=== PATIENT | female | born 1950 | race Caucasian/White ===

== ENCOUNTER 2016-11-25 14:38 | Emergency (ER) | payer OTHER, MEDICARE ==
[2016-11-25 14:50] VITALS: TEMP 98.1; O2SAT 96
[2016-11-25] MEDS ORDERED: NS 1,000 ML BAG *FOR SEPSIS ORDER SET ONLY IV ONE (15:04)
[2016-11-25 15:29] LABS: % IMMATURE GRANULYOCYTES 1.1 % (0.0-1.1); ABSOLUTE IMMATURE GRANULOCYTES 0.09 10^3/uL (0.00-0.10); ADD DIFF? NO; ADD MORPH? NO; ADD SCAN? NO; ATYPICAL LYMPHOCYTE FLAG 0 (0-99); FRAGMENT RBC FLAG 0 (0-99); HEMATOCRIT 40.1 % (38.0-47.0); HEMOGLOBIN 13.5 g/dL (12.6-16.3); LEFT SHIFT FLG 10 (0-99); LIPEMIA HEMOLYSIS FLAG 80 (0-99); MEAN CELL HEMOGLOBIN 29.5 pg (27.9-34.1); MEAN CELL HEMOGLOBIN CONCENTR. 33.7 g/dL (32.4-36.7); MEAN CELL VOLUME 87.6 fL (81.5-99.8); MEAN PLATELET VOLUME 8.8 fL (8.7-11.7); PLATELET CLUMPS FLAG 0 (0-99); PLATELET COUNT 375 10^3/uL (150-400); RED BLOOD CELL COUNT 4.58 10^6/uL (4.18-5.33); RED CELL DISTRIBUTION WIDTH 12.2 % (11.5-15.2)
[2016-11-25 15:40] LABS: INR 0.92 (0.83-1.16); PROTIME(PATIENT) 12.3 SEC (12.0-15.0)
[2016-11-25 15:41] LABS: APTT 22.9 SEC (23.0-38.0)
[2016-11-25 15:51] LABS: ANION GAP 14 mEq/L (8-16); BILIRUBIN,TOTAL 0.8 mg/dL (0.1-1.4); CARBON DIOXIDE 24 mEq/l (22-31); CHLORIDE 94 mEq/L (97-110); CREATININE 1.3 mg/dL (0.6-1.0); GLOMERULAR FILTRATION RATE 41; GLUCOSE 182 mg/dL (70-100); POTASSIUM 4.7 mEq/L (3.5-5.2); SODIUM 132 mEq/L (134-144)
[2016-11-25 15:54] LABS: COLOR YELLOW; LEUKOCYTE ESTERASE,URINE 3+ (NEGATIVE); NITRITE,URINE NEGATIVE (NEGATIVE)
[2016-11-25 15:55] VITALS: BP 124/76; PULSE 77; RESP 16
[2016-11-25 16:07] LABS: MUCUS TRACE /lpf (NONE-1+); WBC,URINE 50-182 /hpf (0-3)
--- NOTE | 2016-11-25 16:17 | EDPHY ---
H & P Stated Complaint: ?urosepsis Time Seen by Provider: 11/25/16 15:04 HPI/ROS: Chief complaint: Urinary tract infection History of present illness: This is a 65-year-old female who presents to the emergency department for evaluation of urinary tract infection. Patient developed symptoms over the last week. She reports pain with urination, urinary frequency, urinary hesitancy, lower abdominal pain and back pain. She has seen her primary care doctor on multiple occasions. Initially she was placed on Macrobid. However urine culture came back as resistance to Macrobid. She was switched to Bactrim. She followed-up with her primary care doctor again as she was not feeling better and was subsequently switched to ampicillin. On re-evaluation with her doctor today she appeared much worse, she had rigors and was hypotensive and was sent to the emergency department for further evaluation and care. Her , who is at bedside, states she has been losing consciousness recently. They are concerned this is due to the ampicillin she is on. She denies other associated signs or symptoms including no fevers, no vomiting or diarrhea. Review of systems: A 10 point review of systems was obtained and other than described above was negative - Personal History Current Tetanus/Diphtheria Vaccine: No Tetanus Vaccine Date: with in 10 years - Medical/Surgical History Hx Asthma: No Hx Chronic Respiratory Disease: No Hx Diabetes: Yes Hx Cardiac Disease: Yes Hx Renal Disease: No Hx Cirrhosis: No Hx Alcoholism: No Hx HIV/AIDS: No Hx Splenectomy or Spleen Trauma: No Other PMH: Chronic back pain, diabetes, anxiety, anemia, opiate withdrawal, gait instability, hyperlipidemia, hypertension, hypotension. Chronic pain - Social History Smoking Status: Never smoked - Physical Exam Exam: General Appearance: Alert, nontoxic. Eyes: Pupils equal and round no pallor or injection. ENT, Mouth: Mucous membranes moist. Respiratory: There are no retractions, lungs are clear to auscultation. Cardiovascular: Regular rate and rhythm. Gastrointestinal: Bowel sounds present. Abdomen soft, nondistended. Diffuse tenderness most pronounced in the lower quadrants. Neurological: Alert and oriented. Strength and sensation intact and symmetrical. Skin: Warm and dry, no rashes. Musculoskeletal: Neck is supple nontender. Extremities are symmetrical, full range of motion. Psychiatric: Patient is mildly agitated. Constitutional: Initial Vital Signs Temperature (C) 36.7 C 11/25/16 14:47 Heart Rate 90 11/25/16 14:47 Respiratory Rate 18 11/25/16 14:47 Blood Pressure 93/80 L 11/25/16 14:47 O2 Sat (%) 96 11/25/16 14:47 O2 Delivery Mode Room Air Allergies/Adverse Reactions: metronidazole [From Flagyl] Allergy (Verified 11/25/16 14:45) Home Medications: Medication Instructions Recorded Simvastatin [Zocor 20 mg] 20 mg PO DAILY18 11/05/12 Levothyroxine [Synthroid 100 mcg 100 mcg PO DAILY06 08/27/14 (*)] Lisinopril [Zestril 10 mg (*)] 5 mg PO DAILY 08/27/14 Herbals/Supplements -Info Only 1 ea PO DAILY 06/29/16 Methocarbamol [Robaxin 750 mg (*)] 375 - 750 mg PO QID PRN 06/29/16 traZODone [traZODONE 100MG (*)] 200 mg PO HS PRN 06/29/16 Buprenorphine [Butrans 10 mcg/hr] 10 each TD Q7D 08/24/16 Insulin Glargine [Lantus 100 10 units SC HS #0 ml 08/25/16 UNITS/ML (*)] Insulin Regular Human [Humulin R 3 unit SC TIDMEAL #0 vial 08/25/16 100 units/ml (*)] oxyCODONE IR [Oxycodone Ir (*)] 15 mg PO Q3 PRN #20 tab 08/25/16 oxyCODONE IR [Oxycodone Ir (*)] 15 mg PO Q6 PRN #10 tab 08/28/16 Cephalexin [Keflex] 500 mg PO QID 10 Days 11/25/16 New Antibiotic 11/25/16 Medical Decision Making ED Course/Re-evaluation: Patient discussed with my secondary supervising physician Dr. Adam Duncan. Patient presents to the emergency department for evaluation of worsening urinary tract infection. On presentation she is afebrile, mildly hypotensive otherwise vital signs are stable. She is unwell appearing. IV is established and IV hydration was begun. Sepsis screening was obtained and negative. It does appear she has a continued urinary tract infection. During workup and treatment in the emergency department patient contacted the nurse and stated she wanted to immediately be discharged home. I discussed with her we had not finished our evaluation and treatment. She was adamant that she be discharged home. I did ask to finish IV hydrating her, again she declined. She is requesting to switch antibiotics. She is competent to make these decisions. She is discharged home on Keflex. She is asked to follow up with her primary care doctor next week for recheck. Strict return precautions are given. Patient voiced understanding and agreement with plan. Differential Diagnosis: Included but not limited to cystitis, pyelonephritis, urosepsis, colitis, appendicitis, diverticulitis - Data Points Laboratory Results: Laboratory Results 11/25/16 15:20 11/25/16 15:20 11/25/16 11/25/16 15:30 15:20 WBC 8.20 10^3/uL (3.80-9.50) RBC 4.58 10^6/uL (4.18-5.33) Hgb 13.5 g/dL (12.6-16.3) Hct 40.1 % (38.0-47.0) MCV 87.6 fL (81.5-99.8) MCH 29.5 pg (27.9-34.1) MCHC 33.7 g/dL (32.4-36.7) RDW 12.2 % (11.5-15.2) Plt Count 375 10^3/uL (150-400) MPV 8.8 fL (8.7-11.7) Neut % (Auto) 65.9 % (39.3-74.2) Lymph % (Auto) 23.7 % (15.0-45.0) [place] % (Auto) 7.0 % (4.5-13.0) Eos % (Auto) 1.1 % (0.6-7.6) Baso % (Auto) 1.2 % (0.3-1.7) Nucleat RBC Rel Count 0.0 % (0.0-0.2) Absolute Neuts (auto) 5.41 10^3/uL (1.70-6.50) Absolute Lymphs (auto) 1.94 10^3/uL (1.00-3.00) Absolute Monos (auto) 0.57 10^3/uL (0.30-0.80) Absolute Eos (auto) 0.09 10^3/uL (0.03-0.40) Absolute Basos (auto) 0.10 10^3/uL (0.02-0.10) Absolute Nucleated RBC 0.00 10^3/uL (0-0.01) Immature Gran % 1.1 % (0.0-1.1) Immature Gran # 0.09 10^3/uL (0.00-0.10) PT 12.3 SEC (12.0-15.0) INR 0.92 (0.83-1.16) APTT 22.9 L SEC (23.0-38.0) VBG Lactic Acid 1.7 mmol/L (0.7-2.1) Sodium 132 L mEq/L (134-144) Potassium 4.7 mEq/L (3.5-5.2) Chloride 94 L mEq/L (97-110) Carbon Dioxide 24 mEq/l (22-31) Anion Gap 14 mEq/L (8-16) BUN 20 mg/dL (7-23) Creatinine 1.3 H mg/dL (0.6-1.0) Estimated GFR 41 Glucose 182 H mg/dL (70-100) Calcium 10.0 mg/dL (8.5-10.4) Total Bilirubin 0.8 mg/dL (0.1-1.4) Troponin I < 0.012 ng/mL (0-0.034) Urine Color YELLOW Urine Appearance HAZY Urine pH 6.0 (5.0-7.5) Ur Specific [place] 1.011 (1.002-1.030) Urine Protein 1+ H (NEGATIVE) Urine Ketones 1+ H (NEGATIVE) Urine Blood NEGATIVE (NEGATIVE) Urine Nitrate NEGATIVE (NEGATIVE) Urine Bilirubin NEGATIVE (NEGATIVE) Urine Urobilinogen NEGATIVE EU (0.2-1.0) Ur Leukocyte Esterase 3+ H (NEGATIVE) Urine RBC 5-10 H /hpf (0-3) Urine WBC 50-182 H /hpf (0-3) Ur Epithelial Cells NONE SEEN /lpf (NONE-1+) Hyaline Casts 5-15 /lpf (0-1) Urine Mucus TRACE /lpf (NONE-1+) Urine Glucose NEGATIVE (NEGATIVE) Medications Given: Discontinued Medications Cephalexin HCl (Keflex) 500 mg PO EDNOW ONE PRN Reason: Protocol Stop: 11/25/16 16:28 Last Admin: 11/25/16 16:34 Dose: 500 mg Sodium Chloride (Ns *For Sepsis Order Set Only*) 1,429 ml IV ONCE ONE Stop: 11/25/16 15:05 Last Admin: 11/25/16 15:20 Dose: 1,429 ml Departure - Departure Disposition: Home, Routine, Self-Care Clinical Impression: UTI (urinary tract infection) Condition: Good Instructions: Urinary Tract Infection in Women (ED) Additional Instructions: Follow-up with your primary care doctor on Monday for recheck Continue antibiotics as prescribed Please let your primary care doctor know that your creatinine was elevated at 1.3 You were offered fluid hydration, you declined Drink plenty of fluids to stay hydrated If symptoms worsen or new symptoms develop return to the emergency department for recheck Referrals: Arthur Danielle MD [Primary Care Provider] - As per Instructions Prescriptions: Cephalexin [Keflex] 500 mg PO QID 10 Days
--- NOTE | 2016-11-25 16:23 | CPEKG ---
Heart Rate: 71 RR Interval: 845 P-R Interval: 148 QRSD Interval: 68 QT Interval: 372 QTC Interval: 405 P [place]: 68 QRS [place]: 50 T Wave [place]: 51 EKG Severity - OTHERWISE NORMAL ECG - EKG Impression: SINUS RHYTHM EKG Impression: LOW VOLTAGE IN FRONTAL LEADS EKG Impression: Minimal ST elevation in inferior leads Electronically Signed By: Jun Gandhi 28-Nov-2016 07:25:50
[2016-11-25] MEDS ORDERED: CEPHALEXIN 500 MG CAP PO ONE (16:27)
== END 2016-11-25 16:39 | disposition home or self-care (01) ==
DX: N39.0 Urinary tract infection, site not specified (principal); E11.9 Type 2 diabetes mellitus without complications; I10 Essential (primary) hypertension; Z79.4 Long term (current) use of insulin

== ENCOUNTER 2017-01-30 12:22 | Emergency (ER) | payer OTHER, MEDICARE ==
[2017-01-30 12:30] VITALS: PULSE 89; TEMP 97.3
[2017-01-30] MEDS ORDERED: ONDANSETRON 4 MG/2 ML VIAL IVP ONE (13:00)
--- NOTE | 2017-01-30 13:06 | EDPHY ---
H & P Time Seen by Provider: 01/30/17 12:40 HPI/ROS: CHIEF COMPLAINT: Urinary retention HISTORY OF PRESENT ILLNESS: Patient is a 66-year-old female with a history of urinary retention, bladder prolapse, and chronic back pain. Patient states that she has intermittent episodes of urinary retention. She has not been able to urinate for the past 16 hours. She states this is typical. She recently took a muscle relaxer and thinks this may be causative. Patient has had minimal dysuria with no hematuria. No flank pain. No fevers or chills. She has no abdominal pain. No nausea or vomiting. Patient states that she is running out of her OxyContin. She states her pain physician will not refill her prescription early. REVIEW OF SYSTEMS: My complete review of systems is negative except as mentioned in the HPI. Past Medical/Surgical History: Includes chronic back pain, diabetes, anxiety, anemia, opioid dependence, gait instability, hyperlipidemia, hypertension, bladder prolapse Past surgical history: Includes back surgeries, Social history: The patient is here with her . She does not smoke use alcohol. Smoking Status: Never smoked Physical Exam: Vitals noted. 97/61. Afebrile. GENERAL: No acute distress, alert. HEENT: Eyes normal to inspection, normal pharynx, no signs of dehydration. NECK: No thyromegaly, no lymphadenopathy, supple. RESPIRATORY: Clear to auscultation bilaterally, no rales, rhonchi or wheezing. CVS: Regular rate and rhythm, no rubs, murmurs, or gallops. ABDOMEN: Soft, nontender, mild bladder distention, no organomegaly. BACK: Normal to inspection, no CVA tenderness. SKIN: Normal color, no rash, warm, dry. No pallor. EXTREMITIES: No pedal edema, no calf tenderness, no Homans sign or cords, no joint swelling. NEURO/PSYCH: Alert and oriented, normal mood and affect, normal motor sensory exam. Constitutional: Initial Vital Signs Temperature (C) 36.3 C 01/30/17 12:26 Heart Rate 89 01/30/17 12:26 Respiratory Rate 14 01/30/17 12:26 Blood Pressure 97/61 L 01/30/17 12:26 O2 Sat (%) 100 01/30/17 12:26 O2 Delivery Mode Room Air Allergies/Adverse Reactions: codeine Allergy (Verified 01/30/17 12:30) metronidazole [From Flagyl] Allergy (Verified 11/25/16 14:45) Home Medications: Medication Instructions Recorded Simvastatin [Zocor 20 mg] 20 mg PO DAILY18 11/05/12 Levothyroxine [Synthroid 100 mcg 100 mcg PO DAILY06 08/27/14 (*)] Lisinopril [Zestril 10 mg (*)] 5 mg PO DAILY 08/27/14 Herbals/Supplements -Info Only 1 ea PO DAILY 06/29/16 Methocarbamol [Robaxin 750 mg (*)] 375 - 750 mg PO QID PRN 06/29/16 traZODone [traZODONE 100MG (*)] 200 mg PO HS PRN 06/29/16 Buprenorphine [Butrans 10 mcg/hr] 10 each TD Q7D 08/24/16 Insulin Glargine [Lantus 100 10 units SC HS #0 ml 08/25/16 UNITS/ML (*)] Insulin Regular Human [Humulin R 3 unit SC TIDMEAL #0 vial 08/25/16 100 units/ml (*)] oxyCODONE IR [Oxycodone Ir (*)] 15 mg PO Q3 PRN #20 tab 08/25/16 oxyCODONE IR [Oxycodone Ir (*)] 15 mg PO Q6 PRN #10 tab 08/28/16 Cephalexin [Keflex] 500 mg PO QID 10 Days 11/25/16 New Antibiotic 11/25/16 Cephalexin [Keflex (*)] 500 mg PO QID 7 Days 01/30/17 Medical Decision Making ED Course/Re-evaluation: In the emergency department I discussed the plan with the patient. I answered all her questions. Dietrich was placed. UA was sent. I sent a chemistry panel to check her renal function. Patient discussed getting a refill OxyContin. I told her she would need to get her prescriptions refilled through her pain physician. I reviewed the patient's laboratory studies. Her creatinine was normal at 0.8. She does appear to have urinary tract infection. She was given a dose of Keflex orally. She was given a prescription of Keflex prior to leaving. She will follow up with the primary care physician as well as a pain physician. Differential Diagnosis: My differential includes but is not limited to urinary retention, brighter prolapse, urinary tract infection, pyelonephritis, bacteremia, sepsis, renal failure, chronic pain - Data Points Laboratory Results: Laboratory Results 01/30/17 13:01 01/30/17 01/30/17 13:20 13:01 Sodium 135 mEq/L mEq/L (134-144) Potassium 4.3 mEq/L mEq/L (3.5-5.2) Chloride 102 mEq/L mEq/L (97-110) Carbon Dioxide 21 mEq/l L mEq/l (22-31) Anion Gap 12 mEq/L mEq/L (8-16) BUN 12 mg/dL mg/dL (7-23) Creatinine 0.8 mg/dL mg/dL (0.6-1.0) Estimated GFR > 60 Glucose 218 mg/dL H mg/dL (70-100) Calcium 9.9 mg/dL mg/dL (8.5-10.4) Urine Color YELLOW Urine Appearance CLEAR Urine pH 6.0 (5.0-7.5) Ur Specific [place] 1.010 (1.002-1.030) Urine Protein NEGATIVE (NEGATIVE) Urine Ketones TRACE H (NEGATIVE) Urine Blood NEGATIVE (NEGATIVE) Urine Nitrate NEGATIVE (NEGATIVE) Urine Bilirubin NEGATIVE (NEGATIVE) Urine Urobilinogen NEGATIVE EU EU (0.2-1.0) Ur Leukocyte Esterase 3+ H (NEGATIVE) Urine RBC 3-5 /hpf H /hpf (0-3) Urine WBC 50-182 /hpf H /hpf (0-3) Ur Epithelial Cells TRACE /lpf /lpf (NONE-1+) Urine Bacteria TRACE /hpf H /hpf (NONE SEEN) Ur Culture Indicated? INDICATED H (NI) Urine Glucose 1+ H (NEGATIVE) Medications Given: Discontinued Medications Morphine Sulfate (Morphine) 4 mg IVP EDNOW ONE Stop: 01/30/17 13:01 Last Admin: 01/30/17 13:47 Dose: Not Given Ondansetron HCl (Zofran) 4 mg IVP EDNOW ONE Stop: 01/30/17 13:01 Last Admin: 01/30/17 13:48 Dose: Not Given Ondansetron HCl (Zofran Odt) 4 mg PO EDNOW ONE Stop: 01/30/17 13:47 Last Admin: 01/30/17 13:57 Dose: 4 mg Oxycodone HCl (Oxycodone Ir) 10 mg PO EDNOW ONE Stop: 01/30/17 13:47 Last Admin: 01/30/17 13:57 Dose: 10 mg Departure - Departure Disposition: Home, Routine, Self-Care Clinical Impression: Acute retention of urine Urinary tract infection Qualifiers: Urinary tract infection type: acute cystitis Hematuria presence: with hematuria Qualified Code(s): N30.01 - Acute cystitis with hematuria Condition: Good Instructions: Acute Urinary Retention in Women (ED) Additional Instructions: You need close follow-up with urologist or primary care physician to remove your Dietrich catheter in 2-3 days. Return with increasing pain, Dietrich malfunction , fever, chills or any other concerns. Referrals: Rich Davis MD [Medical Doctor] - 2-3 days without fail Prescriptions: Cephalexin [Keflex (*)] 500 mg PO QID 7 Days
[2017-01-30 13:39] LABS: ANION GAP 12 mEq/L (8-16); CALCIUM 9.9 mg/dL (8.5-10.4); CARBON DIOXIDE 21 mEq/l (22-31); CHLORIDE 102 mEq/L (97-110); CREATININE 0.8 mg/dL (0.6-1.0); GLOMERULAR FILTRATION RATE > 60; GLUCOSE 218 mg/dL (70-100); POTASSIUM 4.3 mEq/L (3.5-5.2); SODIUM 135 mEq/L (134-144)
[2017-01-30] MEDS ORDERED: ONDANSETRON DISINTEGRATING 4 MG TAB PO ONE (13:46)
[2017-01-30] MEDS ORDERED: oxyCODONE IR 5 MG TAB PO ONE (13:46)
[2017-01-30 13:59] VITALS: BP 134/70; RESP 16; O2SAT 98
[2017-01-30 14:00] LABS: COLOR YELLOW; LEUKOCYTE ESTERASE,URINE 3+ (NEGATIVE); NITRITE,URINE NEGATIVE (NEGATIVE)
[2017-01-30 14:03] LABS: BACTERIA TRACE /hpf (NONE SEEN); WBC,URINE 50-182 /hpf (0-3)
[2017-01-30] MEDS ORDERED: CEPHALEXIN 500 MG CAP PO ONE (14:08)
== END 2017-01-30 14:40 | disposition home or self-care (01) ==
LOC: EDUNIT#
PROC: 0T9B70Z Drainage of Bladder with Drainage Device, Via Natural or Artificial Opening (ICD-10-PCS; principal; 2017-01-30)
DX: R33.9 Retention of urine, unspecified (principal); N30.01 Acute cystitis with hematuria; B96.89 Other specified bacterial agents as the cause of diseases classified elsewhere; E11.9 Type 2 diabetes mellitus without complications; I10 Essential (primary) hypertension; Z79.4 Long term (current) use of insulin
CPT/HCPCS: J2405

== ENCOUNTER 2017-02-11 16:19 | Emergency (ER) | payer OTHER, MEDICARE ==
[2017-02-11 16:27] VITALS: RESP 16
--- NOTE | 2017-02-11 17:20 | EDPHY ---
H & P Stated Complaint: pt concerned for hematuria and decreased urinary output in thompson x 2 days Time Seen by Provider: 02/11/17 17:01 HPI/ROS: CHIEF COMPLAINT: Hematuria HISTORY OF PRESENT ILLNESS: The patient is a 66-year-old female with history of chronic pain, urethral prolapse and frequent urinary tract infections. She had a Thompson catheter placed here a week ago to treat her for urinary retention and urinary tract infection. She finished her antibiotics. She and her became concerned today when there was a slight tinge of pink to the urine. She denies having any back pain or fevers or suprapubic pain. It has continued to drain. There concern for bleeding or infection. REVIEW OF SYSTEMS: Constitutional: denies: chills, fever, recent illness, recent injury EENTM: denies: blurred vision, double vision, nose congestion Respiratory: denies: cough, shortness of breath Cardiac: denies: chest pain, irregular heart rate, lightheadedness, palpitations Gastrointestinal/Abdominal: denies: abdominal pain, diarrhea, nausea, vomiting, blood streaked stools Genitourinary: See HPI Musculoskeletal: denies: joint pain, muscle pain Skin: denies: lesions, rash, jaundice, bruising Neurological: denies: headache, numbness, paresthesia, tingling, dizziness, weakness Hematologic/Lymphatic: denies: blood clots, easy bleeding, easy bruising Immunologic/allergic: denies: HIV/AIDS, transplant EXAM: GENERAL: Well-appearing, well-nourished and in no acute distress. HEAD: Atraumatic, normocephalic. EYES: Pupils equal round and reactive to light, extraocular movements intact, sclera anicteric, conjunctiva are normal. ENT: TMs normal, nares patent, oropharynx clear without exudates. Moist mucous membranes. NECK: Normal range of motion, supple without lymphadenopathy or JVD. LUNGS: Breath sounds clear to auscultation bilaterally and equal. No wheezes rales or rhonchi. HEART: Regular rate and rhythm without murmurs, rubs or gallops. ABDOMEN: Soft, nontender, normoactive bowel sounds. No guarding, no rebound. No masses appreciated. Small amount of yellow clear urine in Thompson catheter bag BACK: No CVA tenderness, no spinal tenderness, step-offs or deformities EXTREMITIES: Normal range of motion, no pitting or edema. No clubbing or cyanosis. NEUROLOGICAL: Cranial nerves II through XII grossly intact. Normal speech, normal gait. 5/5 strength, normal movement in all extremities, normal sensation PSYCH: Normal mood, normal affect. SKIN: Warm, dry, normal turgor, no visible rashes or lesions. Source: Patient Exam Limitations: No limitations - Personal History Current Tetanus/Diphtheria Vaccine: Unsure Current Tetanus Diphtheria and Acellular Pertussis (TDAP): Unsure Tetanus Vaccine Date: with in 10 years - Medical/Surgical History Hx Asthma: No Hx Chronic Respiratory Disease: No Hx Diabetes: Yes Hx Cardiac Disease: Yes Hx Renal Disease: No Hx Cirrhosis: No Hx Alcoholism: No Hx HIV/AIDS: No Hx Splenectomy or Spleen Trauma: No Other PMH: Chronic back pain, diabetes, anxiety, anemia, opiate withdrawal, gait instability, hyperlipidemia, hypertension, hypotension, bladder prolapse. Chronic pain - Family History Significant Family History: No pertinent family hx - Social History Smoking Status: Never smoked Alcohol Use: None Drug Use: None Constitutional: Initial Vital Signs Temperature (C) 37.2 C 02/11/17 16:25 Heart Rate 105 H 02/11/17 16:25 Respiratory Rate 16 02/11/17 16:25 Blood Pressure 115/77 02/11/17 16:25 O2 Sat (%) 96 02/11/17 16:25 O2 Delivery Mode Room Air Allergies/Adverse Reactions: codeine Allergy (Verified 01/30/17 12:30) metronidazole [From Flagyl] Allergy (Verified 11/25/16 14:45) Home Medications: Medication Instructions Recorded Simvastatin [Zocor 20 mg] 20 mg PO DAILY18 11/05/12 Levothyroxine [Synthroid 100 mcg 100 mcg PO DAILY06 08/27/14 (*)] Lisinopril [Zestril 10 mg (*)] 5 mg PO DAILY 08/27/14 Herbals/Supplements -Info Only 1 ea PO DAILY 06/29/16 Methocarbamol [Robaxin 750 mg (*)] 375 - 750 mg PO QID PRN 06/29/16 traZODone [traZODONE 100MG (*)] 200 mg PO HS PRN 06/29/16 Buprenorphine [Butrans 10 mcg/hr] 10 each TD Q7D 08/24/16 Insulin Glargine [Lantus 100 10 units SC HS #0 ml 08/25/16 UNITS/ML (*)] Insulin Regular Human [Humulin R 3 unit SC TIDMEAL #0 vial 08/25/16 100 units/ml (*)] oxyCODONE IR [Oxycodone Ir (*)] 15 mg PO Q3 PRN #20 tab 08/25/16 oxyCODONE IR [Oxycodone Ir (*)] 15 mg PO Q6 PRN #10 tab 08/28/16 Cephalexin [Keflex] 500 mg PO QID 10 Days 11/25/16 New Antibiotic 11/25/16 Cephalexin [Keflex (*)] 500 mg PO QID 7 Days 01/30/17 Medical Decision Making ED Course/Re-evaluation: Will flush the Thompson catheter to remove any possible clots or bleeding. We will send the urine for cultures although the patient is not symptomatic for urinary tract infection and it is difficult to tell setting of indwelling Thompson catheter. We will defer antibiotics at this time. Patient and understand agree with this plan. They declined further workup or testing. Differential Diagnosis: Partial list of the Differential diagnosis considered include but were not limited to; urinary tract infection, the hematuria, and although unlikely based on the history and physical exam, I also considered cancer, perforation. I discussed these differential diagnoses and the plan with the patient as well as the usual and expected course. The patient understands that the diagnosis is provisional and that in medicine we are not always correct and that further workup is often warranted. Usual and customary warnings were given. All of the patient's questions were answered. The patient was instructed to return to the emergency department should the symptoms at all worsen or return, otherwise to followup with the physician as we discussed. - Data Points Laboratory Results: 02/11/17 17:15 Urine Color RED Urine Appearance TURBID Urine pH 9.0 H (5.0-7.5) Ur Specific [place] 1.018 (1.002-1.030) Urine Protein 3+ H (NEGATIVE) Urine Ketones TRACE H (NEGATIVE) Urine Blood 2+ H (NEGATIVE) Urine Nitrate NEGATIVE (NEGATIVE) Urine Bilirubin NEGATIVE (NEGATIVE) Urine Urobilinogen NEGATIVE EU EU (0.2-1.0) Ur Leukocyte Esterase 3+ H (NEGATIVE) Urine RBC 50-182 /hpf H /hpf (0-3) Urine WBC 25-50 /hpf H /hpf (0-3) Ur Epithelial Cells NONE SEEN /lpf /lpf (NONE-1+) Triple Phos Crystals PRESENT /hpf /hpf (NONE-1+) Urine Mucus TRACE /lpf /lpf (NONE-1+) Urine Glucose 1+ H (NEGATIVE) Departure - Departure Disposition: Home, Routine, Self-Care Clinical Impression: Hematuria Condition: Fair Instructions: Thompson Catheter Placement and Care (ED) Referrals: Arthur Danielle MD [Primary Care Provider] - As per Instructions
[2017-02-11 17:27] LABS: COLOR RED; LEUKOCYTE ESTERASE,URINE 3+ (NEGATIVE); NITRITE,URINE NEGATIVE (NEGATIVE)
[2017-02-11 17:33] LABS: MUCUS TRACE /lpf (NONE-1+); RBC,URINE 50-182 /hpf (0-3); WBC,URINE 25-50 /hpf (0-3)
[2017-02-11 17:57] VITALS: BP 95/66; PULSE 116; TEMP 98.1; O2SAT 97
== END 2017-02-11 17:57 | disposition home or self-care (01) ==
LOC: EEVIPCON 16:19
DX: R31.9 Hematuria, unspecified (principal); E11.9 Type 2 diabetes mellitus without complications; I10 Essential (primary) hypertension; Z79.4 Long term (current) use of insulin

== ENCOUNTER → 2017-03-14 | Outpatient (CLI) | payer OTHER, MEDICARE | LOC: FIMAGING 14:20 | PROVIDERS: ATTEND Urology | DX: N20.0 Calculus of kidney (principal); N39.0 Urinary tract infection, site not specified; K59.00 Constipation, unspecified; Z96.0 Presence of urogenital implants ==

== ENCOUNTER 2017-03-17 10:02 | Inpatient (IN) | payer OTHER, MEDICARE ==
--- NOTE | 2017-03-17 10:05 | EDPHY ---
HPI/HX/ROS/PE/MDM Narrative: CHIEF COMPLAINT: AMS HPI: The patient is a 66 y/o female, with a history of recurrent UTIs, arriving via EMS with gradually declining mental status over the last 2 days. She has several ED visits and admissions over the last year for UTI-related issues and was most recently seen in the ED on 02/11/17 for hematuria. She had a Dietrich placed at that time that has since been replaced once and is still in place. She completed a 7-day course of Augmentin about 1 week ago. Per EMS, she has been quite somnolent today and disoriented. Her , who is her primary host/hostess ground, reports her symptoms have been a slow decline and are consistent with past UTIs. Patient is noncontributory during assessment, though states when healthy she has normal mental capacity. REVIEW OF SYSTEMS: Aside from elements discussed in the HPI, a comprehensive 10-point review of systems was reviewed and is negative. PMH: Recurrent UTIs, spinal fusions C5-C6, T11, S1, diabetes, chronic pain with continuous narcotic dependency, hypothyroidism, hypertension, hyperlipidemia, depression, anxiety, cholecystectomy, Prior medical records reviewed including admission 08/24/16 for back pain and vomiting, ED visit 02/11/17 for hematuria. SOCIAL HISTORY: , lives with at private residence, is primary health care technician Urologist: Dr. Davis. PHYSICAL EXAM: General:Patient is somnolent, hypotensive BP 79/40, tachycardic HR 106 ENT:Eyes are normal to inspection. ENT inspection normal. Neck: Normal inspection. Full range of motion. Respiratory:No respiratory distress. Breath sounds normal bilaterally. Cardiovascular: Tachycardic regular rate and rhythm. Strong peripheral pulses. Normal cap refill. Abdomen:The abdomen is nontender to palpation. There are no peritoneal signs. Dietrich in place. Back: Normal to inspection. No tenderness to palpation. Skin: Normal color. No rash. Warm and dry. Decubitus Extremities: Normal appearance. Full range of motion. Neuro: Disoriented. Moves all 4 extremities ED Course: IV established. Sepsis labs drawn. UA ordered. Patient placed on cardiac rehabilitation program director. Chest x-ray ordered. 1L IV NS administered. Patient meets sepsis criteria. The 12 lead EKG was interpreted by myself. Sinus rhythm rate 95. See hard copy and/or "tracemaster" electronic copy for interpretation. 1035: Reassessed patient. She is no longer hypotensive and is awake complaining of chronic back pain. BP now 132/62. WBC 27, lactate 2.1. Weight-based IV fluid bolus ordered. 1gm IV Ceftriaxone administered. 1058: Patient is now hypotensive at 81/36. She has received about 1250mL IV fluid so far. Additional fluids hung on pressure bag. Consider central line or PICC if unable to improve BP. 1104: BP 97/46. 0.4mg IV Narcan administered. 1120: BP is now 131/47. Patient is awake and yelling at RN for muscle relaxant. 50mcg IV Fentanyl administered. 1130: Spoke with hospitalist service. Dr. Keating accepts admission. MDM: This patient presents with likely urosepsis. Complicating her case, her mental status and BP tend to wax and wane, which I believe is secondary to over- medication with narcotics, as a mild dose of narcan results in rapid improvement in both. As such, I do not think she meets criteria for septic shock, and do not think either pressors or a central line is indicated. - Data Points Imaging: I viewed and interpreted images myself Laboratory Results: Laboratory Results 03/17/17 10:17 03/17/17 10:17 03/17/17 03/17/17 03/17/17 10:25 10:17 10:17 WBC 27.01 10^3/uL H 10^3/uL (3.80-9.50) RBC 4.01 10^6/uL L 10^6/uL (4.18-5.33) Hgb 11.7 g/dL L g/dL (12.6-16.3) Hct 35.0 % L % (38.0-47.0) MCV 87.3 fL fL (81.5-99.8) MCH 29.2 pg pg (27.9-34.1) MCHC 33.4 g/dL g/dL (32.4-36.7) RDW 13.3 % % (11.5-15.2) Plt Count 399 10^3/uL 10^3/uL (150-400) MPV 9.4 fL fL (8.7-11.7) Neut % (Auto) 84.3 % H % (39.3-74.2) Lymph % (Auto) 4.0 % L % (15.0-45.0) [place] % (Auto) 10.0 % % (4.5-13.0) Eos % (Auto) 0.4 % L % (0.6-7.6) Baso % (Auto) 0.5 % % (0.3-1.7) Nucleat RBC Rel Count 0.0 % % (0.0-0.2) Absolute Neuts (auto) 22.78 10^3/uL H 10^3/uL (1.70-6.50) Absolute Lymphs (auto) 1.08 10^3/uL 10^3/uL (1.00-3.00) Absolute Monos (auto) 2.69 10^3/uL H 10^3/uL (0.30-0.80) Absolute Eos (auto) 0.11 10^3/uL 10^3/uL (0.03-0.40) Absolute Basos (auto) 0.13 10^3/uL H 10^3/uL (0.02-0.10) Absolute Nucleated RBC 0.00 10^3/uL 10^3/uL (0-0.01) Immature Gran % 0.8 % % (0.0-1.1) Immature Gran # 0.22 10^3/uL H 10^3/uL (0.00-0.10) VBG Lactic Acid Sodium 132 mEq/L L mEq/L (134-144) Potassium 4.1 mEq/L mEq/L (3.5-5.2) Chloride 98 mEq/L mEq/L (97-110) Carbon Dioxide 24 mEq/l mEq/l (22-31) Anion Gap 10 mEq/L mEq/L (8-16) BUN 14 mg/dL mg/dL (7-23) Creatinine 0.8 mg/dL mg/dL (0.6-1.0) Estimated GFR > 60 Glucose 194 mg/dL H mg/dL (70-100) Calcium 9.7 mg/dL mg/dL (8.5-10.4) Urine Color RED Urine Appearance MODERATELY TURBID Urine pH 5.0 (5.0-7.5) Ur Specific [place] 1.006 (1.002-1.030) Urine Protein 2+ H (NEGATIVE) Urine Ketones NEGATIVE (NEGATIVE) Urine Blood 3+ H (NEGATIVE) Urine Nitrate NEGATIVE (NEGATIVE) Urine Bilirubin NEGATIVE (NEGATIVE) Urine Urobilinogen NEGATIVE EU EU (0.2-1.0) Ur Leukocyte Esterase 3+ H (NEGATIVE) Urine RBC Pending Urine WBC Pending Ur Epithelial Cells Pending Urine Glucose 2+ H (NEGATIVE) 03/17/17 03/17/17 10:17 10:15 WBC RBC Hgb Hct MCV MCH MCHC RDW Plt Count MPV Neut % (Auto) Lymph % (Auto) [place] % (Auto) Eos % (Auto) Baso % (Auto) Nucleat RBC Rel Count Absolute Neuts (auto) Absolute Lymphs (auto) Absolute Monos (auto) Absolute Eos (auto) Absolute Basos (auto) Absolute Nucleated RBC Immature Gran % Immature Gran # VBG Lactic Acid 2.1 mmol/L mmol/L (0.7-2.1) Sodium Potassium Chloride Carbon Dioxide Anion Gap BUN Creatinine Estimated GFR Glucose Calcium Urine Color REJ Urine Appearance TNP Urine pH TNP Ur Specific [place] TNP Urine Protein TNP Urine Ketones TNP Urine Blood TNP Urine Nitrate TNP Urine Bilirubin TNP Urine Urobilinogen TNP Ur Leukocyte Esterase TNP Urine RBC Urine WBC Ur Epithelial Cells Urine Glucose TNP Medications Given: Discontinued Medications Ceftriaxone Sodium/Dextrose (Rocephin 1 Gm (Premix)) 50 mls @ 100 mls/hr IV EDNOW ONE PRN Reason: Protocol Stop: 03/17/17 11:08 Last Admin: 03/17/17 10:53 Dose: 50 mls Naloxone HCl (Narcan) 0.4 mg IVP EDNOW ONE Stop: 03/17/17 11:18 Last Admin: 03/17/17 11:17 Dose: 0.4 mg General Initial Vital Signs: Initial Vital Signs Blood Pressure 78/46 L 03/17/17 10:30 O2 Delivery Mode Room Air O2 (L/minute) 2 Allergies/Adverse Reactions: codeine Allergy (Verified 03/17/17 10:29) metronidazole [From Flagyl] Allergy (Verified 03/17/17 10:29) Home Medications: Medication Instructions Recorded Simvastatin [Zocor 20 mg] 20 mg PO DAILY18 11/05/12 Levothyroxine [Synthroid 100 mcg 100 mcg PO DAILY06 08/27/14 (*)] Lisinopril [Zestril 10 mg (*)] 10 mg PO DAILY 08/27/14 Herbals/Supplements -Info Only 1 ea PO DAILY 06/29/16 Insulin Glargine [Lantus 100 10 units SC HS #0 ml 08/25/16 UNITS/ML (*)] Methenamine Devan [Hiprex 1 gm (*)] 1 gm PO QID 11/25/16 Ascorbic Acid [Vitamin C 500 mg 500 mg PO DAILY 03/17/17 (*)] Baclofen [Baclofen 10 mg (*)] 10 mg PO HS 03/17/17 Glucosamine/Chondroitin 1 each PO DAILY 03/17/17 [Glucosamine/Chondroitin (*)] Insulin Lispro [humALOG LISPRO 100 1 - 5 unit SC DAILY PRN 03/17/17 units/ml (*)] Insulin Regular Human [Humulin R 2 - 3 unit SC TIDMEAL 03/17/17 100 units/ml (*)] Morphine Sulfate [Morphine Sulfate 30 mg PO BID 03/17/17 ER] Multivitamins [Multivitamin (*)] 1 each PO DAILY 03/17/17 Oxybutynin Chloride 5 mg PO BID 03/17/17 oxyCODONE IR [Oxycodone Ir (*)] 10 mg PO TID 03/17/17 traZODone [traZODONE 50MG (*)] 50 mg PO QID PRN 03/17/17 Departure - [facility] Clinical Impression: Sepsis Qualifiers: Sepsis type: sepsis due to unspecified organism Qualified Code(s): A41.9 - Sepsis, unspecified organism Altered mental status Qualifiers: Altered mental status type: somnolence Qualified Code(s): R40.0 - Somnolence Condition: Fair Report Scribed for: Jose Gaytan Report Scribed by: Kerrie Bullock Date of Report: 03/17/17 Time of Report: 10:06 Physician Review and Approval Statement: Portions of this note were transcribed by an ED scribe. I personally performed the history, physical exam, and medical decision making; and confirm the accuracy of the information in the transcribed note.
[2017-03-17] MEDS ORDERED: NS 1,000 ML IV ONE ×3 (10:10→11:49)
[2017-03-17] MEDS: NS 1,000 ML IV ONE ×2 (10:20→12:20)
[2017-03-17 10:29] LABS: % IMMATURE GRANULYOCYTES 0.8 % (0.0-1.1); ABSOLUTE IMMATURE GRANULOCYTES 0.22 10^3/uL (0.00-0.10); ADD DIFF? NO; ADD MORPH? NO; ADD SCAN? NO; ATYPICAL LYMPHOCYTE FLAG 0 (0-99); FRAGMENT RBC FLAG 0 (0-99); HEMOGLOBIN 11.7 g/dL (12.6-16.3); LEFT SHIFT FLG 10 (0-99); LIPEMIA HEMOLYSIS FLAG 80 (0-99); MEAN CELL HEMOGLOBIN 29.2 pg (27.9-34.1); MEAN CELL HEMOGLOBIN CONCENTR. 33.4 g/dL (32.4-36.7); MEAN CELL VOLUME 87.3 fL (81.5-99.8); MEAN PLATELET VOLUME 9.4 fL (8.7-11.7); PLATELET CLUMPS FLAG 0 (0-99); PLATELET COUNT 399 10^3/uL (150-400); RED BLOOD CELL COUNT 4.01 10^6/uL (4.18-5.33); RED CELL DISTRIBUTION WIDTH 13.3 % (11.5-15.2)
--- NOTE | 2017-03-17 10:31 | CPEKG ---
Heart Rate: 95 RR Interval: 632 P-R Interval: 140 QRSD Interval: 68 QT Interval: 348 QTC Interval: 438 P [place]: 75 QRS [place]: 73 T Wave [place]: 76 EKG Severity - NORMAL ECG - EKG Impression: SINUS RHYTHM Electronically Signed By: Jose Gaytan 17-Mar-2017 15:37:00
[2017-03-17 10:52] LABS: ANION GAP 10 mEq/L (8-16); CALCIUM 9.7 mg/dL (8.5-10.4); CARBON DIOXIDE 24 mEq/l (22-31); CHLORIDE 98 mEq/L (97-110); CREATININE 0.8 mg/dL (0.6-1.0); GLOMERULAR FILTRATION RATE > 60; GLUCOSE 194 mg/dL (70-100); POTASSIUM 4.1 mEq/L (3.5-5.2); SODIUM 132 mEq/L (134-144)
[2017-03-17] MEDS ORDERED: NALOXONE HCL 0.4 MG/ML INJ ONE (11:06)
[2017-03-17] MEDS ORDERED: NALOXONE HCL 0.4 MG/ML INJ IVP ONE (11:17)
[2017-03-17 11:23] LABS: COLOR RED; LEUKOCYTE ESTERASE,URINE 3+ (NEGATIVE); NITRITE,URINE NEGATIVE (NEGATIVE)
[2017-03-17 11:23] LABS: LACGHOST ORDER
[2017-03-17] MEDS ORDERED: BACLOFEN 10 MG TAB ONE (11:26)
[2017-03-17] MEDS ORDERED: fentaNYL 100 MCG/2 ML INJ ONE (11:26)
[2017-03-17] MEDS ORDERED: fentaNYL 100 MCG/2 ML INJ IVP ONE (11:32)
[2017-03-17 11:34] LABS: BACTERIA 4+ /hpf (NONE SEEN); RBC,URINE 25-50 /hpf (0-3); WBC,URINE 50-182 /hpf (0-3)
[2017-03-17] MEDS ORDERED: BACLOFEN 20 MG TAB PO ONE (11:34)
[2017-03-17] MEDS ORDERED: ONDANSETRON DISINTEGRATING 4 MG TAB PO PRN (11:46)
[2017-03-17] MEDS ORDERED: D50W 25 GM/50 ML SYR IVP PRN (14:02)
--- NOTE | 2017-03-17 14:37 | GHP ---
[f rep st] HISTORY AND PHYSICAL DATE OF ADMISSION: 03/17/2017 CHIEF COMPLAINT: Somnolence and pain. HISTORY OF PRESENT ILLNESS: A 66-year-old female with a history of diabetes and chronic back and ne ck pain on chronic narcotics, who presents with worsening of her chronic pain in addition to back pa in. , who is a care provider, noted more somnolence, and therefore presented to the emergenc y department. In the ED, the patient is denying chest pain or shortness of breath, denying headache or vision changes. Is reporting abdominal discomfort, which radiates to her back, worsening of her neck and low back pain, and pain associated with bed sores that she has developed through the cours e of the last few months. The patient denies any subjective fevers or chills. Denies any known sic k contacts, cough, rashes. Denies any diarrhea. Has intermittent dysuria. Denies any melena or he matochezia. PAST MEDICAL HISTORY: 1. Diabetes, insulin dependent. 2. Chronic neck and back pain, on continuous narcotics. 3. Hypothyroidism. 4. Hypertension. 5. Hyperlipidemia. 6. Major depression. 7. Anxiety. 8. Recurrent urinary tract infections. SOCIAL HISTORY: Negative for tobacco. Rare alcohol. No illicit drugs. Patient had attempted to u se marijuana in the past for pain relief without success. FAMILY HISTORY: Positive for diabetes. ADVANCED DIRECTIVES: The patient wishes to be do not resuscitate. Her would be her MD RUBIO. REVIEW OF SYSTEMS: A 10-point review of systems is negative, with the exception of that reported in the HPI. PHYSICAL EXAMINATION: VITAL SIGNS: Blood pressure systolic 72/44, heart rate 106, respiratory rate 20, 96% on room air. 36.8. GENERAL: This is a thin-appearing, middle-aged female in no acute dis tress. HEENT: Exam is notable for dry mucous membranes. Eye exam is negative for any icterus. CA RDIAC: Patient is tachycardic but regular. PULMONARY: Clear to auscultation bilaterally. GASTROI NTESTINAL: Positive bowel sounds. ABDOMEN: Soft and nontender. There is a Dietrich catheter in plac e. MUSCULOSKELETAL: Negative for any lower extremity edema. SKIN: Patient does have a decubitus ulcerations present on admission. No other rashes are appreciated. DATA: White count is 27,000, hematocrit 35, platelets 399, creatinine 0.8. Sodium 132. Glucose 19 4. Urinalysis shows 50-182 white blood cells, 4+ bacteria, 2+ glucose, 2+ ketones, and 3+ blood. Chest x-ray, which I personally reviewed and interpreted, shows no acute infiltrates or edema. ASSESSMENT AND PLAN: This is a 66-year-old female presenting with somnolence, confusion, and abdomi nal discomfort. 1. Sepsis. The patient is presenting with a leukocytosis of 27,000, tachycardia and hypotension. Will treat with aggressive IV fluid resuscitation, empiric intravenous antibiotics, and close monito ring on the medical surgical floor. Blood cultures and urine cultures have been sent from the emerg ency department. 2. Acute pyelonephritis. Patient presented with symptoms of chest pain. Had CT imaging performed 2 days ago, which does show the presence of nephrolithiasis. Reviewing the patient's microbiology d sophy since November 2016, she has had 3 previous urine cultures all growing Proteus mirabilis. Lookjuan sparks at her urinalysis over that similar time, she has a tendency toward basic urine, consistent with Proteus. With confirmed nephrolithiasis, I have concerns that her recurrent urinary tract infection s likely this time again will be from Proteus, and that we need to mechanically address the stones p resent to assist with her ongoing urinary tract infection. Additionally consulted the infectious [facility] doctors, as the patient will need followup post disposition. We will continue with intravenou s ceftriaxone based on sensitivities from previous cultures. This is appropriate. Will await new c ultures obtained in the emergency department. 3. Diabetes. The patient's glycemic control has been quite poor preceding her hospitalization, bas ed on reports from her . Will continue her home medications with p.r.n. insulin as needed. 4. Chronic pain with continuous narcotic dependency. We will continue patient's home regimen. She is quite somnolent on my examination. Suspect this may be from medications received in the emergen cy department. Will make her scheduled OxyIR prescription p.r.n. for now until we see improvement i n her mentation. 5. Hypotension. Patient is baseline on antihypertensive medications. Will hold these, and fluid r esuscitate as above. Suspect this is related to sepsis. 6. Hypothyroidism. Will continue her Synthroid replacement therapy. 7. Prophylaxis with Lovenox. 8. Diet regular when the patient is protecting her airway. DISPOSITION: I expect greater than 2 midnights. The patient has presented with multiple medical co morbidities and sepsis secondary to urinary source. I have discussed the case with Shailesh Camacho se. They will consult, and I will make her outpatient urologist aware of her rehospitalization. /[id number]/MODL
--- NOTE | 2017-03-17 15:22 | WOCRNPDOC ---
WOCRN Advanced Assessment Note - Skin Integrity Problem, Advanced Assess Right Sacrum Pressure Injury Dressing Type: Allevyn Life Dressing Description: Clean/Dry Exudate Amount: Minimal Exudate Color: Reddish/Yellow Exudate Characteristic(s): Serosanguinous Integumentary Issue Intervention: Dressing Changed Carlee Wound Tissue: Blanching, Erythema, Non-blanching, Denuded Carlee Wound Swelling: Mild Wound Bed Color: Black, Red, Yellow Wound Bed Constitution: Mixed Loose & Adhered Slough/Eschar Wound Edges: Well Defined Site Odor: None Site Measurement - Head-to-Toe Length X Width X Depth (cm): R sacrum distal: 1.8cmx0.9cmx eschar. R sacrum medial: 0.8cmx0.8cmx slough/eschar. R sacrum lateral: 0.8cmx0.7cmx eschar. R sacrum proximal: 0.5cmx0.3cmx slough Pressure Injury Stage: Unstageable Pressure Injury Present on Admit: Yes Skin Integrity Problem Comment: Four discrete slough and eschar-filled wounds noted on R sacrum, consistent in appearance w/ unstageable pressure injuries. Wounds are surrounded by a larger area of mixed blanching and non-blanching erythema. Carlee-wound skin is raw and denuded. Applied Therahoney gel and Telfa to these wounds to initiate autolysis of necrotic tissue, followed by an Allevyn Life foam dressing for protection. Orders for turns (side to side) q 2 and an Accu-max pump to be applied to the existing mattress. journeyman glazierZACH Torres present and assisting. Wound care will follow up with patient on Tuesday 03/20.
[2017-03-17] MEDS ORDERED: BACLOFEN 10 MG TAB PO SCH (16:00)
[2017-03-17] MEDS: METHENAMINE HIPP 1 GM TAB PO SCH ×2 (16:38→21:50)
[2017-03-17] MEDS: INSULIN LISPRO 100 UNIT/ML SC SCH (17:30)
[2017-03-17] MEDS: ATORVASTATIN CALCIUM 10 MG TAB PO SCH (17:30)
[2017-03-17 17:37] LABS: GLUCOSE 296 mg/dL (70-100)
[2017-03-17] MEDS ORDERED: NON-FORMULARY NEW DRUG (Simvastatin [Zocor 20 Mg] 20 MG) PO SCH (18:00)
--- NOTE | 2017-03-17 18:58 | GCON ---
[f rep st] CONSULTATION INFECTIOUS DISEASE CONSULTATION. REFERRING PHYSICIAN: Rebecca Keating MD REASON FOR CONSULTATION: Recurrent proteus complicated UTI's. HISTORY OF PRESENT ILLNESS: A 66-year-old woman with a history of diabetes, chronic back pain, and neck pain, with multiple surgical interventions in the past, on chronic pain medicines, who is essentially bed bound with minimal use of her upper extremities. It is not well documented, and patient is somewhat agitated at the time of my exam, but presumed due to spinal disease. The patient was brought to the emergency room for worsening somnolence today and abdominal discomfort, as well as pain associated with her bedsores. The patient endorses that she has a Dietrich in place chronically to prevent irritation as she is bed bound. Her Dietrich was last documented to be changed February 17 [facility], and patient is cared for by Dr. Rich Ng. She denies fevers and chills. Patient is somewhat agitated, requesting her caregiver to feed her dinner at the time of my exam. Based on review of hospitalist's admission, she does not have any diarrhea, sick contacts, cough, or rashes. Further, Dietrich was changed in the emergency room. PAST MEDICAL/SURGICAL HISTORY: 1. History OF insulin-dependent diabetes. 2. Hypothyroidism. 3. Chronic neck and back pain, on continuous narcotics, with a history of spinal fusion C5, C6, T11, and S1. 4. Hypertension. 5. Hyperlipidemia. 6. Depression. 7. Anxiety. 8. Recurrent UTIs. Review of microbiology shows Proteus present on cultures from 11/16/2016, 2016, 02/11/2017, and 02/17/2017. In evaluation of this, a CT scan was performed on 03/14/2017 which showed right nephrolithiasis, and a Dietrich bladder in place, also underlying constipation and bilateral fusion rods at the L5 level. SOCIAL HISTORY: No tobacco. No alcohol. No illicit's. Her is her medical power of state attorney. Patient is DNR. FAMILY HISTORY: Positive for diabetes. REVIEW OF SYSTEMS: A complete 10-point review of systems was performed and is negative except as mentioned in HPI. ALLERGIES: Codeine and metronidazole. Unclear reaction to metronidazole. MEDICATIONS: Patient received ceftriaxone 1 g in the emergency room today. She is also on Lipitor, baclofen, Lovenox, Lantus, lispro, Synthroid, methenamine, morphine, Zofran, Ditropan, and oxycodone IR 10 mg p.o. t.i.d. Review of systems: a complete 10 point review systems was attempted with pointed questions and was negative. PHYSICAL EXAMINATION: VITAL SIGNS: Blood pressure 113/58, heart rate 80, respiratory rate 14, saturation 94% on room air, temperature 36.2. Blood pressure on admission was 78/46. GENERAL: This is a chronically ill-appearing woman with pallor, who is somewhat agitated - therefore making for difficult exam HEENT: Poor dentition. No oral ulcerations or exudate. NECK: No meningismus. CARDIOVASCULAR: Regular rate. No murmurs. CHEST: Clear to auscultation bilaterally. ABDOMEN: Soft, nontender. : Dietrich was in place. NEUROLOGIC: Patient had distal wasting of her muscles of both lower and upper extremities. She seemed confused and was disoriented to location and time. LABORATORY: White count 27,000, hematocrit 35, and platelets of 399 with 84% neutrophils. Creatinine 0.8 and glucose was greater than 350. Urinalysis showed a pH of 1.006, 2+ protein, 3+ blood, 25-50 RBCs, 50-182 WBCs. Urine and blood cultures are pending. IMAGING: As above. ASSESSMENT AND PLAN: This is a 66-year-old woman with poorly-controlled diabetes, who appears to be chronically bed bound with a Dietrich in place and has had recurrent complicated urinary tract infections due to Proteus with interesting associations, including basic urine and nephrolithiasis as pointed out by hospitalists team. Patient today presents with sepsis with a likely urinary source, as patient without evidence of pneumonia or cellulitis. Recurrence of infection is likely multifactorial with nephrolithiasis as well as chronic indwelling Dietrich, Dietrich likely trumps kidney stones. RECOMMENDATIONS: 1. Agree with ceftriaxone. 2. Await culture data and adjust antibiotics as needed. 3. May have to consider removal of stones and/or chronic antibiotic therapy to prevent recurrence of infection, but await additional culture data to see if Proteus 4. Readdress need of chronic indwelling Dietrich. Thank you for this consultation. We will continue to follow on a daily basis. /[id number]/MODL MTDD
[2017-03-17 19:34] LABS: ALBUMIN 2.8 g/dL (3.5-5.0); BILIRUBIN,TOTAL 1.2 mg/dL (0.1-1.4); BILIRUBIN-CONJUGATED 0.5 mg/dL (0.0-0.5); BILIRUBIN-UNCONJUGATED 0.7 mg/dL (0.0-1.1); TOTAL PROTEIN 5.3 g/dL (6.3-8.2)
[2017-03-17] MEDS ORDERED: MORPHINE SULFATE 30 MG PO SCH (21:00)
[2017-03-17] MEDS: OXYBUTYNIN CHLORIDE 5 MG TAB PO SCH (21:50)
[2017-03-17] MEDS: oxyCODONE IR 5 MG TAB PO PRN (21:51)
[2017-03-17] MEDS: BACLOFEN 10 MG TAB PO PRN (21:51)
[2017-03-17] MEDS: morphINE SR 30 MG TAB PO SCH (21:51)
[2017-03-17] MEDS: INSULIN GLARGINE 100 UNITS/ML SYRINGE SC SCH (21:52)
[2017-03-18] MEDS: oxyCODONE IR 5 MG TAB PO PRN ×2 (01:09→17:19)
[2017-03-18 06:03] LABS: % IMMATURE GRANULYOCYTES 0.7 % (0.0-1.1); ABSOLUTE IMMATURE GRANULOCYTES 0.12 10^3/uL (0.00-0.10); ADD DIFF? NO; ADD MORPH? NO; ADD SCAN? NO; ATYPICAL LYMPHOCYTE FLAG 0 (0-99); FRAGMENT RBC FLAG 0 (0-99); HEMATOCRIT 26.7 % (38.0-47.0); HEMOGLOBIN 8.9 g/dL (12.6-16.3); LEFT SHIFT FLG 0 (0-99); LIPEMIA HEMOLYSIS FLAG 80 (0-99); MEAN CELL HEMOGLOBIN 29.5 pg (27.9-34.1); MEAN CELL HEMOGLOBIN CONCENTR. 33.3 g/dL (32.4-36.7); MEAN CELL VOLUME 88.4 fL (81.5-99.8); MEAN PLATELET VOLUME 9.2 fL (8.7-11.7); PLATELET CLUMPS FLAG 0 (0-99); PLATELET COUNT 295 10^3/uL (150-400); RED BLOOD CELL COUNT 3.02 10^6/uL (4.18-5.33); RED CELL DISTRIBUTION WIDTH 13.4 % (11.5-15.2)
[2017-03-18 06:16] LABS: POTASSIUM 3.8 mEq/L (3.5-5.2)
[2017-03-18 06:17] LABS: ANION GAP 6 mEq/L (8-16); CALCIUM 8.4 mg/dL (8.5-10.4); CARBON DIOXIDE 21 mEq/l (22-31); CHLORIDE 103 mEq/L (97-110); CREATININE 0.6 mg/dL (0.6-1.0); GLOMERULAR FILTRATION RATE > 60; GLUCOSE 161 mg/dL (70-100); SODIUM 130 mEq/L (134-144)
[2017-03-18] MEDS: LEVOTHYROXINE 100 MCG TAB PO SCH (07:14)
[2017-03-18] MEDS: METHENAMINE HIPP 1 GM TAB PO SCH ×4 (07:15→21:05)
[2017-03-18] MEDS: MULTIVITAMINS 1 EACH TAB PO SCH (08:08)
[2017-03-18] MEDS: ENOXAPARIN 40 MG/0.4 ML SYR SC SCH (08:08)
[2017-03-18] MEDS: GLUCOSAMINE/CHONDROITIN CAP PO SCH (08:08)
[2017-03-18] MEDS: OXYBUTYNIN CHLORIDE 5 MG TAB PO SCH ×2 (08:08→21:06)
[2017-03-18] MEDS: morphINE SR 30 MG TAB PO SCH (08:08)
[2017-03-18] MEDS ORDERED: Herbals/Supplements -Info Only PO SCH (09:00)
[2017-03-18] MEDS ORDERED: cefTRIAXone 1 GM in D5W 50 ML IV SCH (09:00)
[2017-03-18] MEDS: INSULIN LISPRO 100 UNIT/ML SC SCH ×3 (10:03→19:03)
[2017-03-18] MEDS: BACLOFEN 10 MG TAB PO PRN ×2 (13:09→21:05)
[2017-03-18] MEDS ORDERED: morphINE SR 30 MG TAB PO SCH (14:21)
--- NOTE | 2017-03-18 14:29 | HOSPPROG ---
Hospitalist Progress Note Assessment/Plan: # sepsis- 2/2 urinary source- patient with white count of 27 tachycardic and hypotensive of presentation- all improving - received aggressive IV fluid resuscitation- oxygen saturations 97% on room air - empiric IV antibiotics with ceftriaxone # pyelonephritis- patient with systemic symptoms at presentation- 3 previous urine cultures with Proteus CT abdomen (personally reviewed and interpreted) right-sided nephrolithiasis - continue IV ceftriaxone - infectious Disease consulted regarding recurrent Proteus infection in the setting of nephrolithiasis - follow blood cultures # diabetes mellitus- poorly controlled likely 2/2 acute infection BS 70-164 - continue home Lantus - continue sliding scale insulin # chronic pain with continuous narcotic dependency- patient is asking for narcotics around the clock- nearly obtained at presentation in the ED - decreasing scheduled long-acting dose of morphine to 15 mg twice daily - changing scheduled oxycodone to p.r.n. - encouraging the use of baclofen p.r.n. rather than narcotic - continue close nursing support and monitoring # hypertension- patient presented hypotensive - continue holding home antihypertensives # hypothyroidism- continue Synthroid # HLD- continue home meds # decubitus ulceration- present on admission- wound care # prophylaxis Lovenox # diet diabetic # disposition greater than 2 midnights the patient is presenting with sepsis and recurring pyelonephritis Discussed the case with the RN- patient remains intermittently somnolent during my exam we will decrease narcotic dosing today Subjective: Thirsty Objective: Vital Signs Temp Pulse Resp BP Pulse Ox 36.6 C 104 H 18 103/55 L 97 03/18/17 11:53 03/18/17 12:21 03/18/17 11:53 03/18/17 11:53 03/18/17 12:21 Laboratory Results 03/18/17 05:55 03/18/17 05:55 03/17/17 03/18/17 03/19/17 05:59 05:59 05:59 Intake Total 4000 Output Total 2850 1450 Balance 1150 -1450 - Physical Exam Constitutional: chronically ill appearing Eyes: anicteric sclera Ears, Nose, Mouth, Throat: dry mucous membranes Cardiovascular: regular rate and rhythym, systolic murmur Respiratory: no respiratory distress, no rales or rhonchi Gastrointestinal: normoactive bowel sounds Genitourinary: thompson in urethra Skin: warm, normal color Musculoskeletal: No asymmetric calves Neurologic: No AAOx3 Psychiatric: other (Somnolent) Lymph, Heme, Immunologic: no cervical LAD ICD10 Worksheet Patient Problems: Problems Problem Status Onset Altered mental status Acute Sepsis Acute Chronic back pain Acute Chronic pain Acute Dehydration Acute Hyponatremia Acute Pneumonia Acute Status post cervical arthrodesis Acute Vomiting Acute Weakness Acute
--- NOTE | 2017-03-18 14:30 | PCMIDPN ---
Assessment/Plan: #Sepsis presumed urinary source, wbc improved today, hypotension resolved. Still intermittent tachy. --empiric ceftriaxone based on prior cultures showing proteus # H/o multiple UTIs due to Proteus and R nephrolithiasis #Bed bound, odd / confused affect unclear baseline Meds ceftriaxone 1gm IV daily #2 Microbiology UCx 100k LF GNR blood cx (2) pending Subjective: c/o abdominal pain requesting "oxy and sugar cubes" Objective: Vital Signs Temp Pulse Resp BP Pulse Ox 36.6 C 104 H 18 103/55 L 97 03/18/17 11:53 03/18/17 12:21 03/18/17 11:53 03/18/17 11:53 03/18/17 12:21 Laboratory Results 03/18/17 05:55 03/18/17 05:55 03/17/17 03/18/17 03/19/17 05:59 05:59 05:59 Intake Total 4000 Output Total 2850 1450 Balance 1150 -1450 - Physical Exam General Appearance: alert, cachetic EENT: pale conjunctiva, poor dentition Respiratory: lungs clear, No accessory muscle use Cardiac/Chest: regular rate, rhythm Abdomen: soft, distended (slight) Pelvic Exam: thompson Neuro/Psych: alert, cognition abnormalities, other (aggitated) ICD10 Worksheet Patient Problems: Problems Problem Status Onset Altered mental status Acute Sepsis Acute Chronic back pain Acute Chronic pain Acute Dehydration Acute Hyponatremia Acute Pneumonia Acute Status post cervical arthrodesis Acute Vomiting Acute Weakness Acute
[2017-03-18] MEDS: ATORVASTATIN CALCIUM 10 MG TAB PO SCH (17:19)
[2017-03-18] MEDS: morphINE SR 15 MG TAB PO SCH (21:06)
[2017-03-18] MEDS: INSULIN GLARGINE 100 UNITS/ML SYRINGE SC SCH (21:06)
[2017-03-18] MEDS: ACETAMINOPHEN 325 MG TAB PO PRN (21:06)
[2017-03-19] MEDS: TEMAZEPAM 15 MG CAP PO PRN (02:25)
[2017-03-19] MEDS: LEVOTHYROXINE 100 MCG TAB PO SCH (06:15)
[2017-03-19] MEDS: METHENAMINE HIPP 1 GM TAB PO SCH ×4 (06:16→20:14)
[2017-03-19] MEDS: INSULIN LISPRO 100 UNIT/ML SC SCH ×3 (08:01→19:05)
[2017-03-19] MEDS: MULTIVITAMINS 1 EACH TAB PO SCH (08:58)
[2017-03-19] MEDS: GLUCOSAMINE/CHONDROITIN CAP PO SCH (08:58)
[2017-03-19] MEDS: OXYBUTYNIN CHLORIDE 5 MG TAB PO SCH ×2 (08:58→20:13)
[2017-03-19] MEDS: morphINE SR 15 MG TAB PO SCH ×2 (08:58→20:14)
[2017-03-19] MEDS: ENOXAPARIN 40 MG/0.4 ML SYR SC SCH (09:02)
[2017-03-19] MEDS: BACLOFEN 10 MG TAB PO PRN ×3 (11:13→20:14)
[2017-03-19] MEDS: oxyCODONE IR 5 MG TAB PO PRN ×2 (12:31→17:19)
--- NOTE | 2017-03-19 14:07 | HOSPPROG ---
Hospitalist Progress Note Assessment/Plan: # sepsis- 2/2 urinary source- WBC 27, tachycardic and hypotensive of presentation- resolving - received aggressive IV fluid resuscitation- oxygen saturations 98% on room air - cont ceftriaxone # pyelonephritis- patient with systemic symptoms at presentation- Ucx with jordan sensitive E.Coli - BCX NGTD h/o recurrent Proteus UTI in past x3 CT abdomen - right-sided nephrolithiasis - continue IV ceftriaxone - ID following # Acute encephalopathy - remains oriented x2 only - unclear if 2/2 to meds or acute illness CT head (personally reviewed and interpreted) no acute or old strokes - continue to minimize sedating meds - supportive care # diabetes mellitus- poorly controlled likely 2/2 acute infection BS [id number] - continue home Lantus - continue sliding scale insulin # chronic pain with continuous narcotic dependency- patient is asking for narcotics around the clock- nearly obtained at presentation in the ED - decreasing scheduled long-acting dose of morphine to 15 mg twice daily - changing scheduled oxycodone to p.r.n. - encouraging the use of baclofen p.r.n. rather than narcotic - continue close nursing support and monitoring # hypertension- patient presented hypotensive- SBP back up overnight - restart lisinopril 10mg # hypothyroidism- continue Synthroid # HLD- continue home meds # decubitus ulceration- present on admission- wound care # prophylaxis Lovenox # diet diabetic # disposition greater than 2 midnights the patient is presenting with sepsis and recurring pyelonephritis discussed the idea of SNF to patient - she does not want to go - supports if it would help with decubitus wounds and overall health status Discussed the case with the RN- continue to minimize seating meds as possible Subjective: pain everywhere Objective: Vital Signs Temp Pulse Resp BP Pulse Ox 37.1 C 92 14 132/65 H 98 03/19/17 07:33 03/19/17 07:33 03/19/17 07:33 03/19/17 07:33 03/19/17 07:33 Laboratory Results 03/18/17 05:55 03/18/17 05:55 03/18/17 03/19/17 03/20/17 05:59 05:59 05:59 Intake Total 4000 2000 Output Total 2850 3950 Balance 1150 -1950 - Physical Exam Constitutional: chronically ill appearing Eyes: anicteric sclera Ears, Nose, Mouth, Throat: dry mucous membranes Cardiovascular: regular rate and rhythym Respiratory: no respiratory distress, no rales or rhonchi Gastrointestinal: normoactive bowel sounds, soft, non-tender abdomen Genitourinary: no bladder fullness, thompson in urethra Skin: warm Musculoskeletal: No asymmetric calves Neurologic: No AAOx3 Psychiatric: encephalopathic, poor insight, poor judgement, poor memory Lymph, Heme, Immunologic: no cervical LAD ICD10 Worksheet Patient Problems: Problems Problem Status Onset Altered mental status Acute Sepsis Acute Chronic back pain Acute Chronic pain Acute Dehydration Acute Hyponatremia Acute Pneumonia Acute Status post cervical arthrodesis Acute Vomiting Acute Weakness Acute
--- NOTE | 2017-03-19 14:15 | PCMIDPN ---
Assessment/Plan: #Sepsis presumed urinary source, clinically improved. Mentation better today. --rec total 14 days antibiotics, complete course with Keflex 500mg PO TID --dc Thompson when feasible, source of infection --call ID for additional questions # H/o multiple UTIs due to Proteus and R nephrolithiasis # decubitus wounds: no examined by me today Meds ceftriaxone 1gm IV daily #3 Microbiology UCx 100k jordan-S ecoli blood cx (2) NGTD Subjective: patient c/o lack of pain control Objective: Vital Signs Temp Pulse Resp BP Pulse Ox 37.1 C 92 14 132/65 H 98 03/19/17 07:33 03/19/17 07:33 03/19/17 07:33 03/19/17 07:33 03/19/17 07:33 Laboratory Results 03/18/17 05:55 03/18/17 05:55 03/18/17 03/19/17 03/20/17 05:59 05:59 05:59 Intake Total 4000 2000 Output Total 2850 3950 Balance 1150 -1950 - Physical Exam General Appearance: alert, no apparent distress, thin EENT: pale conjunctiva Respiratory: lungs clear Cardiac/Chest: regular rate, rhythm Abdomen: non-tender, soft Pelvic Exam: thompson Skin: pallor, No rash Neuro/Psych: alert ICD10 Worksheet Patient Problems: Problems Problem Status Onset Altered mental status Acute Sepsis Acute Chronic back pain Acute Chronic pain Acute Dehydration Acute Hyponatremia Acute Pneumonia Acute Status post cervical arthrodesis Acute Vomiting Acute Weakness Acute
[2017-03-19] MEDS: LISINOPRIL 10 MG TAB PO SCH (17:17)
[2017-03-19] MEDS: ATORVASTATIN CALCIUM 10 MG TAB PO SCH (19:04)
[2017-03-19] MEDS: ACETAMINOPHEN 325 MG TAB PO PRN (19:28)
[2017-03-19] MEDS: INSULIN GLARGINE 100 UNITS/ML SYRINGE SC SCH (21:15)
[2017-03-20] MEDS: oxyCODONE IR 5 MG TAB PO PRN ×2 (00:21→15:57)
[2017-03-20] MEDS: TEMAZEPAM 15 MG CAP PO PRN ×2 (00:21→21:10)
[2017-03-20] MEDS: BACLOFEN 10 MG TAB PO PRN ×3 (04:00→21:10)
[2017-03-20 04:25] LABS: HEMATOCRIT 28.2 % (38.0-47.0); HEMOGLOBIN 9.7 g/dL (12.6-16.3); MEAN CELL HEMOGLOBIN 29.1 pg (27.9-34.1); MEAN CELL HEMOGLOBIN CONCENTR. 34.4 g/dL (32.4-36.7); MEAN CELL VOLUME 84.7 fL (81.5-99.8); RED BLOOD CELL COUNT 3.33 10^6/uL (4.18-5.33); RED CELL DISTRIBUTION WIDTH 12.8 % (11.5-15.2)
[2017-03-20 04:39] LABS: ANION GAP 6 mEq/L (8-16); CALCIUM 8.1 mg/dL (8.5-10.4); CARBON DIOXIDE 20 mEq/l (22-31); CHLORIDE 99 mEq/L (97-110); CREATININE 0.6 mg/dL (0.6-1.0); GLOMERULAR FILTRATION RATE > 60; GLUCOSE 371 mg/dL (70-100); POTASSIUM 4.5 mEq/L (3.5-5.2); SODIUM 125 mEq/L (134-144)
[2017-03-20] MEDS ORDERED: INSULIN GLARGINE 100 UNITS/ML SYRINGE SC ONE (04:45)
[2017-03-20] MEDS ORDERED: INSULIN LISPRO 100 UNIT/ML SC ONE (04:46)
[2017-03-20] MEDS: LEVOTHYROXINE 100 MCG TAB PO SCH (05:06)
[2017-03-20] MEDS: METHENAMINE HIPP 1 GM TAB PO SCH ×4 (05:06→20:10)
--- NOTE | 2017-03-20 09:45 | WOCRNPDOC ---
WOCRN Advanced Assessment Note - Skin Integrity Problem, Advanced Assess Right Sacrum Pressure Injury Dressing Type: Allevyn Life, Telfa Dressing Description: Clean/Dry, Intact Exudate Amount: Scant Exudate Color: Reddish/Yellow Exudate Characteristic(s): Serosanguinous Integumentary Issue Intervention: Dressing Changed, Conservative Sharp Bedside Debridement Carlee Wound Tissue: Blanching, Erythema Carlee Wound Swelling: Mild Wound Bed Color: Black, Red, Yellow Wound Bed Constitution: Granulation Tissue, Mixed Loose & Adhered Slough/Eschar Site Odor: None Pressure Injury Stage: Unstageable Pressure Injury Present on Admit: Yes (documented in H&P) Skin Integrity Problem Comment: Slough and eschar-filled, discrete wounds on patient's R sacrum noted. Therahoney applied on 03/17 loosened and softened the eschar, particularly in the distal wound. Using forceps, this necrotic tissue was lifted away from the wound edge and removed w/ a scalpel. There was some red , smooth tissue noted medially underneath this necrosis, though depth and extent of this wound remains indiscernible; well-adhered slough remains on wound margins. Slough in remaining 3 wounds is tenacious. Cross-hatched the eschar/slough to help facilitate absorption of the honey into the necrotic tissue, and will re-evaluate on Tuesday 03/20.
--- NOTE | 2017-03-20 12:14 | HOSPPROG ---
Hospitalist Progress Note Assessment/Plan: # Pyelonephritis- patient with systemic symptoms at presentation- Ucx with jordan sensitive E.Coli - BCX remain NGTD h/o recurrent Proteus UTI in past x 3 - CT abdomen - right-sided nephrolithiasis - continue IV ceftriaxone- can transition to levofloxacin at dc - ID signed off # sepsis- 2/2 urinary source- (WBC 27, tachycardic and hypotensive)- resolved WBC 7 today - received aggressive IV fluid resuscitation- CXR (personally reviewed and interpreted) - no infiltrates oxygen saturations 98% on room air - cont ceftriaxone # Acute encephalopathy - oriented x 2 - CT head - no acute or old strokes - continue to minimize sedating meds - supportive care # diabetes mellitus- poorly controlled likely 2/2 acute infection BS [id number]- patient refused lantus insulin last night and BS 350 this am - continue home Lantus - continue sliding scale insulin - used 10 units/24 # Severe multiple decubitus ulcerations- present on admission- wound care working very hard to remove eschars to efectively stage - this is my biggest concern regarding her return to home # chronic pain with continuous narcotic dependency- patient is asking for narcotics around the clock- nearly obtained at presentation in the ED - decreasing scheduled long-acting dose of morphine to 15 mg twice daily - changing scheduled oxycodone to p.r.n. - encouraging the use of baclofen p.r.n. rather than narcotic - continue close nursing support and monitoring # hypertension- patient presented hypotensive- - cont lisinopril 10mg # hypothyroidism- continue Synthroid # HLD- continue home meds # prophylaxis Lovenox # diet diabetic # disposition greater than 2 midnights the patient is presenting with sepsis and serious pressure wounds discussed the idea of SNF to patient - she does not want to go - supports if it would help with decubitus wounds and overall health status Discussed the case with the RN- continue to encourage up to chair and activity as pt nearly bedbound at home with no clear reason Subjective: pain with sitting up Objective: Vital Signs Temp Pulse Resp BP Pulse Ox 38.1 C 108 H 16 118/60 100 03/19/17 19:20 03/19/17 19:20 03/19/17 19:20 03/19/17 19:20 03/19/17 19:20 Laboratory Results 03/20/17 04:16 03/20/17 04:16 03/19/17 03/20/17 03/21/17 05:59 05:59 05:59 Intake Total 1999 Output Total 8739 6332 Balance -1949 -370 - Physical Exam Constitutional: chronically ill appearing Eyes: anicteric sclera Ears, Nose, Mouth, Throat: moist mucous membranes Cardiovascular: regular rate and rhythym Respiratory: no respiratory distress, no rales or rhonchi Gastrointestinal: normoactive bowel sounds, soft, non-tender abdomen Genitourinary: no bladder fullness, thompson in urethra Skin: warm, normal color Musculoskeletal: No asymmetric calves Neurologic: No AAOx3 Psychiatric: poor insight, poor judgement Lymph, Heme, Immunologic: no cervical LAD ICD10 Worksheet Patient Problems: Problems Problem Status Onset Altered mental status Acute Sepsis Acute Chronic back pain Acute Chronic pain Acute Dehydration Acute Hyponatremia Acute Pneumonia Acute Status post cervical arthrodesis Acute Vomiting Acute Weakness Acute
[2017-03-20] MEDS: INSULIN LISPRO 100 UNIT/ML SC SCH ×3 (12:32→18:22)
[2017-03-20] MEDS: ENOXAPARIN 40 MG/0.4 ML SYR SC SCH (12:33)
[2017-03-20] MEDS: GLUCOSAMINE/CHONDROITIN CAP PO SCH (12:34)
[2017-03-20] MEDS: morphINE SR 15 MG TAB PO SCH ×2 (12:34→20:10)
[2017-03-20] MEDS: LISINOPRIL 10 MG TAB PO SCH (12:34)
[2017-03-20] MEDS: MULTIVITAMINS 1 EACH TAB PO SCH (12:35)
[2017-03-20] MEDS: OXYBUTYNIN CHLORIDE 5 MG TAB PO SCH ×2 (12:35→20:10)
[2017-03-20] MEDS: ATORVASTATIN CALCIUM 10 MG TAB PO SCH (20:10)
[2017-03-20] MEDS: INSULIN GLARGINE 100 UNITS/ML SYRINGE SC SCH (20:11)
[2017-03-21] MEDS: oxyCODONE IR 5 MG TAB PO PRN ×3 (00:06→23:29)
[2017-03-21] MEDS: ONDANSETRON 4 MG/2 ML VIAL IVP PRN ×2 (03:35→20:03)
[2017-03-21] MEDS: BACLOFEN 10 MG TAB PO PRN ×3 (03:56→19:51)
[2017-03-21 05:07] LABS: ANION GAP 7 mEq/L (8-16); CALCIUM 8.1 mg/dL (8.5-10.4); CARBON DIOXIDE 24 mEq/l (22-31); CHLORIDE 95 mEq/L (97-110); CREATININE 0.6 mg/dL (0.6-1.0); GLOMERULAR FILTRATION RATE > 60; GLUCOSE 195 mg/dL (70-100); POTASSIUM 4.3 mEq/L (3.5-5.2); SODIUM 126 mEq/L (134-144)
[2017-03-21] MEDS: LEVOTHYROXINE 100 MCG TAB PO SCH (05:09)
[2017-03-21] MEDS: METHENAMINE HIPP 1 GM TAB PO SCH ×4 (05:09→22:21)
[2017-03-21] MEDS: morphINE SR 15 MG TAB PO SCH ×2 (09:36→19:52)
[2017-03-21] MEDS: LISINOPRIL 10 MG TAB PO SCH (09:36)
[2017-03-21] MEDS: GLUCOSAMINE/CHONDROITIN CAP PO SCH (09:36)
[2017-03-21] MEDS: OXYBUTYNIN CHLORIDE 5 MG TAB PO SCH ×2 (09:36→19:52)
[2017-03-21] MEDS: MULTIVITAMINS 1 EACH TAB PO SCH (09:36)
[2017-03-21] MEDS: INSULIN LISPRO 100 UNIT/ML SC SCH ×3 (09:42→18:07)
--- NOTE | 2017-03-21 10:56 | HOSPPROG ---
Hospitalist Progress Note Assessment/Plan: # sepsis d/t UTI/pyelo - resolved # UTI/pyelo d/t e. coli - cont rocephin, change to keflex 500mg TID, 14 days total - hx multiple proteus UTIs, nephrolithiasis # hypoNa - d/t SIADH - Na tabs, fluid restrict # chronic pain on continuous narcotics - was reportedly quite confused on admission - MS contin decreased to 15 BID - cont oxycontin 10 TID # DM2 - better control - cont home glargine, SSI decreased # decubitus ulcer - wound care # acute encephalopathy - better today # weakness - d/t sepsis; improving - need repeat PT eval - previously rec'd SNF but patient wants to go home # htn - cont lisino 10 # ppx - lovenox Subjective: really wants to go home; ambulated x 2 today Objective: Vital Signs Temp Pulse Resp BP Pulse Ox 37.0 C 98 18 123/81 H 98 03/21/17 07:36 03/21/17 07:36 03/21/17 07:36 03/21/17 09:36 03/21/17 07:36 Laboratory Results 03/20/17 04:16 03/21/17 04:23 03/20/17 03/21/17 03/22/17 05:59 05:59 05:59 Intake Total 919 Output Total 3700 2720 Balance -3700 -[address] head reviewed - Physical Exam Constitutional: other (laying in bed) Cardiovascular: regular rate and rhythym, no murmur, rub, or gallop Respiratory: no respiratory distress, no rales or rhonchi, clear to auscultation Gastrointestinal: normoactive bowel sounds, soft, non-tender abdomen, no palpable masses ICD10 Worksheet Patient Problems: Problems Problem Status Onset Hyponatremia Acute Status post cervical arthrodesis Acute Pneumonia Acute Altered mental status Acute Dehydration Acute Weakness Acute Chronic pain Acute Chronic back pain Acute Vomiting Acute Sepsis Acute
[2017-03-21] MEDS: SODIUM CHLORIDE 1,000 MG TAB PO SCH ×2 (11:48→17:56)
[2017-03-21] MEDS: ENOXAPARIN 40 MG/0.4 ML SYR SC SCH (11:49)
[2017-03-21] MEDS: ATORVASTATIN CALCIUM 10 MG TAB PO SCH (17:55)
[2017-03-21] MEDS: INSULIN GLARGINE 100 UNITS/ML SYRINGE SC SCH (19:53)
[2017-03-21] MEDS: TEMAZEPAM 15 MG CAP PO PRN (22:22)
[2017-03-22] MEDS: INSULIN GLARGINE 100 UNITS/ML SYRINGE SC SCH (00:21)
[2017-03-22] MEDS: oxyCODONE IR 5 MG TAB PO PRN ×2 (03:41→11:38)
[2017-03-22] MEDS: BACLOFEN 10 MG TAB PO PRN ×2 (03:41→11:29)
[2017-03-22] MEDS: ONDANSETRON 4 MG/2 ML VIAL IVP PRN ×2 (03:55→08:23)
[2017-03-22] MEDS: LEVOTHYROXINE 100 MCG TAB PO SCH (04:52)
[2017-03-22] MEDS: METHENAMINE HIPP 1 GM TAB PO SCH ×2 (04:53→11:30)
[2017-03-22 05:41] LABS: ANION GAP 10 mEq/L (8-16); CALCIUM 8.6 mg/dL (8.5-10.4); CARBON DIOXIDE 27 mEq/l (22-31); CHLORIDE 92 mEq/L (97-110); CREATININE 0.6 mg/dL (0.6-1.0); GLOMERULAR FILTRATION RATE > 60; GLUCOSE 206 mg/dL (70-100); POTASSIUM 4.3 mEq/L (3.5-5.2); SODIUM 129 mEq/L (134-144)
[2017-03-22 08:10] VITALS: BP 144/74; PULSE 94; RESP 18; TEMP 98.8; O2SAT 96
[2017-03-22] MEDS: INSULIN LISPRO 100 UNIT/ML SC SCH ×2 (08:22→11:39)
[2017-03-22] MEDS: ENOXAPARIN 40 MG/0.4 ML SYR SC SCH (08:28)
[2017-03-22] MEDS: SODIUM CHLORIDE 1,000 MG TAB PO SCH ×3 (08:29→11:33)
[2017-03-22] MEDS: LISINOPRIL 10 MG TAB PO SCH (08:29)
[2017-03-22] MEDS: morphINE SR 15 MG TAB PO SCH (08:29)
[2017-03-22] MEDS: MULTIVITAMINS 1 EACH TAB PO SCH ×2 (08:29→08:53)
[2017-03-22] MEDS: GLUCOSAMINE/CHONDROITIN CAP PO SCH ×2 (08:30→08:53)
[2017-03-22] MEDS: OXYBUTYNIN CHLORIDE 5 MG TAB PO SCH (08:30)
[2017-03-22 08:52] LABS: GLUCOSE 333 mg/dL (70-100)
--- NOTE | 2017-03-22 11:50 | WOCRNPDOC ---
WOCRN Advanced Assessment Note - Skin Integrity Problem, Advanced Assess Right Sacrum Pressure Injury Dressing Type: Allevyn Life, Telfa Dressing Description: Clean/Dry, Intact Exudate Amount: Scant Exudate Color: Yellow Exudate Characteristic(s): Serous Integumentary Issue Intervention: Visualized Under Dressing Rani Wound Tissue: Blanching, Erythema Rani Wound Swelling: Mild Wound Bed Color: Black, Red, Yellow Wound Bed Constitution: Smooth Tissue (<5%), Mixed Loose & Adhered Slough/ Eschar (95%) Wound Edges: Well Defined Site Odor: None Pressure Injury Stage: Unstageable Pressure Injury Present on Admit: Yes (Documented) Skin Integrity Problem Comment: Four discrete unstageable, slough/eschar-filled wounds on patient's R sacrum. Application of Therahoney has softened the necrotic tissue, but it remains tenacious this point. There is blanching erythema confined to the immediate rani-wound skin, w/ mild swelling. Spoke with both patient and her at length about treatment options, including sharp debridement. After some discussion, decision was made to continue with Therahoney upon discharge, and [facility]3 [facility] w/ Dr. Calderón for potential sharp debridement of these wounds. Patient exhibits some confusion about the plan of care, repeating same questions and saying "I'm going to have surgery!" Reiterated that sharp debridement would not involve surgery with general anesthesia, and could be performed with a local anesthetic. stated that he understood what this would entail. In addition, this author emphasized the importance of ongoing off-loading of this site, including turns side to side q2. Patient currently has a pressure- relieving cushion in her room, and was encouraged to take this home with her upon discharge for placement in chair at home.
--- NOTE | 2017-03-22 13:15 | PDIAF ---
- Diagnosis Diagnosis: Sepsis/UTI Code Status: Do Not Resuscitate - Medication Management Discharge Medications: Medications to Continue on Transfer Simvastatin [Zocor 20 mg] 20 mg PO DAILY18 11/05/12 [Last Taken 03/16/17] Levothyroxine [Synthroid 100 mcg (*)] 100 mcg PO DAILY06 08/27/14 [Last Taken ] Lisinopril [Zestril 10 mg (*)] 10 mg PO DAILY 08/27/14 [Last Taken 03/16/17] Herbals/Supplements -Info Only 1 ea PO DAILY 06/29/16 [Last Taken 08/24/16] Insulin Glargine [Lantus 100 UNITS/ML (*)] 10 units SC HS #0 ml 08/25/16 [Last Taken 03/17/17] Methenamine Devan [Hiprex 1 gm (*)] 1 gm PO QID 11/25/16 [Last Taken 03/16/17] Ascorbic Acid [Vitamin C 500 mg (*)] 500 mg PO DAILY 03/17/17 [Last Taken Unknown] Baclofen [Baclofen 10 mg (*)] 10 mg PO HS 03/17/17 [Last Taken 03/16/17] Glucosamine/Chondroitin [Glucosamine/Chondroitin (*)] 1 each PO DAILY 03/17/17 [ Last Taken Unknown] Insulin Lispro [humALOG LISPRO 100 units/ml (*)] 1 - 5 unit SC DAILY PRN [Last Taken Unknown] Insulin Regular Human [Humulin R 100 units/ml (*)] 2 - 3 unit SC TIDMEAL [Last Taken 03/16/17 18:00] Multivitamins [Multivitamin (*)] 1 each PO DAILY 03/17/17 [Last Taken Unknown] Oxybutynin Chloride 5 mg PO BID 03/17/17 [Last Taken 03/17/17] oxyCODONE IR [Oxycodone Ir (*)] 10 mg PO TID 03/17/17 [Last Taken 03/17/17] Cephalexin [Keflex (*)] 500 mg PO TID #27 cap 03/22/17 [Last Taken Unknown] Sodium Chloride [Salt Tablet] 1,000 mg PO TIDMEAL #60 tab 03/22/17 [Last Taken Unknown] morphINE SR [Ms Contin/Oramorph 15 mg (*)] 15 mg PO BID #60 tab 03/22/17 [Last Taken Unknown] Discharge Medications: Refer to the Discharge Home Medication list for PRN reason. - Orders Services needed: Home Care, Registered Nurse, Certified Lead Python Developer, Physical Therapy, Occupational Therapy Home Care Face to Face: I certify that this patient was under my care and that I had the required [id number] encounter meeting the encounter requirements on the discharge day. My findings support the fact that the patient is homebound as defined in CMS Chapter 7 Medicare Benefits Manual 30.1.1, The condition of the patient is such that there exists a normal inability to leave home and consequently, leaving home would require a considerable and taxing effort. Diet Recommendation: fluid restriction (use comment for amount) (2L) Karlo: Yes - Labs/Radiology BMP Date: 03/26/17 (send results to Dr Danielle) - Follow Up Care Current Providers and Referrals: Patient,NotPresent [Unknown] - As per Instructions
--- NOTE | 2017-03-22 13:50 | GDS ---
[f rep st] DISCHARGE SUMMARY DIAGNOSES: 1. Sepsis due to urinary tract infection. 2. Urinary tract infection/pyelonephritis due to Escherichia coli. 3. Hyponatremia likely due to syndrome of inappropriate antidiuretic hormone. 4. Urinary retention with Dietrich catheter in place. 5. Chronic pain on continuous narcotics. 6. Diabetes mellitus type 2, insulin dependent. 7. Decubitus ulcer. 8. Acute encephalopathy due to sepsis/urinary tract infection/narcotics. 9. Weakness. 10. Hypertension. HOSPITAL COURSE: 1. Sepsis: This is due to urinary tract infection. This resolved with treatment of the UTI and fl uids. 2. Urinary tract infection/pyelonephritis due to E coli: She has had recurrent urinary tract infec tions with persistent nephrolithiasis as well as indwelling Dietrich catheter. Escherichia coli here i s pansensitive. She has had some proteus UTIs in the past which have been intermediate to Keflex. Regardless, she will be discharged on a 14-day course of Keflex. She will need to follow up with [facility] her primary care physician, Dr. Danielle, as well as Dr. Davis for more definitive treatment. Nee d to attempt to remove her Dietrich catheter soon. She will need potentially surgical treatment of her nephrolithiasis. Would consider continuing Hiprex as well as potentially prophylactic antibiotics until she has more definitive therapy. 3. Hyponatremia: This is due to SIADH. Her urine sodium was 80. This has improved with fluid res triction and salt tabs. I will discharge her with a 2 L fluid restriction and salt tabs. I have wr itten to have her basic metabolic panel checked 4 days after discharge and sent to Dr. Danielle, who is aware of this. 4. Chronic pain on continuous narcotics: She was quite encephalopathic on her admission here. Nick e of this was due to sepsis, but some likely due to narcotics. I have decreased her MS Contin to 15 mg b.i.d. from 30 mg. She will also continue her oxycodone. 5. Diabetes mellitus type 2: Sugars have been labile while she is here. However, she has also bee n noted to eat M and M's. I will discharge her on her previous home insulin which was a sliding sca le of lispro and glargine. 6. Decubitus ulcer: She will receive wound care from her home nurse as well as follow up in the und care clinic for debridement. DISPOSITION: She will be discharged home with home care. She will follow up with her primary care physician, Dr. Davis, as well as the wound care clinic. BILLING: I spent more than 30 minutes on the day of discharge coordinating care. /[id number]/MODL
== END 2017-03-22 14:20 | disposition home health service (06) | DRG 871 ==
LOC: EDUNIT# → OBSVTOIN 11:46 → F3E 12:53
PROVIDERS: ADMIT Hospitalist; ATTEND Hospitalist
DX: A41.51 Sepsis due to Escherichia coli [E. coli] (principal); N10 Acute pyelonephritis; G93.40 Encephalopathy, unspecified; B96.20 Unspecified Escherichia coli [E. coli] as the cause of diseases classified elsewhere; E22.2 Syndrome of inappropriate secretion of antidiuretic hormone; L89.150 Pressure ulcer of sacral region, unstageable; E11.9 Type 2 diabetes mellitus without complications; G89.29 Other chronic pain; F11.20 Opioid dependence, uncomplicated; R33.9 Retention of urine, unspecified; E03.9 Hypothyroidism, unspecified; I10 Essential (primary) hypertension; F32.9 Major depressive disorder, single episode, unspecified; E78.5 Hyperlipidemia, unspecified; Z96.0 Presence of urogenital implants; Z98.1 Arthrodesis status; Z87.440 Personal history of urinary (tract) infections; Z79.4 Long term (current) use of insulin; Z74.01 Bed confinement status
CPT/HCPCS: 82947-QW; 96365; 97110-GP; 97162-GP; 97166-GO; 97530-GO; 97530-GP; 97535-GO; G8978-GP-CM; G8979-GP-CJ; G8987-GO-CL; G8988-GO-CJ; J0696; J1650; J1815; J2310; J2405; J3010

== ENCOUNTER 2017-04-11 04:01 | Emergency (ER) | payer OTHER, MEDICARE ==
[2017-04-11 04:15] VITALS: BP 107/64; PULSE 105; RESP 16; TEMP 97.3; O2SAT 98
--- NOTE | 2017-04-11 04:16 | EDPHY ---
H & P Stated Complaint: blocked thompson catheter HPI/ROS: HPI CHIEF COMPLAINT: Obstructive Thompson catheter. HISTORY OF PRESENT ILLNESS: This patient is 66-year-old female, significant past medical history for indwelling Thompson catheter, hyponatremia due to SIADH, sepsis, urinary tract infection, diabetes, generalized weakness, encephalopathy , chronic narcotic use, presents to the emergency room stating that her Thompson catheter is not draining 12 hours. She denies any fever vomiting. She tells me she has a chronic indwelling Thompson for months. She is wheelchair bound she tells me she has severe arthritis of her knees and is getting injections. She has Thompson catheter she tells me in for chronic urinary tract infections. She states that she has not seen a Thompson catheter draining 12 hours. Denies significant pain. Denies nausea vomiting chest pain or shortness of breath. Patient tells me she needs a Thompson catheter changed as it is time. Past Medical History: Chronic urinary tract infections, sepsis, hyponatremia, SIADH, diabetes, generalized weakness, arthritis, currently wheelchair-bound, chronic indwelling Thompson Past Surgical History: No recent surgery Social History: Denies daily use of drugs alcohol tobacco products. Family History: Noncontributory ROS REVIEW OF SYSTEMS: A comprehensive 10 point review of systems is otherwise negative aside from elements mentioned in the history of present illness. Exam Constitutional appears well nontoxic no triage nursing summary reviewed, vital signs reviewed, awake/alert. Eyes normal conjunctivae and sclera, EOMI, PERRLA. HENT normal inspection, atraumatic, moist mucus membranes, no epistaxis, neck supple/ no meningismus, no raccoon eyes. Respiratory clear to auscultation bilaterally, normal breath sounds, no respiratory distress, no wheezing. Cardiovascular rate normal, regular rhythm, no murmur, no edema, distal pulses normal. Gastrointestinal soft, non-tender, no rebound, no guarding, normal bowel sounds, no distension, no pulsatile mass. Genitourinary no CVA tenderness. Musculoskeletal no midline vertebral tenderness, full range of motion, no calf swelling, no tenderness of extremities, no meningismus, good pulses, neurovascularly intact. Skin pink, warm, & dry, no rash, skin atraumatic. Neurologic awake, alert and oriented x 3, AAOx3, moves all 4 extremities equally, motor intact, sensory intact, CN II-XII intact, normal cerebellar, normal vision, normal speech. Psychiatric normal mood/affect. Heme/Lymph/Immune no lymphadenopathy. Differential Diagnosis: Includes but is not limited to in a particular order, urinary retention, UTI, urinary catheter obstruction, Thompson catheter obstruction and need for change Medical Decision Making: Plan for this patient bladder scan to see if she is retaining urine with a Thompson in place, it is draining here in emergency room. Will change of Thompson catheter. Re-evaluation: 0451: Patient had a bladder scan performed. 800 cc retained urine. Thompson catheter was change. Good urine output at this time. Patient requesting discharge home. No abdominal pain no fever no vomiting. Recommend close follow- up with primary care doctor return emergency room if she has urinary catheter obstruction. Clear urine. No significant cloudiness. Source: Patient - Personal History Current Tetanus/Diphtheria Vaccine: Yes Current Tetanus Diphtheria and Acellular Pertussis (TDAP): Yes Tetanus Vaccine Date: with in 10 years - Medical/Surgical History Hx Asthma: No Hx Chronic Respiratory Disease: No Hx Diabetes: Yes Hx Cardiac Disease: Yes Hx Renal Disease: Yes Hx Cirrhosis: No Hx Alcoholism: No Hx HIV/AIDS: No Hx Splenectomy or Spleen Trauma: No Other PMH: Chronic back pain, diabetes, anxiety, anemia, opiate withdrawal, gait instability, hyperlipidemia, hypertension, hypotension, bladder prolapse. Chronic pain - Social History Smoking Status: Never smoked Constitutional: Initial Vital Signs Temperature (C) 36.3 C 04/11/17 04:04 Heart Rate 105 H 04/11/17 04:04 Respiratory Rate 16 04/11/17 04:04 Blood Pressure 107/64 04/11/17 04:04 O2 Sat (%) 98 04/11/17 04:04 O2 Delivery Mode Room Air Allergies/Adverse Reactions: codeine Allergy (Verified 04/11/17 04:04) metronidazole [From Flagyl] Allergy (Verified 04/11/17 04:04) Home Medications: Medication Instructions Recorded Simvastatin [Zocor 20 mg] 20 mg PO DAILY18 11/05/12 Levothyroxine [Synthroid 100 mcg 100 mcg PO DAILY06 08/27/14 (*)] Lisinopril [Zestril 10 mg (*)] 10 mg PO DAILY 08/27/14 Herbals/Supplements -Info Only 1 ea PO DAILY 06/29/16 Insulin Glargine [Lantus 100 10 units SC HS #0 ml 08/25/16 UNITS/ML (*)] Methenamine Devan [Hiprex 1 gm (*)] 1 gm PO QID 11/25/16 Ascorbic Acid [Vitamin C 500 mg 500 mg PO DAILY 03/17/17 (*)] Baclofen [Baclofen 10 mg (*)] 10 mg PO HS 03/17/17 Glucosamine/Chondroitin 1 each PO DAILY 03/17/17 [Glucosamine/Chondroitin (*)] Insulin Lispro [humALOG LISPRO 100 1 - 5 unit SC DAILY PRN 03/17/17 units/ml (*)] Insulin Regular Human [Humulin R 2 - 3 unit SC TIDMEAL 03/17/17 100 units/ml (*)] Multivitamins [Multivitamin (*)] 1 each PO DAILY 03/17/17 Oxybutynin Chloride 5 mg PO BID 03/17/17 oxyCODONE IR [Oxycodone Ir (*)] 10 mg PO TID 03/17/17 Cephalexin [Keflex (*)] 500 mg PO TID #27 cap 03/22/17 Sodium Chloride [Salt Tablet] 1,000 mg PO TIDMEAL #60 tab 03/22/17 morphINE SR [Ms Contin/Oramorph 15 15 mg PO BID #60 tab 03/22/17 mg (*)] Departure - Departure Disposition: Home, Routine, Self-Care Clinical Impression: Obstructed Thompson catheter Qualifiers: Encounter type: initial encounter Qualified Code(s): T83.091A - Other mechanical complication of indwelling urethral catheter, initial encounter Condition: Good Instructions: Thompson Catheter Placement and Care (ED) Additional Instructions: 1.Make sure to drink lots of fluids. 2. Return emergency room if you have any worsening symptoms questions or concerns. Referrals: Arthur Danielle MD [Primary Care Provider] - As per Instructions
== END 2017-04-11 05:02 | disposition home or self-care (01) ==
PROC: 0T9B70Z Drainage of Bladder with Drainage Device, Via Natural or Artificial Opening (ICD-10-PCS; principal; 2017-04-11)
DX: T83.098A Other mechanical complication of other urinary catheter, initial encounter (principal); E11.9 Type 2 diabetes mellitus without complications; I10 Essential (primary) hypertension; Z79.4 Long term (current) use of insulin; Y73.2 Prosthetic and other implants, materials and accessory gastroenterology and urology devices associated with adverse incidents

== ENCOUNTER 2017-04-11 16:43 | Emergency (ER) | payer OTHER, MEDICARE ==
[2017-04-11 17:05] VITALS: BP 113/88; PULSE 112; RESP 16; TEMP 98.2; O2SAT 98
--- NOTE | 2017-04-11 17:10 | EDPHY ---
H & P Stated Complaint: Cath placed in ewr last night. " clogged again" Time Seen by Provider: 04/11/17 17:09 - Personal History Current Tetanus/Diphtheria Vaccine: No Current Tetanus Diphtheria and Acellular Pertussis (TDAP): No Tetanus Vaccine Date: with in 10 years - Medical/Surgical History Hx Asthma: No Hx Chronic Respiratory Disease: No Hx Diabetes: Yes Hx Cardiac Disease: Yes Hx Renal Disease: Yes Hx Cirrhosis: No Hx Alcoholism: No Hx HIV/AIDS: No Hx Splenectomy or Spleen Trauma: No Other PMH: Chronic back pain, diabetes, anxiety, anemia, opiate withdrawal, gait instability, hyperlipidemia, hypertension, hypotension, bladder prolapse. Chronic pain - Social History Smoking Status: Never smoked Constitutional: Initial Vital Signs Temperature (C) 36.8 C 04/11/17 17:03 Heart Rate 112 H 04/11/17 17:03 Respiratory Rate 16 04/11/17 17:03 Blood Pressure 113/88 H 04/11/17 17:03 O2 Sat (%) 98 04/11/17 17:03 O2 Delivery Mode Room Air Allergies/Adverse Reactions: codeine Allergy (Verified 04/11/17 04:04) metronidazole [From Flagyl] Allergy (Verified 04/11/17 04:04) Home Medications: Medication Instructions Recorded Simvastatin [Zocor 20 mg] 20 mg PO DAILY18 11/05/12 Levothyroxine [Synthroid 100 mcg 100 mcg PO DAILY06 08/27/14 (*)] Lisinopril [Zestril 10 mg (*)] 10 mg PO DAILY 08/27/14 Herbals/Supplements -Info Only 1 ea PO DAILY 06/29/16 Insulin Glargine [Lantus 100 10 units SC HS #0 ml 08/25/16 UNITS/ML (*)] Methenamine Devan [Hiprex 1 gm (*)] 1 gm PO QID 11/25/16 Ascorbic Acid [Vitamin C 500 mg 500 mg PO DAILY 03/17/17 (*)] Baclofen [Baclofen 10 mg (*)] 10 mg PO HS 03/17/17 Glucosamine/Chondroitin 1 each PO DAILY 03/17/17 [Glucosamine/Chondroitin (*)] Insulin Lispro [humALOG LISPRO 100 1 - 5 unit SC DAILY PRN 03/17/17 units/ml (*)] Insulin Regular Human [Humulin R 2 - 3 unit SC TIDMEAL 03/17/17 100 units/ml (*)] Multivitamins [Multivitamin (*)] 1 each PO DAILY 03/17/17 Oxybutynin Chloride 5 mg PO BID 03/17/17 oxyCODONE IR [Oxycodone Ir (*)] 10 mg PO TID 03/17/17 Cephalexin [Keflex (*)] 500 mg PO TID #27 cap 03/22/17 Sodium Chloride [Salt Tablet] 1,000 mg PO TIDMEAL #60 tab 03/22/17 morphINE SR [Ms Contin/Oramorph 15 15 mg PO BID #60 tab 03/22/17 mg (*)] Medical Decision Making ED Course/Re-evaluation: CHIEF COMPLAINT: Catheter problem HISTORY OF PRESENT ILLNESS: The patient is a 66 y/o female arriving in her wheelchair complaining of a problem with her newly placed Dietrich catheter. She had a new catheter placed this morning, but accidentally ran over the bag with her wheelchair around 11:00 today. She replaced the bag, but states she hasn't had any urine output for the last 5 hours since this incident. She is concerned the catheter is clogged. She denies pain or any other complaints. REVIEW OF SYSTEMS: A 10 point review of systems was performed and is negative with the exception of the elements mentioned in the history of present illness. PHYSICAL EXAM: HR, BP, O2 Sat, RR. Temp noted General Appearance: Alert, dehydrated, thin, elderly, appropriate, and non- toxic appearing, sitting up in wheelchair. Head: Atraumatic without scalp tenderness or obvious injury Eyes: Pupils equal, round, reactive to light and accommodation, EOMI, no trauma , no injection. Nose: Atraumatic, no rhinorrhea, clear. Throat: Mucus membranes dry. Neck: Supple, nontender, no lymphadenopathy. Respiratory: No retractions, no distress, no wheezes, and no accessory muscle use. Lungs are clear to auscultation bilaterally. Cardiovascular: Regular rate and rhythm, no murmurs, rubs, or gallops. Good capillary refill all extremities. Gastrointestinal: Abdomen is soft, nontender, non-distended, no masses, no rebound, no guarding, no peritoneal signs. Musculoskeletal: Normal active ROM of all extremities, atraumatic. Neurological: Alert, appropriate, and interactive. Nonfocal neuro exam Skin: No rashes, good turgor, no nodules on palpation. Past medical history: Chronic pain, hypertension, diabetes, gait instability, anxiety Past surgical history: Denies Family history: noncontributory Social history: at bedside. Patient uses wheelchair for mobility assistance. DIFFERENTIAL DIAGNOSIS: The differential diagnosis for the patient's complaint included but was not limited to dehydration resulting in decreased urinary output, catheter malfunction, other urinary causes. MEDICAL DECISION MAKING: This is a 66 y/o female who presents for evaluation of her Dietrich catheter. No acute findings on exam. A bladder scan reveals 0cc remaining urine. The RN has flushed the Dietrich and it appears to be working appropriately. Patient is likely dehydrated leading to decreased urinary output. She will be discharged home in good condition with standard Dietrich care instructions. Departure - Departure Disposition: Home, Routine, Self-Care Clinical Impression: Dehydration Condition: Good Instructions: Dietrich Catheter Placement and Care (ED) Additional Instructions: Increase fluid intake. Follow up with your primary care provider for any unimproved symptoms. Return to the ED for any worsening of condition. Referrals: Arthur Danielle MD [Primary Care Provider] - As per Instructions Report Scribed for: Adam Duncan Report Scribed by: Kerrie Bullock Date of Report: 04/11/17 Time of Report: 17:27
== END 2017-04-11 18:18 | disposition home or self-care (01) ==
DX: E86.0 Dehydration (principal); E11.9 Type 2 diabetes mellitus without complications; I10 Essential (primary) hypertension; Z79.4 Long term (current) use of insulin; Y82.8 Other medical devices associated with adverse incidents

== ENCOUNTER 2017-04-17 04:22 | Emergency (ER) | payer OTHER, MEDICARE ==
[2017-04-17 04:28] VITALS: TEMP 97.7
--- NOTE | 2017-04-17 05:26 | EDPHY ---
H & P Stated Complaint: urinary catheter clogged x12 hours Time Seen by Provider: 04/17/17 05:23 HPI/ROS: HPI The patient presents with clogged Dietrich catheter for the last 12 hours with no urine output. She has the catheter in place for chronic UTIs and it was recently clogged and she was seen in the emergency room for this. She noticed some sediment in the tube. She is having some suprapubic tenderness.. REVIEW OF SYSTEMS Constitutional: No fever, no chills. Eyes: No discharge. ENT: No sore throat. Cardiovascular: No chest pain, no palpitations. Respiratory: No cough, no shortness of breath. Gastrointestinal: No abdominal pain, no vomiting. Genitourinary: No hematuria. Musculoskeletal: No back pain. Skin: No rashes. Neurological: No headache. PMHx: Chronic indwelling Dietrich catheter Soc Hx: Lives at home PHYSICAL General Appearance: Alert, no distress Eyes: Pupils equal and round no pallor or injection ENT, Mouth: Mucous membranes moist Respiratory: Breathing comfortably Gastrointestinal: Abdomen is soft and slightly distended Neurological: A&O Skin: Warm and dry, no rashes Psychiatric: Patient is oriented X 3, there is no agitation Source: Patient Exam Limitations: No limitations - Personal History Current Tetanus/Diphtheria Vaccine: Yes Tetanus Vaccine Date: with in 10 years - Medical/Surgical History Hx Asthma: No Hx Chronic Respiratory Disease: No Hx Diabetes: Yes Hx Cardiac Disease: Yes Hx Renal Disease: Yes Hx Cirrhosis: No Hx Alcoholism: No Hx HIV/AIDS: No Hx Splenectomy or Spleen Trauma: No Other PMH: Chronic back pain, diabetes, anxiety, anemia, opiate withdrawal, gait instability, hyperlipidemia, hypertension, hypotension, bladder prolapse. Chronic pain - Social History Smoking Status: Never smoked Constitutional: Initial Vital Signs Temperature (C) 36.5 C 04/17/17 04:26 Heart Rate 118 H 04/17/17 04:26 Respiratory Rate 20 04/17/17 04:26 Blood Pressure 118/67 04/17/17 04:26 O2 Sat (%) 95 04/17/17 04:26 O2 Delivery Mode Room Air Allergies/Adverse Reactions: codeine Allergy (Verified 04/17/17 17:03) metronidazole [From Flagyl] Allergy (Verified 04/17/17 17:03) Home Medications: Medication Instructions Recorded Simvastatin [Zocor 20 mg] 20 mg PO DAILY18 11/05/12 Levothyroxine [Synthroid 100 mcg 100 mcg PO DAILY06 08/27/14 (*)] Lisinopril [Zestril 10 mg (*)] 10 mg PO DAILY 08/27/14 Herbals/Supplements -Info Only 1 ea PO DAILY 06/29/16 Insulin Glargine [Lantus 100 10 units SC HS #0 ml 08/25/16 UNITS/ML (*)] Methenamine Devan [Hiprex 1 gm (*)] 1 gm PO QID 11/25/16 Ascorbic Acid [Vitamin C 500 mg 500 mg PO DAILY 03/17/17 (*)] Baclofen [Baclofen 10 mg (*)] 10 mg PO HS 03/17/17 Glucosamine/Chondroitin 1 each PO DAILY 03/17/17 [Glucosamine/Chondroitin (*)] Insulin Lispro [humALOG LISPRO 100 1 - 5 unit SC DAILY PRN 03/17/17 units/ml (*)] Insulin Regular Human [Humulin R 2 - 3 unit SC TIDMEAL 03/17/17 100 units/ml (*)] Multivitamins [Multivitamin (*)] 1 each PO DAILY 03/17/17 Oxybutynin Chloride 5 mg PO BID 03/17/17 oxyCODONE IR [Oxycodone Ir (*)] 10 mg PO TID 03/17/17 Sodium Chloride [Salt Tablet] 1,000 mg PO TIDMEAL #60 tab 03/22/17 morphINE SR [Ms Contin/Oramorph 15 15 mg PO BID #60 tab 03/22/17 mg (*)] Phenazopyridine HCl [Pyridium] 200 mg PO TID #6 tab 04/17/17 Trimethoprim 04/17/17 Medical Decision Making Differential Diagnosis: This is a 66-year-old female with Dietrich malfunction. She has had no urine out of the catheter for the last 12 hours. Differential diagnosis includes catheter tip migration, clogged catheter with senna minute, hemorrhage. In the emergency room, the nurse was able to milk the proximal portion of the catheter. Then urine began to flow out, total of 1200 mL was drained. The patient was counseled on catheter management. She was discharged from the emergency room. Departure - Departure Disposition: Home, Routine, Self-Care Clinical Impression: Dietrich catheter problem Condition: Good Instructions: Dietrich Catheter Placement and Care (ED) Referrals: Arthur Danielle MD [Primary Care Provider] - As per Instructions
[2017-04-17 05:39] VITALS: BP 141/69; PULSE 82; RESP 14; O2SAT 99
== END 2017-04-17 05:40 | disposition home or self-care (01) ==
LOC: EEVIPCON 04:22
DX: T83.098A Other mechanical complication of other urinary catheter, initial encounter (principal); E11.9 Type 2 diabetes mellitus without complications; I10 Essential (primary) hypertension; Z79.4 Long term (current) use of insulin; Y73.2 Prosthetic and other implants, materials and accessory gastroenterology and urology devices associated with adverse incidents

== ENCOUNTER 2017-04-17 17:00 | Emergency (ER) | payer OTHER, MEDICARE ==
[2017-04-17 17:07] VITALS: RESP 20; O2SAT 98
--- NOTE | 2017-04-17 17:26 | EDPHY ---
H & P Stated Complaint: dx uti and retention recurrent/catheter placed 1 week ago/ having pain Time Seen by Provider: 04/17/17 17:09 HPI/ROS: CHIEF COMPLAINT: Bladder pain HISTORY OF PRESENT ILLNESS: The patient is a 66-year-old female with a history of diabetes, severe chronic neck and back pain on continuous high dose narcotics , hypothyroidism, depression anxiety and recurrent urinary tract infections. She states that she has had a Dietrich catheter in place for last several weeks because of frequent urine infections. The most recent 1 was placed 1 week ago and it has hurt ever since was placed. She is concerned that it is missed place because it is painful. She has not had any hematuria. She had a UA done yesterday that was not unremarkable. She called the urology office today and the nurse recommended she come to the ER to have her Dietrich replaced. She has not had a fever. No vomiting. Her urine has not been cloudy. REVIEW OF SYSTEMS: Constitutional: denies: chills, fever, recent illness, recent injury EENTM: denies: blurred vision, double vision, nose congestion Respiratory: denies: cough, shortness of breath Cardiac: denies: chest pain, irregular heart rate, lightheadedness, palpitations Gastrointestinal/Abdominal: denies: abdominal pain, diarrhea, nausea, vomiting, blood streaked stools Genitourinary: See HPI Musculoskeletal: denies: joint pain, muscle pain Skin: denies: lesions, rash, jaundice, bruising Neurological: denies: headache, numbness, paresthesia, tingling, dizziness, weakness Hematologic/Lymphatic: denies: blood clots, easy bleeding, easy bruising Immunologic/allergic: denies: HIV/AIDS, transplant EXAM: GENERAL: Well-appearing, well-nourished and in no acute distress. HEAD: Atraumatic, normocephalic. EYES: Pupils equal round and reactive to light, extraocular movements intact, sclera anicteric, conjunctiva are normal. ENT: TMs normal, nares patent, oropharynx clear without exudates. Moist mucous membranes. NECK: Normal range of motion, supple without lymphadenopathy or JVD. LUNGS: Breath sounds clear to auscultation bilaterally and equal. No wheezes rales or rhonchi. HEART: Regular rate and rhythm without murmurs, rubs or gallops. ABDOMEN: Soft, nontender, normoactive bowel sounds. No guarding, no rebound. No masses appreciated. BACK: No CVA tenderness, no spinal tenderness, step-offs or deformities EXTREMITIES: Normal range of motion, no pitting or edema. No clubbing or cyanosis. NEUROLOGICAL: Cranial nerves II through XII grossly intact. Normal speech, normal gait. 5/5 strength, normal movement in all extremities, normal sensation PSYCH: Normal mood, normal affect. SKIN: Warm, dry, normal turgor, no visible rashes or lesions. Source: Patient Exam Limitations: No limitations - Personal History Current Tetanus/Diphtheria Vaccine: Yes Tetanus Vaccine Date: with in 10 years - Medical/Surgical History Hx Asthma: No Hx Chronic Respiratory Disease: No Hx Diabetes: Yes Hx Cardiac Disease: No Hx Renal Disease: No Hx Cirrhosis: No Hx Alcoholism: No Hx HIV/AIDS: No Hx Splenectomy or Spleen Trauma: No Other PMH: Chronic back pain, diabetes, anxiety, anemia, opiate withdrawal, gait instability, hyperlipidemia, hypertension, hypotension, bladder prolapse. Chronic pain - Family History Significant Family History: No pertinent family hx - Social History Smoking Status: Never smoked Alcohol Use: Sober Drug Use: None Constitutional: Initial Vital Signs Temperature (C) 36.6 C 04/17/17 17:04 Heart Rate 104 H 04/17/17 17:04 Respiratory Rate 20 04/17/17 17:04 Blood Pressure 130/82 H 04/17/17 17:04 O2 Sat (%) 98 04/17/17 17:04 O2 Delivery Mode Room Air Allergies/Adverse Reactions: codeine Allergy (Verified 04/17/17 17:03) metronidazole [From Flagyl] Allergy (Verified 04/17/17 17:03) Home Medications: Medication Instructions Recorded Simvastatin [Zocor 20 mg] 20 mg PO DAILY18 11/05/12 Levothyroxine [Synthroid 100 mcg 100 mcg PO DAILY06 08/27/14 (*)] Lisinopril [Zestril 10 mg (*)] 10 mg PO DAILY 08/27/14 Herbals/Supplements -Info Only 1 ea PO DAILY 06/29/16 Insulin Glargine [Lantus 100 10 units SC HS #0 ml 08/25/16 UNITS/ML (*)] Methenamine Devan [Hiprex 1 gm (*)] 1 gm PO QID 11/25/16 Ascorbic Acid [Vitamin C 500 mg 500 mg PO DAILY 03/17/17 (*)] Baclofen [Baclofen 10 mg (*)] 10 mg PO HS 03/17/17 Glucosamine/Chondroitin 1 each PO DAILY 03/17/17 [Glucosamine/Chondroitin (*)] Insulin Lispro [humALOG LISPRO 100 1 - 5 unit SC DAILY PRN 03/17/17 units/ml (*)] Insulin Regular Human [Humulin R 2 - 3 unit SC TIDMEAL 03/17/17 100 units/ml (*)] Multivitamins [Multivitamin (*)] 1 each PO DAILY 03/17/17 Oxybutynin Chloride 5 mg PO BID 03/17/17 oxyCODONE IR [Oxycodone Ir (*)] 10 mg PO TID 03/17/17 Sodium Chloride [Salt Tablet] 1,000 mg PO TIDMEAL #60 tab 03/22/17 morphINE SR [Ms Contin/Oramorph 15 15 mg PO BID #60 tab 03/22/17 mg (*)] Phenazopyridine HCl [Pyridium] 200 mg PO TID #6 tab 04/17/17 Trimethoprim 04/17/17 Medical Decision Making Procedures: Bedside ultrasound performed. Dietrich catheter in place. No sign of bleeding. Bladder decompressed. ED Course/Re-evaluation: I am hesitant to remove and replace the patient's Dietrich catheter without a compelling reason. She has bladder prolapse and history of urinary frequent tract infections. She does not have any symptoms today consistent with her previous urinary tract infections. She simply wants the Dietrich catheter replaced because she thinks it is responsible for her chronic bladder pain. I will discussed the case with Dr. William. 5:30 p.m. I spoke with Dr. Dvais over the phone. He is very angry because the patient keeps calling him every week to have her catheter replaced despite nothing wrong with it. He is asking that we start her on Pyridium and he will follow up with the office. I will also send her urine for cultures. He does not suggest replacing catheter this time Differential Diagnosis: Partial list of the Differential diagnosis considered include but were not limited to; the catheter displacement, obstruction , urinary tract infection and although unlikely based on the history and physical exam, I also considered rupture, ischemia. I discussed these differential diagnoses and the plan with the patient as well as the usual and expected course. The patient understands that the diagnosis is provisional and that in medicine we are not always correct and that further workup is often warranted. Usual and customary warnings were given. All of the patient's questions were answered. The patient was instructed to return to the emergency department should the symptoms at all worsen or return, otherwise to followup with the physician as we discussed. - Data Points Laboratory Results: 04/17/17 17:45 Urine Color PALE YELLOW Urine Appearance HAZY Urine pH 6.0 (5.0-7.5) Ur Specific [place] 1.010 (1.002-1.030) Urine Protein NEGATIVE (NEGATIVE) Urine Ketones NEGATIVE (NEGATIVE) Urine Blood 1+ H (NEGATIVE) Urine Nitrate NEGATIVE (NEGATIVE) Urine Bilirubin NEGATIVE (NEGATIVE) Urine Urobilinogen NEGATIVE EU EU (0.2-1.0) Ur Leukocyte Esterase 3+ H (NEGATIVE) Urine RBC Pending Urine WBC Pending Ur Epithelial Cells Pending Urine Glucose 1+ H (NEGATIVE) Medications Given: Discontinued Medications Phenazopyridine HCl (Pyridium) 200 mg PO EDNOW ONE Stop: 04/17/17 17:39 Last Admin: 04/17/17 17:50 Dose: 200 mg Departure - Departure Disposition: Home, Routine, Self-Care Clinical Impression: Dietrich catheter in place Condition: Fair Instructions: Dietrich Catheter Placement and Care (ED) Referrals: Arthur Danielle MD [Primary Care Provider] - As per Instructions Rich Davis MD [Medical Doctor] - As per Instructions Prescriptions: Phenazopyridine HCl [Pyridium] 200 mg PO TID #6 tab
[2017-04-17] MEDS ORDERED: PHENAZOPYRIDINE HCL 200 MG TAB PO ONE (17:38)
[2017-04-17 17:52] VITALS: BP 129/53; PULSE 76; TEMP 97.5
[2017-04-17 17:56] LABS: COLOR PALE YELLOW; LEUKOCYTE ESTERASE,URINE 3+ (NEGATIVE); NITRITE,URINE NEGATIVE (NEGATIVE)
[2017-04-17 18:17] LABS: RBC,URINE 50-182 /hpf (0-3); WBC,URINE 25-50 /hpf (0-3); YEAST PRESENT /hpf (NONE SEEN)
== END 2017-04-17 17:58 | disposition home or self-care (01) ==
DX: T83.098A Other mechanical complication of other urinary catheter, initial encounter (principal); E11.9 Type 2 diabetes mellitus without complications; I10 Essential (primary) hypertension; Z79.4 Long term (current) use of insulin; Y82.8 Other medical devices associated with adverse incidents

== ENCOUNTER 2017-04-18 23:14 | Emergency (ER) | payer OTHER, MEDICARE ==
[2017-04-18 23:25] VITALS: PULSE 105; RESP 18; TEMP 98.6; O2SAT 96
--- NOTE | 2017-04-19 00:45 | EDPHY ---
H & P Stated Complaint: pt c/o clogged thompson cath, 3 x in last 2 days for same Time Seen by Provider: 04/19/17 00:04 HPI/ROS: HPI The patient presents with urinary retention. She has a Thompson catheter in place for the last several weeks for urinary tract infection. She feels her bladder was distended, she is peeing around the catheter. She is being followed by Dr. gee of Urology and Infectious Disease. She has been in the ER on several occasions for similar complaint, last was yesterday. I saw her 2 days ago for the same and we were able to milk the catheter to allow flow of urine. She has been on Pyridium. Urine culture was sent from yesterday's visit growing out Enterococcus, sensitivities have not returned. She has an appointment tomorrow with urology. She does not have any pain, fevers or chills. REVIEW OF SYSTEMS Constitutional: No fever, no chills. Eyes: No discharge. ENT: No sore throat. Cardiovascular: No chest pain, no palpitations. Respiratory: No cough, no shortness of breath. Gastrointestinal: No abdominal pain, no vomiting. Genitourinary: No hematuria. Musculoskeletal: No back pain. Skin: No rashes. Neurological: No headache. PMHx: Chronic back pain, bladder prolapse Soc Hx: Lives at home with her PHYSICAL General Appearance: Alert, no distress Eyes: Pupils equal and round no pallor or injection ENT, Mouth: Mucous membranes moist Respiratory: Breathing comfortably Gastrointestinal: Abdomen is soft with bladder distension Neurological: A&O, moves all extremities Skin: Warm and dry, no rashes Musculoskeletal: Neck is supple non tender Extremities: symmetrical Psychiatric: [ Patient is oriented X 3, there is no agitation Source: Patient, Old records Exam Limitations: No limitations - Personal History Tetanus Vaccine Date: with in 10 years - Medical/Surgical History Hx Asthma: No Hx Chronic Respiratory Disease: No Hx Diabetes: Yes Hx Cardiac Disease: Yes Hx Renal Disease: No Hx Cirrhosis: No Hx Alcoholism: No Hx HIV/AIDS: No Hx Splenectomy or Spleen Trauma: No Other PMH: Chronic back pain, diabetes, anxiety, anemia, opiate withdrawal, gait instability, hyperlipidemia, hypotension, bladder prolapse. Chronic pain - Social History Smoking Status: Never smoked Constitutional: Initial Vital Signs Temperature (C) 37 C 07/04/17 23:21 Heart Rate 105 H 04/18/17 23:21 Respiratory Rate 18 04/18/17 23:21 Blood Pressure 97/59 L 04/18/17 23:21 O2 Sat (%) 96 04/18/17 23:21 O2 Delivery Mode Room Air Allergies/Adverse Reactions: codeine Allergy (Verified 04/18/17 23:25) metronidazole [From Flagyl] Allergy (Verified 04/18/17 23:25) Home Medications: Medication Instructions Recorded Simvastatin [Zocor 20 mg] 20 mg PO DAILY18 11/05/12 Levothyroxine [Synthroid 100 mcg 100 mcg PO DAILY06 08/27/14 (*)] Lisinopril [Zestril 10 mg (*)] 10 mg PO DAILY 08/27/14 Herbals/Supplements -Info Only 1 ea PO DAILY 06/29/16 Insulin Glargine [Lantus 100 10 units SC HS #0 ml 08/25/16 UNITS/ML (*)] Methenamine Devan [Hiprex 1 gm (*)] 1 gm PO QID 11/25/16 Ascorbic Acid [Vitamin C 500 mg 500 mg PO DAILY 03/17/17 (*)] Baclofen [Baclofen 10 mg (*)] 10 mg PO HS 03/17/17 Glucosamine/Chondroitin 1 each PO DAILY 03/17/17 [Glucosamine/Chondroitin (*)] Insulin Lispro [humALOG LISPRO 100 1 - 5 unit SC DAILY PRN 03/17/17 units/ml (*)] Insulin Regular Human [Humulin R 2 - 3 unit SC TIDMEAL 03/17/17 100 units/ml (*)] Multivitamins [Multivitamin (*)] 1 each PO DAILY 03/17/17 Oxybutynin Chloride 5 mg PO BID 03/17/17 oxyCODONE IR [Oxycodone Ir (*)] 10 mg PO TID 03/17/17 Sodium Chloride [Salt Tablet] 1,000 mg PO TIDMEAL #60 tab 03/22/17 morphINE SR [Ms Contin/Oramorph 15 15 mg PO BID #60 tab 03/22/17 mg (*)] Phenazopyridine HCl [Pyridium] 200 mg PO TID #6 tab 04/17/17 Trimethoprim 04/17/17 Medical Decision Making Procedures: Bedside limited abdominal Ultrasound- performed and interpreted by me. Indication: Urinary retention Findings: Largely distended bladder, visible sediment in the bladder, Thompson catheter balloon within bladder Impression: Bladder distension Differential Diagnosis: This is a 66-year-old female with indwelling Thompson catheter who presents with decreased urine output with concerns for urinary retention and malfunction of the catheter. She has been in the ER frequently for this. Her Thompson catheter is draining orange-colored urine with fair amount of sediment. Ultrasound performed by me shows largely distended bladder with catheter in normal position. It appears her catheter is clogged. Patient's catheter was removed and new catheter was placed, she had a large amount of urine out. She will be discharged home. I will not start her on antibiotics as she will be evaluated by Urology tomorrow and they can decide whether or not she should be started. Departure - Departure Disposition: Home, Routine, Self-Care Clinical Impression: Urinary retention Thompson catheter problem Qualifiers: Encounter type: initial encounter Qualified Code(s): T83.9XXA - Unspecified complication of genitourinary prosthetic device, implant and graft, initial encounter Condition: Good Instructions: Thompson Catheter Placement and Care (ED) Additional Instructions: Please follow-up with Dr. Davis tomorrow. Referrals: Arthur Danielle MD [Primary Care Provider] - As per Instructions Rich Davis MD [Medical Doctor] - As per Instructions
[2017-04-19 01:16] VITALS: BP 99/57
== END 2017-04-19 01:17 | disposition home or self-care (01) ==
PROC: 0T9B70Z Drainage of Bladder with Drainage Device, Via Natural or Artificial Opening (ICD-10-PCS; principal; 2017-04-18)
DX: R33.9 Retention of urine, unspecified (principal); T83.518A Infection and inflammatory reaction due to other urinary catheter, initial encounter; E11.9 Type 2 diabetes mellitus without complications; Z79.4 Long term (current) use of insulin; Y82.8 Other medical devices associated with adverse incidents

== ENCOUNTER 2017-06-03 22:19 | Emergency (ER) | payer OTHER, MEDICARE ==
[2017-06-03 22:38] VITALS: RESP 16
--- NOTE | 2017-06-03 22:57 | EDPHY ---
H & P Stated Complaint: Catheter clogged for 4 hours. HPI/ROS: HPI CHIEF COMPLAINT: Dietrich catheter obstruction HISTORY OF PRESENT ILLNESS: This patient very pleasant 66-year-old female well known to myself as well as the ER, she presents emergency room with obstruction or Dietrich catheter over the past 4 hours. Patient reports that she thinks Dietrich catheter is obstructed. Past Medical History: Significant past medical history for UTI, sepsis, hyponatremia, SIADH, diabetes, chronic indwelling Dietrich catheter with multiple obstructions. Past Surgical History: No recent surgery Social History: Denies daily use drugs alcohol tobacco products. Family History: Noncontributory. ROS REVIEW OF SYSTEMS: A comprehensive 10 point review of systems is otherwise negative aside from elements mentioned in the history of present illness. Exam Constitutional appears well nontoxic, triage nursing summary reviewed, vital signs reviewed, awake/alert. Eyes normal conjunctivae and sclera, EOMI, PERRLA. HENT normal inspection, atraumatic, moist mucus membranes, no epistaxis, neck supple/ no meningismus, no raccoon eyes. Respiratory clear to auscultation bilaterally, normal breath sounds, no respiratory distress, no wheezing. Cardiovascular rate normal, regular rhythm, no murmur, no edema, distal pulses normal. Gastrointestinal soft, non-tender, no rebound, no guarding, normal bowel sounds, no distension, no pulsatile mass. Genitourinary no CVA tenderness. Musculoskeletal no midline vertebral tenderness, full range of motion, no calf swelling, no tenderness of extremities, no meningismus, good pulses, neurovascularly intact. Skin pink, warm, & dry, no rash, skin atraumatic. Neurologic awake, alert and oriented x 3, AAOx3, moves all 4 extremities equally, motor intact, sensory intact, CN II-XII intact, normal cerebellar, normal vision, normal speech. Psychiatric normal mood/affect. Heme/Lymph/Immune no lymphadenopathy. Differential Diagnosis: Includes but is not limited to in a particular order, Dietrich catheter obstruction, urinary retention, urinary obstruction, urinary tract infection Medical Decision Making: Plan for this patient flush Dietrich catheter, bladder scan, if catheter drains after irrigation will allow her to go home however if unable to get catheter work may need to place a new 1. Re-evaluation: Bladder scan performed. 550 mL is of urinary in bladder. Dietrich catheter flushed. Appropriate drainage of urine. Source: Patient - Personal History Current Tetanus/Diphtheria Vaccine: Unsure Current Tetanus Diphtheria and Acellular Pertussis (TDAP): Unsure Tetanus Vaccine Date: with in 10 years - Medical/Surgical History Hx Asthma: No Hx Chronic Respiratory Disease: No Hx Diabetes: Yes Hx Cardiac Disease: Yes Hx Renal Disease: No Hx Cirrhosis: No Hx Alcoholism: No Hx HIV/AIDS: No Hx Splenectomy or Spleen Trauma: No Other PMH: Chronic back pain, IDDM, anxiety, anemia, opiate withdrawal, gait instability, hyperlipidemia, hypotension, bladder prolapse. Chronic pain. - Social History Smoking Status: Never smoked Constitutional: Initial Vital Signs Temperature (C) 37 C 06/03/17 22:35 Heart Rate 96 06/03/17 22:35 Respiratory Rate 16 06/03/17 22:35 Blood Pressure 137/77 H 06/03/17 22:35 O2 Sat (%) 96 06/03/17 22:35 O2 Delivery Mode Room Air Allergies/Adverse Reactions: codeine Allergy (Severe, Verified 06/03/17 22:39) Loss of consciousness metronidazole [From Flagyl] Allergy (Intermediate, Verified 06/03/17 22:39) Other-Enter Comments quetiapine [From Seroquel] Allergy (Intermediate, Verified 06/03/17 22:40) Other-Enter Comments Home Medications: Medication Instructions Recorded Simvastatin [Zocor 20 mg] 20 mg PO DAILY18 11/05/12 Levothyroxine [Synthroid 100 mcg 100 mcg PO DAILY06 08/27/14 (*)] Lisinopril [Zestril 10 mg (*)] 10 mg PO DAILY 08/27/14 Herbals/Supplements -Info Only 1 ea PO DAILY 06/29/16 Insulin Glargine [Lantus 100 10 units SC HS #0 ml 08/25/16 UNITS/ML (*)] Methenamine Devan [Hiprex 1 gm (*)] 1 gm PO QID 11/25/16 Ascorbic Acid [Vitamin C 500 mg 500 mg PO DAILY 03/17/17 (*)] Baclofen [Baclofen 10 mg (*)] 10 mg PO HS 03/17/17 Glucosamine/Chondroitin 1 each PO DAILY 03/17/17 [Glucosamine/Chondroitin (*)] Insulin Lispro [humALOG LISPRO 100 1 - 5 unit SC DAILY PRN 03/17/17 units/ml (*)] Insulin Regular Human [Humulin R 2 - 3 unit SC TIDMEAL 03/17/17 100 units/ml (*)] Multivitamins [Multivitamin (*)] 1 each PO DAILY 03/17/17 Oxybutynin Chloride 5 mg PO BID 03/17/17 oxyCODONE IR [Oxycodone Ir (*)] 10 mg PO TID 03/17/17 Sodium Chloride [Salt Tablet] 1,000 mg PO TIDMEAL #60 tab 03/22/17 morphINE SR [Ms Contin/Oramorph 15 15 mg PO BID #60 tab 03/22/17 mg (*)] Phenazopyridine HCl [Pyridium] 200 mg PO TID #6 tab 04/17/17 Trimethoprim 04/17/17 Ativan 06/03/17 Departure - Departure Disposition: Home, Routine, Self-Care Clinical Impression: Obstructed Dietrich catheter Qualifiers: Encounter type: initial encounter Qualified Code(s): T83.091A - Other mechanical complication of indwelling urethral catheter, initial encounter Condition: Good Instructions: Dietrich Catheter Placement and Care (ED) Additional Instructions: 1. Return emergency room if you have worsening symptoms questions or concerns. Referrals: Arthur Danielle MD [Primary Care Provider] - As per Instructions
[2017-06-04 00:13] VITALS: BP 132/71; PULSE 78; TEMP 98.1; O2SAT 97
== END 2017-06-04 00:12 | disposition home or self-care (01) ==
DX: T83.091A Other mechanical complication of indwelling urethral catheter, initial encounter (principal); E11.9 Type 2 diabetes mellitus without complications; Z79.4 Long term (current) use of insulin; Y73.2 Prosthetic and other implants, materials and accessory gastroenterology and urology devices associated with adverse incidents

== ENCOUNTER 2017-06-04 11:51 | Emergency (ER) | payer OTHER, MEDICARE ==
--- NOTE | 2017-06-04 13:16 | EDPHY ---
H & P Stated Complaint: Here last pm for same c/o;wants new thompson Time Seen by Provider: 06/04/17 12:30 HPI/ROS: CHIEF COMPLAINT: catheter obstruction HISTORY OF PRESENT ILLNESS: 66-year-old female presents emergency department reporting a Thompson catheter obstruction for the past 4 hours. Patient reports her catheter was clogged 3 days ago, she had it flushed, it was clogged again it yesterday, she came to the emergency department and had it flushed, she reports it is clogged again today. Patient denies other complaints. REVIEW OF SYSTEMS: A comprehensive 10 point review of systems is otherwise negative aside from elements mentioned in the history of present illness. Source: Patient Exam Limitations: No limitations - Personal History Current Tetanus Diphtheria and Acellular Pertussis (TDAP): Yes Tetanus Vaccine Date: with in 10 years - Medical/Surgical History Hx Asthma: No Hx Chronic Respiratory Disease: No Hx Diabetes: Yes Hx Cardiac Disease: Yes Hx Renal Disease: No Hx Cirrhosis: No Hx Alcoholism: No Hx HIV/AIDS: No Hx Splenectomy or Spleen Trauma: No Other PMH: Chronic back pain, IDDM, anxiety, anemia, opiate withdrawal, gait instability, hyperlipidemia, hypotension, bladder prolapse. Chronic pain. - Social History Smoking Status: Never smoked - Physical Exam Exam: Physical Exam Gen: Alert and Oriented, NAD HEENT: PERRL, moist mucous membranes NECK: no meningismus CV: regular rate and regular rhythm PULM: CTAB, no wheezes ABDOMEN: soft, non tender to palpation, BS present BACK: No CVA tenderness NEURO: Neurologically grossly intact EXTREMITIES: normal appearing SKIN: no rash or break in skin on exposed skin PSYCH: answers questions appropriately. Constitutional: Initial Vital Signs Temperature (C) 36.9 C 06/04/17 11:59 Heart Rate 86 06/04/17 11:59 Respiratory Rate 18 06/04/17 11:59 Blood Pressure 98/56 L 06/04/17 11:59 O2 Sat (%) 96 06/04/17 11:59 O2 Delivery Mode Room Air Allergies/Adverse Reactions: codeine Allergy (Severe, Verified 06/04/17 11:52) Loss of consciousness metronidazole [From Flagyl] Allergy (Intermediate, Verified 06/04/17 11:52) Other-Enter Comments quetiapine [From Seroquel] Allergy (Intermediate, Verified 06/04/17 11:52) Other-Enter Comments Home Medications: Medication Instructions Recorded Simvastatin [Zocor 20 mg] 20 mg PO DAILY18 11/05/12 Levothyroxine [Synthroid 100 mcg 100 mcg PO DAILY06 08/27/14 (*)] Lisinopril [Zestril 10 mg (*)] 10 mg PO DAILY 08/27/14 Herbals/Supplements -Info Only 1 ea PO DAILY 06/29/16 Insulin Glargine [Lantus 100 10 units SC HS #0 ml 08/25/16 UNITS/ML (*)] Methenamine Devan [Hiprex 1 gm (*)] 1 gm PO QID 11/25/16 Ascorbic Acid [Vitamin C 500 mg 500 mg PO DAILY 03/17/17 (*)] Baclofen [Baclofen 10 mg (*)] 10 mg PO HS 03/17/17 Glucosamine/Chondroitin 1 each PO DAILY 03/17/17 [Glucosamine/Chondroitin (*)] Insulin Lispro [humALOG LISPRO 100 1 - 5 unit SC DAILY PRN 03/17/17 units/ml (*)] Insulin Regular Human [Humulin R 2 - 3 unit SC TIDMEAL 03/17/17 100 units/ml (*)] Multivitamins [Multivitamin (*)] 1 each PO DAILY 03/17/17 Oxybutynin Chloride 5 mg PO BID 03/17/17 oxyCODONE IR [Oxycodone Ir (*)] 10 mg PO TID 03/17/17 Sodium Chloride [Salt Tablet] 1,000 mg PO TIDMEAL #60 tab 03/22/17 morphINE SR [Ms Contin/Oramorph 15 15 mg PO BID #60 tab 03/22/17 mg (*)] Phenazopyridine HCl [Pyridium] 200 mg PO TID #6 tab 04/17/17 Trimethoprim 04/17/17 Ativan 06/03/17 Medical Decision Making ED Course/Re-evaluation: On my arrival into the room the patients catheter is draining. She reports it has clogged three times this week and she is requesting a new one be placed. Pt usually has them replaced about once monthly, this one was placed 2 weeks ago. Catheter is replaced without difficulty. She is discharged home with return precautions. Departure - Departure Disposition: Home, Routine, Self-Care Clinical Impression: Obstructed Thompson catheter Qualifiers: Encounter type: initial encounter Qualified Code(s): T83.091A - Other mechanical complication of indwelling urethral catheter, initial encounter Condition: Good Instructions: Thompson Catheter Placement and Care (ED) Additional Instructions: Follow-up with your primary care doctor as scheduled. Return to the emergency department for any new symptoms or concerns. Referrals: Arthur Danielle MD [Primary Care Provider] - As per Instructions
[2017-06-04 14:06] VITALS: BP 134/77; PULSE 82; RESP 20; TEMP 98.2; O2SAT 98
== END 2017-06-04 14:06 | disposition home or self-care (01) ==
PROC: 0T9B70Z Drainage of Bladder with Drainage Device, Via Natural or Artificial Opening (ICD-10-PCS; principal; 2017-06-04)
DX: T83.091A Other mechanical complication of indwelling urethral catheter, initial encounter (principal); E11.9 Type 2 diabetes mellitus without complications; Z79.4 Long term (current) use of insulin; Y82.8 Other medical devices associated with adverse incidents

== ENCOUNTER 2017-08-06 07:24 | Inpatient (IN) | payer OTHER, MEDICARE ==
[2017-08-06] MEDS ORDERED: NS 1,000 ML IV ONE ×2 (07:26→07:27)
--- NOTE | 2017-08-06 07:29 | EDPHY ---
H & P HPI/ROS: HPI CHIEF COMPLAINT: Altered mental status, tachycardia, septic HISTORY OF PRESENT ILLNESS: Patient very pleasant 66-year-old female well known to myself as well as the emergency room, extensive medical history including hypertension, hyperlipidemia, UTI with sepsis, chronic indwelling Dietrich catheter, hyponatremia and diabetes she presents emergency room from private residence home with concerns of sepsis. For the past few days she has been in bed having increasing confusion. Noted by EMS to be tachycardic but not hypotensive. With worsening confusion. called 911. Additionally EMS reports low O2 set at home 80%. Placed on a non-rebreather EN route. Past Medical History: Significant medical history for UTI with sepsis, encephalopathy, hypertension, hyperlipidemia, hyponatremia, diabetes, recurrent UTI., chronic pain. Opioid dependency. Past Surgical History: No recent surgery Social History: Resides locally. Private residence. Family History: Noncontributory. ROS REVIEW OF SYSTEMS: Somewhat leg due to patient's mental state. Exam Constitutional confused and appears ill, triage nursing summary reviewed, vital signs reviewed, awake/alert. Vital signs noted at triage to be tachycardic, tachypneic, hypoxic, hypotensive Not protecting Airway Very well. Eyes normal conjunctivae and sclera, EOMI, PERRLA. HENT normal inspection, atraumatic, moist mucus membranes, no epistaxis, neck supple/ no meningismus, no raccoon eyes. Respiratory gurgling breath sounds, rhonchi throughout all lung servin, sounds wet, Cardiovascular tachycardic regular rhythm, no murmur, no edema, distal pulses normal. Gastrointestinal soft, non-tender, no rebound, no guarding, normal bowel sounds, no distension, no pulsatile mass. Genitourinary no CVA tenderness. Chronic indwelling Dietrich Dietrich catheter noted to have large amount of debris and urine that looks infected. Musculoskeletal no midline vertebral tenderness, full range of motion, no calf swelling, no tenderness of extremities, no meningismus, good pulses, neurovascularly intact. Skin pink, warm, & dry Neurologic confused, decreased mentation, slow to respond Psychiatric normal mood/affect. Heme/Lymph/Immune no lymphadenopathy. Differential Diagnosis: Includes but is not limited to sepsis, UTI, pneumonia, intracranial bleed, electrolyte disturbance Medical Decision Making: Plan for this patient here in emergency room she appears ill, will proceed with sepsis workup, full host and hostess, blood cultures, lactic acid, IV establishment, IV fluid bolus, CT head for confusion, change donna Re-evaluation: 0739AM: at bedside reports 3 days of feeling ill not getting out of bed not taking her medications and vomiting. 0740: Pulse ox on a non-rebreather at 15L 85%. Current vital signs blood pressure 97/47, heart rate 104. 0747: Discussed at length with at bedside about resuscitation goals, intubations and line and pressors. He states that he would like this done. When I ask him about advance directives he states she has them and would not want to be on life support or CPR or Intubation For "A long time" He is requesting that I intubate the patient. Patient noted to be profoundly hypoxic on 15 L. blood pressure low. Patient confused Chest x-ray has been reviewed and shows either multifocal pneumonia or pulmonary edema bilaterally. At This time patient is being moved from ER room 6 to ER room 2 for possible intubation. 0807AM: INTUBATIION PROCEDURE: This patient was intubated by myself under RSI medications. It was somewhat difficult intubation. Her oropharynx opening is very small. Her cords very anterior 3 attempts were made. Initially the 1st attempt was made with a MAC 4 blade unable to visualize cords with posterior pharynx secretions. 2nd attempt was made with the glide scope MAC 4 blade. Unable to visualize cords the 2nd time. 3rd attempt was made glide scope MAC 3 blade with a small endotracheal tube. I was able to visualize cords. The tube was successfully passed into the cords under direct visualization of a glide scope. Otherwise there are no other complications. She was are side with 20 mg of IV etomidate and 100 mg IV succinylcholine. She maintained an oxygen saturation 100% throughout the entire intubation process. A 6.0 endotracheal tube was placed. 23 at the lips. Humidified air was confirmed in the endotracheal tube. Good color change on capnography. And endotracheal tube was confirmed by chest x-ray. Good position. Critical Care: Total Critical Care Time Spent Managing this Patient: 85 Minutes. This time was spent Exclusively with this patient. This Care was exclusive of procedures. The Organ System/life at risk was pulmonary This Patient was in Critical Condition because respiratory failure, altered mental status, profound hypoxia, sepsis, CHF 0815:AM: Patient currently intubated. Sedated on propofol. Hemodynamically stable. On levophed. 0848: ED x-ray chest one view reviewed for central line placement. The central line courses into the right IJ no pneumothorax appreciated. Line enters the SVC and is sitting a little bit low. Will pulled back a cm. No pneumothorax. 0849: Updated at bedside. Patient currently on Levophed. At 10. Blood pressure improved 140 systolic. Heart rate 78. Patient intubated. Sedated. Central line in good place. Getting Levophed. Broad-spectrum antibiotics, echocardiogram ordered. I did speak with the hospitalist service 0908AM: Dr. Jordan Madsen will admit this patient. EKG interpretation by me on record in [facility] system. Impression time of EKG 8:54 a.m., sinus rhythm rate of 80. No acute ischemic changes appreciated. Unremarkable EKG. Of note this patient was given 1500 cc of normal saline when she arrived to the emergency room due to critically low blood pressure hypotension. Requiring fluid resuscitation. She is now on Levophed. Source: Patient, EMS - Personal History Tetanus Vaccine Date: with in 10 years - Medical/Surgical History Hx Asthma: No Hx Chronic Respiratory Disease: No Hx Diabetes: Yes Hx Cardiac Disease: Yes Hx Renal Disease: No Hx Cirrhosis: No Hx Alcoholism: No Hx HIV/AIDS: No Hx Splenectomy or Spleen Trauma: No Other PMH: Chronic back pain, diabetes, anxiety, anemia, opiate withdrawal, gait instability, hyperlipidemia, hypotension, bladder prolapse. Chronic pain - Social History Smoking Status: Never smoked Constitutional: Initial Vital Signs Temperature (C) 36.7 C 08/06/17 07:36 Heart Rate 114 H 08/06/17 07:36 Respiratory Rate 18 08/06/17 07:36 Blood Pressure 97/47 L 08/06/17 07:36 O2 Sat (%) 96 08/06/17 07:36 O2 Delivery Mode Ventilator O2 (L/minute) 15 Allergies/Adverse Reactions: codeine Allergy (Severe, Verified 06/04/17 11:52) Loss of consciousness metronidazole [From Flagyl] Allergy (Intermediate, Verified 06/04/17 11:52) Other-Enter Comments quetiapine [From Seroquel] Allergy (Intermediate, Verified 06/04/17 11:52) Other-Enter Comments Home Medications: Medication Instructions Recorded Levothyroxine [Synthroid 100 mcg 100 mcg PO DAILY06 08/27/14 (*)] Baclofen [Baclofen 10 mg (*)] 2.5 mg PO Q3 03/17/17 Multivitamins [Multivitamin (*)] 1 each PO DAILY 03/17/17 Oxybutynin Chloride 5 mg PO BID 03/17/17 oxyCODONE IR [Oxycodone Ir (*)] 2.5 mg PO Q3 03/17/17 Escitalopram Oxalate [Lexapro] 10 mg PO DAILY 08/06/17 Insulin Regular Human [Humulin R 0 unit SC 5XD 08/06/17 100 units/ml (*)] Promethazine HCl [Phenergan 25mg 12.5 mg PO Q6 PRN 08/06/17 (*)] Simvastatin 20 mg PO DAILY18 08/06/17 Sodium Chloride [Salt Tablet] 500 gm PO BID 08/06/17 Trimethoprim [TRIMPEX 100MG (*)] 100 mg PO Q2D 08/06/17 morphINE SR [MS Contin/Oramorph SR 30 mg PO BID 08/06/17 30 mg (*)] traZODone [traZODONE 100MG (*)] 200 mg PO HS 08/06/17 Medical Decision Making - Data Points Laboratory Results: Laboratory Results 08/06/17 07:30 08/06/17 07:30 Microbiology Results: MICROBIOLOGY 08/06/17 07:45 Blood Blood Culture - Final 08/06/17 07:30 Blood Blood Culture - Final Medications Given: Acetaminophen (Tylenol 650/20.3ml Oral Liquid) 650 mg TUBE Q4HRS PRN PRN Reason: Pain, Mild/Fever, Can Take PO Stop: 02/06/18 13:19 Last Admin: 08/11/17 04:17 Dose: 650 mg Heparin Sodium (Porcine) (Heparin Sc Injection) 5,000 unit SC Q8HRS JANET Stop: 02/02/18 13:59 Last Admin: 08/11/17 22:04 Dose: 5,000 unit Norepinephrine/Sodium Chloride (Norepinephrine 8 Mcg/Ml (Premix)) 500 mls @ 0 mls/hr IV CONT JANET; Titrate PRN Reason: Protocol Stop: 02/02/18 09:59 Last Admin: 08/07/17 05:30 Dose: 500 mls Sodium Chloride (Ns) 1,000 mls @ 150 mls/hr IV CONT JANET Stop: 02/02/18 09:44 Last Admin: 08/11/17 14:45 Dose: 1,000 mls Fentanyl/Sodium Chloride (Fentanyl 10 Mcg/Ml (Premix)) 100 mls @ 0 mls/hr IV CONT JANET; Per Protocol PRN Reason: Protocol Stop: 08/16/17 10:59 Last Admin: 08/11/17 17:56 Dose: 100 mls Dextrose (D10w) 250 mls @ 0 mls/hr IV PRN PRN; Protocol; Wide Open PRN Reason: Hypoglycemia Stop: 02/02/18 16:59 Last Admin: 08/07/17 05:44 Dose: 250 mls Famotidine/Sodium Chloride (Pepcid 20 Mg (Premix)) 50 mls @ 200 mls/hr IV DAILY JANET Stop: 02/02/18 20:59 Last Admin: 08/11/17 08:55 Dose: 50 mls Levofloxacin/Dextrose (Levaquin 750 Mg (Premix)) 150 mls @ 100 mls/hr IV DAILY JANET PRN Reason: Protocol Stop: 09/08/17 10:59 Last Admin: 08/11/17 08:54 Dose: 150 mls Piperacillin/Tazobactam/Dextrose (Zosyn 2.25 Gm (Premix)) 50 mls @ 100 mls/hr IV Q6HRS JANET PRN Reason: Protocol Stop: 09/09/17 11:59 Last Admin: 08/11/17 17:56 Dose: 50 mls Levothyroxine Sodium (Synthroid) 100 mcg TUBE DAILY06 JANET Stop: 02/03/18 05:59 Last Admin: 08/11/17 05:49 Dose: 100 mcg Discontinued Medications Furosemide (Lasix Injection) 40 mg IVP ONCE ONE Stop: 08/11/17 08:44 Last Admin: 08/11/17 08:55 Dose: 40 mg Sodium Chloride (Ns) 1,000 mls @ 0 mls/hr IV EDNOW ONE; Wide Open PRN Reason: Protocol Stop: 08/06/17 07:27 Last Admin: 08/06/17 07:42 Dose: 1,000 mls Sodium Chloride (Ns) 1,000 mls @ 0 mls/hr IV ONCE ONE PRN Reason: Wide Open Stop: 08/06/17 07:28 Last Admin: 08/06/17 07:42 Dose: 1,000 mls Vancomycin/Sodium Chloride (Vancomycin 1 Gm (Premix)) 250 mls @ 250 mls/hr IV EDNOW ONE PRN Reason: Protocol Stop: 08/06/17 08:46 Last Admin: 08/06/17 09:28 Dose: 250 mls Piperacillin/Tazobactam/Dextrose (Zosyn (Premix)) 100 mls @ 200 mls/hr IV EDNOW ONE PRN Reason: Protocol Stop: 08/06/17 08:16 Last Admin: 08/06/17 10:00 Dose: 100 mls Norepinephrine/Sodium Chloride (Norepinephrine 8 Mcg/Ml (Premix)) 500 mls @ 0 mls/hr IV EDNOW ONE; Per Protocol PRN Reason: Protocol Stop: 08/06/17 08:23 Last Admin: 08/06/17 08:48 Dose: 500 mls Famotidine/Sodium Chloride (Pepcid 20 Mg (Premix)) 50 mls @ 200 mls/hr IV Q12HRS JANET Stop: 02/02/18 20:59 Last Admin: 08/07/17 08:59 Dose: 50 mls Propofol (Diprivan 10 Mg/Ml (Premix)) 100 mls @ 0 mls/hr IV CONT JANET; Per Protocol PRN Reason: Protocol Stop: 02/02/18 10:59 Last Admin: 08/09/17 06:36 Dose: 100 mls Piperacillin/Tazobactam/Dextrose (Zosyn 2.25 Gm (Premix)) 50 mls @ 100 mls/hr IV 0400,1000,1600,2200 JANET PRN Reason: Protocol Stop: 09/05/17 15:59 Last Admin: 08/09/17 10:14 Dose: 50 mls Dextrose (D5w) 1,000 mls @ 25 mls/hr IV CONT JANET PRN Reason: Protocol Stop: 02/03/18 07:59 Last Admin: 08/07/17 17:24 Dose: 1,000 mls Insulin Human Regular 100 unit (/ Sodium Chloride) 101 mls @ 0 mls/hr IV CONT JANET; Per Protocol PRN Reason: Protocol Stop: 02/03/18 07:59 Last Admin: 08/07/17 17:23 Dose: 101 mls Sodium Chloride (Ns) 500 mls @ 999 mls/hr IV ONCE ONE Stop: 08/09/17 05:17 Last Admin: 08/09/17 04:47 Dose: 500 mls Potassium Chloride (Potassium Cl 20 Meq (Premix)) 50 mls @ 50 mls/hr IV Q1H JANET Stop: 08/09/17 07:01 Last Admin: 08/09/17 08:49 Dose: 50 mls Magnesium Sulfate (Magnesium Sulf 2 Gm (Premix)) 50 mls @ 50 mls/hr IV ONCE ONE Stop: 08/09/17 06:01 Last Admin: 08/09/17 08:20 Dose: 50 mls Sodium Chloride (Ns) 500 mls @ 999 mls/hr IV ONCE ONE Stop: 08/09/17 07:40 Last Admin: 08/09/17 07:10 Dose: 500 mls Dexmedetomidine HCl 400 mcg/ (Sodium Chloride) 104 mls @ 0 mls/hr IV CONT JANET; Titrate PRN Reason: Protocol Stop: 02/05/18 08:29 Last Admin: 08/11/17 05:42 Dose: 104 mls Potassium Chloride (Potassium Cl 10 Meq (Premix)) 50 mls @ 100 mls/hr IV Q30M JANET Stop: 08/09/17 14:44 Last Admin: 08/09/17 15:16 Dose: 50 mls Potassium Chloride (Potassium Cl 20 Meq (Premix)) 50 mls @ 50 mls/hr IV ONCE ONE Stop: 08/09/17 19:42 Last Admin: 08/09/17 19:00 Dose: 50 mls Potassium Chloride (Potassium Cl 20 Meq (Premix)) 50 mls @ 50 mls/hr IV ONCE ONE Stop: 08/10/17 02:45 Last Admin: 08/10/17 02:45 Dose: 50 mls Magnesium Sulfate/Dextrose (Magnesium Sulf 1 Gm (Premix)) 100 mls @ 100 mls/hr IV ONCE ONE Stop: 08/10/17 06:40 Last Admin: 08/10/17 06:07 Dose: 100 mls Potassium Chloride (Potassium Cl 10 Meq (Premix)) 50 mls @ 100 mls/hr IV Q30M [facility] Stop: 08/10/17 14:59 Last Admin: 08/10/17 15:34 Dose: 50 mls Magnesium Sulfate/Dextrose (Magnesium Sulf 1 Gm (Premix)) 100 mls @ 100 mls/hr IV ONCE ONE Stop: 08/11/17 14:41 Last Admin: 08/11/17 14:45 Dose: 100 mls Potassium Chloride (Potassium Cl 10 Meq (Premix)) 50 mls @ 100 mls/hr IV Q30M JANET Stop: 08/11/17 22:52 Last Admin: 08/11/17 22:15 Dose: 50 mls Insulin Human Lispro (Humalog Lispro) 3 unit SC ONCE ONE Stop: 08/08/17 08:13 Last Admin: 08/08/17 08:45 Dose: 3 units Insulin Human Lispro (Humalog Lispro) 0 unit SC Q6H JANET PRN Reason: Protocol Stop: 02/05/18 00:44 Last Admin: 08/09/17 17:30 Dose: 8 units Insulin Human Regular (Humulin R) 0 unit SC Q4H JANET PRN Reason: Protocol Stop: 02/02/18 16:44 Last Admin: 08/07/17 13:59 Dose: Not Given Sodium Bicarbonate (Sodium Bicarbonate) 50 meq IV ONCE ONE Stop: 08/09/17 08:31 Last Admin: 08/09/17 08:49 Dose: 50 meq Departure - Departure Disposition: [facility] Inpatient Acute Clinical Impression: Hypoxic Altered mental status Qualifiers: Altered mental status type: unspecified Qualified Code(s): R41.82 - Altered mental status, unspecified Sepsis Qualifiers: Sepsis type: sepsis due to unspecified organism Qualified Code(s): A41.9 - Sepsis, unspecified organism Respiratory failure Qualifiers: Chronicity: acute Respiratory failure complication: hypoxia Qualified Code(s): J96.01 - Acute respiratory failure with hypoxia CHF (congestive heart failure) Qualifiers: Congestive heart failure type: unspecified congestive heart failure type Congestive heart failure chronicity: acute Qualified Code(s): I50.9 - Heart failure, unspecified Condition: Critical
[2017-08-06] MEDS ORDERED: PIPERACILLIN/TAZO 4.5 GM/DEX 100 ML IV ONE (07:47)
[2017-08-06] MEDS ORDERED: VANCOMYCIN HCL/NORMAL SALINE 250 ML IV ONE (07:47)
[2017-08-06 07:55] LABS: INR 0.91 (0.83-1.16); PROTIME(PATIENT) 12.1 SEC (12.0-15.0)
[2017-08-06] MEDS ORDERED: PROPOFOL/EMULSION 1,000 MG/100 ML BOTTLE IV ONE (07:56)
[2017-08-06 07:59] LABS: ALANINE AMINOTRANSFERASE 17 IU/L (9-52); ALBUMIN 2.9 g/dL (3.5-5.0); ALKALINE PHOSPHATASE 177 IU/L (38-126); ASPARTATE AMINOTRANSFERASE 21 IU/L (14-46); BILIRUBIN,TOTAL 0.7 mg/dL (0.1-1.4); BILIRUBIN-CONJUGATED 0.6 mg/dL (0.0-0.5); BILIRUBIN-UNCONJUGATED 0.1 mg/dL (0.0-1.1); CALCIUM 8.5 mg/dL (8.5-10.4); CARBON DIOXIDE 15 mEq/l (22-31); CHLORIDE 86 mEq/L (97-110); CREATININE 3.5 mg/dL (0.6-1.0); GLOMERULAR FILTRATION RATE 13; GLUCOSE 212 mg/dL (70-100); MAGNESIUM 1.7 mg/dL (1.6-2.3); POTASSIUM 5.2 mEq/L (3.5-5.2); TOTAL PROTEIN 5.5 g/dL (6.3-8.2)
[2017-08-06 08:12] LABS: CREATINE KINASE-MB FRACTION 3.08 ng/mL (0.00-3.19); TROPONIN I 0.042 ng/mL (0.000-0.034)
[2017-08-06] MEDS ORDERED: NOREPINEPHRINE/NS 500 ML IV ONE (08:22)
[2017-08-06 08:24] LABS: APTT > 250.0 SEC (23.0-38.0)
[2017-08-06 08:32] LABS: SODIUM 121 mEq/L (134-144)
[2017-08-06 08:33] LABS: ANION GAP 17 mEq/L (8-16)
--- NOTE | 2017-08-06 08:56 | CPEKG ---
Heart Rate: 80 RR Interval: 750 P-R Interval: 136 QRSD Interval: 74 QT Interval: 348 QTC Interval: 402 P Winston: 72 QRS Winston: 79 T Wave Winston: 60 EKG Severity - OTHERWISE NORMAL ECG - EKG Impression: SINUS RHYTHM EKG Impression: LOW VOLTAGE IN FRONTAL LEADS Electronically Signed By: Daquan Truong 06-Aug-2017 15:24:55
[2017-08-06] MEDS ORDERED: PROPOFOL/EMULSION 100 ML IV SCH (09:00)
[2017-08-06 09:03] LABS: BASE EXCESS -9.1 mEq/L (-2.5-2.5); BICARBONATE 16 mEq/L (22-26); MEASURED OXYGEN SATURATION 100 % (92-95); PCO2 34 mmHg (34-38); PO2 173 mmHg (65-75); SIMV YES; TCO2 17 mEq/L (23-27)
[2017-08-06 09:04] LABS: O2 CONCENTRATIION 70 % (0-100); P/F RATIO 247 RATIO; PRESSURE SUPPORT 10
[2017-08-06 09:07] LABS: % IMMATURE GRANULYOCYTES 0.7 % (0.0-1.1); ABSOLUTE IMMATURE GRANULOCYTES 0.27 10^3/uL (0.00-0.10); ADD DIFF? NO; ADD MORPH? NO; ADD SCAN? YES; ATYPICAL LYMPHOCYTE FLAG 0 (0-99); FRAGMENT RBC FLAG 0 (0-99); LEFT SHIFT FLG 20 (0-99); MEAN CELL HEMOGLOBIN 29.4 pg (27.9-34.1); MEAN CELL HEMOGLOBIN CONCENTR. 37.5 g/dL (32.4-36.7); MEAN CELL VOLUME 78.4 fL (81.5-99.8); MEAN PLATELET VOLUME 8.5 fL (8.7-11.7); PLATELET CLUMPS FLAG 0 (0-99); PLATELET COUNT 313 10^3/uL (150-400); RED BLOOD CELL COUNT 3.06 10^6/uL (4.18-5.33); RED CELL DISTRIBUTION WIDTH 12.4 % (11.5-15.2)
[2017-08-06 09:23] LABS: INR 1.09 (0.83-1.16)
[2017-08-06 09:24] LABS: APTT 26.9 SEC (23.0-38.0)
[2017-08-06 09:29] LABS: LIPEMIA HEMOLYSIS FLAG 100 (0-99)
[2017-08-06 10:09] LABS: SCAN POSITIVE
[2017-08-06 10:11] LABS: PLATELET ESTIMATE ADEQUATE (ADEQ)
--- NOTE | 2017-08-06 10:22 | PDGENHP ---
History and Physical - Chief Complaint Acute encephalopathy - History of Present Illness PCP: Dr. Arthur Danielle HPI: 66-year-old female presenting with acute encephalopathy characterized as somnolence, confusion, associated with nausea and vomiting, rendering the patient bed-bound for the past 3 days. History is obtained from the patient's reports that over the past 3 days, the patient's oral tolerance of solids liquids and oral medications has diminished. She reports that she has been able to take her oxycodone and baclofen, but she has not been able to tolerate her oral suppressive antibiotic or her other home medications. Has been reports that the Thompson catheter was changed approximately 2 weeks ago. She has been [facility] up [facility] and her right ischial pressure injury has been healing, currently receiving home wound care. Over the past 1.5 days, her mental status has declined, and she has become less arousable. On the day of this presentation, the called EMS, they reported that she was tachycardic and was saturating 80% on room air, and she was brought to the hospital on non-rebreather mask. In the emergency department , she was not protecting her airway, she was struggling on non-rebreather, and she was intubated. Dr. Daquan Truong reported to me that the intubation was particularly challenging, given her neck immobility from her previous cervical spine surgery. History Information - Allergies/Home Medication List Allergies/Adverse Reactions: codeine Allergy (Severe, Verified 06/04/17 11:52) Loss of consciousness metronidazole [From Flagyl] Allergy (Intermediate, Verified 06/04/17 11:52) Other-Enter Comments quetiapine [From Seroquel] Allergy (Intermediate, Verified 06/04/17 11:52) Other-Enter Comments Home Medications: Levothyroxine [Synthroid 100 mcg (*)] 100 mcg PO DAILY06 08/27/14 [Last Taken ] Baclofen [Baclofen 10 mg (*)] 2.5 mg PO Q3 03/17/17 [Last Taken 03/16/17] Multivitamins [Multivitamin (*)] 1 each PO DAILY 03/17/17 [Last Taken Unknown] Oxybutynin Chloride 5 mg PO BID 03/17/17 [Last Taken 03/17/17] oxyCODONE IR [Oxycodone Ir (*)] 2.5 mg PO Q3 03/17/17 [Last Taken 03/17/17] Escitalopram Oxalate [Lexapro] 10 mg PO DAILY 08/06/17 [Last Taken Unknown] Insulin Regular Human [Humulin R 100 units/ml (*)] 0 unit SC 5XD 08/06/17 [Last Taken Unknown] Promethazine HCl [Phenergan 25mg (*)] 12.5 mg PO Q6 PRN 08/06/17 [Last Taken Unknown] Simvastatin 20 mg PO DAILY18 08/06/17 [Last Taken Unknown] Sodium Chloride [Salt Tablet] 500 gm PO BID 08/06/17 [Last Taken Unknown] Trimethoprim [TRIMPEX 100MG (*)] 100 mg PO Q2D 08/06/17 [Last Taken 08/04/17] morphINE SR [MS Contin/Oramorph SR 30 mg (*)] 30 mg PO BID 08/06/17 [Last Taken Unknown] traZODone [traZODONE 100MG (*)] 200 mg PO HS 08/06/17 [Last Taken Unknown] I have personally reviewed and updated: family history, medical history, social history, surgical history - Past Medical History Additional medical history: Chronic pain with continuous opiate dependency most localized in the neck and back, rendering the patient wheelchair-bound. Chronic urinary retention with chronic indwelling Thompson catheter and recurrent urinary tract infections including E faecalis, E coli, Proteus. Nephrolithiasis on the right. Hypothyroidism. Depression and anxiety. Hypertension. Hyperlipidemia. Insulin-dependent diabetes with most recent hemoglobin A1c 8.0% in April of 2017. Chronic hyponatremia with chronic serum sodium levels 125-130. Pressure injury to the right ischium - Surgical History Additional surgical history: Fusion of T11-S1, fusion of C5-C6, , cholecystectomy, wound VAC with debridement - Family History Additional family history: Father with coronary artery disease - Social History Smoking Status: Never smoked Alcohol Use: Occasionally Drug Use: None Additional social history: Wheelchair-bound, received majority of her care from her Review of Systems Review of Systems: ROS: 10pt was reviewed & negative except for what was stated in HPI & below Gastrointestinal: Reports: vomitting, constipation, nausea Neurological: Reports: other (Somnolence, depressed mental status) Physical Exam Physical Exam: Temp Pulse Resp BP Pulse Ox 36.7 C 85 14 120/49 L 100 08/06/17 09:42 08/06/17 09:42 08/06/17 09:42 08/06/17 09:42 08/06/17 09:42 Constitutional: no apparent distress, not in pain, other (Patient is currently intubated and sedated) Eyes: other (Reactive to light, fixed centrally) Ears, Nose, Mouth, Throat: other (Endotracheal tube in place) Cardiovascular: edema (Bilateral upper extremity), No systolic murmur, No irregularly irregular, No tachycardia Respiratory: other (Currently on ventilator, clear to auscultation bilaterally without any inspiratory crackles or expiratory wheezes) Gastrointestinal: normoactive bowel sounds, soft, non-tender abdomen, no palpable masses, No distension Genitourinary: no bladder fullness, no bladder tenderness, thompson in urethra ( Clean cath changed in ED) Skin: other (Mild blanchability around the right ischium wound, dressed and packed, faint erythema, soft tissue edema bilateral upper extremities) Psychiatric: encephalopathic, other (Under arousable to physical or verbal stimuli) Lab Data & Imaging Review 08/06/17 09:00 08/06/17 07:30 WBC 37.32 10^3/uL (3.80-9.50) H 08/06/17 09:00 RBC 3.06 10^6/uL (4.18-5.33) L 08/06/17 09:00 Hgb 9.0 g/dL (12.6-16.3) L 08/06/17 09:00 Hct 24.0 % (38.0-47.0) L 08/06/17 09:00 MCV 78.4 fL (81.5-99.8) L 08/06/17 09:00 MCH 29.4 pg (27.9-34.1) 08/06/17 09:00 MCHC 37.5 g/dL (32.4-36.7) H 08/06/17 09:00 RDW 12.4 % (11.5-15.2) 08/06/17 09:00 Plt Count 313 10^3/uL (150-400) 08/06/17 09:00 MPV 8.5 fL (8.7-11.7) L 08/06/17 09:00 Neut % (Auto) 94.1 % (39.3-74.2) H 08/06/17 09:00 Lymph % (Auto) 0.9 % (15.0-45.0) L 08/06/17 09:00 Mcculloch % (Auto) 4.1 % (4.5-13.0) L 08/06/17 09:00 Eos % (Auto) 0.0 % (0.6-7.6) L 08/06/17 09:00 Baso % (Auto) 0.2 % (0.3-1.7) L 08/06/17 09:00 Nucleat RBC Rel Count 0.0 % (0.0-0.2) 08/06/17 09:00 Absolute Neuts (auto) 35.09 10^3/uL (1.70-6.50) H 08/06/17 09:00 Absolute Lymphs (auto) 0.35 10^3/uL (1.00-3.00) L 08/06/17 09:00 Absolute Monos (auto) 1.53 10^3/uL (0.30-0.80) H 08/06/17 09:00 Absolute Eos (auto) 0.00 10^3/uL (0.03-0.40) L 08/06/17 09:00 Absolute Basos (auto) 0.08 10^3/uL (0.02-0.10) 08/06/17 09:00 Absolute Nucleated RBC 0.00 10^3/uL (0-0.01) 08/06/17 09:00 Immature Gran % 0.7 % (0.0-1.1) 08/06/17 09:00 Seg Neutrophils % 81 % 08/06/17 09:00 Band Neutrophils % 15 % 08/06/17 09:00 Lymphocytes % 2 % 08/06/17 09:00 Monocytes % 2 % 08/06/17 09:00 Immature Gran # 0.27 10^3/uL (0.00-0.10) H 08/06/17 09:00 Absolute Seg Neuts 30.23 10^/uL (1.70-6.50) H 08/06/17 09:00 Absolute Band Neuts 5.60 10^3/uL (0.00-0.70) H 08/06/17 09:00 Absolute Lymphocytes 0.75 10^3/uL (1.00-3.00) L 08/06/17 09:00 Absolute Monocytes 0.75 10^3/uL (0.30-0.80) 08/06/17 09:00 Platelet Estimate ADEQUATE (ADEQ) 08/06/17 09:00 PT 14.0 SEC (12.0-15.0) 08/06/17 09:12 INR 1.09 (0.83-1.16) 08/06/17 09:12 APTT 26.9 SEC (23.0-38.0) D 08/06/17 09:12 Puncture Site LEFT RADIAL 08/06/17 08:58 Patient Temperature 37.0 DEGREES 08/06/17 08:58 pCO2 34 mmHg (34-38) 08/06/17 08:58 pO2 173 mmHg (65-75) H 08/06/17 08:58 Total CO2 17 mEq/L (23-27) L 08/06/17 08:58 ABG pH 7.30 (7.35-7.45) L 08/06/17 08:58 ABG PO2/FiO2 Ratio 247 RATIO 08/06/17 08:58 ABG HCO3 16 mEq/L (22-26) L 08/06/17 08:58 ABG O2 Saturation 100 % (92-95) H 08/06/17 08:58 ABG Base Excess -9.1 mEq/L (-2.5-2.5) L 08/06/17 08:58 VBG Lactic Acid 1.1 mmol/L (0.7-2.1) D 08/06/17 09:12 O2 Concentration % 70 % (0-100) 08/06/17 08:58 Set Respiration Rate 14 08/06/17 08:58 SIMV YES 08/06/17 08:58 Tidal Volume 400 08/06/17 08:58 PEEP 5 08/06/17 08:58 Pressure Support 10 08/06/17 08:58 Sodium 121 mEq/L (134-144) L 08/06/17 07:30 Potassium 5.2 mEq/L (3.5-5.2) 08/06/17 07:30 Chloride 86 mEq/L (97-110) L 08/06/17 07:30 Carbon Dioxide 15 mEq/l (22-31) L 08/06/17 07:30 Anion Gap 17 mEq/L (8-16) H 08/06/17 07:30 BUN 44 mg/dL (7-23) H 08/06/17 07:30 Creatinine 3.5 mg/dL (0.6-1.0) H 08/06/17 07:30 Estimated GFR 13 08/06/17 07:30 Glucose 212 mg/dL (70-100) H 08/06/17 07:30 Calcium 8.5 mg/dL (8.5-10.4) 08/06/17 07:30 Magnesium 1.7 mg/dL (1.6-2.3) 08/06/17 07:30 Total Bilirubin 0.7 mg/dL (0.1-1.4) 08/06/17 07:30 Conjugated Bilirubin 0.6 mg/dL (0.0-0.5) H 08/06/17 07:30 Unconjugated Bilirubin 0.1 mg/dL (0.0-1.1) 08/06/17 07:30 AST 21 IU/L (14-46) 08/06/17 07:30 ALT 17 IU/L (9-52) 08/06/17 07:30 Alkaline Phosphatase 177 IU/L (38-126) H 08/06/17 07:30 Creatine Kinase 92 IU/L (0-156) 08/06/17 07:30 CK-MB (CK-2) Fraction 3.08 ng/mL (0.00-3.19) 08/06/17 07:30 Troponin I 0.042 ng/mL (0.000-0.034) H 08/06/17 07:30 NT-Pro-B Natriuret Pep 83202 pg/mL (0-125) H 08/06/17 07:30 Total Protein 5.5 g/dL (6.3-8.2) L 08/06/17 07:30 Albumin 2.9 g/dL (3.5-5.0) L 08/06/17 07:30 Lipase 16 IU/L (23-300) L 08/06/17 07:30 Procalcitonin 4.18 ng/mL (0.02-0.10) H 10/22/17 08:00 Visualized and Interpreted Chest x-ray results: Yes Chest X-Ray results: other (Right-sided atelectasis no focal infiltrate) Visualized and Interpreted imaging results: Yes Interpretation: Air distended stomach with hardware in back Visualized and Interpreted EKG results: Yes EKG Interpretation: Positive for: other (Normal sinus rhythm with low voltage but no ST elevations) Assessment & Plan Assessment: 66-year-old female presenting with septic shock Plan: 1. Septic shock. Present on admission, Evidenced by sofa score of 12 and likely source urinary, predicting 95% mortality rate, stabilizing with Levophed and airway protection with intubation -protocol initiated with fluid challenge -repeat lactic acid level at noon, mixed venous sat, continue Levophed -continue supportive IV fluids -continue empiric IV antibiotics, received Vanco and Zosyn in the emergency department -getting echocardiogram to rule out cardiogenic component, given elevated troponin level 2. Suspected catheter associated urinary tract infection. Present on admission , indwelling Thompson catheter for chronic urinary retention, urinalysis not recorded, repeat, urine culture sent, blood culture sent -reviewed outside records including urine micro from E faecalis, E coli, Proteus , will continue with IV Vanco and Zosyn to cover these potential organisms -discussed with Dr. Anuja Babcock, infectious Disease consultation appreciated -get renal ultrasound right now to determine whether any stones are present, any perinephric abscesses or any hydro 3. Acute encephalopathy. Evidenced by global brain dysfunction characterized as somnolence, confusion, complete unresponsiveness, all of which are an acute change from patient's baseline of developed over the past 3 days in the setting of the toxic effects of infection as well as the amplified toxic effects of opiate pain medications -airway currently supported with mechanical ventilation 4. Acute hypoxic respiratory failure. Evidenced by an SpO2 of 80% on room air on presentation with visibly labored breathing, tachypnea, placed on non- rebreather mask and then intubated for airway protection, most likely secondary to septic shock -continue on vent, repeat ABG -continue respiratory care -discussed with Dr. Regino Anand, the patient was intubated emergently in the emergency department by Dr. Daquan Truong and this was a particularly difficult intubation -the patient has a advanced directive from a couple years ago which specified do not resuscitate, do not intubate, and I have discussed this with the patient' s who was fully aware of this directive when he instructed the emergency department to proceed with intubation -the reason that the patient's felt like this was the decision corresponding to the patient's wishes was that she provided this advance directive a couple years ago in the context of considering intubation and CPR to be interventions she would not want performed in the setting of a terminal condition and the patient's did not feel like this emergent presentation was necessarily consistent with what the patient had in mind when she had made the DNR/DNI decision -I have asked the patient's to provide us copies of the advance directive -I have placed in ethics consultation to assist in making the best decision for the patient regarding ongoing care -I discussed the situation with Dr. Regino Anand and we agree that at the present time the patient will receive full resuscitation measures which seem to be the patient's wishes as understood by the 5. Acute kidney injury. Secondary to septic shock, provide normal saline, monitor urine output, repeat serum creatinine level in a.m. 6. Hyperkalemia. Secondary to acute kidney injury, continue IV fluids, continue to monitor on telemetry 7. Acute on chronic hyponatremia. Baseline serum sodium level 619071, currently 121, secondary to hypovolemia and renal hypoperfusion, continue to monitor 8. Metabolic acidosis. PH is 7.3 with a pCO2 of 34 and a serum bicarbonate level of 15, secondary to septic shock, continue to monitor 9. Chronic pain with continuous opiate dependency. Rendering patient wheelchair -bound at baseline, she has continued to take her oxycodone and baclofen prior to this presentation, monitor for any signs of withdrawal 10. Pressure injury. Present on admission, right ischium, wound care consult appreciated 11. Diabetes mellitus type 1. Insulin sliding scale Diet. NPO Prophylaxis. High risk patient, heparin subcu Code. Full at present, with ongoing conversations as outlined above Disposition. Anticipated discharge uncertain this time, patient is currently critically ill, anticipated length stay greater than 48 hours for reasonable medical necessity including septic shock respiratory failure encephalopathy. 75 minutes of critical care time spent with this patient, addressing the issues as outlined above.
--- NOTE | 2017-08-06 11:09 | PDMN ---
Medical Necessity Medical necessity: C/M review: est. > 2 MN LOS for eval and TX of acute septic shock, suspected CAUTI, acute: encephalopathy, hypoxic respiratory failure, kidney injury, hyperkalemia, hyponatremia, metabolic acidosis requiring emergent intubation in ED, planned Wound Care consult, ongoing mechanical ventilation, IV Norepinephrine infusion, IV fluids, IV antibiotics, cardiac monitoring pulse oximetry, NPO in ICU, comorbid chronic indwelling Dietrich catheter present on admission, chronic pain with continuous opiate dependency, type I diabetes, right ischium pressure injury present on admission, patient wheelchair bound at baseline, chronic hyponatremia per H/P.
[2017-08-06] MEDS ORDERED: ETOMIDATE 40 MG/20 ML INJ ONE (11:52)
[2017-08-06] MEDS ORDERED: SUCCINYLCHOLINE CHLORIDE*ANESTHESIA ONLY*200 MG/10 ML SYR IVP ONE (11:53)
[2017-08-06 12:21] LABS: COLOR YELLOW; LEUKOCYTE ESTERASE,URINE 1+ (NEGATIVE); NITRITE,URINE NEGATIVE (NEGATIVE)
[2017-08-06 12:21] LABS: MIXED VENOUS O2 SATURATION 89 % (65-75)
[2017-08-06 12:31] LABS: BACTERIA 3+ /hpf (NONE SEEN); MUCUS TRACE /lpf (NONE-1+); YEAST PRESENT /hpf (NONE SEEN)
[2017-08-06] MEDS: HEPARIN 5,000 UNIT/0.5 ML SYR SC SCH ×2 (12:51→21:41)
[2017-08-06] MEDS: PROPOFOL/EMULSION 100 ML IV SCH ×2 (12:51→19:42)
[2017-08-06] MEDS: NS 1,000 ML IV SCH ×2 (12:52→21:42)
--- NOTE | 2017-08-06 12:53 | ECHO ---
[email or web address] [address] [address] Main: [phone] Fax: Transthoracic Echocardiogram Name: NUSRAT CERVANTES MR#: [id number] Study Date: 08/06/2017 Study Time: 09:45 AM Date of : 1950 Age: 66 year(s) Height: 154.9 cm (61 in.) Weight: 49.9 kg (110 lb.) BSA: 1.47 m2 Gender: Female Examination: Limited Echo Indication: Hypoxia, respiratory failure Image Quality: Technically Difficult Contrast: Requested by: Daquan Henning BP: 163 mmHg/93 mmHg Heart Rate: Rhythm: Indication: Hypoxia, respiratory failure Procedure Staff Purchasing Administrator: Radha Thomas Reading Physician: Mounika Orourke Requesting Provider: Conclusions: Normal size left ventricle. Normal global systolic LV function. The ejection fraction is estimated to be 65-70 %. No regional wall motion abnormality. Upper normal size right ventricle. Normal RV function. Trivial to mild tricuspid valve regurgitation. The pulmonary artery pressure is moderately increased. Right Ventricular systolic pressure is measured at 54 mmHg. No pericardial effusion. Compared with 06/2016 estimated PASP is now higher Measurements: Chambers Valvular Assessment AV/MV Valvular Assessment TV/PV Normal Normal Normal Name Value Range Name Value Range Name Value Range IVSd (2D): 1.0 cm (0.6 cm-1.1 TR Vmax: 3.30 mm/s ( - ) cm) TR PGmax: 44 mmHg ( - ) LVDd (2D): 3.6 cm (3.9 cm-5.3 syst. PAP: 54 mmHg ( - ) cm) LVDs (2D): 1.9 cm (2.1 cm-4 cm) LVPWd (2D): 0.8 cm ( - ) EF Range: 65-70 % Continued Measurements: Valvular Assessment TV/PV Name Value Patient: NUSRAT CERVANTES Study Date: 08/06/2017 Page 1 of 2 09:45 AM CVP (est.): 10 mmHg Findings: Left Ventricle: Normal size left ventricle. Normal global systolic LV function. The ejection fraction is estimated to be 65-70 %. No regional wall motion abnormality. Right Ventricle: Upper normal size right ventricle. Normal RV function. Tricuspid Valve: The tricuspid valve is normal in appearance and function. Trivial to mild tricuspid valve regurgitation. The pulmonary artery pressure is moderately increased. Right Ventricular systolic pressure is measured at 54 mmHg. Pericardium: No pericardial effusion. (No Signature Object) Patient: NUSRAT CERVANTES Study Date: 08/06/2017 Page 2 of 2 09:45 AM [id number]
--- NOTE | 2017-08-06 12:54 | ASMTCMCOM ---
CM Note CM Note Notes: 66 year old female admitted for septic shock, encephalopathy, N/V, respiratory failure, possible UTI. Patient has a hx of chronic neck and back pain-narc dependent, hypothyroid, chronic thompson, hypothyroid, HTN, HLD, DM-insulin, Hyponatremia, Depression, Anxiety. Patient being followed for wound care and vented. cares for her at home. Therapies to eval for discharge needs. CM to follow. Date Signed: 08/06/2017 12:53 PM Electronically Signed By:Naomy Hoyos LCSW
--- NOTE | 2017-08-06 13:04 | WOCRNPDOC ---
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 Notes from 07/26/17 indicate improvement to this site so will continue with plan formulated there. Plan communicated with ZACH Aguilar. Wound care will round again on 08/15.
--- NOTE | 2017-08-06 13:46 | GCON ---
[f rep st] CONSULTATION INFECTIOUS DISEASE CONSULTATION DATE OF CONSULTATION: 08/06/2017 REFERRING PHYSICIAN: Phu Madsen MD REASON FOR CONSULTATION: Sepsis with history of recurrent UTIs with chronic Dietrich and nephrolithiasis. HISTORY OF PRESENT ILLNESS: A 66-year-old woman with a history of diabetes, chronic opioid dependency, and pressure ulcer on the sacrum, presents to the emergency room by EMS after progressive confusion, which eventually made patient bed-bound the last 3 days. She was also noted to having increased work of breathing. Therefore, ambulance was called by . In the emergency room, patient was found to be significantly hypoxic and had altered mental status and was intubated immediately. The patient was found to have marked leukocytosis as well and significant acute renal failure. Dietrich was changed in the emergency room and there was significant local purulence with the catheter change, including the appearance of purulence within the Dietrich balloon. Blood cultures and urine cultures were obtained and patient was empirically given a dose of Zosyn 4.5 g and vancomycin 1 g in the emergency room. Patient was transferred to the ICU for ongoing management. PAST MEDICAL HISTORY: 1. Chronic pain with continuous opioid dependency due to chronic neck and back pain. The patient is wheelchair bound. 2. Chronic urinary retention with chronic indwelling Dietrich, recurrent UTIs with the predominance of past culture showing Proteus, but more recently in March of 2017 E coli and in April of 2017 E faecalis. 3. Nephrolithiasis on the right. Last CT scan in February of 2017 confirmed the presence of persistent nephrolithiasis at that site. 4. Hypothyroidism. 5. Depression. 6. Hypertension. 7. Hyperlipidemia. 8. Insulin-dependent diabetes with most recent hemoglobin A1c 8.0. 9. Chronic hyponatremia. 10. Pressure injury in the right sacrum. The patient has been followed by Wound Care with significant improvement in the size of this wound over time following a wound VAC and multiple debridements. SURGICAL HISTORY: Fusion of T11 through S1, fusion of C5 through C6, , cholecystectomy. FAMILY HISTORY: Positive for coronary artery disease in her father. Positive for diabetes. SOCIAL HISTORY: Never used tobacco. Occasional alcohol. No drug use. She is wheelchair bound and receives the majority of her care from her . Previously patient has been documented as do not resuscitate. ALLERGIES: To codeine and metronidazole. There is no documentation of reaction. HOME MEDICATIONS: Include Synthroid 100 mcg daily, baclofen 10 mg daily, multivitamin, oxycodone IR 2.5 q.3 p.r.n., Lexapro 10 mg daily, insulin as directed, Phenergan 25 mg q.6h p.r.n., simvastatin 20 mg daily, trimethoprim 100 mg every 2 days, morphine, and trazodone. CURRENT MEDICATIONS: Zosyn 4.5 g given in the emergency room and will be continued on 2.25 g IV q.6 based on creatinine clearance. REVIEW OF SYSTEMS: Was reviewed, but based on prior documentation upon arrival and review with was negative except for vomiting, constipation, nausea. Otherwise, documented in HPI. PHYSICAL EXAM: VITAL SIGNS: Blood pressure 151/40, heart rate 92, respiratory rate 14, saturation 100% on FiO2 of 50%, temperature 36.3. She has been afebrile with a T current of 36.3. GENERAL: This is a sedated woman with significant pallor. HEENT: She has reactive pupils bilaterally with pale conjunctiva. No splinter hemorrhages. Oropharynx is dry. She has an ET tube and OG tube in place. NECK: Supple without signs of meningismus. CARDIOVASCULAR: Regular rate. CHEST: She had coarse breath sounds bilaterally on the ventilator. ABDOMEN: Soft. Bowel sounds were present. : She had a Dietrich in place with minimal urine in the bag. EXTREMITIES: Patient had anasarca without localized swelling. LINES: She had a right IJ in place that was placed in the emergency room. NEUROLOGICALLY: Difficult to assess due to sedation. SKIN: No rashes were noted. LABORATORY: White count is 37,000, hematocrit 24, platelets of 313, 94% neutrophils. Creatinine 3.5 with a calculated creatinine clearance of 12. The sodium is 121, BUN 44, bilirubin 0.6, AST 21, ALT 17. Troponin 0.42. Procalcitonin 4, albumin 2.9. Urinalysis is pending. She has blood and urine cultures also pending. IMAGING: A renal ultrasound was performed which showed no evidence of hydronephrosis or perinephric abscess. Chest x-ray was personally reviewed by me and is without focal infiltrate. ET tube is in place. ASSESSMENT AND PLAN: 66-year-old woman, well known to the Infectious Disease service with chronic Dietrich and right nephrolithiasis, who presents to the emergency room with altered mental status and found to have significant hypoxia and an inability to protect airway consistent with severe sepsis. Suspect urinary source with chronic Dietrich. Also complicating the clinical condition is nephrolithiasis, but as previously assessed, suspect chronic Dietrich trumps right- sided nephrolithiasis. Due to polymicrobial nature of past cultures including Enterococcus as well as significant past antibiotic use, would recommend high- dose Zosyn, dosed for creatinine clearance, which would be 2.25 g IV q.6. At this point, have low concern for methicillin-resistant Staphylococcus aureus as the etiologic agent of sepsis. Therefore, will not continue vancomycin. We will continue to follow on a daily basis and monitor culture results. Thank you for this consultation. /[id number]/MODL MTDD
[2017-08-06] MEDS: PIPERACILLIN/TAZO 2.25 GM/DEX 50 ML IV SCH ×2 (16:28→21:41)
[2017-08-06] MEDS ORDERED: D50W 25 GM/50 ML SYR IVP PRN (16:43)
[2017-08-06 16:46] LABS: ADD MORPH? NO; ATYPICAL LYMPHOCYTE FLAG 0 (0-99); FRAGMENT RBC FLAG 0 (0-99); HEMATOCRIT 22.9 % (38.0-47.0); HEMOGLOBIN 8.4 g/dL (12.6-16.3); LEFT SHIFT FLG 20 (0-99); LIPEMIA HEMOLYSIS FLAG 90 (0-99); MEAN CELL HEMOGLOBIN 29.5 pg (27.9-34.1); MEAN CELL HEMOGLOBIN CONCENTR. 36.7 g/dL (32.4-36.7); MEAN CELL VOLUME 80.4 fL (81.5-99.8); MEAN PLATELET VOLUME 8.8 fL (8.7-11.7); PLATELET CLUMPS FLAG 0 (0-99); PLATELET COUNT 345 10^3/uL (150-400); RED BLOOD CELL COUNT 2.85 10^6/uL (4.18-5.33); RED CELL DISTRIBUTION WIDTH 12.5 % (11.5-15.2)
[2017-08-06 16:50] LABS: ADD DIFF? YES; ADD SCAN? NO
[2017-08-06] MEDS: INSULIN REGULAR HUMAN 100 UNIT/ML SC SCH ×2 (17:01→23:17)
[2017-08-06 17:14] LABS: ANION GAP 16 mEq/L (8-16); CALCIUM 7.2 mg/dL (8.5-10.4); CARBON DIOXIDE 14 mEq/l (22-31); CHLORIDE 93 mEq/L (97-110); CREATININE 3.1 mg/dL (0.6-1.0); GLOMERULAR FILTRATION RATE 15; GLUCOSE 346 mg/dL (70-100); POTASSIUM 5.1 mEq/L (3.5-5.2); SODIUM 123 mEq/L (134-144)
[2017-08-06 17:21] LABS: ECHINOCYTES 2+; MICROCYTES 1+; PLATELET ESTIMATE ADEQUATE (ADEQ)
--- NOTE | 2017-08-06 19:52 | GCON ---
[f rep st] CONSULTATION PULMONARY CRITICAL CARE CONSULTATION DATE OF CONSULTATION: 08/06/2017 REASON FOR CONSULTATION: Urosepsis associated with hypotension and acute respiratory failure. HISTORY: The patient is a 66-year-old woman with a history of multiple medical problems. She is whe elchair bound, with a chronic Dietrich and nephrolithiasis, diabetes and chronic opiate dependency. She has been bedbound over the last several days with declining mental status and increasing confusion. Her called the paramedics earlier today. She was brought to the emergency department, was o btunded, hypoxic, and required intubation. She was found to have acute renal failure. Dietrich cathete r was changed, with significant purulence in and around the catheter, and even within the fluid of th e Dietrich balloon. She was placed on the sepsis protocol, blood and urine cultures were obtained, and she was started on intravenous fluids, Zosyn and vancomycin. She was admitted to the intensive care unit. PAST MEDICAL HISTORY: Remarkable for the chronic indwelling Dietrich catheter and recurrent urinary tra ct infections, nephrolithiasis, wheelchair-bound, chronic narcotic use secondary to chronic pain, hyp ertension, hyperlipidemia, insulin-dependent diabetes, hypothyroidism on replacement, depression, a r ight sacral wound, and hyponatremia. PAST SURGICAL HISTORY: She is status post cervical and lumbar fusions, cholecystectomy. SOCIAL HISTORY: She is , with a supportive . Tobacco and significant alcohol are nega tive. ALLERGIES TO MEDICATION: Flagyl, codeine. FAMILY HISTORY: Noncontributory. REVIEW OF SYSTEMS: Unobtainable except as outlined above. CODE STATUS: She was do not resuscitate prior to her arrival at the emergency department. However, on discussions with the patient's , it was felt that if she had a reversible process such as s epsis, pneumonia, etc., that limited time full resuscitation would be indicated, including intubation and mechanical ventilation and support. PHYSICAL EXAMINATION: GENERAL: Past medical history reveals a woman intubated, on the ventilator, s edated, in no acute distress. VITAL SIGNS: Blood pressure is 146/38 with a MAP of 65. Heart rate i s 85, with sinus rhythm on the monitor. Respiratory rate is 14. She is on 40% with saturations of 1 00%. CVP is currently 6. HEENT: Remarkable for an oral endotracheal tube and OG tube. Pupils are equal. There is no jugular venous distention, lymphadenopathy, or thyromegaly. CHEST: Clear anteri aydin. Breath sounds are diminished at the bases. There are no rhonchi, rales, or evidence of consol idation. HEART: Regular in rate and rhythm. Sinus rhythm is present on the monitor. There were no significant murmurs, no gallops. P2 appears normal. ABDOMEN: Soft, nontender. Bowel sounds are d iminished, but present. Dietrich catheter is in place. Urine output is diminished. EXTREMITIES: Jasmin rkable for edema over the hands and lower arms, as well as the lower extremities. NEUROLOGIC: Neuro logic examination was difficult to assess, as she is sedated, on the ventilator. DATABASE: Chest x-ray shows the endotracheal tube and central line to be in good position. There is some mild atelectasis. An early right mid lung infiltrate appears to be present. Spinal hardware i s obvious. There is also hardware in the neck. Abdominal ultrasound: There is no hydronephrosis or evidence of abscess. White blood cell count is 37,000, hematocrit 24, hemoglobin 9, platelets 313,000. PT and PTT are nor mal. Arterial blood gas this morning, on 70% FiO2 and 400, showed a pH of 7.30, pCO2 of 34 and a PO2 of 173. Lactate was approximately 1, MVO2 89. Sodium is 121, potassium 5.2, CO2 15, with an anion gap of 17. BUN 44, with a creatinine of 3.5, glucoses have ranged between 200 and 370. Calcium, mag nesium, total bilirubin and LFTs are all within normal limits. Troponin is negative, BNP 15,800. To kolton protein is 2.9, procalcitonin 4.18. Urinalysis did show white blood cells and bacteria. Culture s are pending. Influenza A/B negative. ASSESSMENT: 1. Urosepsis. The patient has clear pyuria related to her indwelling Dietrich catheter, and has a hist ory of recurrent urinary tract infections in the past. The catheter has been changed. She is on neisha ropriate antibiotics, has received intravenous fluids, and is on pressor therapy. She is doing well, significantly improved compared to her presentation early this morning. 2. Acute respiratory failure. Secondary to #1. No primary pulmonary issue is identified. There is no evidence of pneumonia. There is no suspicion for pulmonary embolism. Oxygen requirements have d ecreased to 40%. Appropriate ventilatory adjustments have been made. I will plan on keeping her on the ventilator tonight, transitioning to CPAP trials in the a.m. as tolerated. 3. History of nephrolithiasis. 4. History of chronic pain and narcotic use. Patient is wheelchair bound, but is able to do very li mited walking. 5. Insulin-dependent diabetes, with high blood sugars on admission. Insulin will be continued by melodie hatfield 4 hours. 6. Hyponatremia. Sodium is currently 121. She will be given normal saline for volume depletion, an d sodium followed closely. Fluids may need to be changed if sodium rises too quickly to more hypoton ic preparations. Some of her hyponatremia at this time is likely secondary to hyperglycemia and repr esent pseudo hyponatremia. 7. Acute renal failure. Baseline creatinines are under 1. She comes in with a BUN of 44 and a crea tinine of 3.5, all likely secondary to sepsis and volume depletion. She does not have any evidence o f urinary tract obstruction at this time. 8. History of multiple medical problems, as outlined above. Not acute issues currently. PLAN AND RECOMMENDATIONS: Aggressive supportive care will be continued. Antibiotics will be continu ed. Intravenous fluids and Levophed will be continued for now. The latter will be weaned as tolerat ed. CVP will be followed and kept in the 8-12 range. Antibiotics will be continued. Famotidine kacey l be continued. Subcu heparin is being given for DVT prophylaxis. Sodium will be followed closely, along with other chemistries and CBCs/H and H. Hopefully, she can be started on CPAP trials tomorrow , and extubated within the next day or 2. Infectious Disease will continue to follow the patient. Further plans and recommendations will be made based on her progress over the next 12-24 hours. /[id number]/MODL
[2017-08-06] MEDS: NOREPINEPHRINE/NS 500 ML IV SCH (21:42)
[2017-08-06] MEDS: FAMOTIDINE 20 MG/NACL 50 ML IV SCH (21:42)
[2017-08-07] MEDS: fentaNYL/NACL 100 ML IV SCH ×2 (00:19→17:23)
[2017-08-07] MEDS: INSULIN REGULAR HUMAN 100 UNIT/ML SC SCH ×3 (02:01→13:59)
[2017-08-07] MEDS: D10W 250 ML PRN HYPOGLYCEMIA IV ×2 (02:03→05:44)
[2017-08-07] MEDS: PIPERACILLIN/TAZO 2.25 GM/DEX 50 ML IV SCH ×4 (04:09→21:26)
[2017-08-07] MEDS: PROPOFOL/EMULSION 100 ML IV SCH ×2 (04:13→18:02)
[2017-08-07] MEDS: NS 1,000 ML IV SCH ×3 (04:13→20:13)
[2017-08-07 04:38] LABS: % IMMATURE GRANULYOCYTES 0.7 % (0.0-1.1); ABSOLUTE IMMATURE GRANULOCYTES 0.13 10^3/uL (0.00-0.10); ADD DIFF? NO; ADD MORPH? NO; ADD SCAN? NO; ATYPICAL LYMPHOCYTE FLAG 0 (0-99); FRAGMENT RBC FLAG 0 (0-99); HEMATOCRIT 22.2 % (38.0-47.0); LEFT SHIFT FLG 0 (0-99); LIPEMIA HEMOLYSIS FLAG 90 (0-99); MEAN CELL HEMOGLOBIN 28.7 pg (27.9-34.1); MEAN CELL VOLUME 79.6 fL (81.5-99.8); MEAN PLATELET VOLUME 8.6 fL (8.7-11.7); PLATELET CLUMPS FLAG 0 (0-99); PLATELET COUNT 281 10^3/uL (150-400); RED BLOOD CELL COUNT 2.79 10^6/uL (4.18-5.33); RED CELL DISTRIBUTION WIDTH 12.7 % (11.5-15.2)
[2017-08-07 05:08] LABS: ANION GAP 10 mEq/L (8-16); CALCIUM 7.1 mg/dL (8.5-10.4); CARBON DIOXIDE 17 mEq/l (22-31); CHLORIDE 101 mEq/L (97-110); CREATININE 2.6 mg/dL (0.6-1.0); GLOMERULAR FILTRATION RATE 18; GLUCOSE 53 mg/dL (70-100); MAGNESIUM 1.6 mg/dL (1.6-2.3); POTASSIUM 3.5 mEq/L (3.5-5.2); SODIUM 128 mEq/L (134-144)
[2017-08-07 05:14] LABS: TROPONIN I 0.026 ng/mL (0.000-0.034)
[2017-08-07] MEDS: NOREPINEPHRINE/NS 500 ML IV SCH (05:30)
[2017-08-07] MEDS: HEPARIN 5,000 UNIT/0.5 ML SYR SC SCH ×3 (05:30→21:27)
[2017-08-07] MEDS: LEVOTHYROXINE 100 MCG TAB TUBE SCH (05:31)
[2017-08-07] MEDS ORDERED: LEVOTHYROXINE 100 MCG TAB PO SCH (06:00)
[2017-08-07 06:15] LABS: BASE EXCESS -10.5 mEq/L (-2.5-2.5); BICARBONATE 15 mEq/L (22-26); MEASURED OXYGEN SATURATION 98 % (92-95); PCO2 34 mmHg (34-38); PO2 125 mmHg (65-75); TCO2 16 mEq/L (23-27)
[2017-08-07 06:20] LABS: CPAP YES; END TIDAL CO2 45; O2 CONCENTRATIION 40 % (0-100); P/F RATIO 313 RATIO; PATIENT RATE 22; PRESSURE SUPPORT 10
--- NOTE | 2017-08-07 07:50 | PDINTPN ---
Stenciler Progress Note Assessment/Plan: Assessment: * Sepsis-still on Levophed. Systolic blood pressure is adequate but map is low. * Urinary tract infection-agree with current antibiotic coverage * Acute respiratory failure secondary to sepsis-stable on mechanical ventilation -not ready for extubation at this time. #6 Endotracheal tube * History of chronic pain and chronic narcotic use * Acute renal failure-improved * Insulin-dependent diabetes-blood sugars low last night and high this morning -will start insulin drip * History of Hypertension * History of Hyperlipidemia * History of Hypothyroidism * Sedation-adequate * Nutrition-none currently * VTE prophylaxis 35 minutes of critical care time spent with the patient. Case discussed with Nursing and Respiratory therapy Subjective: Sedated on mechanical ventilation. Appears comfortable Objective: Vital Signs Temp Pulse Resp BP Pulse Ox 36.4 C 69 14 136/35 H 100 08/07/17 06:00 08/07/17 06:15 08/07/17 06:15 08/07/17 06:15 08/07/17 06:15 Laboratory Results 08/07/17 04:30 08/07/17 04:30 08/06/17 08/07/17 08/08/17 05:59 05:59 05:59 Intake Total 5828.7 Output Total 1175 Balance 4653.7 PT 14.0 SEC (12.0-15.0) 08/06/17 09:12 INR 1.09 (0.83-1.16) 08/06/17 09:12 - Time Spent With Patient Time Spent With Patient: 35 minutes of critical care time spent with the patient. Physical Exam - Physical Exam General Appearance: No alert (Sedated) EENT: PERRL/EOMI, ET tube (#6. Endotracheal tube) Neck: non-tender, full range of motion Respiratory: crackles (Few basilar), No respiratory distress, No wheezing Cardiac/Chest: normal peripheral pulses, regular rate, rhythm Abdomen: normal bowel sounds, non-tender, soft Pelvic Exam: deferred Rectal: deferred Skin: normal color, warm/dry Extremities: normal capillary refill, No non-tender Neuro/Psych: No alert ICD10 Worksheet Patient Problems: Problems Problem Status Onset Altered mental status Acute CHF (congestive heart failure) Acute Hypoxic Acute Respiratory failure Acute Sepsis Acute Chronic back pain Acute Chronic pain Acute Dehydration Acute Hyponatremia Acute Pneumonia Acute Status post cervical arthrodesis Acute Vomiting Acute Weakness Acute
[2017-08-07] MEDS ORDERED: D5W 1,000 ML IV SCH (08:00)
[2017-08-07] MEDS ORDERED: INSULIN REGULAR HUMAN 100 UNIT in NS 100 ML IV SCH (08:00)
[2017-08-07] MEDS: FAMOTIDINE 20 MG/NACL 50 ML IV SCH (08:59)
[2017-08-07 09:59] LABS: POTASSIUM 3.8 mEq/L (3.5-5.2)
[2017-08-07 11:09] LABS: HEMOGLOBIN A1C 8.4 % (4.0-6.0)
--- NOTE | 2017-08-07 12:19 | HOSPPROG ---
Hospitalist Progress Note Assessment/Plan: DIAGNOSES: -acute septic shock, remains on pressor support and still hypotensive -acute resp failure, [facility] -acute UTI, complicated, gram neg rods in culture -acute renal failure, hemodynic, continues slow improvement -anemia, worse today, normocytic; this appears chronic and not too far from baseline but would recheck to see not worsening today with low HR and low BPs -hyponatremia a bit better PLANS: -continue current empiric abx -continue fluid/pressor support, maintain good BPs and follow renal and other organ fxns closely -continue vent support -follow blood counts closely, and begin evaluation for cause of anemia reviewed w Dr Pena seen on multidisc rounds SUBJ: pt sedated on vent, unable to assess sxs OBJ: vitals: some bradycardia, and some hypotension remains on pressor; CVP 7+/- card monitor: all sinus exam: ET tube secured, vert pressures/lung compliance good skin centrally warm, hands and feet cold w decreased cap refill resps per vent lungs clear heart reg abd soft nondistended some edema diffusely CXR today, my interp of image: unchanged from yest, mild interstitial disease appears chronic Cultures: gram neg tony in urine; blood cxs neg to date Objective: Vital Signs Temp Pulse Resp BP Pulse Ox 37.2 C 57 L 14 89/38 L 100 08/07/17 12:00 08/07/17 12:00 08/07/17 12:00 08/07/17 12:00 08/07/17 12:00 Laboratory Results 08/07/17 04:30 08/07/17 09:16 08/06/17 08/07/17 08/08/17 06:59 06:59 06:59 Intake Total 5828.7 Output Total 1175 800 Balance 4653.7 -800 PT 14.0 SEC (12.0-15.0) 08/06/17 09:12 INR 1.09 (0.83-1.16) 08/06/17 09:12 - Time Spent With Patient Time Spent with Patient: greater than 35 minutes Time Spent with Patient: Greater than 35 minutes spent on this patients care, greater than 50% of time spent counseling, educating, and coordinating care regarding the above mentioned plan. ICD10 Worksheet Patient Problems: Problems Problem Status Onset Altered mental status Acute CHF (congestive heart failure) Acute Hypoxic Acute Respiratory failure Acute Sepsis Acute Chronic back pain Acute Chronic pain Acute Dehydration Acute Hyponatremia Acute Pneumonia Acute Status post cervical arthrodesis Acute Vomiting Acute Weakness Acute
[2017-08-07 12:58] LABS: HEMATOCRIT 21.6 % (38.0-47.0); HEMOGLOBIN 7.5 g/dL (12.6-16.3)
[2017-08-07 15:28] LABS: HEMATOCRIT 20.8 % (38.0-47.0); HEMOGLOBIN 7.3 g/dL (12.6-16.3)
[2017-08-07 15:38] LABS: ALANINE AMINOTRANSFERASE 22 IU/L (9-52); ALBUMIN 1.9 g/dL (3.5-5.0); ALKALINE PHOSPHATASE 110 IU/L (38-126); ANION GAP 11 mEq/L (8-16); ASPARTATE AMINOTRANSFERASE 12 IU/L (14-46); BILIRUBIN,TOTAL 0.3 mg/dL (0.1-1.4); CALCIUM 6.8 mg/dL (8.5-10.4); CARBON DIOXIDE 15 mEq/l (22-31); CHLORIDE 104 mEq/L (97-110); CREATININE 2.1 mg/dL (0.6-1.0); GLOMERULAR FILTRATION RATE 23; GLUCOSE 171 mg/dL (70-100); POTASSIUM 3.5 mEq/L (3.5-5.2); SODIUM 130 mEq/L (134-144); TOTAL PROTEIN 3.9 g/dL (6.3-8.2)
--- NOTE | 2017-08-07 17:31 | WOCRNPDOC ---
WOCRN Advanced Assessment Note - Skin Integrity Problem, Advanced Assess Right Sacrum Pressure Injury Dressing Type: Allevyn Life, Hydrofera Blue Ready Dressing Description: Intact, Shadowed Exudate Amount: Moderate Exudate Characteristic(s): Serous Integumentary Issue Intervention: Visualized Under Dressing Wound Bed Constitution: Granulation Tissue, Smooth Tissue, Tunneling (2 cm at 3 oclock) Site Measurement - Head-to-Toe Length X Width X Depth (cm): 2x2.5x0.5 with patient lying on right side. Pressure Injury Stage: Stage 4 Pressure Injury Present on Admit: Yes Skin Integrity Problem Comment: ZACH Mejia was concerned about dressing and that it was becoming overwhelmed with drainage much earlier than every 3 days. Hydrofera blue had changed color to white after only one day. Orders will be modified to pack wound daily with puracyn wound irrigation soaked packing to breakdown the presence of biofilm and restart the wound healing trajectory. Wound care will round again 08/10. Right Third Finger Laceration Dressing Type: Open to Air Site Measurement - Head-to-Toe Length X Width X Depth (cm): 0.2x0.3x0.1 Skin Integrity Problem Comment: Small superficial laceration. May cover with bandaid. Wound care will sign off.
--- NOTE | 2017-08-07 18:07 | PCMIDPN ---
Assessment/Plan: Assessment: Sepsis with urinary tract infection-currently covered on Zosyn monotherapy. 50 % reduction and leukocytosis since yesterday. Seems to clinically be better although continues to need a small amount of Levophed. Plan to continue Zosyn monotherapy and follow culture data. Plan: 1. Continue IV Zosyn. 2. Follow urine culture. 3. Follow clinical course. Subjective: Patient remains in the ICU. She is intubated and ventilated. No new issues. Continues to need a small amount of pressor support. Objective: Zosyn # 1 Vital Signs Temp Pulse Resp BP Pulse Ox 37.1 C 87 14 141/51 H 100 08/07/17 17:00 08/07/17 17:00 08/07/17 17:00 08/07/17 17:00 08/07/17 17:00 Laboratory Results 08/07/17 15:10 08/07/17 15:10 08/06/17 08/07/17 08/08/17 05:59 05:59 05:59 Intake Total 5828.7 Output Total 1175 1350 Balance 4653.7 -1350 - Physical Exam General Appearance: WD/WN, other (Intubated and sedated) Respiratory: lungs clear, normal breath sounds, No respiratory distress Cardiac/Chest: regular rate, rhythm, No tachycardia Extremities: non-tender, normal inspection Skin: normal color, warm/dry, No rash ICD10 Worksheet Patient Problems: Problems Problem Status Onset Altered mental status Acute CHF (congestive heart failure) Acute Hypoxic Acute Respiratory failure Acute Sepsis Acute Chronic back pain Acute Chronic pain Acute Dehydration Acute Hyponatremia Acute Pneumonia Acute Status post cervical arthrodesis Acute Vomiting Acute Weakness Acute
[2017-08-08] MEDS: fentaNYL/NACL 100 ML IV SCH ×3 (00:40→18:42)
[2017-08-08] MEDS: NS 1,000 ML IV SCH ×3 (03:21→17:21)
[2017-08-08] MEDS: PIPERACILLIN/TAZO 2.25 GM/DEX 50 ML IV SCH ×4 (04:13→22:57)
[2017-08-08] MEDS: HEPARIN 5,000 UNIT/0.5 ML SYR SC SCH ×3 (05:39→22:57)
[2017-08-08 06:10] LABS: % IMMATURE GRANULYOCYTES 0.7 % (0.0-1.1); ADD DIFF? NO; ADD MORPH? NO; ADD SCAN? NO; ATYPICAL LYMPHOCYTE FLAG 0 (0-99); FRAGMENT RBC FLAG 0 (0-99); HEMATOCRIT 21.7 % (38.0-47.0); HEMOGLOBIN 7.7 g/dL (12.6-16.3); LEFT SHIFT FLG 10 (0-99); LIPEMIA HEMOLYSIS FLAG 90 (0-99); MEAN CELL HEMOGLOBIN 29.1 pg (27.9-34.1); MEAN CELL HEMOGLOBIN CONCENTR. 35.5 g/dL (32.4-36.7); MEAN CELL VOLUME 81.9 fL (81.5-99.8); MEAN PLATELET VOLUME 8.7 fL (8.7-11.7); PLATELET CLUMPS FLAG 0 (0-99); PLATELET COUNT 195 10^3/uL (150-400); RED BLOOD CELL COUNT 2.65 10^6/uL (4.18-5.33)
[2017-08-08] MEDS: PROPOFOL/EMULSION 100 ML IV SCH ×2 (06:29→17:28)
[2017-08-08] MEDS: LEVOTHYROXINE 100 MCG TAB TUBE SCH (06:31)
[2017-08-08 06:32] LABS: ANION GAP 17 mEq/L (8-16); CALCIUM 7.3 mg/dL (8.5-10.4); CARBON DIOXIDE 14 mEq/l (22-31); CHLORIDE 104 mEq/L (97-110); CREATININE 1.7 mg/dL (0.6-1.0); GLOMERULAR FILTRATION RATE 30; GLUCOSE 146 mg/dL (70-100); MAGNESIUM 1.6 mg/dL (1.6-2.3); POTASSIUM 3.4 mEq/L (3.5-5.2); SODIUM 135 mEq/L (134-144)
[2017-08-08] MEDS ORDERED: INSULIN LISPRO 100 UNIT/ML SC ONE (08:12)
--- NOTE | 2017-08-08 08:38 | PDINTPN ---
Senior Energy Market Coordinator Progress Note Assessment/Plan: Assessment/Plan: * Sepsis-improved. Off Levophed. * Urinary tract infection-agree with current antibiotic coverage * Acute respiratory failure secondary to sepsis-stable on mechanical ventilation -will assess for extubation. Have noted # 6 endotracheal tube an apparent difficult intubation. * History of chronic pain and chronic narcotic use * Acute renal failure-improved * Insulin dependent diabetes-improved after being placed on insulin drip * History of Hypertension * History of Hyperlipidemia * History of Hypothyroidism * Sedation-adequate -will hold propofol for now to assess for extubation * Nutrition-none currently * VTE prophylaxis 40 minutes of critical care time spent with the patient. Case discussed with Nursing and Respiratory therapy Subjective: Sedated on mechanical ventilation. On minimal FiO2 Objective: Vital Signs Temp Pulse Resp BP Pulse Ox 36.7 C 122 H 15 116/37 L 100 08/08/17 08:00 08/08/17 08:00 08/08/17 08:00 08/08/17 08:00 08/08/17 08:00 Microbiology 08/06/17 09:25 Urine Culture - Final Urine,Catheterized Stenotrophomonas Maltophilia Five Or More Waller Types Laboratory Results 08/08/17 06:00 08/08/17 06:00 08/07/17 08/08/17 08/09/17 05:59 05:59 05:59 Intake Total 5828.7 4214.8 Output Total 1175 2900 65 Balance 4653.7 1314.8 -65 PT 14.0 SEC (12.0-15.0) 08/06/17 09:12 INR 1.09 (0.83-1.16) 08/06/17 09:12 Laboratory Results 08/08/17 06:00 08/08/17 06:00 08/08/17 06:00 Calcium 7.3 mg/dL L mg/dL (8.5 - 10.4) Magnesium 1.6 mg/dL mg/dL (1.6 - 2.3) 08/06/17 09:25 Urine Culture - Final Urine,Catheterized Stenotrophomonas Maltophilia Five Or More Waller Types - Time Spent With Patient Time Spent With Patient: 45 minutes of critical care time spent with patient Physical Exam - Physical Exam General Appearance: alert EENT: PERRL/EOMI, ET tube Neck: non-tender, full range of motion Respiratory: chest non-tender, lungs clear, rhonchi (Few) Cardiac/Chest: normal peripheral pulses, regular rate, rhythm, systolic murmur Peripheral Pulses: 2+: carotid (R), carotid (L), femoral (R), femoral (L), dorsalis-pedis (R), dorsalis-pedis (L) Abdomen: normal bowel sounds, non-tender, soft Pelvic Exam: deferred Rectal: deferred Skin: normal color, warm/dry ICD10 Worksheet Patient Problems: Problems Problem Status Onset Altered mental status Acute CHF (congestive heart failure) Acute Hypoxic Acute Respiratory failure Acute Sepsis Acute Chronic back pain Acute Chronic pain Acute Dehydration Acute Hyponatremia Acute Pneumonia Acute Status post cervical arthrodesis Acute Vomiting Acute Weakness Acute
[2017-08-08] MEDS: FAMOTIDINE 20 MG/NACL 50 ML IV SCH (08:45)
--- NOTE | 2017-08-08 10:11 | PCMIDPN ---
Assessment/Plan: Assessment/Plan: 1. Sepsis: -history of recurrent UTI, has chronic thompson, apparently had reported purulence around thompson and urine was described similarly as well -Urine cx with >100,000 stenotrophomonas, and 5 other colonies no otherwise identified. - Abd USG unremarkable. CT scan from February 2017 with right nephrolithiasis -Wbc has steadily improved, from 39,000 down to 13,000 today -Currently on zosyn renally dosed. -Zosyn not necessarily drug of choice for covering S. maltophilia but may have variable activity. spoke with micro, no specific sensitivity data with respect to zosyn and that isolate. Perhaps zosyn covering the other unspecified organisms found which may be more of the driving process? -Given patient has clinically improved, will continue this for now. -However, given above, recommend Ct abd/pelvis to ensure no other contributing factors. This will also help define length of therapy -care coordinated with RN, chief accountant team. Micro: 08/06/17: blood cx ngtd 08/06/17: >100,000 S. maltophilia, 5 other colonies Meds zosyn 2.25gm q6- 08/06/17 Subjective: afebrile. in icu, on vent, sedated. urine output good, with yellow, clear urine. no overnight events per RN. Objective: Vital Signs Temp Pulse Resp BP Pulse Ox 36.8 C 122 H 15 111/35 L 100 08/08/17 09:00 08/08/17 09:00 08/08/17 09:00 08/08/17 09:00 08/08/17 09:00 Microbiology 08/06/17 09:25 Urine Culture - Final Urine,Catheterized Stenotrophomonas Maltophilia Five Or More [place] Types Laboratory Results 08/08/17 06:00 08/08/17 06:00 08/07/17 08/08/17 08/09/17 05:59 05:59 05:59 Intake Total 5828.7 4214.8 Output Total 1175 2900 165 Balance 4653.7 1314.8 -165 - Physical Exam General Appearance: other (sedated, intubated in icu) EENT: ET Tube Respiratory: lungs clear Cardiac/Chest: regular rate, rhythm Extremities: swelling Abdomen: normal bowel sounds, non-tender, soft, distended (mild) Pelvic Exam: thompson Skin: No erythema ICD10 Worksheet Patient Problems: Problems Problem Status Onset Altered mental status Acute CHF (congestive heart failure) Acute Hypoxic Acute Respiratory failure Acute Sepsis Acute Chronic back pain Acute Chronic pain Acute Dehydration Acute Hyponatremia Acute Pneumonia Acute Status post cervical arthrodesis Acute Vomiting Acute Weakness Acute
--- NOTE | 2017-08-08 18:40 | HOSPPROG ---
Hospitalist Progress Note Assessment/Plan: DIAGNOSES: -acute septic shock, improved now off pressor -acute resp failure[facility] -acute UTI, complicated, gram neg rods in culture -acute renal failure, hemodynic, continues slow improvement -anemia, microcytic: Review of prior records shows her anemia has been present since approximately March of this year, but she has had normocytic indices until this admission so would be concerned about possible new iron deficiency that has developed since March -diabetes mellitus currently controlled on insulin drip -hyponatremia a bit better -chronic debility with wheelchair-bound state PLANS: -continue current abx -continue vent support -follow blood counts closely, will check for iron deficiency -continue insulin drip at this time reviewed w Dr Pena and Dr. Domingo seen on multidisc rounds SUBJ: pt sedated on vent, unable to assess sxs OBJ: vitals: Variable heart rates, blood pressure is stable at the moment, CVP 8, no fever so far today card monitor: all sinus exam: ET tube secured, vert pressures/lung compliance good skin centrally warm, hands and feet cold w decreased cap refill resps per vent lungs clear heart reg abd soft nondistended some edema diffusely CT scan of abdomen without contrast today done, with no specific concerning findings are nothing to explain her acute illness CT scan of head done today without contrast, my interpretation of images: No bleed or other acute abnormalities Cultures: Stenotrophomonas in urine, blood cultures negative so far Objective: Vital Signs Temp Pulse Resp BP Pulse Ox 36.4 C 81 14 126/53 H 99 08/08/17 18:00 08/08/17 18:00 08/08/17 18:00 08/08/17 18:00 08/08/17 18:00 Microbiology 08/06/17 09:25 Urine Culture - Final Urine,Catheterized Stenotrophomonas Maltophilia Five Or More [place] Types Laboratory Results 08/08/17 06:00 08/08/17 06:00 08/07/17 08/08/17 08/09/17 06:59 06:59 06:59 Intake Total 5828.7 4214.8 2088.1 Output Total 1175 2900 660 Balance 4653.7 1314.8 1428.1 PT 14.0 SEC (12.0-15.0) 08/06/17 09:12 INR 1.09 (0.83-1.16) 08/06/17 09:12 - Time Spent With Patient Time Spent with Patient: greater than 35 minutes Time Spent with Patient: Greater than 35 minutes spent on this patients care, greater than 50% of time spent counseling, educating, and coordinating care regarding the above mentioned plan. ICD10 Worksheet Patient Problems: Problems Problem Status Onset Altered mental status Acute CHF (congestive heart failure) Acute Hypoxic Acute Respiratory failure Acute Sepsis Acute Chronic back pain Acute Chronic pain Acute Dehydration Acute Hyponatremia Acute Pneumonia Acute Status post cervical arthrodesis Acute Vomiting Acute Weakness Acute
[2017-08-09] MEDS: INSULIN LISPRO 100 UNIT/ML SC SCH ×4 (00:53→17:30)
[2017-08-09] MEDS: NS 1,000 ML IV SCH ×2 (01:07→06:31)
[2017-08-09] MEDS: fentaNYL/NACL 100 ML IV SCH ×3 (02:54→20:36)
[2017-08-09 04:35] LABS: ABSOLUTE IMMATURE GRANULOCYTES 0.23 10^3/uL (0.00-0.10); ADD DIFF? NO; ADD MORPH? NO; ADD SCAN? NO; ATYPICAL LYMPHOCYTE FLAG 0 (0-99); FRAGMENT RBC FLAG 0 (0-99); HEMATOCRIT 22.9 % (38.0-47.0); HEMOGLOBIN 7.7 g/dL (12.6-16.3); LEFT SHIFT FLG 10 (0-99); LIPEMIA HEMOLYSIS FLAG 80 (0-99); MEAN CELL HEMOGLOBIN 28.1 pg (27.9-34.1); MEAN CELL HEMOGLOBIN CONCENTR. 33.6 g/dL (32.4-36.7); MEAN CELL VOLUME 83.6 fL (81.5-99.8); MEAN PLATELET VOLUME 8.5 fL (8.7-11.7); PLATELET CLUMPS FLAG 10 (0-99); PLATELET COUNT 279 10^3/uL (150-400); RED BLOOD CELL COUNT 2.74 10^6/uL (4.18-5.33); RED CELL DISTRIBUTION WIDTH 13.6 % (11.5-15.2)
[2017-08-09] MEDS: PIPERACILLIN/TAZO 2.25 GM/DEX 50 ML IV SCH ×2 (04:46→10:14)
[2017-08-09] MEDS ORDERED: NS 500 ML IV ONE ×2 (04:47→07:10)
--- NOTE | 2017-08-09 04:47 | HOSPPROG ---
Hospitalist Progress Note Assessment/Plan: Cross cover: called about patient having intermittent bouts of tachycardia. HR briefly in 190s, regular, but then back to 120's after suction. She remained hemodynamically stable throughout and vent settings have remained minimal. Noting very low UOP overnight, will bolus 500 mL NS now. Additionally, will obtain 12 lead ECG, CXR, BMP, Mg, and ABG for further evaluation. Patient is calm and sedated while on ventilator with bilateral breath sounds on exam. Objective: Vital Signs Temp Pulse Resp BP Pulse Ox 37.1 C 108 H 18 132/45 H 100 08/09/17 04:00 08/09/17 04:00 08/09/17 04:00 08/09/17 04:00 08/09/17 04:00 Microbiology 08/06/17 09:25 Urine Culture - Final Urine,Catheterized Stenotrophomonas Maltophilia Five Or More [place] Types 08/07/17 08/08/17 08/09/17 05:59 05:59 05:59 Intake Total 5828.7 4214.8 2088.1 Output Total 1175 2900 660 Balance 4653.7 1314.8 1428.1 PT 14.0 SEC (12.0-15.0) 08/06/17 09:12 INR 1.09 (0.83-1.16) 08/06/17 09:12 ICD10 Worksheet Patient Problems: Problems Problem Status Onset Altered mental status Acute CHF (congestive heart failure) Acute Hypoxic Acute Respiratory failure Acute Sepsis Acute Chronic back pain Acute Chronic pain Acute Dehydration Acute Hyponatremia Acute Pneumonia Acute Status post cervical arthrodesis Acute Vomiting Acute Weakness Acute
--- NOTE | 2017-08-09 04:47 | CPEKG ---
Heart Rate: 127 RR Interval: 472 P-R Interval: 128 QRSD Interval: 82 QT Interval: 288 QTC Interval: 419 P [place]: 81 QRS [place]: 80 T Wave [place]: 102 EKG Severity - BORDERLINE ECG - EKG Impression: SINUS TACHYCARDIA EKG Impression: LOW VOLTAGE THROUGHOUT EKG Impression: SOME ARTIFACT EKG Impression: POOR R WAVE PROGRESSION, ANTERIOR LEADS -- MORE PRONOUNCED SINCE AUGUST 06, EKG Impression: 2017 Electronically Signed By: Parmjit Lorenzana 09-Aug-2017 05:53:56
[2017-08-09] MEDS ORDERED: PROTOCOL POTASSIUM 1 DOSE MISC PRN (04:48)
[2017-08-09] MEDS ORDERED: PROTOCOL MAGNESIUM 1 DOSE IV PRN (04:48)
[2017-08-09 04:53] LABS: ANION GAP 14 mEq/L (8-16); CALCIUM 7.7 mg/dL (8.5-10.4); CARBON DIOXIDE 10 mEq/l (22-31); CHLORIDE 111 mEq/L (97-110); CREATININE 1.3 mg/dL (0.6-1.0); GLOMERULAR FILTRATION RATE 41; GLUCOSE 185 mg/dL (70-100); MAGNESIUM 1.4 mg/dL (1.6-2.3); SODIUM 135 mEq/L (134-144)
[2017-08-09] MEDS ORDERED: MAGNESIUM SULF 2 GM/WATER 50 ML IV ONE (05:02)
[2017-08-09 05:15] LABS: BICARBONATE 9 mEq/L (22-26); MEASURED OXYGEN SATURATION 92 % (92-95); PCO2 22 mmHg (34-38); PO2 67 mmHg (65-75); TCO2 10 mEq/L (23-27)
[2017-08-09 05:31] LABS: END TIDAL CO2 27; O2 CONCENTRATIION 40 % (0-100); P/F RATIO 168 RATIO; PATIENT RATE 22; SIMV YES
[2017-08-09 05:32] LABS: PIP 16; PRESSURE SUPPORT 10
[2017-08-09] MEDS: HEPARIN 5,000 UNIT/0.5 ML SYR SC SCH ×3 (05:35→20:36)
[2017-08-09] MEDS: LEVOTHYROXINE 100 MCG TAB TUBE SCH (05:35)
[2017-08-09] MEDS: POTASSIUM Cl (KCl) 50 ML IV SCH ×5 (06:00→15:16)
[2017-08-09] MEDS: PROPOFOL/EMULSION 100 ML IV SCH (06:36)
[2017-08-09] MEDS ORDERED: INSULIN LISPRO 100 UNIT/ML SC SCH (08:00)
--- NOTE | 2017-08-09 08:20 | PDINTPN ---
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 Off Levophed. * Urinary tract infection-agree with current antibiotic coverage * Acute respiratory failure secondary to sepsis-stable on mechanical ventilation -will assess for extubation. Have noted # 6 endotracheal tube an apparent difficult intubation. * History of chronic pain and chronic narcotic use * Metabolic Acidosis-unclear cause. -will given epi bicarb. * Acute renal failure-improved * Anemia-hemoglobin hematocrit little low -will transfuse 1 unit packed red cells * Insulin dependent diabetes-improved after being placed on insulin drip * History of Hypertension * History of Hyperlipidemia * History of Hypothyroidism * Sedation-problems with agitation coming down off propofol -will change to Precedex. This will also help with her chronic pain issues * Nutrition-none currently * VTE prophylaxis 35 minutes of critical care time spent with the patient. Case discussed with Nursing and Respiratory therapy Subjective: Sedated on mechanical ventilation Objective: Vital Signs Temp Pulse Resp BP Pulse Ox 37.1 C 106 H 19 144/59 H 100 08/09/17 08:00 08/09/17 08:00 08/09/17 08:00 08/09/17 08:00 08/09/17 08:00 Microbiology 08/06/17 09:25 Urine Culture - Final Urine,Catheterized Stenotrophomonas Maltophilia Five Or More [place] Types Laboratory Results 08/09/17 04:25 08/09/17 04:25 08/08/17 08/09/17 08/10/17 05:59 05:59 05:59 Intake Total 4214.8 4870.1 Output Total 2900 750 Balance 1314.8 4120.1 PT 14.0 SEC (12.0-15.0) 08/06/17 09:12 INR 1.09 (0.83-1.16) 08/06/17 09:12 Laboratory Results 08/09/17 04:25 08/09/17 04:25 08/09/17 08/09/17 05:05 04:25 Patient Temperature 37.2 DEGREES DEGREES pCO2 22 mmHg L mmHg (34 - 38) pO2 67 mmHg mmHg (65 - 75) Total CO2 10 mEq/L L mEq/L (23 - 27) ABG pH 7.23 L (7.35 - 7.45) ABG PO2/FiO2 Ratio 168 RATIO RATIO ABG HCO3 9 mEq/L L mEq/L (22 - 26) ABG O2 Saturation 92 % % (92 - 95) ABG Base Excess -17.0 mEq/L L mEq/L (-2.5 - 2.5) O2 Concentration % 40 % % Actual Respiration Rate 22 Set Respiration Rate 14 SIMV YES Tidal Volume 400 End Tidal CO2 27 PEEP 5 Peak Inspir Pressure 16 Pressure Support 10 Calcium 7.7 mg/dL L mg/dL (8.5 - 10.4) Magnesium 1.4 mg/dL L mg/dL (1.6 - 2.3) Chest [id number] by myself. Endotracheal tube and central lines in good position. Small effusion seen on left with hazy infiltrates bilaterally CT scan of the head shows nothing acute CT scan of abdomen pelvis-small to moderate right pleural effusion small left pleural effusions are seen. There is evidence of bibasilar consolidation. There is trace free fluid adjacent to the liver and pelvis. Constipation is present. - Time Spent With Patient Time Spent With Patient: 35 minutes of critical care time spent with patient Physical Exam - Physical Exam General Appearance: WD/WN, alert, no apparent distress EENT: PERRL/EOMI, ET tube Neck: non-tender Respiratory: crackles (Bibasilar), No respiratory distress, No wheezing Cardiac/Chest: normal peripheral pulses, regular rate, rhythm Abdomen: normal bowel sounds, non-tender, soft Pelvic Exam: deferred Rectal: deferred Skin: normal color, warm/dry Extremities: normal range of motion, non-tender, normal inspection, normal capillary refill Neuro/Psych: No alert ICD10 Worksheet Patient Problems: Problems Problem Status Onset Altered mental status Acute CHF (congestive heart failure) Acute Hypoxic Acute Respiratory failure Acute Sepsis Acute Chronic back pain Acute Chronic pain Acute Dehydration Acute Hyponatremia Acute Pneumonia Acute Status post cervical arthrodesis Acute Vomiting Acute Weakness Acute
[2017-08-09] MEDS ORDERED: NA BICARBONATE 50 MEQ/50 ML VIAL IV ONE (08:30)
[2017-08-09] MEDS: FAMOTIDINE 20 MG/NACL 50 ML IV SCH (09:06)
[2017-08-09] MEDS: DEXMEDETOMIDINE HCL 400 MCG in NS 100 ML IV SCH ×2 (09:56→20:37)
--- NOTE | 2017-08-09 10:50 | PCMIDPN ---
Assessment/Plan: #Sepsis: presumed urinary source with purulence coming from urethra and Thompson at admission, some elements of improvement with minimal vent settings and off of pressors but WBC up and bicarb lower today. High dose zosyn could have covered Stenotrophomonas partially and could account for partial improvement. --dc zosyn --start levofloxacin 750mg IV daily to cover steno + continue to provide some other GNR/strep coverage (vs dropping down to Bactrim) in setting where bladder was essentially an undrained abscess (now drained) #ARF : marked improvement --renal function borderline for q48 dosing, but suspect ongoing improvement therefore will dose daily Medications Zosyn 2.25 g IV Q 6, # 3 Microbiology 08/06/17 09:25 Urine,Catheterized Stenotrophomonas Maltophilia (Levoflox SAMPSON = 2) + Five Or More [place] Types 08/06/17 07:30 Blood Cx (2) NGTD Subjective: No specific events overnight. Starting to wean sedation, 2 BMs overnight not consistent with diarrhea Objective: Vital Signs Temp Pulse Resp BP Pulse Ox 37.1 C 118 H 20 157/65 H 100 08/09/17 10:00 08/09/17 10:00 08/09/17 10:00 08/09/17 10:00 08/09/17 10:00 Microbiology 08/06/17 09:25 Urine Culture - Final Urine,Catheterized Stenotrophomonas Maltophilia Five Or More [place] Types Laboratory Results 08/09/17 04:25 08/09/17 04:25 08/08/17 08/09/17 08/10/17 05:59 05:59 05:59 Intake Total 4214.8 4870.1 Output Total 2900 750 Balance 1314.8 4120.1 - Physical Exam General Appearance: other (Sedated) EENT: pale conjunctiva, ET Tube, NG Tube Respiratory: coarse breath sounds Neck: supple Cardiac/Chest: regular rate, rhythm Extremities: pedal edema, other (Anasarca) Abdomen: normal bowel sounds, non-tender, soft Pelvic Exam: thompson Skin: No rash - Line/s other Lines: other (Right IJ triple-lumen catheter C/D/I), No drainage, No erythema - Time Spent With Patient Time Spent with Patient: greater than 25 minutes Time Spent with Patient: Greater than 25 minutes spent on this patients care, greater than 50% of time spent counseling, educating, and coordinating care regarding the above mentioned plan. ICD10 Worksheet Patient Problems: Problems Problem Status Onset Altered mental status Acute CHF (congestive heart failure) Acute Hypoxic Acute Respiratory failure Acute Sepsis Acute Chronic back pain Acute Chronic pain Acute Dehydration Acute Hyponatremia Acute Pneumonia Acute Status post cervical arthrodesis Acute Vomiting Acute Weakness Acute
[2017-08-09 12:15] LABS: BASE EXCESS -14.6 mEq/L (-2.5-2.5); BICARBONATE 10 mEq/L (22-26); MEASURED OXYGEN SATURATION 99 % (92-95); PCO2 22 mmHg (34-38); PO2 129 mmHg (65-75); TCO2 11 mEq/L (23-27)
[2017-08-09 12:16] LABS: PRESSURE SUPPORT 10
[2017-08-09 12:17] LABS: P/F RATIO 323 RATIO; PATIENT RATE 18
[2017-08-09 12:31] LABS: POTASSIUM 3.4 mEq/L (3.5-5.2)
[2017-08-09 12:56] LABS: CPAP YES
[2017-08-09 12:58] LABS: END TIDAL CO2 30
[2017-08-09 12:59] LABS: O2 CONCENTRATIION 40 % (0-100)
--- NOTE | 2017-08-09 14:00 | ASMTCMCOM ---
CM Note CM Note Notes: Patient continues to be intubated and sedated. Wound care will see tomorrow. Per chart review, patient was last admitted to [facility] in March and was discharged home with [facility]. I spoke with Therese at [facility] who says that they discharged patient due to non-compliance and she is now on their "do not admit" list. Per urology nurse notes, [facility]. Other discharge needs TBD; CM will follow. Date Signed: 08/09/2017 01:59 PM Electronically Signed By:Anabell Fernandes RN
--- NOTE | 2017-08-09 17:38 | HOSPPROG ---
Hospitalist Progress Note Assessment/Plan: DIAGNOSES: -acute septic shock, improved now off pressor -acute resp failure[facility] -acute UTI, complicated, gram neg rods in culture -acute renal failure, hemodynic, continues slow improvement -anemia, microcytic: Review of prior records shows her anemia has been present since approximately March of this year, but she has had normocytic indices until this admission so would be concerned about possible new iron deficiency that has developed since March -diabetes mellitus currently controlled on insulin drip -hyponatremia a bit better -chronic debility with wheelchair-bound state She remains critically ill still quite dependent on mechanical ventilator. The cause of her illness is presumably urinary tract infection although this is not entirely clear. The only a positively identified organism at this point as stenotrophomonas for which her current antibiotic may not be ideal. Have reviewed in detail with Dr. Babcock and plans are to change to Levaquin. Her insulin drip was changed late last night to subcutaneous insulin doses and she now has sugars up over 300, at this point with her critical illness or put back on insulin drip. PLANS: -continue vent support -follow blood counts closely, will check for iron deficiency -continue insulin drip at this time -due to her stenotrophomonas will change antibiotic to Levaquin reviewed w Dr Pena and Dr. Babcock seen on multidisc rounds SUBJ: pt sedated on vent, unable to assess sxs OBJ: vitals: Variable heart rates, blood pressure is stable at the moment, CVP 8, no fever so far today card monitor: all sinus exam: ET tube secured, vert pressures/lung compliance good skin centrally warm, hands and feet cold w decreased cap refill resps per vent lungs clear heart reg abd soft nondistended some edema diffusely Cultures: Stenotrophomonas in urine, blood cultures negative so far Objective: Vital Signs Temp Pulse Resp BP Pulse Ox 37.9 C 74 16 143/54 H 100 08/09/17 17:00 08/09/17 17:00 08/09/17 17:00 08/09/17 17:00 08/09/17 17:00 Laboratory Results 08/09/17 04:25 08/08/17 08/09/17 08/10/17 06:59 06:59 06:59 Intake Total 4214.8 4870.1 2353.8 Output Total 2900 750 2375 Balance 1314.8 4120.1 -21.2 PT 14.0 SEC (12.0-15.0) 08/06/17 09:12 INR 1.09 (0.83-1.16) 08/06/17 09:12 - Time Spent With Patient Time Spent with Patient: greater than 35 minutes Time Spent with Patient: Greater than 35 minutes spent on this patients care, greater than 50% of time spent counseling, educating, and coordinating care regarding the above mentioned plan. ICD10 Worksheet Patient Problems: Problems Problem Status Onset Altered mental status Acute CHF (congestive heart failure) Acute Hypoxic Acute Respiratory failure Acute Sepsis Acute Chronic back pain Acute Chronic pain Acute Dehydration Acute Hyponatremia Acute Pneumonia Acute Status post cervical arthrodesis Acute Vomiting Acute Weakness Acute
[2017-08-09] MEDS ORDERED: D5W 1,000 ML IV SCH (17:45)
[2017-08-09] MEDS ORDERED: INSULIN REGULAR HUMAN 100 UNIT in NS 100 ML IV SCH (18:00)
[2017-08-09 18:10] LABS: POTASSIUM 3.8 mEq/L (3.5-5.2)
[2017-08-09] MEDS ORDERED: POTASSIUM Cl (KCl) 50 ML IV ONE (18:43)
[2017-08-09 19:33] LABS: HEMOGLOBIN A1C 7.5 % (4.0-6.0)
[2017-08-10 00:48] LABS: POTASSIUM 3.7 mEq/L (3.5-5.2)
[2017-08-10] MEDS ORDERED: POTASSIUM Cl (KCl) 50 ML IV ONE (01:46)
[2017-08-10] MEDS: DEXMEDETOMIDINE HCL 400 MCG in NS 100 ML IV SCH ×5 (02:42→23:45)
[2017-08-10] MEDS: fentaNYL/NACL 100 ML IV SCH ×3 (03:04→18:14)
[2017-08-10 04:28] LABS: % IMMATURE GRANULYOCYTES 0.8 % (0.0-1.1); ABSOLUTE IMMATURE GRANULOCYTES 0.11 10^3/uL (0.00-0.10); ADD DIFF? NO; ADD MORPH? NO; ADD SCAN? NO; ATYPICAL LYMPHOCYTE FLAG 0 (0-99); FRAGMENT RBC FLAG 0 (0-99); HEMATOCRIT 26.3 % (38.0-47.0); HEMOGLOBIN 9.4 g/dL (12.6-16.3); LEFT SHIFT FLG 0 (0-99); LIPEMIA HEMOLYSIS FLAG 90 (0-99); MEAN CELL HEMOGLOBIN 28.9 pg (27.9-34.1); MEAN CELL HEMOGLOBIN CONCENTR. 35.7 g/dL (32.4-36.7); MEAN CELL VOLUME 80.9 fL (81.5-99.8); MEAN PLATELET VOLUME 8.3 fL (8.7-11.7); PLATELET CLUMPS FLAG 10 (0-99); PLATELET COUNT 219 10^3/uL (150-400); RED BLOOD CELL COUNT 3.25 10^6/uL (4.18-5.33); RED CELL DISTRIBUTION WIDTH 13.6 % (11.5-15.2)
[2017-08-10 05:08] LABS: ANION GAP 10 mEq/L (8-16); CALCIUM 7.2 mg/dL (8.5-10.4); CARBON DIOXIDE 17 mEq/l (22-31); CHLORIDE 111 mEq/L (97-110); GLOMERULAR FILTRATION RATE 55; GLUCOSE 148 mg/dL (70-100); MAGNESIUM 1.7 mg/dL (1.6-2.3); POTASSIUM 4.1 mEq/L (3.5-5.2); SODIUM 138 mEq/L (134-144)
[2017-08-10] MEDS ORDERED: MAGNESIUM SULF 1 GM/DEXTROSE 100 ML IV ONE (05:41)
[2017-08-10] MEDS: LEVOTHYROXINE 100 MCG TAB TUBE SCH (05:56)
[2017-08-10] MEDS: HEPARIN 5,000 UNIT/0.5 ML SYR SC SCH ×3 (05:56→22:39)
[2017-08-10] MEDS: FAMOTIDINE 20 MG/NACL 50 ML IV SCH (07:49)
--- NOTE | 2017-08-10 08:42 | PDINTPN ---
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 Off Levophed. * Urinary tract infection-agree with current antibiotic coverage * Acute respiratory failure secondary to sepsis-stable on mechanical ventilation -will assess for extubation with CPAP trial and weaning parameters. -Have noted # 6 endotracheal tube an apparent difficult intubation. * History of chronic pain and chronic narcotic use * Metabolic Acidosis-unclear cause. -will given epi bicarb. * Acute renal failure-improved * Anemia-hemoglobin hematocrit little low -will transfuse 1 unit packed red cells * Insulin dependent diabetes-improved after being placed on insulin drip * History of Hypertension * History of Hyperlipidemia * History of Hypothyroidism * Sedation-problems with agitation coming down off propofol -will change to Precedex. This will also help with her chronic pain issues * Nutrition-none currently * VTE prophylaxis 40 minutes of critical care time spent with the patient. Case discussed with Nursing and Respiratory therapy Subjective: Sedated on mechanical ventilation. Mildly tachycardic Objective: Vital Signs Temp Pulse Resp BP Pulse Ox 38.1 C 92 25 H 137/90 H 100 08/10/17 07:00 08/10/17 07:00 08/10/17 07:00 08/10/17 07:00 08/10/17 07:00 Laboratory Results 08/10/17 04:22 08/10/17 04:22 08/09/17 08/10/17 08/11/17 05:59 05:59 05:59 Intake Total 4870.1 5321.8 Output Total 750 3775 Balance 4120.1 1546.8 PT 14.0 SEC (12.0-15.0) 08/06/17 09:12 INR 1.09 (0.83-1.16) 08/06/17 09:12 - Time Spent With Patient Time Spent With Patient: 40 minutes of critical care time spent with the patient. Physical Exam - Physical Exam General Appearance: other (Sedated), No alert EENT: PERRL/EOMI, ET tube Neck: non-tender, full range of motion Respiratory: crackles (Few), No respiratory distress, No wheezing Cardiac/Chest: normal peripheral pulses, regular rate, rhythm, tachycardia Peripheral Pulses: 2+: carotid (R), carotid (L), femoral (R), femoral (L), dorsalis-pedis (R), dorsalis-pedis (L) Abdomen: normal bowel sounds, non-tender, soft Pelvic Exam: deferred Rectal: deferred Skin: normal color, warm/dry Neuro/Psych: No alert ICD10 Worksheet Patient Problems: Problems Problem Status Onset Altered mental status Acute CHF (congestive heart failure) Acute Hypoxic Acute Respiratory failure Acute Sepsis Acute Chronic back pain Acute Chronic pain Acute Dehydration Acute Hyponatremia Acute Pneumonia Acute Status post cervical arthrodesis Acute Vomiting Acute Weakness Acute
--- NOTE | 2017-08-10 09:28 | HOSPPROG ---
Hospitalist Progress Note Assessment/Plan: DIAGNOSES: -recurrent fevers overnight 08/09 persist this morning (see discussion below) -acute septic shock, improved now off pressor -acute resp failure[facility] -acute UTI, complicated, is suspected as the most likely cause of her acute illness; stenotrophomonas in urine culture with multiple other organisms not identified -acute renal failure, hemodynic, now resolved -anemia, microcytic: Review of prior records shows her anemia has been present since approximately March of this year, but she has had normocytic indices until this admission so would be concerned about possible new iron deficiency that has developed since March -diabetes mellitus currently controlled -hyponatremia resolved -chronic debility with wheelchair-bound state She remains critically ill still quite dependent on mechanical ventilator. Yesterday morning her antibiotics were altered to try to better cover the known organisms from culture though there is uncertain tibia the actual pathogenic organism involved. She has now had significant fever since yesterday afternoon approximately 18 hours. Is unclear if this represents response to the change in antibiotics, or whether she may have a new infectious process. She does have suspected UTI has been having quite a lot of plugging of her Dietrich catheter due to significant sediment requiring several rounds of flushing the catheter through the night. PLANS: -continue vent support -review fevers and antibiotics with Infectious Disease -will change out her Dietrich catheter at this time -repeat chest x-ray to look for any possible new infiltrates -follow blood counts closely, will check for iron deficiency -continue insulin drip at this time -due to her stenotrophomonas will change antibiotic to Levaquin reviewed w Dr Pena and seen on multidisc rounds SUBJ: pt sedated on vent, unable to assess sxs OBJ: vitals: Temperature is in the low 38 since yesterday afternoon; Since changed to Precedex drip yesterday her the pulses much better but she still has some episodes of probable SVT, otherwise stable vitals card monitor: Sinus rhythm with some periods of SVT exam: ET tube secured, vert pressures/lung compliance good Sedated on ventilator skin warm and dry, pale resps per vent lungs clear heart reg abd soft nondistended no palpable abnormality some edema diffusely Cultures: Stenotrophomonas in urine, blood cultures negative so far Objective: Vital Signs Temp Pulse Resp BP Pulse Ox 38.1 C 132 H 37 H 137/90 H 100 08/10/17 07:00 08/10/17 08:54 08/10/17 08:54 08/10/17 07:00 08/10/17 08:54 Laboratory Results 08/10/17 04:22 08/10/17 04:22 08/09/17 08/10/17 08/11/17 06:59 06:59 06:59 Intake Total 4870.1 5321.8 Output Total 750 3775 Balance 4120.1 1546.8 PT 14.0 SEC (12.0-15.0) 08/06/17 09:12 INR 1.09 (0.83-1.16) 08/06/17 09:12 - Time Spent With Patient Time Spent with Patient: greater than 35 minutes Time Spent with Patient: Greater than 35 minutes spent on this patients care, greater than 50% of time spent counseling, educating, and coordinating care regarding the above mentioned plan. ICD10 Worksheet Patient Problems: Problems Problem Status Onset Altered mental status Acute CHF (congestive heart failure) Acute Hypoxic Acute Respiratory failure Acute Sepsis Acute Chronic back pain Acute Chronic pain Acute Dehydration Acute Hyponatremia Acute Pneumonia Acute Status post cervical arthrodesis Acute Vomiting Acute Weakness Acute
[2017-08-10 09:37] LABS: BASE EXCESS -11.2 mEq/L (-2.5-2.5); BICARBONATE 12 mEq/L (22-26); END TIDAL CO2 43; MEASURED OXYGEN SATURATION 97 % (92-95); O2 CONCENTRATIION 40 % (0-100); P/F RATIO 220 RATIO; PATIENT RATE 29; PCO2 22 mmHg (34-38); PO2 88 mmHg (65-75); TCO2 13 mEq/L (23-27)
[2017-08-10 09:38] LABS: PRESSURE SUPPORT 7
[2017-08-10 11:58] LABS: % SATURATION 66 % (20-55); TOTAL IRON BINDING CAPACITY 178 ug/dL (260-490)
[2017-08-10] MEDS: PIPERACILLIN/TAZO 2.25 GM/DEX 50 ML IV SCH ×3 (12:11→22:44)
[2017-08-10 12:53] LABS: POTASSIUM 3.6 mEq/L (3.5-5.2)
--- NOTE | 2017-08-10 13:21 | WOCRNPDOC ---
CARLY Advanced Assessment Note - Skin Integrity Problem, Advanced Assess Right Sacrum Pressure Injury Dressing Type: Allevyn Life, Packing Dressing Description: Clean/Dry, Intact Exudate Amount: Minimal Exudate Color: Reddish/Yellow Exudate Characteristic(s): Serosanguinous Integumentary Issue Intervention: Dressing Changed Carlee Wound Tissue: Erythema, Non-blanching Wound Bed Color: Red Wound Bed Constitution: Granulation Tissue, Smooth Tissue, Tunneling (at 3 o' clock, 2 cm) Pressure Injury Stage: Stage 4 Pressure Injury Present on Admit: Yes Skin Integrity Problem Comment: With help of RN Josh, patient turned to her left side. Allevyn removed and packing from previous dressing change fell out. Wound bed probed with NS moistened swab. Area of tunneling difficult to find and required loosening of the skin around the wound bed. Tunnel present at 3 o' clock and tunnels to 4 o'clock for 2 cm. Gauze cut and moistened with Puracyn. Tunnel packed using the blunt end of a swab and remaining gauze used to fill wound bed. Covered with Allevyn Life. Patient tolerated procedure well. Wound care will round again early next week.
[2017-08-10] MEDS: ACETAMINOPHEN 650 MG/20.3 ML UDCUP TUBE PRN ×2 (13:23→22:53)
[2017-08-10] MEDS: POTASSIUM Cl (KCl) 50 ML IV SCH ×3 (13:52→15:34)
--- NOTE | 2017-08-10 16:24 | PCMIDPN ---
Assessment/Plan: Assessment: Septic shock secondary to urinary tract infection. Catheter urine specimen with polymicrobial results. Stenotrophomonas present. Covered by Levaquin. Currently febrile again since switched to Levaquin from Zosyn. Given the renewed fevers and tachycardia will restart Zosyn at prior dose along with Levaquin and repeat both blood and urine culture. Plan: 1. Continue Levaquin. 2. Restart IV Zosyn. 3. Repeat blood cultures and urine culture 08/10/17 16:53 Subjective: patient remains intubated and sedated. She is had renewed fevers over the past 24 hours. She has developed a tachycardia which is irregular. Objective: Levaquin # 2 Vital Signs Temp Pulse Resp BP Pulse Ox 38.4 C H 128 H 43 H 147/83 H 99 08/10/17 16:00 08/10/17 16:00 08/10/17 16:00 08/10/17 16:00 08/10/17 16:00 Laboratory Results 08/10/17 04:22 08/10/17 12:08 08/09/17 08/10/17 08/11/17 05:59 05:59 05:59 Intake Total 4870.1 5321.8 Output Total 750 3775 Balance 4120.1 1546.8 - Physical Exam General Appearance: WD/WN, no apparent distress, toxic, other ( intubated and sedated) Respiratory: lungs clear, normal breath sounds, No respiratory distress Cardiac/Chest: tachycardia, irregularly irregular Extremities: non-tender, normal inspection Skin: normal color, warm/dry, No rash ICD10 Worksheet Patient Problems: Problems Problem Status Onset Altered mental status Acute CHF (congestive heart failure) Acute Hypoxic Acute Respiratory failure Acute Sepsis Acute Chronic back pain Acute Chronic pain Acute Dehydration Acute Hyponatremia Acute Pneumonia Acute Status post cervical arthrodesis Acute Vomiting Acute Weakness Acute
[2017-08-10 18:28] LABS: POTASSIUM 4.7 mEq/L (3.5-5.2)
[2017-08-11 00:53] LABS: POTASSIUM 5.1 mEq/L (3.5-5.2)
[2017-08-11] MEDS: fentaNYL/NACL 100 ML IV SCH ×3 (01:53→17:56)
[2017-08-11 04:11] LABS: ADD DIFF? YES; ADD MORPH? NO; ADD SCAN? NO; ATYPICAL LYMPHOCYTE FLAG 0 (0-99); FRAGMENT RBC FLAG 0 (0-99); HEMATOCRIT 27.1 % (38.0-47.0); HEMOGLOBIN 9.3 g/dL (12.6-16.3); LEFT SHIFT FLG 20 (0-99); LIPEMIA HEMOLYSIS FLAG 90 (0-99); MEAN CELL HEMOGLOBIN 28.7 pg (27.9-34.1); MEAN CELL HEMOGLOBIN CONCENTR. 34.3 g/dL (32.4-36.7); MEAN CELL VOLUME 83.6 fL (81.5-99.8); MEAN PLATELET VOLUME 8.9 fL (8.7-11.7); PLATELET CLUMPS FLAG 0 (0-99); PLATELET COUNT 142 10^3/uL (150-400); RED BLOOD CELL COUNT 3.24 10^6/uL (4.18-5.33); RED CELL DISTRIBUTION WIDTH 14.4 % (11.5-15.2)
[2017-08-11] MEDS: ACETAMINOPHEN 650 MG/20.3 ML UDCUP TUBE PRN (04:17)
[2017-08-11 04:26] LABS: ANION GAP 8 mEq/L (8-16); CALCIUM 6.8 mg/dL (8.5-10.4); CARBON DIOXIDE 15 mEq/l (22-31); CHLORIDE 112 mEq/L (97-110); CREATININE 1.1 mg/dL (0.6-1.0); GLOMERULAR FILTRATION RATE 50; GLUCOSE 130 mg/dL (70-100); MAGNESIUM 1.8 mg/dL (1.6-2.3); POTASSIUM 4.7 mEq/L (3.5-5.2); SODIUM 135 mEq/L (134-144)
[2017-08-11 04:54] LABS: ECHINOCYTES 1+; PLATELET ESTIMATE DECREASED (ADEQ)
[2017-08-11] MEDS: DEXMEDETOMIDINE HCL 400 MCG in NS 100 ML IV SCH (05:42)
[2017-08-11] MEDS: NS 1,000 ML IV SCH ×3 (05:42→23:25)
[2017-08-11] MEDS: LEVOTHYROXINE 100 MCG TAB TUBE SCH (05:49)
[2017-08-11] MEDS: HEPARIN 5,000 UNIT/0.5 ML SYR SC SCH ×3 (05:50→22:04)
[2017-08-11] MEDS: PIPERACILLIN/TAZO 2.25 GM/DEX 50 ML IV SCH ×3 (05:50→17:56)
--- NOTE | 2017-08-11 08:41 | PDINTPN ---
Stable Helper Progress Note Assessment/Plan: Assessment/Plan: * Sepsis-appears worsened. Tachycardic and tachypneic and febrile * Urinary tract infection-agree with current antibiotic coverage * Acute respiratory failure secondary to sepsis-stable on mechanical ventilation , however high respiratory rate -will assess for extubation with CPAP trial and weaning parameters. -Have noted # 6 endotracheal tube an apparent difficult intubation. * History of chronic pain and chronic narcotic use * Metabolic Acidosis-unclear cause. -will given epi bicarb. * Acute renal failure-resolved * Anemia-stable * Insulin dependent diabetes-improved after being placed on insulin drip * History of Hypertension * History of Hyperlipidemia * History of Hypothyroidism * Sedation-will change back to propofol and continue fentanyl drip * Nutrition-none currently * VTE prophylaxis 35 minutes of critical care time spent with the patient. Case discussed with Nursing and Respiratory therapy Subjective: Somewhat agitated. Complains of pain. Objective: Vital Signs Temp Pulse Resp BP Pulse Ox 39.3 C H 93 32 H 125/47 H 100 08/11/17 08:00 08/11/17 08:00 08/11/17 08:00 08/11/17 08:00 08/11/17 08:00 Laboratory Results 08/11/17 03:52 08/11/17 03:52 08/10/17 08/11/17 08/12/17 05:59 05:59 05:59 Intake Total 5321.8 5718 73.1 Output Total 3775 804 45 Balance 1546.8 4914 28.1 PT 14.0 SEC (12.0-15.0) 08/06/17 09:12 INR 1.09 (0.83-1.16) 08/06/17 09:12 - Time Spent With Patient Time Spent With Patient: 35 minutes of critical care time spent with patient Physical Exam - Physical Exam General Appearance: alert, moderate distress EENT: PERRL/EOMI, normal ENT inspection, ET tube (#6) Neck: non-tender, full range of motion, supple, normal inspection Respiratory: rhonchi (Scattered), other (Tachypneic) Cardiac/Chest: normal peripheral pulses, regular rate, rhythm, tachycardia Peripheral Pulses: 2+: carotid (R), carotid (L), femoral (R), femoral (L), dorsalis-pedis (R), dorsalis-pedis (L) Abdomen: normal bowel sounds, non-tender, soft Pelvic Exam: deferred Rectal: deferred Skin: normal color, warm/dry Extremities: normal range of motion, non-tender, normal inspection, normal capillary refill Neuro/Psych: alert, other (Agitated) ICD10 Worksheet Patient Problems: Problems Problem Status Onset Altered mental status Acute CHF (congestive heart failure) Acute Hypoxic Acute Respiratory failure Acute Sepsis Acute Chronic back pain Acute Chronic pain Acute Dehydration Acute Hyponatremia Acute Pneumonia Acute Status post cervical arthrodesis Acute Vomiting Acute Weakness Acute
[2017-08-11] MEDS ORDERED: FUROSEMIDE 40 MG/4 ML VIAL IVP ONE (08:43)
[2017-08-11] MEDS: FAMOTIDINE 20 MG/NACL 50 ML IV SCH (08:55)
--- NOTE | 2017-08-11 10:16 | HOSPPROG ---
Hospitalist Progress Note Assessment/Plan: DIAGNOSES: 66 y/o female wheel chair bound female with h/o chronic urinary retention and chronic pain present with -recurrent fevers overnight 08/09 persist this morning (see discussion below) -acute septic shock, improved now off pressor -acute resp failure, remains on mech vent -acute UTI, complicated, is suspected as the most likely cause of her acute illness; stenotrophomonas in urine culture with multiple other organisms not identified -acute renal failure, hemodynic, now resolved -anemia, microcytic: Review of prior records shows her anemia has been present since approximately March of this year, but she has had normocytic indices until this admission so would be concerned about possible new iron deficiency that has developed since March -diabetes mellitus currently controlled -hyponatremia resolved -chronic debility with wheelchair-bound state She remains critically ill still quite dependent on mechanical ventilator. Yesterday morning her antibiotics were altered to try to better cover the known organisms from culture though there is uncertain tibia the actual pathogenic organism involved. She has now had significant fever since yesterday afternoon approximately 18 hours. Is unclear if this represents response to the change in antibiotics, or whether she may have a new infectious process. She does have suspected UTI has been having quite a lot of plugging of her Dietrich catheter due to significant sediment requiring several rounds of flushing the catheter through the night. PLANS: -continue vent support -review fevers and antibiotics with Infectious Disease -will change out her Dietrich catheter at this time -repeat chest x-ray to look for any possible new infiltrates -follow blood counts closely, will check for iron deficiency -continue insulin drip at this time -due to her stenotrophomonas will change antibiotic to Levaquin reviewed w Dr Pena and seen on multidisc rounds Objective: Vital Signs Temp Pulse Resp BP Pulse Ox 38.8 C H 88 30 H 105/51 L 100 08/11/17 10:00 08/11/17 10:00 08/11/17 10:00 08/11/17 10:00 08/11/17 10:00 Laboratory Results 08/11/17 03:52 08/11/17 03:52 08/10/17 08/11/17 08/12/17 05:59 05:59 05:59 Intake Total 5321.8 5718 73.1 Output Total 3775 804 95 Balance 1546.8 4914 -21.9 PT 14.0 SEC (12.0-15.0) 08/06/17 09:12 INR 1.09 (0.83-1.16) 08/06/17 09:12 ICD10 Worksheet Patient Problems: Problems Problem Status Onset Hyponatremia Acute Status post cervical arthrodesis Acute Pneumonia Acute Altered mental status Acute Dehydration Acute Weakness Acute Chronic pain Acute Chronic back pain Acute Vomiting Acute Sepsis Acute Hypoxic Acute Respiratory failure Acute CHF (congestive heart failure) Acute
[2017-08-11 12:27] LABS: POTASSIUM 4.2 mEq/L (3.5-5.2)
[2017-08-11] MEDS ORDERED: MAGNESIUM SULF 1 GM/DEXTROSE 100 ML IV ONE (13:42)
--- NOTE | 2017-08-11 14:00 | ASMTCMCOM ---
CM Note CM Note Notes: Patient status unchanged at present. 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 Remains intubated on Vent. CM to follow. Patient continues to be intubated and sedated. Wound care will see tomorrow. Per chart review, patient was last admitted to [facility] in March and was discharged home with [facility]. I spoke with Therese at [facility] who says that they discharged patient due to non-compliance and she is now on their "do not admit" list. Per charrer notes, [facility] Date Signed: 08/10/2017 12:25 PM Electronically Signed By:Paige Hutchison RN
--- NOTE | 2017-08-11 14:23 | PCMIDPN ---
Assessment/Plan: Assessment/Plan: * Septic shock with possible urinary etiology: Urine culture showing growth of stenotrophomonas and multiple other colony types. Patient with persistent high- grade fever. 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 Will proceed with repeat CT scan of abdomen and pelvis given persistent high-grade fever. Short duration of levofloxacin exposure is atypical for drug fever. Follow up repeat blood cultures which are pending. Continue empiric Zosyn and levofloxacin in interim. Findings and plan reviewed with Dr. Pena today. 08/11/17 14:20 Subjective: Is intubated and sedated. Persistent high-grade temperatures overnight. Objective: Vital Signs Temp Pulse Resp BP Pulse Ox 38.5 C H 95 29 H 132/81 H 100 08/11/17 13:00 08/11/17 13:00 08/11/17 13:00 08/11/17 13:00 08/11/17 13:00 Microbiology 08/11/17 08:36 - Final Sputum, Induced/Suctioned Laboratory Results 08/11/17 03:52 08/11/17 12:05 08/10/17 08/11/17 08/12/17 05:59 05:59 05:59 Intake Total 5321.8 5718 73.1 Output Total 3775 804 1695 Balance 1546.8 4914 -1621.9 Levofloxacin # 3 Zosyn # 1 Blood cultures 08/10/2017 pending Urine culture with growth of greater than 100,000 stenotrophomonas and several other colony types Chest x-ray with bilateral infiltrates Tm 40.2 - Physical Exam General Appearance: other (Intubated, sedated) EENT: ET Tube, No scleral icterus, No conjunctival petechiae Respiratory: lungs clear (Anterolaterally) Cardiac/Chest: regular rate, rhythm Extremities: other (Left hip/thigh without erythema or tenderness, anasarca present), No inflammation Abdomen: non-tender, No distended Back: other (Small sacral decubitus ulcer with packing in place; no surrounding erythema) Skin: No embolic lesions ICD10 Worksheet Patient Problems: Problems Problem Status Onset Hyponatremia Acute Status post cervical arthrodesis Acute Pneumonia Acute Altered mental status Acute Dehydration Acute Weakness Acute Chronic pain Acute Chronic back pain Acute Vomiting Acute Sepsis Acute Hypoxic Acute Respiratory failure Acute CHF (congestive heart failure) Acute
--- NOTE | 2017-08-11 15:20 | HOSPPROG ---
Hospitalist Progress Note Assessment/Plan: 66 y/o female new to my care 08/11/17 wheel chair bound female with h/o chronic urinary retention and chronic pain present with -persistent fevers -acute septic shock -acute resp failure, remains on mech vent -acute UTI, complicated, is suspected as the most likely cause of her acute illness; stenotrophomonas in urine culture with multiple other organisms not identified -acute renal failure, hemodynic, now resolved -anemia, microcytic: Review of prior records shows her anemia has been present since approximately March of this year, but she has had normocytic indices until this admission so would be concerned about possible new iron deficiency that has developed since March -diabetes mellitus currently controlled -hyponatremia resolved -chronic debility with wheelchair-bound state PLANS: -continue vent support and icu care -continue levaquin and zosyn per ID -continue insulin drip at this time reviewed w Dr Pena and Dr. Martin seen on multidisc rounds Subjective: intubated and sedated Objective: Vital Signs Temp Pulse Resp BP Pulse Ox 38.3 C 96 29 H 107/60 1 L 08/11/17 15:00 08/11/17 15:00 08/11/17 15:00 08/11/17 15:00 08/11/17 15:00 Microbiology 08/11/17 08:36 - Final Sputum, Induced/Suctioned Laboratory Results 08/11/17 03:52 08/11/17 12:05 08/10/17 08/11/17 08/12/17 05:59 05:59 05:59 Intake Total 5321.8 5718 73.1 Output Total 3775 804 2495 Balance 1546.8 4914 -2421.9 PT 14.0 SEC (12.0-15.0) 08/06/17 09:12 INR 1.09 (0.83-1.16) 08/06/17 09:12 cxr was reviewed showing infiltrates - Physical Exam Constitutional: no apparent distress, appears nourished, not in pain Ears, Nose, Mouth, Throat: moist mucous membranes, ears appear normal, no oral mucosal ulcers Cardiovascular: regular rate and rhythym, no murmur, rub, or gallop Respiratory: no respiratory distress, no rales or rhonchi, clear to auscultation , reduced air movement (bilat bases) Gastrointestinal: normoactive bowel sounds, soft, non-tender abdomen, no palpable masses Skin: no rashes or abrasions, no fluctuance, no induration Neurologic: other (sedated aaox0) Psychiatric: poor insight, poor judgement, poor memory ICD10 Worksheet Patient Problems: Problems Problem Status Onset Hyponatremia Acute Status post cervical arthrodesis Acute Pneumonia Acute Altered mental status Acute Dehydration Acute Weakness Acute Chronic pain Acute Chronic back pain Acute Vomiting Acute Sepsis Acute Hypoxic Acute Respiratory failure Acute CHF (congestive heart failure) Acute
[2017-08-11 16:07] LABS: BILIRUBIN,TOTAL 0.5 mg/dL (0.1-1.4); BILIRUBIN-CONJUGATED 0.5 mg/dL (0.0-0.5); TOTAL PROTEIN 4.3 g/dL (6.3-8.2)
[2017-08-11 18:57] LABS: POTASSIUM 3.6 mEq/L (3.5-5.2)
[2017-08-11] MEDS: POTASSIUM Cl (KCl) 50 ML IV SCH ×3 (22:02→23:24)
--- NOTE | 2017-08-11 22:08 | CPEKG ---
Heart Rate: 114 RR Interval: 526 QRSD Interval: 66 QT Interval: 268 QTC Interval: 370 QRS [place]: 0 T Wave [place]: 50 EKG Severity - ABNORMAL ECG - EKG Impression: ATRIAL FIBRILLATION EKG Impression: ANTERIOR INFARCT, AGE INDETERMINATE EKG Impression: ST elevation in I, aVL, V1-V3. Reciprocal ST-T wave abnormalities elsewhere. EKG Impression: Consider acute myocardial infarction.This is new since August 09, 2017 Electronically Signed By: Parmjit Lorenzana 12-Aug-2017 07:54:35
[2017-08-11] MEDS: DILTIAZEM 30 MG TAB PO SCH (23:33)
[2017-08-12 02:47] LABS: POTASSIUM 3.7 mEq/L (3.5-5.2)
--- NOTE | 2017-08-12 03:01 | HOSPPROG ---
Hospitalist Progress Note Assessment/Plan: Cross cover: called about patient with afib and HR occasionally as high as 150, but not sustained. SBP>100. Will start diltiazem 30 mg q6h for now through OGT and continue to monitor. Objective: Vital Signs Temp Pulse Resp BP Pulse Ox 37.5 C 92 23 H 124/73 H 100 08/11/17 23:00 08/12/17 00:05 08/12/17 00:05 08/11/17 23:33 08/12/17 00:05 Microbiology 08/11/17 08:36 - Final Sputum, Induced/Suctioned Laboratory Results 08/11/17 03:52 08/12/17 02:15 08/10/17 08/11/17 08/12/17 05:59 05:59 05:59 Intake Total 5321.8 5718 1752.7 Output Total 3775 804 3055 Balance 1546.8 4914 -1302.3 PT 14.0 SEC (12.0-15.0) 08/06/17 09:12 INR 1.09 (0.83-1.16) 08/06/17 09:12 ICD10 Worksheet Patient Problems: Problems Problem Status Onset Altered mental status Acute CHF (congestive heart failure) Acute Hypoxic Acute Respiratory failure Acute Sepsis Acute Chronic back pain Acute Chronic pain Acute Dehydration Acute Hyponatremia Acute Pneumonia Acute Status post cervical arthrodesis Acute Vomiting Acute Weakness Acute
[2017-08-12] MEDS: PIPERACILLIN/TAZO 2.25 GM/DEX 50 ML IV SCH ×4 (05:04→18:16)
[2017-08-12] MEDS: DILTIAZEM 30 MG TAB PO SCH ×3 (05:05→18:15)
[2017-08-12] MEDS: HEPARIN 5,000 UNIT/0.5 ML SYR SC SCH ×3 (05:05→22:18)
[2017-08-12] MEDS: fentaNYL/NACL 100 ML IV SCH ×3 (05:05→21:02)
[2017-08-12] MEDS: LEVOTHYROXINE 100 MCG TAB TUBE SCH (05:05)
[2017-08-12] MEDS: NS 1,000 ML IV SCH ×3 (05:12→20:12)
[2017-08-12] MEDS ORDERED: POTASSIUM Cl (KCl) 50 ML IV ONE (05:16)
[2017-08-12 05:32] LABS: ALBUMIN 1.8 g/dL (3.5-5.0); ALKALINE PHOSPHATASE 186 IU/L (38-126); ANION GAP 6 mEq/L (8-16); BILIRUBIN,TOTAL 0.2 mg/dL (0.1-1.4); CALCIUM 6.8 mg/dL (8.5-10.4); CARBON DIOXIDE 19 mEq/l (22-31); CHLORIDE 109 mEq/L (97-110); GLOMERULAR FILTRATION RATE 55; GLUCOSE 95 mg/dL (70-100); MAGNESIUM 1.7 mg/dL (1.6-2.3); POTASSIUM 3.7 mEq/L (3.5-5.2); SODIUM 134 mEq/L (134-144); TOTAL PROTEIN 3.9 g/dL (6.3-8.2)
[2017-08-12] MEDS: PROPOFOL/EMULSION 100 ML IV SCH (05:56)
[2017-08-12 05:57] LABS: ALANINE AMINOTRANSFERASE 2126 IU/L (9-52); ASPARTATE AMINOTRANSFERASE 3384 IU/L (14-46)
[2017-08-12] MEDS: FAMOTIDINE 20 MG/NACL 50 ML IV SCH (08:28)
--- NOTE | 2017-08-12 09:05 | PDINTPN ---
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 Difficult to assess for extubation given agitation when sedation lightened. Also, given up # 6 endotracheal tube and difficult intubation, would be hesitant to attempt trial of extubation. -will start weaning IMV rate * History of chronic pain and chronic narcotic use * Metabolic Acidosis-unclear cause. -recheck arterial blood gas * Acute renal failure-resolved * Anemia-stable * Insulin dependent diabetes-improved after being placed on insulin drip * History of Hypertension * History of Hyperlipidemia * History of Hypothyroidism * Sedation-will attempt to slowly reduce propofol. Patient did not tolerate Precedex * Nutrition-none currently * VTE prophylaxis 40 minutes minutes of critical care time spent with the patient. Case discussed with Nursing and Respiratory therapy Subjective: Sedated on mechanical ventilation Objective: Vital Signs Temp Pulse Resp BP Pulse Ox 37.1 C 94 17 110/59 L 100 08/12/17 04:00 08/12/17 05:05 08/12/17 05:00 08/12/17 05:05 08/12/17 05:00 Microbiology 08/11/17 08:36 - Final Sputum, Induced/Suctioned Laboratory Results 08/11/17 03:52 08/12/17 04:42 08/11/17 08/12/17 08/13/17 05:59 05:59 05:59 Intake Total 5718 4252.7 Output Total 804 3355 175 Balance 4914 897.7 -175 PT 14.0 SEC (12.0-15.0) 08/06/17 09:12 INR 1.09 (0.83-1.16) 08/06/17 09:12 Chest [id number] by myself. Endotracheal tube in good position. No change in bibasilar infiltrates - Time Spent With Patient Time Spent With Patient: 40 minutes of critical care time spent with patient Physical Exam - Physical Exam General Appearance: other (Sedated), No alert EENT: PERRL/EOMI, ET tube Neck: non-tender Respiratory: crackles (Bibasilar), No respiratory distress, No wheezing Cardiac/Chest: normal peripheral pulses, regular rate, rhythm, systolic murmur Peripheral Pulses: 2+: carotid (R), carotid (L), femoral (R), femoral (L), dorsalis-pedis (R), dorsalis-pedis (L) Abdomen: normal bowel sounds, non-tender, soft Pelvic Exam: deferred Rectal: deferred Skin: normal color, warm/dry Extremities: normal range of motion, non-tender, normal inspection, normal capillary refill Neuro/Psych: No alert ICD10 Worksheet Patient Problems: Problems Problem Status Onset Altered mental status Acute CHF (congestive heart failure) Acute Hypoxic Acute Respiratory failure Acute Sepsis Acute Chronic back pain Acute Chronic pain Acute Dehydration Acute Hyponatremia Acute Pneumonia Acute Status post cervical arthrodesis Acute Vomiting Acute Weakness Acute
[2017-08-12 09:19] LABS: INR 1.65 (0.83-1.16); PROTIME(PATIENT) 19.6 SEC (12.0-15.0)
[2017-08-12 09:20] LABS: APTT 33.5 SEC (23.0-38.0)
--- NOTE | 2017-08-12 12:51 | HOSPPROG ---
Hospitalist Progress Note Assessment/Plan: 66 y/o female new to my care 08/11/17 wheel chair bound female with h/o chronic urinary retention and chronic pain present with -acute septic shock -acute resp failure, remains on mech vent -acute UTI, complicated, is suspected as the most likely cause of her acute illness; stenotrophomonas in urine culture with multiple other organisms not identified -acute renal failure, hemodynic, now resolved -transaminitis likely due to shock liver with improving transaminitis -anemia, microcytic: Review of prior records shows her anemia has been present since approximately March of this year, but she has had normocytic indices until this admission so would be concerned about possible new iron deficiency that has developed since March -diabetes mellitus currently controlled -hyponatremia resolved -chronic debility with wheelchair-bound state PLANS: -continue vent support and icu care -continue levaquin and zosyn per ID -dc insulin gtt and start glargine 10 units hs -cmp daily reviewed w Dr Pena and Dr. Martin seen on multidisc rounds Subjective: intubated and sedated Objective: Vital Signs Temp Pulse Resp BP Pulse Ox 36.8 C 89 19 116/60 100 08/12/17 12:00 08/12/17 12:23 08/12/17 12:00 08/12/17 12:23 08/12/17 12:00 Microbiology 08/11/17 08:36 - Final Sputum, Induced/Suctioned Laboratory Results 08/11/17 03:52 08/12/17 04:42 08/11/17 08/12/17 08/13/17 05:59 05:59 05:59 Intake Total 5718 4252.7 Output Total 804 3355 400 Balance 4914 897.7 -400 PT 19.6 SEC (12.0-15.0) H 08/12/17 09:00 INR 1.65 (0.83-1.16) H 08/12/17 09:00 - Physical Exam Constitutional: no apparent distress, appears nourished, not in pain Ears, Nose, Mouth, Throat: moist mucous membranes, hearing normal, ears appear normal, no oral mucosal ulcers Cardiovascular: regular rate and rhythym, no murmur, rub, or gallop Respiratory: no respiratory distress, no rales or rhonchi, clear to auscultation Gastrointestinal: normoactive bowel sounds, soft, non-tender abdomen, no palpable masses, No guarding, No rebound Genitourinary: thompson in urethra Skin: no rashes or abrasions, no fluctuance, no induration Neurologic: CN II-XII Intact, other (not following commands), No facial droop ICD10 Worksheet Patient Problems: Problems Problem Status Onset Hyponatremia Acute Status post cervical arthrodesis Acute Pneumonia Acute Altered mental status Acute Dehydration Acute Weakness Acute Chronic pain Acute Chronic back pain Acute Vomiting Acute Sepsis Acute Hypoxic Acute Respiratory failure Acute CHF (congestive heart failure) Acute
[2017-08-12 14:15] LABS: POTASSIUM 4.3 mEq/L (3.5-5.2)
[2017-08-12] MEDS ORDERED: NS 500 ML IV ONE (16:30)
[2017-08-12] MEDS: NOREPINEPHRINE/NS 500 ML IV SCH (16:46)
[2017-08-12] MEDS ORDERED: NS 1,000 ML IV ONE (17:00)
--- NOTE | 2017-08-12 17:30 | PCMIDPN ---
Assessment/Plan: Assessment/Plan: * Septic shock with possible urinary etiology: Progressive hypotension and acidosis with pressor requirement today. Also has abdominal pain. Concerning for intra-abdominal process with considerations to include ischemic colitis given hypotension with concomitant marked increase in transaminases consistent with shock liver. Will obtain stat CT scan of abdomen and pelvis. Continue Zosyn and levofloxacin pending CT findings. Will give single dose of vancomycin pending additional data. Repeat blood cultures are no growth to date. Findings and plan reviewed with patient, , and ICU staff. Time spent, greater than 35 minutes, of which greater than half was spent in education/counseling/coordination of care related to septic shock and plan of care 08/12/17 17:27 08/12/17 17:28 08/12/17 17:32 Subjective: Patient with progressive hypotension and need for vasopressors today with elevated lactic acid. Complains of abdominal and pelvic pain. Objective: Vital Signs Temp Pulse Resp BP Pulse Ox 36.4 C 84 23 H 111/47 L 100 08/12/17 17:18 08/12/17 17:18 08/12/17 17:18 08/12/17 17:18 08/12/17 17:18 Microbiology 08/11/17 08:36 - Final Sputum, Induced/Suctioned Laboratory Results 08/11/17 03:52 08/12/17 12:10 08/11/17 08/12/17 08/13/17 05:59 05:59 05:59 Intake Total 5718 4252.7 21 Output Total 804 3355 750 Balance 4914 897.7 -729 Levofloxacin # 4 Zosyn # 2 Blood cultures 08/10/2017 no growth to date Chest x-ray with bibasilar infiltrates Sputum with Silvana tropicalis Laboratory Tests 08/12/17 16:17 VBG Lactic Acid 3.3 H Laboratory Tests 08/12/17 04:42 Total Bilirubin 0.2 D AST 3384 H ALT 2126 H Alkaline Phosphatase 186 H - Physical Exam General Appearance: other (Intubated and response to questions with nodding) EENT: ET Tube, No scleral icterus Cardiac/Chest: regular rate, rhythm Abdomen: distended, tender (Diffusely with voluntary guarding) Skin: No embolic lesions ICD10 Worksheet Patient Problems: Problems Problem Status Onset Altered mental status Acute CHF (congestive heart failure) Acute Hypoxic Acute Respiratory failure Acute Sepsis Acute Chronic back pain Acute Chronic pain Acute Dehydration Acute Hyponatremia Acute Pneumonia Acute Status post cervical arthrodesis Acute Vomiting Acute Weakness Acute
[2017-08-12] MEDS ORDERED: VANCOMYCIN HCL/NORMAL SALINE 250 ML IV ONE (17:33)
--- NOTE | 2017-08-12 17:37 | CPEKG ---
Heart Rate: 167 RR Interval: 359 QRSD Interval: 110 QT Interval: 268 QTC Interval: 447 P [place]: 0 QRS [place]: 83 T Wave [place]: -41 EKG Severity - ABNORMAL ECG - EKG Impression: SO MUCH ARTIFACT PRECLUDES ACCURATE INTERPRETATION. PLEASE REPEAT EKG. Electronically Signed By: Parmjit Lorenzana 13-Aug-2017 08:15:11
[2017-08-12] MEDS: VASOPRESSIN/DEXTROSE 250 ML IV SCH (17:45)
[2017-08-12] MEDS: ALBUMIN 25% 100 ML IV SCH (18:02)
[2017-08-12] MEDS ORDERED: IOPAMIDOL (ISOVUE-300) 100 ML BTL ONE (18:13)
[2017-08-12 18:36] LABS: ADD DIFF? YES; ADD MORPH? NO; ATYPICAL LYMPHOCYTE FLAG 0 (0-99); FRAGMENT RBC FLAG 0 (0-99); LIPEMIA HEMOLYSIS FLAG 90 (0-99); NRBC-AUTO% 0.3 % (0.0-0.2); RED CELL DISTRIBUTION WIDTH 14.7 % (11.5-15.2)
[2017-08-12 18:47] LABS: ABSOLUTE NRBC COUNT 0.11 10^3/uL (0-0.01); HEMATOCRIT 28.5 % (38.0-47.0); HEMOGLOBIN 9.9 g/dL (12.6-16.3); MEAN CELL HEMOGLOBIN CONCENTR. 34.7 g/dL (32.4-36.7); MEAN CELL VOLUME 83.6 fL (81.5-99.8); MEAN PLATELET VOLUME 11.1 fL (8.7-11.7); PLATELET CLUMPS FLAG 0 (0-99); PLATELET COUNT 232 10^3/uL (150-400); RED BLOOD CELL COUNT 3.41 10^6/uL (4.18-5.33)
[2017-08-12 18:48] LABS: LEFT SHIFT FLG 180 (0-99)
[2017-08-12 18:49] LABS: ADD SCAN? NO
[2017-08-12 18:55] LABS: ANION GAP 11 mEq/L (8-16); CALCIUM 6.9 mg/dL (8.5-10.4); CARBON DIOXIDE 14 mEq/l (22-31); CHLORIDE 107 mEq/L (97-110); CREATININE 0.9 mg/dL (0.6-1.0); GLOMERULAR FILTRATION RATE > 60; GLUCOSE 244 mg/dL (70-100); MAGNESIUM 1.7 mg/dL (1.6-2.3); POTASSIUM 4.5 mEq/L (3.5-5.2); SODIUM 132 mEq/L (134-144)
[2017-08-12 19:05] LABS: INR 1.63 (0.83-1.16); PROTIME(PATIENT) 19.4 SEC (12.0-15.0)
[2017-08-12 19:06] LABS: APTT 29.6 SEC (23.0-38.0)
[2017-08-12] MEDS ORDERED: MAGNESIUM SULF 2 GM/WATER 50 ML IV ONE (19:12)
[2017-08-12 19:27] LABS: PLATELET ESTIMATE ADEQUATE (ADEQ); POLYCHROMASIA 1+
[2017-08-12 19:28] LABS: FIBRINOGEN 323 mg/dL (214-456)
[2017-08-12 19:29] LABS: PLATELET COUNT 232 10^3/uL (150-400)
[2017-08-12 19:31] LABS: ECHINOCYTES 3+
[2017-08-12 19:32] LABS: PROCALCITONIN 1.46 ng/mL (0.02-0.10)
[2017-08-12] MEDS: INSULIN GLARGINE 100 UNITS/ML SYRINGE SC SCH (22:23)
[2017-08-12] MEDS: MICAFUNGIN NA 100 MG in NS 100 ML IV SCH (22:37)
[2017-08-13] MEDS: ALBUMIN 25% 100 ML IV SCH ×5 (00:03→23:42)
[2017-08-13] MEDS: PIPERACILLIN/TAZO 2.25 GM/DEX 50 ML IV SCH ×5 (00:03→23:42)
[2017-08-13] MEDS: PROPOFOL/EMULSION 100 ML IV SCH ×4 (00:03→23:42)
[2017-08-13] MEDS: DILTIAZEM 30 MG TAB PO SCH ×2 (00:04→05:27)
[2017-08-13 01:00] LABS: POTASSIUM 4.6 mEq/L (3.5-5.2)
[2017-08-13 05:12] LABS: BASE EXCESS -13.5 mEq/L (-2.5-2.5); BICARBONATE 12 mEq/L (22-26); MEASURED OXYGEN SATURATION 96 % (92-95); PCO2 27 mmHg (34-38); PO2 92 mmHg (65-75); TCO2 13 mEq/L (23-27)
[2017-08-13] MEDS: NS 1,000 ML IV SCH (05:12)
[2017-08-13] MEDS: fentaNYL/NACL 100 ML IV SCH ×3 (05:12→16:25)
[2017-08-13 05:15] LABS: CPAP YES; O2 CONCENTRATIION 40 % (0-100); P/F RATIO 230 RATIO; PATIENT RATE 14; PRESSURE SUPPORT 10
[2017-08-13 05:19] LABS: ABSOLUTE NRBC COUNT 0.06 10^3/uL (0-0.01); ADD DIFF? YES; ADD MORPH? NO; ATYPICAL LYMPHOCYTE FLAG 0 (0-99); FRAGMENT RBC FLAG 0 (0-99); HEMATOCRIT 23.2 % (38.0-47.0); HEMOGLOBIN 8.2 g/dL (12.6-16.3); LEFT SHIFT FLG 70 (0-99); LIPEMIA HEMOLYSIS FLAG 90 (0-99); MEAN CELL HEMOGLOBIN 30.1 pg (27.9-34.1); MEAN CELL HEMOGLOBIN CONCENTR. 35.3 g/dL (32.4-36.7); MEAN CELL VOLUME 85.3 fL (81.5-99.8); MEAN PLATELET VOLUME 10.8 fL (8.7-11.7); NRBC-AUTO% 0.2 % (0.0-0.2); PLATELET CLUMPS FLAG 0 (0-99); PLATELET COUNT 161 10^3/uL (150-400); RED BLOOD CELL COUNT 2.72 10^6/uL (4.18-5.33)
[2017-08-13] MEDS: NOREPINEPHRINE/NS 500 ML IV SCH (05:19)
[2017-08-13 05:23] LABS: ADD SCAN? NO
[2017-08-13] MEDS: LEVOTHYROXINE 100 MCG TAB TUBE SCH (05:27)
[2017-08-13 05:30] LABS: ALBUMIN 2.4 g/dL (3.5-5.0); ALKALINE PHOSPHATASE 206 IU/L (38-126); ANION GAP 14 mEq/L (8-16); BILIRUBIN,TOTAL 0.8 mg/dL (0.1-1.4); CARBON DIOXIDE 14 mEq/l (22-31); CHLORIDE 107 mEq/L (97-110); CREATININE 0.8 mg/dL (0.6-1.0); GLOMERULAR FILTRATION RATE > 60; GLUCOSE 314 mg/dL (70-100); MAGNESIUM 1.9 mg/dL (1.6-2.3); POTASSIUM 4.5 mEq/L (3.5-5.2); SODIUM 135 mEq/L (134-144); TOTAL PROTEIN 4.2 g/dL (6.3-8.2)
[2017-08-13 05:37] LABS: ALANINE AMINOTRANSFERASE 1612 IU/L (9-52)
[2017-08-13 05:57] LABS: PLATELET ESTIMATE ADEQUATE (ADEQ); POLYCHROMASIA 1+
[2017-08-13 05:58] LABS: TOXIC GRANULATION PRESENT
[2017-08-13 06:05] LABS: ASPARTATE AMINOTRANSFERASE 1578 IU/L (14-46)
[2017-08-13] MEDS: VASOPRESSIN/DEXTROSE 250 ML IV SCH (06:08)
[2017-08-13] MEDS: HEPARIN 5,000 UNIT/0.5 ML SYR SC SCH ×3 (06:08→21:50)
[2017-08-13] MEDS: FAMOTIDINE 20 MG/NACL 50 ML IV SCH (08:56)
--- NOTE | 2017-08-13 09:10 | PDINTPN ---
[employer] Work[employer] Progress Note Assessment/Plan: Assessment/Plan: * Sepsis-improved * Urinary tract infection-agree with current antibiotic coverage * Acute respiratory failure secondary to sepsis-stable on mechanical ventilation. Difficult to assess for extubation given agitation when sedation lightened. Also, given up # 6 endotracheal tube and difficult intubation, would be hesitant to attempt trial of extubation. -will assess for possible extubation * History of chronic pain and chronic narcotic use * Metabolic Acidosis-unclear cause. -recheck arterial blood gas * Acute renal failure-resolved * Anemia-stable * Insulin dependent diabetes-improved after being placed on insulin drip * History of Hypertension * History of Hyperlipidemia * History of Hypothyroidism * Sedation-will attempt to slowly reduce propofol. Patient did not tolerate Precedex * Nutrition-none currently * VTE prophylaxis 35 minutes minutes of critical care time spent with the patient. Case discussed with Nursing and Respiratory therapy Subjective: Sedated and on mechanical ventilation Objective: Vital Signs Temp Pulse Resp BP Pulse Ox 36.6 C 86 16 147/95 H 94 08/13/17 09:00 08/13/17 09:00 08/13/17 09:00 08/13/17 09:00 08/13/17 09:00 Microbiology 08/11/17 08:36 - Final Sputum, Induced/Suctioned Sputum Culture - Final Silvana Tropicalis Laboratory Results 08/13/17 05:00 08/13/17 05:00 08/12/17 08/13/17 08/14/17 05:59 05:59 05:59 Intake Total 4252.7 4924.8 145 Output Total 3355 2500 325 Balance 897.7 2424.8 -180 PT 19.4 SEC (12.0-15.0) H 08/12/17 18:30 INR 1.63 (0.83-1.16) H 08/12/17 18:30 Chest [id number] by myself. There remains bilateral lower lobe infiltrates mostly unchanged Laboratory Results 08/13/17 05:00 08/13/17 05:00 08/13/17 08/13/17 08/13/17 05:00 05:00 05:00 pCO2 27 mmHg L mmHg (34 - 38) pO2 92 mmHg H mmHg (65 - 75) Total CO2 13 mEq/L L mEq/L (23 - 27) ABG pH 7.27 L (7.35 - 7.45) ABG PO2/FiO2 Ratio 230 RATIO RATIO ABG HCO3 12 mEq/L L mEq/L (22 - 26) ABG O2 Sat (Calculated) Cancelled ABG O2 Saturation 96 % H % (92 - 95) ABG Base Excess -13.5 mEq/L L mEq/L (-2.5 - 2.5) Calcium 7.0 mg/dL L mg/dL (8.5 - 10.4) Magnesium 1.9 mg/dL mg/dL (1.6 - 2.3) Total Bilirubin 0.8 mg/dL D mg/dL (0.1 - 1.4) AST 1578 IU/L H IU/L (14 - 46) ALT 1612 IU/L H IU/L (9 - 52) Alkaline Phosphatase 206 IU/L H IU/L (38 - 126) Total Protein 4.2 g/dL L g/dL (6.3 - 8.2) Albumin 2.4 g/dL L g/dL (3.5 - 5.0) - Time Spent With Patient Time Spent With Patient: 35 minutes of critical care time spent with patient Physical Exam - Physical Exam General Appearance: other (Sedated), No alert EENT: PERRL/EOMI, ET tube (#6) Neck: non-tender, full range of motion, supple, normal inspection Respiratory: crackles (Bibasilar), No respiratory distress, No wheezing Cardiac/Chest: normal peripheral pulses, regular rate, rhythm Peripheral Pulses: 2+: carotid (R), carotid (L), femoral (R), femoral (L), dorsalis-pedis (R), dorsalis-pedis (L) Abdomen: distended, No normal bowel sounds, No non-tender, No soft Pelvic Exam: deferred Rectal: deferred Skin: normal color, warm/dry Extremities: non-tender Neuro/Psych: No alert ICD10 Worksheet Patient Problems: Problems Problem Status Onset Altered mental status Acute CHF (congestive heart failure) Acute Hypoxic Acute Respiratory failure Acute Sepsis Acute Chronic back pain Acute Chronic pain Acute Dehydration Acute Hyponatremia Acute Pneumonia Acute Status post cervical arthrodesis Acute Vomiting Acute Weakness Acute
[2017-08-13] MEDS ORDERED: D50W 25 GM/50 ML SYR IVP PRN (10:14)
--- NOTE | 2017-08-13 10:41 | HOSPPROG ---
Hospitalist Progress Note Assessment/Plan: 66 y/o female new to my care 08/11/17 wheel chair bound female with h/o chronic urinary retention and chronic pain present with -acute septic shock suspect urinary source with episode of worsening hypotension afternoon of 10/[address] abd done without signs of ischemic bowel -Clinical Ileus -episode of paf yesterday. Will dc dilt inlight of hypotension and monitor -acute resp failure, [facility] -acute UTI, complicated, is suspected as the most likely cause of her acute illness; stenotrophomonas in urine culture with multiple other organisms not identified -acute renal failure, (resolved) -transaminitis likely due to shock liver with improving transaminitis -anemia, microcytic: Review of prior records shows her anemia has been present since approximately March of this year, but she has had normocytic indices until this admission so would be concerned about possible new iron deficiency that has developed since March -diabetes mellitus with reactive hyperglycemia -hyponatremia resolved -chronic debility with wheelchair-bound state PLANS: -continue vent support and icu care -continue levaquin and zosyn per ID -treat hyperglycemia with SSI and cont lantus -cmp daily Pt remains clinically ill. Family is aware of this . They are thinking about deescalating care since they feel like we may be prolonging Arlet's suffering. reviewed w Dr Pena and Dr. Martin seen on multidisc rounds Subjective: intubated and sedated Objective: Vital Signs Temp Pulse Resp BP Pulse Ox 36.7 C 94 19 102/48 L 92 08/13/17 10:00 08/13/17 10:25 08/13/17 10:00 08/13/17 10:25 08/13/17 10:00 Microbiology 08/11/17 08:36 - Final Sputum, Induced/Suctioned Sputum Culture - Final Silvana Tropicalis Laboratory Results 08/13/17 05:00 08/13/17 05:00 08/12/17 08/13/17 08/14/17 05:59 05:59 05:59 Intake Total 4252.7 4924.8 145 Output Total 3355 2500 348 Balance 897.7 2424.8 -203 PT 19.4 SEC (12.0-15.0) H 08/12/17 18:30 INR 1.63 (0.83-1.16) H 08/12/17 18:30 - Physical Exam Constitutional: chronically ill appearing Eyes: PERRL, anicteric sclera Ears, Nose, Mouth, Throat: moist mucous membranes, ears appear normal, no oral mucosal ulcers Cardiovascular: regular rate and rhythym, no murmur, rub, or gallop Respiratory: no respiratory distress, no rales or rhonchi, clear to auscultation , reduced air movement (diminshed bilat bases) Gastrointestinal: distension, other (hypoactive bowel sounds), No tenderness, No guarding, No rebound Genitourinary: no bladder fullness, no bladder tenderness, no renal bruits Neurologic: other (aaox0 unresponsive) ICD10 Worksheet Patient Problems: Problems Problem Status Onset Hyponatremia Acute Status post cervical arthrodesis Acute Pneumonia Acute Altered mental status Acute Dehydration Acute Weakness Acute Chronic pain Acute Chronic back pain Acute Vomiting Acute Sepsis Acute Hypoxic Acute Respiratory failure Acute CHF (congestive heart failure) Acute
[2017-08-13] MEDS: MICAFUNGIN NA 100 MG in NS 100 ML IV SCH (10:44)
[2017-08-13] MEDS: INSULIN LISPRO 100 UNIT/ML SC SCH ×2 (11:11→17:26)
--- NOTE | 2017-08-13 11:11 | PCMIDPN ---
Assessment/Plan: Assessment/Plan: * Septic shock with possible initial urinary etiology: Pressors weaning today with persistent prominent leukocytosis. Continues to have complaint of abdominal pain and also has increased residuals. CT of abdomen and pelvis did not show discrete intra-abdominal pathology other than ascitic fluid and anasarca. Given persistent abdominal pain, will obtain surgical evaluation. May need to aspirate ascitic fluid to assess for any evidence of infection. Continue empiric vancomycin, Zosyn, micafungin, and levofloxacin. Findings and plan discussed with ICU team, family, and surgical service. 08/13/17 11:08 Subjective: Pressors weaning today. Continues to have abdominal pain. Objective: Vital Signs Temp Pulse Resp BP Pulse Ox 36.7 C 91 19 114/50 L 92 08/13/17 10:00 08/13/17 10:41 08/13/17 10:00 08/13/17 10:41 08/13/17 10:00 Microbiology 08/11/17 08:36 - Final Sputum, Induced/Suctioned Sputum Culture - Final Silvana Tropicalis Laboratory Results 08/13/17 05:00 08/13/17 05:00 08/12/17 08/13/17 08/14/17 05:59 05:59 05:59 Intake Total 4252.7 4924.8 145 Output Total 3355 2500 348 Balance 897.7 2424.8 -203 Levofloxacin # 5 Zosyn # 3 Vancomycin # 1 Micafungin # 1 Blood cultures x2 pending CT abdomen pelvis with anasarca and ascitic fluid C difficile toxin negative - Physical Exam General Appearance: other (Intubated and less responsive) EENT: ET Tube, No scleral icterus Respiratory: coarse breath sounds Cardiac/Chest: regular rate, rhythm Extremities: other (Anasarca) Abdomen: distended, other (More difficult to assess for tenderness currently and anasarca present) ICD10 Worksheet Patient Problems: Problems Problem Status Onset Altered mental status Acute CHF (congestive heart failure) Acute Hypoxic Acute Respiratory failure Acute Sepsis Acute Chronic back pain Acute Chronic pain Acute Dehydration Acute Hyponatremia Acute Pneumonia Acute Status post cervical arthrodesis Acute Vomiting Acute Weakness Acute
[2017-08-13 11:32] LABS: POTASSIUM 4.5 mEq/L (3.5-5.2)
[2017-08-13] MEDS ORDERED: CANN-EASE 2 GM TUBE TP ONE (13:36)
[2017-08-13 14:51] LABS: LACTATE DEHYDROGENASE 2882 IU/L (313-618)
[2017-08-13] MEDS ORDERED: LIDOCAINE 1% 300 MG/30 ML SDV ONE (14:53)
--- NOTE | 2017-08-13 15:21 | GCON ---
[f rep st] CONSULTATION REFERRING PHYSICIAN: Parmjit Martin MD REASON FOR CONSULTATION: Help in the determination of the etiology of sepsis. HISTORY: History is well summarized in the chart, but briefly the patient has a wheelchair and uses it mainly. She was brought to the hospital with septic shock, which was felt to be initially urinary etiology. Her white count responded to antibiotics, and then she developed subsequent leukocytosis. She has complained of abdominal pain. CT of the abdomen and pelvis yesterday did not show any discrete intraabdominal pathology. She does have anasarca. She does have some ascitic fluid. She also has bilateral pleural effusions with compressive atelectasis. Throughout Dr. Martin's examination, she was grimacing more with abdominal palpation, and I was asked to see her in consultation. She has had diarrhea for the last 48 hours, but the C difficile evaluation has been negative. Her initial lipase was normal, and a subsequent lipase was normal, making pancreatitis an unlikely cause. Her SGOT and SGPT had jumped markedly, but are returning more towards a normal range without elevation of bilirubin or severe elevation of alkaline phosphatase making a biliary source ( note she is status post cholecystectomy) unlikely. In the acute setting, I feel this is more related to the episode of hypotension than a hepatitis. At this point, it is possible that she infected her implanted devices (TENS femur tony and back hardware, but I think it is probably less likely. PHYSICAL EXAMINATION: I had the nurse turn off her propofol completely, and I examined her abdomen 30 minutes later. She was responsive at that time. Her abdomen is distended, and certainly her tube feeds had showed high residual. She has hypoactive bowel sounds, but she does not have an acute abdomen at this point. PLAN: To aid in the evaluation, I have asked IR to do a paracentesis and a bilateral thoracentesis to see if we can localize to a compartment the source of sepsis. At this point, however, there is no obvious source, just suspicions. /[id number]/MODL MTDD
[2017-08-13] MEDS: VANCOMYCIN HCL/NORMAL SALINE 250 ML IV SCH (16:25)
[2017-08-13 17:26] LABS: LD, PLEURAL FLUID 443 IU/L
[2017-08-13 17:27] LABS: LD, PLEURAL FLUID 406 IU/L
[2017-08-13 17:39] LABS: POTASSIUM 3.7 mEq/L (3.5-5.2)
[2017-08-13] MEDS ORDERED: POTASSIUM Cl (KCl) 50 ML IV ONE (17:43)
[2017-08-13 17:45] LABS: GLUCOSE, PERITONEAL FLUID 290 mg/dL (55-113); LD, PERITONEAL FLUID 374 IU/L
[2017-08-13 17:46] LABS: GLUCOSE, PERITONEAL FLUID 284 mg/dL (55-113); LD, PERITONEAL FLUID 605 IU/L
[2017-08-13] MEDS: INSULIN GLARGINE 100 UNITS/ML SYRINGE SC SCH (21:50)
[2017-08-14] MEDS: NS 1,000 ML IV SCH ×2 (01:13→06:19)
[2017-08-14] MEDS: fentaNYL/NACL 100 ML IV SCH ×2 (01:15→12:34)
[2017-08-14 03:30] LABS: ABSOLUTE NRBC COUNT 0.24 10^3/uL (0-0.01); ADD DIFF? YES; ADD SCAN? NO; ATYPICAL LYMPHOCYTE FLAG 0 (0-99); FRAGMENT RBC FLAG 0 (0-99); HEMATOCRIT 23.1 % (38.0-47.0); HEMOGLOBIN 7.9 g/dL (12.6-16.3); LEFT SHIFT FLG 50 (0-99); LIPEMIA HEMOLYSIS FLAG 90 (0-99); MEAN CELL HEMOGLOBIN 29.6 pg (27.9-34.1); MEAN CELL HEMOGLOBIN CONCENTR. 34.2 g/dL (32.4-36.7); MEAN CELL VOLUME 86.5 fL (81.5-99.8); MEAN PLATELET VOLUME 10.3 fL (8.7-11.7); PLATELET CLUMPS FLAG 10 (0-99); PLATELET COUNT 145 10^3/uL (150-400); RED BLOOD CELL COUNT 2.67 10^6/uL (4.18-5.33); RED CELL DISTRIBUTION WIDTH 15.2 % (11.5-15.2)
[2017-08-14 03:46] LABS: ADD MORPH? NO; NRBC-AUTO% 1.3 % (0.0-0.2)
[2017-08-14 03:47] LABS: ALANINE AMINOTRANSFERASE 899 IU/L (9-52); ALBUMIN 2.5 g/dL (3.5-5.0); ALKALINE PHOSPHATASE 112 IU/L (38-126); ANION GAP 11 mEq/L (8-16); BILIRUBIN,TOTAL 0.7 mg/dL (0.1-1.4); CALCIUM 7.6 mg/dL (8.5-10.4); CARBON DIOXIDE 20 mEq/l (22-31); CHLORIDE 113 mEq/L (97-110); CREATININE 0.7 mg/dL (0.6-1.0); GLOMERULAR FILTRATION RATE > 60; GLUCOSE 82 mg/dL (70-100); POTASSIUM 3.5 mEq/L (3.5-5.2); SODIUM 144 mEq/L (134-144); TOTAL PROTEIN 4.5 g/dL (6.3-8.2)
[2017-08-14 03:52] LABS: ASPARTATE AMINOTRANSFERASE 906 IU/L (14-46)
[2017-08-14 04:30] LABS: PLATELET ESTIMATE DECREASED (ADEQ); POLYCHROMASIA 1+
[2017-08-14 05:39] LABS: BICARBONATE 16 mEq/L (22-26); MEASURED OXYGEN SATURATION 99 % (92-95); PCO2 29 mmHg (34-38); PO2 127 mmHg (65-75); TCO2 17 mEq/L (23-27)
[2017-08-14 05:40] LABS: CPAP YES; O2 CONCENTRATIION 40 % (0-100); P/F RATIO 318 RATIO
[2017-08-14 05:41] LABS: END TIDAL CO2 44; PATIENT RATE 10; PRESSURE SUPPORT 10
[2017-08-14] MEDS: PIPERACILLIN/TAZO 2.25 GM/DEX 50 ML IV SCH ×4 (06:15→23:04)
[2017-08-14] MEDS: POTASSIUM Cl (KCl) 50 ML IV SCH ×3 (06:18→07:44)
[2017-08-14] MEDS: ALBUMIN 25% 100 ML IV SCH ×4 (06:18→23:01)
[2017-08-14] MEDS: HEPARIN 5,000 UNIT/0.5 ML SYR SC SCH ×3 (06:18→22:49)
--- NOTE | 2017-08-14 07:16 | SOAPPROG ---
SOAP Progress Note Assessment/Plan: PAD#8 08/14/17 07:07 Assessment: Awake alert and responding before AM sedation. searching for source of sepsis still unrewarding. wbc DECREASED TO 18.3, SLIGHTLY HYPOTHERMIC -Pulmonary - Left chest thoracentesis - 60cc aspirated - 2+ POLYS, 2+ MONOS , NO BACTERIA - C&S pending - Right chest thoracentesis - 600cc aspirated - 3+ POLYS, 3+ MONOS, NO BACTERIA - C&S PENDING -Abdomen - no signs of an acute abdomen this AM - Paracentesis - 1460cc perihepatic, 760cc LUQ - 1+ POLYS,2+ MONOS, NO BACTERIA - C&S pending Plan: Awaiting C&S and results from prior blood cultures. I do not yet see a need for surgical intervention either diagnostic or therapeutic. Subjective: Intubated but responsive per nursing prior to sedation Objective: Vital Signs Temp Pulse Resp BP Pulse Ox 35.4 C L 83 20 129/62 H 100 08/14/17 04:00 08/14/17 06:00 08/14/17 06:00 08/14/17 06:00 08/14/17 06:00 Microbiology 08/13/17 Unknown Gram Stain - Final Peritoneal Fluid - Aspirate 08/13/17 Unknown Gram Stain - Final Peritoneal Fluid - Aspirate 08/13/17 Unknown Gram Stain - Final Pleural Fluid - Aspirate 08/13/17 Unknown Gram Stain - Final Pleural Fluid - Aspirate 08/11/17 08:36 - Final Sputum, Induced/Suctioned Sputum Culture - Final Silvana Tropicalis Laboratory Results 08/14/17 03:20 08/14/17 03:20 08/13/17 08/14/17 08/15/17 05:59 05:59 05:59 Intake Total 4924.8 5052.2 Output Total 2500 5763 Balance 2424.8 -710.8 PT 19.4 SEC (12.0-15.0) H 08/12/17 18:30 INR 1.63 (0.83-1.16) H 08/12/17 18:30 - Time Spent With Patient Time Spent With Patient: 25 - Pending Discharge Pending Discharge Within 24 Hours: No Pending Discharge Within 48 Hours: No Physical Exam - Physical Exam General Appearance: other (sedated/intubated) Respiratory: lungs clear Abdomen: non-tender, soft, distended, other (hypoactive bowel sounds) ICD10 Worksheet Patient Problems: Problems Problem Status Onset Altered mental status Acute CHF (congestive heart failure) Acute Hypoxic Acute Respiratory failure Acute Sepsis Acute Chronic back pain Acute Chronic pain Acute Dehydration Acute Hyponatremia Acute Pneumonia Acute Status post cervical arthrodesis Acute Vomiting Acute Weakness Acute
[2017-08-14] MEDS: LEVOTHYROXINE 100 MCG TAB TUBE SCH (07:22)
[2017-08-14] MEDS: FAMOTIDINE 20 MG/NACL 50 ML IV SCH (09:00)
[2017-08-14] MEDS: D10W 250 ML PRN HYPOGLYCEMIA IV (09:36)
[2017-08-14] MEDS: INSULIN LISPRO 100 UNIT/ML SC SCH ×3 (10:06→17:59)
[2017-08-14] MEDS: MICAFUNGIN NA 100 MG in NS 100 ML IV SCH (10:48)
[2017-08-14] MEDS ORDERED: ETOMIDATE 40 MG/20 ML INJ ONE (11:34)
[2017-08-14] MEDS ORDERED: MIDAZOLAM 2 MG/2 ML VIAL ONE (11:34)
--- NOTE | 2017-08-14 13:34 | HOSPPROG ---
Hospitalist Progress Note Assessment/Plan: 66 yo F w longstanding DM1 here w sepsis of urinary source sepsis: off pressors urine w stenotrophomonas levoflox; zozyn added 08/12 w worsening hypotension which has now resolved DM1: long acting insulin has been held X 2 days which is unsafe in a pt w type 1 diabetes has been hypoglycemic 1. lantus 4 units daily starting now pleural effusion: s/p thoracentesis- exudate ascites: s/p paracentesis also exudate indwelling thompson: rec change more frequently proph: sc heparin transaminitis: suspect shock liver improving acute respiratory failure: extubated dispo: inpt Subjective: case d/w dr torres. extubated, off pressors Objective: Vital Signs Temp Pulse Resp BP Pulse Ox 35.4 C L 83 17 121/72 H 100 08/14/17 13:00 08/14/17 13:00 08/14/17 13:00 08/14/17 13:00 08/14/17 13:00 Microbiology 08/13/17 Unknown Gram Stain - Final Peritoneal Fluid - Aspirate 08/13/17 Unknown Gram Stain - Final Peritoneal Fluid - Aspirate 08/13/17 Unknown Gram Stain - Final Pleural Fluid - Aspirate 08/13/17 Unknown Gram Stain - Final Pleural Fluid - Aspirate 08/11/17 08:36 - Final Sputum, Induced/Suctioned Sputum Culture - Final Silvana Tropicalis Laboratory Results 08/14/17 03:20 08/14/17 11:30 08/13/17 08/14/17 08/15/17 05:59 05:59 05:59 Intake Total 4924.8 5052.2 167.8 Output Total 2500 5763 340 Balance 2424.8 -710.8 -172.2 PT 19.4 SEC (12.0-15.0) H 08/12/17 18:30 INR 1.63 (0.83-1.16) H 08/12/17 18:30 - Physical Exam Constitutional: no apparent distress, appears nourished, chronically ill appearing Eyes: PERRL, anicteric sclera Ears, Nose, Mouth, Throat: moist mucous membranes, hearing normal Cardiovascular: regular rate and rhythym, no murmur, rub, or gallop Respiratory: no respiratory distress, No no rales or rhonchi, No clear to auscultation Gastrointestinal: normoactive bowel sounds, soft, non-tender abdomen Genitourinary: no bladder fullness, thompson in urethra Skin: warm, normal color Musculoskeletal: full muscle strength, no muscle tenderness Neurologic: AAOx3 Psychiatric: interacting appropriately Lymph, Heme, Immunologic: no cervical LAD ICD10 Worksheet Patient Problems: Problems Problem Status Onset Altered mental status Acute CHF (congestive heart failure) Acute Hypoxic Acute Respiratory failure Acute Sepsis Acute Chronic back pain Acute Chronic pain Acute Dehydration Acute Hyponatremia Acute Pneumonia Acute Status post cervical arthrodesis Acute Vomiting Acute Weakness Acute
[2017-08-14] MEDS: INSULIN GLARGINE 100 UNITS/ML SYRINGE SC SCH (14:39)
--- NOTE | 2017-08-14 15:53 | CPEKG ---
Heart Rate: 92 RR Interval: 652 P-R Interval: 148 QRSD Interval: 62 QT Interval: 332 QTC Interval: 411 P Mcandrews: 78 QRS Mcandrews: -88 T Wave Mcandrews: 101 EKG Severity - ABNORMAL ECG - EKG Impression: SINUS RHYTHM EKG Impression: LEFT AXIS DEVIATION EKG Impression: CONSIDER INFERIOR INFARCT EKG Impression: ANTERIOR INFARCT, AGE INDETERMINATE EKG Impression: LOW VOLTAGE EKG Impression: SINUS RHYTHM HAS REPLACED ATRIAL FIBRILLATION NOTED ON PRIOR Electronically Signed By: Phu Caballero 15-Aug-2017 10:00:21
--- NOTE | 2017-08-14 16:12 | ASMTCMCOM ---
CM Note CM Note Notes: Patient extubated today. Therapies to begin. not interested in having a "Family Meeting" at this time, maybe later. CM to follow for discharge needs. Date Signed: 08/14/2017 04:11 PM Electronically Signed By:Naomy Hoyos LCSW
--- NOTE | 2017-08-14 16:26 | PDINTPN ---
[employer] Progress Note Assessment/Plan: Assessment/plan: 66 F admitted 08/06/17 with septic shoock of uncertain etiology (possible UTI) and respiratory failure. She was urgently intubated in ER with difficulty and required a 6.0 ETT. She had persistent hypotension until Zosyn added 08/12 which resulted in substantial improvement. Urine cultures grew stenotrophomonas. * Septic shock- presumed urinary source with slow improvement. Now off pressors. Abdomen was distended yesterday and had tap, but no evidence of SBP or peritonitis. No empyema either with thoracentesis. WBC substantially better after adding Zosyn and Bcx remain negative. * Acute respiratory failure with hypoxia- 2/2 above, complicated by difficult intubation. She was able to extubate today. Her voice is hoarse but present. Continue pulmonary toilet. * DM- glucose control has been suboptimal. Lantus started today. * Transaminitis- improving LFTs, likely from shock liver. * NICOLE- resolved * Anemia- stable * * * critical care time 35 minutes with multiorgan failure Subjective: seen on vent this am Objective: Vital Signs Temp Pulse Resp BP Pulse Ox 35.6 C L 84 30 H 145/83 H 98 08/14/17 15:00 08/14/17 15:00 08/14/17 15:00 08/14/17 15:00 08/14/17 15:00 Microbiology 08/13/17 Unknown Gram Stain - Final Peritoneal Fluid - Aspirate 08/13/17 Unknown Gram Stain - Final Peritoneal Fluid - Aspirate 08/13/17 Unknown Gram Stain - Final Pleural Fluid - Aspirate 08/13/17 Unknown Gram Stain - Final Pleural Fluid - Aspirate Laboratory Results 08/14/17 03:20 08/14/17 11:30 08/13/17 08/14/17 08/15/17 05:59 05:59 05:59 Intake Total 4924.8 5052.2 167.8 Output Total 2500 5763 570 Balance 2424.8 -710.8 -402.2 PT 19.4 SEC (12.0-15.0) H 08/12/17 18:30 INR 1.63 (0.83-1.16) H 08/12/17 18:30 Physical Exam - Physical Exam General Appearance: no apparent distress, obtunded, obese EENT: PERRL/EOMI Neck: supple Respiratory: lungs clear, normal breath sounds, No respiratory distress Cardiac/Chest: regular rate, rhythm, No edema Abdomen: non-tender, soft, No distended Skin: normal color, warm/dry Lymphatic: no adenopathy Extremities: No pedal edema Neuro/Psych: cognition abnormalities ICD10 Worksheet Patient Problems: Problems Problem Status Onset Altered mental status Acute CHF (congestive heart failure) Acute Hypoxic Acute Respiratory failure Acute Sepsis Acute Chronic back pain Acute Chronic pain Acute Dehydration Acute Hyponatremia Acute Pneumonia Acute Status post cervical arthrodesis Acute Vomiting Acute Weakness Acute
[2017-08-14] MEDS: VANCOMYCIN HCL/NORMAL SALINE 250 ML IV SCH (16:45)
[2017-08-14 18:03] LABS: POTASSIUM 3.8 mEq/L (3.5-5.2)
[2017-08-14] MEDS ORDERED: POTASSIUM Cl (KCl) 50 ML IV ONE (18:05)
--- NOTE | 2017-08-14 18:18 | PCMIDPN ---
Assessment/Plan: Assessment: Septic shock secondary to urinary tract infection. Catheter urine specimen with polymicrobial results. Stenotrophomonas present. Covered by Levaquin. Regimen of antibiotics now expaded to Vancomycin, Zosyn, Levaquin and micafungin. Abd and pelvis imaging shows no dicrete focus of infection. Pleural and peritoneal fluids sampled do not show growth in culture as of yet. Leukocytosis significantly lower today. Plan: 1. Continue antibiotic regimen. 2. Follow cultures and clinical course. 08/14/17 23:07 Subjective: Patient seems to be improving. No new overnight events. Family at bedside. Persistently hypothermic. Objective: Vancomycin # 2 Zosyn # 4 Levaquin # 6 micafungin # 2 Vital Signs Temp Pulse Resp BP Pulse Ox 34.9 C L 82 33 H 131/70 H 94 08/14/17 18:00 08/14/17 18:00 08/14/17 18:00 08/14/17 18:00 08/14/17 18:00 Microbiology 08/13/17 Unknown Gram Stain - Final Peritoneal Fluid - Aspirate 08/13/17 Unknown Gram Stain - Final Peritoneal Fluid - Aspirate 08/13/17 Unknown Gram Stain - Final Pleural Fluid - Aspirate 08/13/17 Unknown Gram Stain - Final Pleural Fluid - Aspirate Laboratory Results 08/14/17 03:20 08/14/17 17:30 08/13/17 08/14/17 08/15/17 05:59 05:59 05:59 Intake Total 4924.8 5052.2 1659.8 Output Total 2500 5763 735 Balance 2424.8 -710.8 924.8 - Physical Exam General Appearance: WD/WN, alert, no apparent distress, non-toxic Respiratory: lungs clear, normal breath sounds, No respiratory distress Cardiac/Chest: regular rate, rhythm, No tachycardia Abdomen: non-tender, soft, distended Skin: normal color, warm/dry, No rash Neuro/Psych: alert ICD10 Worksheet Patient Problems: Problems Problem Status Onset Altered mental status Acute CHF (congestive heart failure) Acute Hypoxic Acute Respiratory failure Acute Sepsis Acute Chronic back pain Acute Chronic pain Acute Dehydration Acute Hyponatremia Acute Pneumonia Acute Status post cervical arthrodesis Acute Vomiting Acute Weakness Acute
[2017-08-14] MEDS: ALBUTEROL 3 ML DEYVIAL IH PRN (20:47)
[2017-08-14] MEDS ORDERED: FUROSEMIDE 20 MG/2 ML VIAL IVP ONE (23:24)
[2017-08-15 01:33] LABS: POTASSIUM 4.4 mEq/L (3.5-5.2)
[2017-08-15] MEDS: NOREPINEPHRINE/NS 500 ML IV SCH (04:06)
[2017-08-15 04:21] LABS: BASE EXCESS -11.6 mEq/L (-2.5-2.5); BICARBONATE 15 mEq/L (22-26); MEASURED OXYGEN SATURATION 49 % (92-95); PCO2 38 mmHg (34-38); TCO2 16 mEq/L (23-27)
[2017-08-15 04:22] LABS: O2 CONCENTRATIION 50 % (0-100); P/F RATIO 62 RATIO
[2017-08-15 04:23] LABS: PO2 31 mmHg (65-75)
--- NOTE | 2017-08-15 04:35 | HOSPPROG ---
Hospitalist Progress Note Assessment/Plan: Cross cover: Patient with deteriorating respiratory status throughout the night after extubation the previous afternoon. CXR shows significant volume so given Lasix 20 mg IV x1, with >1L urine output. Despite this, oxygenation continued to worsen eventually requiring BIPAP. Patient stabilized nicely on BIPAP from a respiratory standpoint but this dropped her MAPs, so pressors were reinitiated. Will notify copier repair technician. Objective: Vital Signs Temp Pulse Resp BP Pulse Ox 35.2 C L 133 H 40 H 137/70 H 99 08/15/17 04:00 08/15/17 04:10 08/15/17 04:00 08/15/17 04:10 08/15/17 04:00 Microbiology 08/13/17 Unknown Gram Stain - Final Peritoneal Fluid - Aspirate 08/13/17 Unknown Gram Stain - Final Peritoneal Fluid - Aspirate 08/13/17 Unknown Gram Stain - Final Pleural Fluid - Aspirate 08/13/17 Unknown Gram Stain - Final Pleural Fluid - Aspirate Laboratory Results 08/14/17 03:20 08/15/17 01:00 08/13/17 08/14/17 08/15/17 05:59 05:59 05:59 Intake Total 4924.8 5052.2 1659.8 Output Total 2500 5763 2085 Balance 2424.8 -710.8 -425.2 PT 19.4 SEC (12.0-15.0) H 08/12/17 18:30 INR 1.63 (0.83-1.16) H 08/12/17 18:30 ICD10 Worksheet Patient Problems: Problems Problem Status Onset Altered mental status Acute CHF (congestive heart failure) Acute Hypoxic Acute Respiratory failure Acute Sepsis Acute Chronic back pain Acute Chronic pain Acute Dehydration Acute Hyponatremia Acute Pneumonia Acute Status post cervical arthrodesis Acute Vomiting Acute Weakness Acute
[2017-08-15] MEDS ORDERED: FUROSEMIDE 20 MG/2 ML VIAL ONE (04:47)
[2017-08-15] MEDS ORDERED: FUROSEMIDE 20 MG/2 ML VIAL IVP ONE (05:00)
[2017-08-15] MEDS: HEPARIN 5,000 UNIT/0.5 ML SYR SC SCH ×3 (05:03→21:47)
[2017-08-15] MEDS: PIPERACILLIN/TAZO 2.25 GM/DEX 50 ML IV SCH ×2 (05:03→11:44)
[2017-08-15] MEDS: ALBUMIN 25% 100 ML IV SCH (05:06)
[2017-08-15] MEDS: LEVOTHYROXINE 100 MCG TAB TUBE SCH (05:06)
[2017-08-15 05:16] LABS: ABSOLUTE NRBC COUNT 0.06 10^3/uL (0-0.01); ADD DIFF? YES; ADD MORPH? NO; ADD SCAN? NO; ATYPICAL LYMPHOCYTE FLAG 0 (0-99); FRAGMENT RBC FLAG 0 (0-99); HEMATOCRIT 23.6 % (38.0-47.0); HEMOGLOBIN 7.8 g/dL (12.6-16.3); LEFT SHIFT FLG 30 (0-99); LIPEMIA HEMOLYSIS FLAG 80 (0-99); MEAN CELL HEMOGLOBIN 29.3 pg (27.9-34.1); MEAN CELL HEMOGLOBIN CONCENTR. 33.1 g/dL (32.4-36.7); MEAN CELL VOLUME 88.7 fL (81.5-99.8); MEAN PLATELET VOLUME 10.8 fL (8.7-11.7); NRBC-AUTO% 0.3 % (0.0-0.2); PLATELET CLUMPS FLAG 0 (0-99); PLATELET COUNT 148 10^3/uL (150-400); RED BLOOD CELL COUNT 2.66 10^6/uL (4.18-5.33); RED CELL DISTRIBUTION WIDTH 15.8 % (11.5-15.2)
[2017-08-15 05:31] LABS: ALANINE AMINOTRANSFERASE 657 IU/L (9-52); ALBUMIN 3.5 g/dL (3.5-5.0); ALKALINE PHOSPHATASE 106 IU/L (38-126); ANION GAP 13 mEq/L (8-16); ASPARTATE AMINOTRANSFERASE 455 IU/L (14-46); BILIRUBIN,TOTAL 1.9 mg/dL (0.1-1.4); CALCIUM 8.5 mg/dL (8.5-10.4); CARBON DIOXIDE 18 mEq/l (22-31); CHLORIDE 114 mEq/L (97-110); CREATININE 0.7 mg/dL (0.6-1.0); GLOMERULAR FILTRATION RATE > 60; GLUCOSE 112 mg/dL (70-100); MAGNESIUM 1.8 mg/dL (1.6-2.3); POTASSIUM 4.1 mEq/L (3.5-5.2); SODIUM 145 mEq/L (134-144); TOTAL PROTEIN 5.4 g/dL (6.3-8.2)
[2017-08-15] MEDS ORDERED: MAGNESIUM SULF 1 GM/DEXTROSE 100 ML IV ONE (05:50)
[2017-08-15 06:11] LABS: PLATELET ESTIMATE ADEQUATE (ADEQ)
[2017-08-15 06:12] LABS: POLYCHROMASIA 1+
[2017-08-15 06:14] LABS: BASE EXCESS -9.7 mEq/L (-2.5-2.5); BICARBONATE 14 mEq/L (22-26); MEASURED OXYGEN SATURATION 98 % (92-95); PCO2 22 mmHg (34-38); PO2 107 mmHg (65-75); TCO2 14 mEq/L (23-27)
[2017-08-15 06:15] LABS: O2 CONCENTRATIION 40 % (0-100); P/F RATIO 268 RATIO
[2017-08-15] MEDS: NS 1,000 ML IV SCH ×2 (06:17→11:46)
[2017-08-15] MEDS: INSULIN LISPRO 100 UNIT/ML SC SCH ×3 (08:14→17:19)
[2017-08-15] MEDS: MICAFUNGIN NA 100 MG in NS 100 ML IV SCH (08:15)
[2017-08-15] MEDS: INSULIN GLARGINE 100 UNITS/ML SYRINGE SC SCH (08:15)
[2017-08-15] MEDS: FAMOTIDINE 20 MG/NACL 50 ML IV SCH (08:15)
--- NOTE | 2017-08-15 10:07 | WOCRNPDOC ---
[facility] Advanced Assessment Note - Skin Integrity Problem, Advanced Assess Right Sacrum Pressure Injury Dressing Type: Allevyn Life, Packing Dressing Description: Clean/Dry, Intact Exudate Amount: Scant Exudate Color: Reddish/Yellow Exudate Characteristic(s): Serosanguinous Integumentary Issue Intervention: Dressing Changed Carlee Wound Tissue: Blanching, Erythema, Swollen Carlee Wound Swelling: Mild Wound Bed Constitution: Granulation Tissue, Smooth Tissue, Tunneling (3 o'clock 0.8cm) Site Measurement - Head-to-Toe Length X Width X Depth (cm): 2.6cmx2.4cmx0.3cm Pressure Injury Stage: Stage 4 Pressure Injury Present on Admit: Yes Skin Integrity Problem Comment: Patient turned to her left side with help of ZACH Lindsay. Packing from previous dressing change fell out with removal of Allevyn. Wound bed cleaned with NS and gauze. Tunnel at 3 o'clock has diminished in size since my last encounter with this wound. Gauze cut, moistened with Puracyn and packed into the tunneling portion of the wound with the blunt end of a swab. Remaining length of gauze used to fill wound bed. Carlee wound skin prepped with skin prep and wound covered with an Allevyn. Report given to ZACH Garcia. Wound care will round again later this week.
--- NOTE | 2017-08-15 11:32 | PCMIDPN ---
Assessment/Plan: Assessment/Plan: 1. Sepsis: -history of recurrent UTI, has chronic thompson, apparently had reported purulence around thompson and urine was described similarly as well -Urine cx with >100,000 stenotrophomonas, and 5 other colonies no otherwise identified. - Abd USG unremarkable. recent Ct abd with no new focal findings. - fluctuations in WBC of uncertain etiology. -Currently on Vanco, Zosyn, Levaquin, micafungin due to clinical worsening several days ago. - If no new growth on recent cultures, may consider to tailor down antimicrobials again. - care coordinated with ZACH caceres. Micro: pleural and peritoneal cx from 08/13: ngtd 08/10 and 08/12 blood cx: ngtd 08/06/17: blood cx ngtd 08/06/17: >100,000 S. maltophilia, 5 other colonies Meds vanco zosyn levaquin micafungin Subjective: afebrile. sitting in chair. on o2 via nc. weak voice. wants water. denies c/o pain in abdomen. c/o shortness of breath although is breathing easy at present. Objective: Vital Signs Temp Pulse Resp BP Pulse Ox 35.8 C L 95 27 H 120/69 95 08/15/17 08:00 08/15/17 10:00 08/15/17 10:00 08/15/17 10:00 08/15/17 10:00 Microbiology 08/13/17 Unknown Gram Stain - Final Peritoneal Fluid - Aspirate 08/13/17 Unknown Gram Stain - Final Peritoneal Fluid - Aspirate 08/13/17 Unknown Gram Stain - Final Pleural Fluid - Aspirate 08/13/17 Unknown Gram Stain - Final Pleural Fluid - Aspirate Laboratory Results 08/15/17 04:25 08/15/17 04:25 08/14/17 08/15/17 08/16/17 05:59 05:59 05:59 Intake Total 5052.2 2633.8 Output Total 5758 7383 1050 Balance -710.8 298.8 -1050 - Physical Exam General Appearance: alert, no apparent distress Respiratory: coarse breath sounds Cardiac/Chest: regular rate, rhythm Extremities: No swelling Abdomen: other (bs quiet. distended. nontender) Skin: No erythema ICD10 Worksheet Patient Problems: Problems Problem Status Onset Altered mental status Acute CHF (congestive heart failure) Acute Hypoxic Acute Respiratory failure Acute Sepsis Acute Chronic back pain Acute Chronic pain Acute Dehydration Acute Hyponatremia Acute Pneumonia Acute Status post cervical arthrodesis Acute Vomiting Acute Weakness Acute
[2017-08-15] MEDS ORDERED: FUROSEMIDE 40 MG/4 ML VIAL IVP ONE (15:30)
--- NOTE | 2017-08-15 15:46 | HOSPPROG ---
Hospitalist Progress Note Assessment/Plan: 66 yo F w longstanding DM1 here w sepsis of urinary source sepsis: off pressors urine w stenotrophomonas levoflox; zozyn added 08/12 w worsening hypotension which has now resolved pulm edema: 8L positive since admit lasix 40 IV x 1 DM1: long acting insulin has been held X 2 days which is unsafe in a pt w type 1 diabetes has been hypoglycemic 1. lantus 4 units daily starting now pleural effusion: s/p thoracentesis- exudate ascites: s/p paracentesis also exudate indwelling thompson: rec change more frequently, q 2 weeks proph: sc heparin transaminitis: suspect shock liver improving acute respiratory failure: extubated dispo: inpt Subjective: case d/w dr torres. cxr w pulm edema (interp by me) Objective: Vital Signs Temp Pulse Resp BP Pulse Ox 36.5 C 88 42 H 108/47 L 89 L 08/15/17 14:00 08/15/17 14:00 08/15/17 14:00 08/15/17 14:00 08/15/17 14:00 Microbiology 08/13/17 Unknown Gram Stain - Final Peritoneal Fluid - Aspirate 08/13/17 Unknown Gram Stain - Final Peritoneal Fluid - Aspirate 08/13/17 Unknown Gram Stain - Final Pleural Fluid - Aspirate 08/13/17 Unknown Gram Stain - Final Pleural Fluid - Aspirate 08/10/17 11:30 Blood Culture - Final Blood 08/10/17 11:30 Blood Culture - Final Blood Laboratory Results 08/15/17 04:25 08/15/17 04:25 08/14/17 08/15/17 08/16/17 05:59 05:59 05:59 Intake Total 5052.2 2633.8 Output Total 5763 2335 1050 Balance -710.8 298.8 -1050 PT 19.4 SEC (12.0-15.0) H 08/12/17 18:30 INR 1.63 (0.83-1.16) H 08/12/17 18:30 - Physical Exam Constitutional: no apparent distress, appears nourished Eyes: PERRL, anicteric sclera Ears, Nose, Mouth, Throat: moist mucous membranes, hearing normal Cardiovascular: regular rate and rhythym, no murmur, rub, or gallop Respiratory: inspiratory crackles, No no rales or rhonchi Gastrointestinal: normoactive bowel sounds, soft, non-tender abdomen Genitourinary: no bladder fullness, thompson in urethra Skin: warm, normal color Musculoskeletal: No full muscle strength Neurologic: sensation intact bilaterally, No AAOx3 ICD10 Worksheet Patient Problems: Problems Problem Status Onset Altered mental status Acute CHF (congestive heart failure) Acute Hypoxic Acute Respiratory failure Acute Sepsis Acute Chronic back pain Acute Chronic pain Acute Dehydration Acute Hyponatremia Acute Pneumonia Acute Status post cervical arthrodesis Acute Vomiting Acute Weakness Acute
[2017-08-15] MEDS: VANCOMYCIN HCL/NORMAL SALINE 250 ML IV SCH (16:36)
--- NOTE | 2017-08-15 16:54 | PDINTPN ---
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 She was urgently intubated in ER with difficulty and required a 6.0 ETT. She had persistent hypotension until Zosyn added 08/12 which resulted in substantial improvement. Urine cultures grew stenotrophomonas. * Septic shock- presumed urinary source with slow improvement. Now off pressors. Abdomen was distended yesterday and had tap, but no evidence of SBP or peritonitis. No empyema either with thoracentesis. WBC substantially better after adding Zosyn and Bcx remain negative. * Acute respiratory failure with hypoxia- 2/2 above, complicated by difficult intubation. increased O2 demand overnight, but treated with lasix 20 x 2 doses with improvement to 100% on 3 lpm . CXR with pleural effusion (though grossly rotated). May need additional lasix, but will watch prn. * DM- glucose control has been suboptimal. Lantus started today. She has a long standing debate with her PCP about glucose control and appears excessivley concerned about hypoglycemia. Her BS has been low 100's over last 24 hours, but she perfers it 150-180. She understood the risks fo this strategy (though not excessive risk) which would be OK with me. * Transaminitis- improving LFTs, likely from shock liver. * NICOLE- resolved * Anemia- stable * 08/15/17 16:51 Subjective: complaining baout glucose and mild respiratory distress. required bipap overnight Objective: Vital Signs Temp Pulse Resp BP Pulse Ox 36.5 C 94 45 H 119/48 L 93 08/15/17 14:00 08/15/17 16:00 08/15/17 16:00 08/15/17 16:00 08/15/17 16:00 Microbiology 08/13/17 Unknown Gram Stain - Final Peritoneal Fluid - Aspirate 08/13/17 Unknown Gram Stain - Final Peritoneal Fluid - Aspirate 08/13/17 Unknown Gram Stain - Final Pleural Fluid - Aspirate 08/13/17 Unknown Gram Stain - Final Pleural Fluid - Aspirate 08/10/17 11:30 Blood Culture - Final Blood 08/10/17 11:30 Blood Culture - Final Blood Laboratory Results 08/15/17 04:25 08/15/17 04:25 08/14/17 08/15/1717 05:59 05:59 05:59 Intake Total 5052.2 2633.8 Output Total 5798 2335 1800 Balance -710.8 298.8 -1800 PT 19.4 SEC (12.0-15.0) H 08/12/17 18:30 INR 1.63 (0.83-1.16) H 08/12/17 18:30 Physical Exam - Physical Exam General Appearance: alert, mild distress EENT: PERRL/EOMI Neck: supple Respiratory: accessory muscle use, rhonchi, No wheezing Cardiac/Chest: regular rate, rhythm, No edema Abdomen: non-tender, soft, No distended Skin: normal color, warm/dry Lymphatic: no adenopathy Extremities: No pedal edema Neuro/Psych: alert, oriented x 3, cognition abnormalities ICD10 Worksheet Patient Problems: Problems Problem Status Onset Altered mental status Acute CHF (congestive heart failure) Acute Hypoxic Acute Respiratory failure Acute Sepsis Acute Chronic back pain Acute Chronic pain Acute Dehydration Acute Hyponatremia Acute Pneumonia Acute Status post cervical arthrodesis Acute Vomiting Acute Weakness Acute
[2017-08-15] MEDS: PIPERACILLIN/TAZO 3.375 GM/DEX 50 ML IV SCH ×2 (17:21→23:51)
[2017-08-15 18:48] LABS: POTASSIUM 3.3 mEq/L (3.5-5.2)
[2017-08-16] MEDS: POTASSIUM Cl (KCl) 50 ML IV SCH ×7 (02:00→21:03)
[2017-08-16] MEDS ORDERED: EPINEPHrine 1 MG/10 ML SYR IVP ONE (03:30)
[2017-08-16] MEDS ORDERED: MAGNESIUM SULFATE 1 GM/2 ML VIAL ONE (03:30)
[2017-08-16] MEDS ORDERED: MIDAZOLAM HCL 50 MG in D5W 50 ML IV SCH (03:30)
[2017-08-16] MEDS ORDERED: SODIUM BICARBONATE 50 MEQ/50 ML SYR ONE (03:30)
[2017-08-16] MEDS ORDERED: PROPOFOL/EMULSION 100 ML IV SCH (03:30)
[2017-08-16] MEDS ORDERED: AMIODARONE HCL 150 MG/100 ML BAG (1.5 MG/ML) IV ONE (03:31)
--- NOTE | 2017-08-16 03:31 | EDPHY ---
Inpatient Procedure Narrative: [id number]: I was asked by the hospitalist service to come up to the ICU for intubation. Reason for intubation cardiopulmonary arrest with CPR. Upon arrival to the patient's room the patient was actively undergoing CPR and bagged. I am very familiar with this patient in fact I admitted her for urosepsis. And she was intubated previously in emergency room. According to the hospitalist service she was extubated however had a cardiopulmonary arrest this evening. Upon arrival to the Patient's ICU Room: Active CPR by ICU staff. Patient Being Bagged. Intubation Procedure: Patient was emergently intubated by myself. No RSI medications were used as the patient was undergoing CPR was unresponsive. Patient was intubated with a glide scope 3 blade. 6 0 endotracheal tube was again placed past the cords. I had direct visualization of the cords. The patient again was a difficult intubation as she has very small oropharynx opening and has a cervical fusion. There were no complications during this procedure. Endotracheal tube was confirmed by bilateral breath sounds. Nothing over the stomach. There is humidified air. And a chest x-ray Critical Care: Total Critical Care Time Spent Managing this Patient: 20 Minutes. This time was spent Exclusively with this patient. This Care was exclusive of procedures. The Organ System/life at risk was cardiopulmonary arrest. This Patient was in Critical Condition because cardiopulmonary arrest.
[2017-08-16] MEDS ORDERED: MIDAZOLAM 2 MG/2 ML VIAL ONE (03:32)
[2017-08-16] MEDS ORDERED: AMIODARONE HCL 100 ML IV ONE (03:37)
--- NOTE | 2017-08-16 03:37 | HOSPPROG ---
Hospitalist Progress Note Assessment/Plan: Hospitalist Night Float Note Called by RN regarding bradycardia. Arrived to bedside CPR underway as patient became pulseless and apneic. Patient admitted with urosepsis. recently extubated. RN reports patient VS stable until just minutes before rapid called. Patient received 2 rounds CPR and 2 doses epinephrine as well as 2 doses bicarb. ED provider arrived for emergent intubation. Patient had ROSC and spontaneous movement after intubation successful. Patient was able to follow commands and move extremities. BS 90s. and son arrived to bedside and updated. Patient subsequently developed intermittent episodes of vtach and hypotension. Amiodarone bolus and gtt ordered. IVF rate increased for hypotension until pressor gtts were able to be hung. Chart subsequently reviewed last few days. pt admitted with urosepsis. recently extubated. she has known pleural effusions and ascites studies of fluid from both sources obtained and identified as transudative. Patient has been receiving lasix with albumin daily. no report of emesis or suspected aspiration. VS reviewed. Labs reviewed as available. Gen - NAD. patient lays in bed intubated. awake and looking around. pale. CV - tachy, distant heart sounds. Resp - diminished bases. crackles upper lung servin. increased WOB. intubated. GI - distended. soft. hypoactive BS. - thompson in place. clear pale yellow urine. MSK - moves all extremities to command. Neuro - nods yes/no, moves extremities as above. A: severe sepsis/shock acute hypoxic respiratory failure cardiopulmonary arrest s/p CPR and ROSC UTI pleural effusions ascites vtach transaminitis/shock liver hyperbilirubinemia Plan: pressor support sedation continue levaquin continue amiodarone. pt with conversion to NSR. hx of Afib. stat labs see orders electrolyte replacement diuresis with albumin once BPs stabilized. consider therapeutic thoracentesis for transudative effusions likely related to severe sepsis. cultures pending on fluid. Critical care time 35 minutes at bedside including Code management, chart review , updating at bedside and return for management of Vtach. Objective: Vital Signs Temp Pulse Resp BP Pulse Ox 36.4 C 88 16 98/48 L 97 08/16/17 02:00 08/16/17 02:00 08/16/17 02:00 08/16/17 02:00 08/16/17 02:00 Microbiology 08/13/17 Unknown Gram Stain - Final Peritoneal Fluid - Aspirate 08/13/17 Unknown Gram Stain - Final Peritoneal Fluid - Aspirate 08/13/17 Unknown Gram Stain - Final Pleural Fluid - Aspirate 08/13/17 Unknown Gram Stain - Final Pleural Fluid - Aspirate 08/10/17 11:30 Blood Culture - Final Blood 08/10/17 11:30 Blood Culture - Final Blood Laboratory Results 08/15/17 04:25 08/15/17 17:25 08/14/17 08/15/17 08/16/17 05:59 05:59 05:59 Intake Total 5052.2 2633.8 1202 Output Total 5763 2335 2350 Balance -710.8 298.8 -1148 PT 19.4 SEC (12.0-15.0) H 08/12/17 18:30 INR 1.63 (0.83-1.16) H 08/12/17 18:30 ICD10 Worksheet Patient Problems: Problems Problem Status Onset Altered mental status Acute CHF (congestive heart failure) Acute Hypoxic Acute Respiratory failure Acute Sepsis Acute Chronic back pain Acute Chronic pain Acute Dehydration Acute Hyponatremia Acute Pneumonia Acute Status post cervical arthrodesis Acute Vomiting Acute Weakness Acute
[2017-08-16] MEDS ORDERED: AMIODARONE HCL 200 ML IV ONE (03:38)
[2017-08-16] MEDS ORDERED: MIDAZOLAM 2 MG/2 ML VIAL IVP ONE (03:38)
[2017-08-16] MEDS ORDERED: MAGNESIUM SULF 1 GM/DEXTROSE 100 ML IV ONE (03:40)
[2017-08-16] MEDS ORDERED: MAGNESIUM SULFATE 1 GM/2 ML VIAL IVP ONE (03:40)
[2017-08-16] MEDS: NOREPINEPHRINE/NS 500 ML IV SCH (03:45)
--- NOTE | 2017-08-16 03:48 | CPEKG ---
Heart Rate: 79 RR Interval: 759 P-R Interval: 156 QRSD Interval: 56 QT Interval: 404 QTC Interval: 464 P [place]: 53 QRS [place]: 11 T Wave [place]: 174 EKG Severity - ABNORMAL ECG - EKG Impression: SINUS RHYTHM EKG Impression: ABERRANT COMPLEX, POSSIBLY SUPRAVENTRICULAR EKG Impression: ANTERIOR INFARCT, AGE INDETERMINATE EKG Impression: LOW VOLTAGE Electronically Signed By: Phu Caballero 16-Aug-2017 17:35:37
[2017-08-16 04:04] LABS: ABSOLUTE NRBC COUNT 0.15 10^3/uL (0-0.01); ADD DIFF? YES; ADD MORPH? NO; ADD SCAN? NO; ATYPICAL LYMPHOCYTE FLAG 0 (0-99); FRAGMENT RBC FLAG 0 (0-99); HEMATOCRIT 23.8 % (38.0-47.0); LEFT SHIFT FLG 30 (0-99); LIPEMIA HEMOLYSIS FLAG 80 (0-99); MEAN CELL HEMOGLOBIN 29.9 pg (27.9-34.1); MEAN CELL HEMOGLOBIN CONCENTR. 33.6 g/dL (32.4-36.7); MEAN CELL VOLUME 88.8 fL (81.5-99.8); MEAN PLATELET VOLUME 10.1 fL (8.7-11.7); NRBC-AUTO% 0.6 % (0.0-0.2); PLATELET CLUMPS FLAG 0 (0-99); PLATELET COUNT 192 10^3/uL (150-400); RED BLOOD CELL COUNT 2.68 10^6/uL (4.18-5.33); RED CELL DISTRIBUTION WIDTH 16.4 % (11.5-15.2)
[2017-08-16 04:21] LABS: BASE EXCESS -8.7 mEq/L (-2.5-2.5); BICARBONATE 18 mEq/L (22-26); IONIZED CALCIUM 1.16 MMOL/L (1.12-1.30); MEASURED OXYGEN SATURATION 35 % (92-95); PCO2 45 mmHg (34-38); TCO2 19 mEq/L (23-27)
[2017-08-16 04:25] LABS: O2 CONCENTRATIION 100 % (0-100); P/F RATIO 26 RATIO; PO2 26 mmHg (65-75); SIMV YES
[2017-08-16 04:26] LABS: PATIENT RATE 20; PIP 17.1; PRESSURE SUPPORT 7
[2017-08-16 04:29] LABS: ALANINE AMINOTRANSFERASE 463 IU/L (9-52); ALBUMIN 2.6 g/dL (3.5-5.0); ALKALINE PHOSPHATASE 106 IU/L (38-126); ANION GAP 15 mEq/L (8-16); ASPARTATE AMINOTRANSFERASE 148 IU/L (14-46); BILIRUBIN,TOTAL 1.9 mg/dL (0.1-1.4); CALCIUM 7.9 mg/dL (8.5-10.4); CARBON DIOXIDE 19 mEq/l (22-31); CHLORIDE 112 mEq/L (97-110); CREATININE 0.8 mg/dL (0.6-1.0); GLOMERULAR FILTRATION RATE > 60; GLUCOSE 112 mg/dL (70-100); MAGNESIUM 2.5 mg/dL (1.6-2.3); POTASSIUM 3.2 mEq/L (3.5-5.2); SODIUM 146 mEq/L (134-144); TOTAL PROTEIN 4.4 g/dL (6.3-8.2)
[2017-08-16] MEDS: fentaNYL/NACL 100 ML IV SCH (04:35)
[2017-08-16 04:57] LABS: PLATELET ESTIMATE ADEQUATE (ADEQ)
[2017-08-16 04:58] LABS: POLYCHROMASIA 1+
[2017-08-16 04:59] LABS: ECHINOCYTES 2+; ELLIPTOCYTES 1+; SCHISTOCYTES 1+
[2017-08-16] MEDS: DEXMEDETOMIDINE IN 0.9 % NACL 100 ML IV SCH ×3 (05:27→22:28)
[2017-08-16] MEDS: PIPERACILLIN/TAZO 3.375 GM/DEX 50 ML IV SCH ×3 (07:17→18:19)
[2017-08-16] MEDS: LEVOTHYROXINE 100 MCG TAB TUBE SCH (07:17)
[2017-08-16] MEDS: HEPARIN 5,000 UNIT/0.5 ML SYR SC SCH ×3 (07:17→21:08)
[2017-08-16] MEDS: NS 1,000 ML IV SCH (08:51)
--- NOTE | 2017-08-16 08:57 | PCMIDPN ---
Assessment/Plan: #Sepsis, leukocytosis, re-intubation last night although likely related to volume overload. Tachypnea but otherwise minimal vent settings. 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 Query unidentified source - but fairly extensive w/u: r/o peritonitis with bland peritoneal fluid, R/o pulmonary empyema bilaterally, CT abd/pelvis unrevealing for source, blood cx all remain negative. --dc vancomycin, no specific isolated ID'd --repeat blood cultures --hold off on further imaging for now, main gaps in eval include sinuses and spine. --dc levofloxacin, start bactrim 15mg/kg divided as it is first line therapy for Stenotrophomonas since unclear why not improving. #Elevated LFTs: likely related to sepsis/hypotension, improving # Worsening leukocytosis: likely related to CPR, continue to monitor. Medications Zosyn 3.375gm IV q6 #6 vancomycin IV, #4 micafungin 100mg IV daily, #4 Levofloxacin 750mg IV daily, #8 Microbiology 08/06/17 Urine,Catheterized Stenotrophomonas Maltophilia (Levoflox SAMPSON = 2) + Five [place] Types 08/06/17 Blood Cx (2) neg 08/13/17 Pleural Fluid L - NGTD 08/13/17 Peritoneal Fluid -NGTD 08/13/17 Pleural Fluid R NGTD 08/13/17 blood cx (2) NGTD Subjective: albert and unable to feel pulse last night, CPR initiated and patient re- intubated. Objective: Vital Signs Temp Pulse Resp BP Pulse Ox 36.3 C 85 22 H 128/56 H 100 08/16/17 07:00 08/16/17 08:46 08/16/17 08:46 08/16/17 07:00 08/16/17 08:46 Microbiology 08/13/17 Unknown Gram Stain - Final Peritoneal Fluid - Aspirate 08/13/17 Unknown Gram Stain - Final Peritoneal Fluid - Aspirate 08/13/17 Unknown Gram Stain - Final Pleural Fluid - Aspirate 08/13/17 Unknown Gram Stain - Final Pleural Fluid - Aspirate 08/10/17 11:30 Blood Culture - Final Blood 08/10/17 11:30 Blood Culture - Final Blood Laboratory Results 08/16/17 03:55 08/16/17 03:55 08/15/17 08/16/17 08/17/17 05:59 05:59 05:59 Intake Total 2633.8 1202 1225 Output Total 2334 3700 Balance 298.8 -2498 1225 - Physical Exam General Appearance: other (opens eyes to verbal stimulation) EENT: pale conjunctiva, ET Tube, NG Tube Respiratory: coarse breath sounds Neck: supple Cardiac/Chest: regular rate, rhythm Extremities: pedal edema (anasarca) Abdomen: soft, other (very minimal bowel sounds) Pelvic Exam: thompson Skin: pallor, No rash Neuro/Psych: alert (with verbal stimulation) - Line/s other Lines: other (R IJ), No drainage, No erythema - Time Spent With Patient Time Spent with Patient: greater than 35 minutes Time Spent with Patient: Greater than 35 minutes spent on this patients care, greater than 50% of time spent counseling, educating, and coordinating care regarding the above mentioned plan. ICD10 Worksheet Patient Problems: Problems Problem Status Onset Altered mental status Acute CHF (congestive heart failure) Acute Hypoxic Acute Respiratory failure Acute Sepsis Acute Chronic back pain Acute Chronic pain Acute Dehydration Acute Hyponatremia Acute Pneumonia Acute Status post cervical arthrodesis Acute Vomiting Acute Weakness Acute
[2017-08-16] MEDS: FAMOTIDINE 20 MG/NACL 50 ML IV SCH (08:59)
[2017-08-16] MEDS ORDERED: AMIODARONE HCL 540 MG in D5W 300 ML IV ONE (09:00)
[2017-08-16] MEDS: MICAFUNGIN NA 100 MG in NS 100 ML IV SCH (09:00)
[2017-08-16] MEDS: FUROSEMIDE 20 MG/2 ML VIAL IVP SCH ×3 (09:13→21:03)
[2017-08-16] MEDS: INSULIN LISPRO 100 UNIT/ML SC SCH ×3 (09:14→18:18)
[2017-08-16] MEDS: INSULIN GLARGINE 100 UNITS/ML SYRINGE SC SCH (09:17)
[2017-08-16 10:02] LABS: BICARBONATE 14 mEq/L (22-26); MEASURED OXYGEN SATURATION 95 % (92-95); PO2 71 mmHg (65-75)
[2017-08-16 10:05] LABS: BASE EXCESS -8.2 mEq/L (-2.5-2.5); TCO2 15 mEq/L (23-27)
[2017-08-16 10:07] LABS: ASSIST CONTROL YES
[2017-08-16 10:08] LABS: O2 CONCENTRATIION 40 % (0-100); P/F RATIO 178 RATIO
[2017-08-16 10:09] LABS: PCO2 19 mmHg (34-38)
[2017-08-16 13:06] LABS: POTASSIUM 2.9 mEq/L (3.5-5.2)
[2017-08-16] MEDS ORDERED: TMP IV SCH (14:00)
[2017-08-16] MEDS ORDERED: SULFAMETHOX IV SCH (14:00)
[2017-08-16] MEDS ORDERED: D5W IV SCH (14:00)
--- NOTE | 2017-08-16 14:24 | ASMTCMCOM ---
CM Note CM Note Notes: Patient was re-intubated emergently early this morning after cardiopulmonary arrest with CPR. She is currently stable on minimal vent settings. ID following to query source of sepsis. 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 Discharge needs unidentified at this time; CM/spiritual care will offer family meeting tomorrow. Date Signed: 08/16/2017 02:23 PM Electronically Signed By:Anabell Fernandes RN
--- NOTE | 2017-08-16 14:50 | PDINTPN ---
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 She was urgently intubated in ER with difficulty and required a 6.0 ETT. She had persistent hypotension until Zosyn added 08/12 which resulted in substantial improvement. Urine cultures grew stenotrophomonas. * Cardiac arrest- per staff developer, patient was markedly tachypneic and had suboptimal response to diuretics in the afternoon of 08/15. She developed bradycardia and was given atropine, but they had difficulty finding pulses so began CPR. This continued for about 10 minutes during which she received epi x 2 and was intubated with a 6.0 ETT. The intubation resulted in ROSC. 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 * Acute respiratory failure with hypoxia- as above, complicated by initial difficult intubation. Now back on vent, but minimal support (40%+5 peep). Started lasix 20 tid today and will try CPAP trials. Recheck AM CXR. * Septic shock- presumed urinary source with slow improvement. Now off pressors. Abdomen was distended yesterday and had tap, but no evidence of SBP or peritonitis. No empyema either with thoracentesis. WBC substantially better after adding Zosyn and Bcx remain negative. Changed levaquin to Bactrim per ID. May need to consider sinus CT, MRI back (though difficult with hardware) * DM- glucose control has been suboptimal. Lantus started today. She has a long standing debate with her PCP about glucose control and appears excessivley concerned about hypoglycemia. Her BS has been stable, but she prefers it 150- 180. She understood the risks of this strategy (though not excessive risk) which would be OK with me. * Transaminitis- improving LFTs, likely from shock liver. * NICOLE- resolved * Anemia- stable * critical care time 75 minutes including bedside eval, discussion with RNs, family, hospitalists Subjective: events overnight reviewed Objective: Vital Signs Temp Pulse Resp BP Pulse Ox 36.5 C 69 29 H 103/52 L 97 08/16/17 13:00 08/16/17 14:25 08/16/17 14:25 08/16/17 13:00 08/16/17 14:25 Microbiology 08/13/17 Unknown Gram Stain - Final Peritoneal Fluid - Aspirate Body Fluid Culture - Final 08/13/17 Unknown Gram Stain - Final Peritoneal Fluid - Aspirate Body Fluid Culture - Final 08/13/17 Unknown Gram Stain - Final Pleural Fluid - Aspirate Body Fluid Culture - Final 08/13/17 Unknown Gram Stain - Final Pleural Fluid - Aspirate Body Fluid Culture - Final 08/10/17 11:30 Blood Culture - Final Blood 08/10/17 11:30 Blood Culture - Final Blood Laboratory Results 08/16/17 03:55 08/16/17 12:15 08/15/17 08/16/17 08/17/17 05:59 05:59 05:59 Intake Total 2633.8 1202 1655.4 Output Total 2335 3700 1000 Balance 298.8 -2498 655.4 PT 19.4 SEC (12.0-15.0) H 08/12/17 18:30 INR 1.63 (0.83-1.16) H 08/12/17 18:30 Physical Exam - Physical Exam General Appearance: alert, no apparent distress EENT: PERRL/EOMI, ET tube Neck: supple Respiratory: decreased breath sounds, No respiratory distress, No accessory muscle use Cardiac/Chest: regular rate, rhythm, No edema Abdomen: non-tender, soft, distended (mild) Skin: normal color, warm/dry Lymphatic: no adenopathy Extremities: No pedal edema Neuro/Psych: alert ICD10 Worksheet Patient Problems: Problems Problem Status Onset Altered mental status Acute CHF (congestive heart failure) Acute Hypoxic Acute Respiratory failure Acute Sepsis Acute Chronic back pain Acute Chronic pain Acute Dehydration Acute Hyponatremia Acute Pneumonia Acute Status post cervical arthrodesis Acute Vomiting Acute Weakness Acute
--- NOTE | 2017-08-16 15:30 | HOSPPROG ---
Hospitalist Progress Note Assessment/Plan: # acute respiratory failure - suspected d/t volume - cont lasix, minimize IVF # sepsis, off pressors - no clear source; CT abd unrevealing, pleural fluid and ascites NGTD - Stenotrophomonas in urine - empiric zosyn (improved her sepsis physiology when stared), micafungin # UTI with Stenotrophomonas - bactrim # NICOLE - resolved # vol overload - cont lasix 20 IV Q8 # cardiopulmonary arrest s/p CPR # pleural effusion - exudative # ascites - NGTD # NSVT in setting of arrest # transaminitis/shock liver - improving # nutrition - tube feeds # DM1 - low dose glargine # indwelling thompson Subjective: arrested overnight; had short CPR then ROSC; intubated Objective: Vital Signs Temp Pulse Resp BP Pulse Ox 36.5 C 65 26 H 105/41 L 99 08/16/17 15:00 08/16/17 15:00 08/16/17 15:00 08/16/17 15:00 08/16/17 15:00 Microbiology 08/13/17 Unknown Gram Stain - Final Peritoneal Fluid - Aspirate Body Fluid Culture - Final 08/13/17 Unknown Gram Stain - Final Peritoneal Fluid - Aspirate Body Fluid Culture - Final 08/13/17 Unknown Gram Stain - Final Pleural Fluid - Aspirate Body Fluid Culture - Final 08/13/17 Unknown Gram Stain - Final Pleural Fluid - Aspirate Body Fluid Culture - Final 08/10/17 11:30 Blood Culture - Final Blood 08/10/17 11:30 Blood Culture - Final Blood Laboratory Results 08/16/17 03:55 08/16/17 12:15 08/15/17 08/16/17 08/17/17 05:59 05:59 05:59 Intake Total 2633.8 1202 1655.4 Output Total 2335 3700 1000 Balance 298.8 -2498 655.4 PT 19.4 SEC (12.0-15.0) H 08/12/17 18:30 INR 1.63 (0.83-1.16) H 08/12/17 18:30 chart reviewed - Physical Exam Constitutional: uncomfortable Ears, Nose, Mouth, Throat: other (ET tube, OG tube) Cardiovascular: regular rate and rhythym, no murmur, rub, or gallop Respiratory: no respiratory distress, no rales or rhonchi Gastrointestinal: normoactive bowel sounds, soft, non-tender abdomen, no palpable masses ICD10 Worksheet Patient Problems: Problems Problem Status Onset Hyponatremia Acute Status post cervical arthrodesis Acute Pneumonia Acute Altered mental status Acute Dehydration Acute Weakness Acute Chronic pain Acute Chronic back pain Acute Vomiting Acute Sepsis Acute Hypoxic Acute Respiratory failure Acute CHF (congestive heart failure) Acute
[2017-08-16 18:24] LABS: POTASSIUM 3.2 mEq/L (3.5-5.2)
[2017-08-16] MEDS: TMP IV SCH (22:28)
[2017-08-16] MEDS: D5W IV SCH (22:28)
[2017-08-16] MEDS: SULFAMETHOX IV SCH (22:28)
[2017-08-17] MEDS: PIPERACILLIN/TAZO 3.375 GM/DEX 50 ML IV SCH ×4 (00:29→17:14)
[2017-08-17 00:43] LABS: POTASSIUM 3.4 mEq/L (3.5-5.2)
[2017-08-17] MEDS: INSULIN LISPRO 100 UNIT/ML SC SCH ×3 (00:51→11:47)
[2017-08-17] MEDS: POTASSIUM Cl (KCl) 50 ML IV SCH ×5 (01:44→21:31)
[2017-08-17] MEDS ORDERED: AMIODARONE HCL 200 ML IV ONE (03:00)
[2017-08-17] MEDS: ACETAMINOPHEN 650 MG/20.3 ML UDCUP TUBE PRN (03:55)
[2017-08-17] MEDS: FUROSEMIDE 20 MG/2 ML VIAL IVP SCH ×3 (05:06→21:14)
[2017-08-17] MEDS: HEPARIN 5,000 UNIT/0.5 ML SYR SC SCH ×3 (05:06→21:13)
[2017-08-17] MEDS: LEVOTHYROXINE 100 MCG TAB TUBE SCH (05:07)
[2017-08-17 06:03] LABS: ABSOLUTE NRBC COUNT 0.11 10^3/uL (0-0.01); ADD DIFF? YES; ADD MORPH? NO; ADD SCAN? NO; ATYPICAL LYMPHOCYTE FLAG 0 (0-99); FRAGMENT RBC FLAG 0 (0-99); HEMATOCRIT 22.8 % (38.0-47.0); HEMOGLOBIN 7.7 g/dL (12.6-16.3); LEFT SHIFT FLG 10 (0-99); LIPEMIA HEMOLYSIS FLAG 90 (0-99); MEAN CELL HEMOGLOBIN 29.1 pg (27.9-34.1); MEAN CELL HEMOGLOBIN CONCENTR. 33.8 g/dL (32.4-36.7); MEAN PLATELET VOLUME 10.4 fL (8.7-11.7); NRBC-AUTO% 0.5 % (0.0-0.2); PLATELET CLUMPS FLAG 0 (0-99); PLATELET COUNT 213 10^3/uL (150-400); RED BLOOD CELL COUNT 2.65 10^6/uL (4.18-5.33); RED CELL DISTRIBUTION WIDTH 17.6 % (11.5-15.2)
[2017-08-17 06:09] LABS: ALANINE AMINOTRANSFERASE 337 IU/L (9-52); ALBUMIN 2.3 g/dL (3.5-5.0); ALKALINE PHOSPHATASE 116 IU/L (38-126); ANION GAP 14 mEq/L (8-16); ASPARTATE AMINOTRANSFERASE 74 IU/L (14-46); BILIRUBIN,TOTAL 1.2 mg/dL (0.1-1.4); CALCIUM 7.8 mg/dL (8.5-10.4); CARBON DIOXIDE 21 mEq/l (22-31); CHLORIDE 111 mEq/L (97-110); GLOMERULAR FILTRATION RATE 55; GLUCOSE 166 mg/dL (70-100); MAGNESIUM 1.9 mg/dL (1.6-2.3); POTASSIUM 3.9 mEq/L (3.5-5.2); SODIUM 146 mEq/L (134-144); TOTAL PROTEIN 4.2 g/dL (6.3-8.2)
[2017-08-17 06:41] LABS: HYPOCHROMIA 1+; KERATOCYTES 1+; PLATELET ESTIMATE ADEQUATE (ADEQ); POLYCHROMASIA 1+
[2017-08-17] MEDS: SULFAMETHOX IV SCH ×3 (06:56→22:37)
[2017-08-17] MEDS: D5W IV SCH ×3 (06:56→22:37)
[2017-08-17] MEDS: TMP IV SCH ×3 (06:56→22:37)
[2017-08-17] MEDS: INSULIN GLARGINE 100 UNITS/ML SYRINGE SC SCH (08:23)
[2017-08-17] MEDS: FAMOTIDINE 20 MG/NACL 50 ML IV SCH (08:23)
[2017-08-17] MEDS: AMIODARONE HCL 200 MG TAB TUBE SCH ×2 (08:24→20:53)
[2017-08-17] MEDS: MICAFUNGIN NA 100 MG in NS 100 ML IV SCH (08:24)
[2017-08-17] MEDS ORDERED: POTASSIUM Cl (KCl) 50 ML IV ONE (09:20)
[2017-08-17] MEDS: DEXMEDETOMIDINE IN 0.9 % NACL 100 ML IV SCH ×2 (09:46→18:44)
[2017-08-17] MEDS ORDERED: ALBUMIN 25% 100 ML IV ONE (11:30)
--- NOTE | 2017-08-17 11:33 | HOSPPROG ---
Hospitalist Progress Note Assessment/Plan: # acute respiratory failure - suspected d/t volume - cont vent support, diuresis # septic shock - pressors restarted overnight; CVP 20 - no clear source; CT abd unrevealing, pleural fluid and ascites NGTD - Stenotrophomonas in urine - empiric zosyn (improved her sepsis physiology when stared), micafungin, bactrim # UTI with Stenotrophomonas - bactrim # NICOLE - resolved # vol overload - cont lasix 20 IV Q8; add albumin for pressure support # hyperNa - increase free H2O flushes # cardiopulmonary arrest s/p CPR # pleural effusion - exudative # ascites - NGTD # NSVT in setting of arrest - amiodarone, changed to per tube - no recurrence since arrest # transaminitis/shock liver - improving # nutrition - tube feeds # DM1 - now hyperglycemic today - low dose glargine, lispro SSI # indwelling thompson 40 mins of critical care time Subjective: no acute events overnight; opens eyes appropriately Objective: Vital Signs Temp Pulse Resp BP Pulse Ox 38.1 C 73 28 H 92/38 L 100 08/17/17 10:00 08/17/17 10:00 08/17/17 10:00 08/17/17 10:00 08/17/17 10:00 Microbiology 08/13/17 Unknown Gram Stain - Final Peritoneal Fluid - Aspirate Body Fluid Culture - Final 08/13/17 Unknown Gram Stain - Final Peritoneal Fluid - Aspirate Body Fluid Culture - Final 08/13/17 Unknown Gram Stain - Final Pleural Fluid - Aspirate Body Fluid Culture - Final 08/13/17 Unknown Gram Stain - Final Pleural Fluid - Aspirate Body Fluid Culture - Final Laboratory Results 08/17/17 05:40 08/16/17 08/17/17 08/18/17 05:59 05:59 05:59 Intake Total 1202 4311.4 Output Total 3700 2250 Balance -2498 2061.4 PT 19.4 SEC (12.0-15.0) H 08/12/17 18:30 INR 1.63 (0.83-1.16) H 08/12/17 18:30 - Physical Exam Constitutional: chronically ill appearing Ears, Nose, Mouth, Throat: other (ET tube, OG tube) Cardiovascular: regular rate and rhythym, no murmur, rub, or gallop Respiratory: inspiratory crackles, No reduced air movement Gastrointestinal: normoactive bowel sounds, soft, non-tender abdomen, no palpable masses ICD10 Worksheet Patient Problems: Problems Problem Status Onset Hyponatremia Acute Status post cervical arthrodesis Acute Pneumonia Acute Altered mental status Acute Dehydration Acute Weakness Acute Chronic pain Acute Chronic back pain Acute Vomiting Acute Sepsis Acute Hypoxic Acute Respiratory failure Acute CHF (congestive heart failure) Acute
[2017-08-17 12:05] LABS: POTASSIUM 4.5 mEq/L (3.5-5.2)
--- NOTE | 2017-08-17 14:42 | PCMIDPN ---
Assessment/Plan: #Sepsis, leukocytosis, low grade fever. WBC tiny bit better. Also still with tachypnea but otherwise minimal vent settings. 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 other considerations that have not been evaluated including spine, sinuses - but does not endorse focal changes in pain (with Y/N questions). Could consider bronch ( but resp compromise felt to be volume overload). Could consider repeat CT C/A/P at some point if continued lack of improvement --continue bactrim 15mg/kg divided as it is first line therapy for Stenotrophomonas since unclear why not improving - Cr slightly up 1.0 from 0.8, no change in dosing. Concentrated in minimal volume --hold off on further imaging/procedures another day --close monitoring of Cr with bactrim + zosyn #Elevated LFTs: likely related to sepsis/hypotension, continued improvement Medications Zosyn 3.375gm IV q6 #7 bactrim 290mg IV q8h, #1 micafungin 100mg IV daily, #5 s/p 4 days vancomycin IV and 8 days levoflox Microbiology 08/06/17 Urine,Catheterized Stenotrophomonas Maltophilia (Levoflox SAMPSON = 2, bactrim SAMPSON <0.5/9) + Five Or More [place] Types 08/06/17 Blood Cx (2) neg 08/13/17 Pleural Fluid L - NGTD 08/13/17 Peritoneal Fluid -NGTD 08/13/17 Pleural Fluid R NGTD 08/13/17 blood cx (2) NGTD 08/16/17 blood cx (2) pending (both from line 30 min apart due to inability to get peripheral) Subjective: patient awake on vent endorsing desire for ETT to be removed no BM TF started Objective: Vital Signs Temp Pulse Resp BP Pulse Ox 38 C 77 21 H 97/64 L 100 08/17/17 13:30 08/17/17 13:30 08/17/17 13:30 08/17/17 13:30 08/17/17 13:30 Microbiology 08/13/17 Unknown Gram Stain - Final Peritoneal Fluid - Aspirate Body Fluid Culture - Final 08/13/17 Unknown Gram Stain - Final Peritoneal Fluid - Aspirate Body Fluid Culture - Final 08/13/17 Unknown Gram Stain - Final Pleural Fluid - Aspirate Body Fluid Culture - Final 08/13/17 Unknown Gram Stain - Final Pleural Fluid - Aspirate Body Fluid Culture - Final Laboratory Results 08/17/17 05:40 08/17/17 11:10 08/16/17 08/17/17 08/18/17 05:59 05:59 05:59 Intake Total 1202 4311.4 162 Output Total 3700 2250 800 Balance -2498 2061.4 -638 General Appearance: awake on vent, a little agitated EENT: pale conjunctiva, ET Tube, NG Tube Respiratory: coarse breath sounds Neck: supple Cardiac/Chest: regular rate, rhythm Extremities: pedal edema (anasarca) Abdomen: soft, more active bowel sounds today, but still decreased Pelvic Exam: thompson Skin: pallor, No rash Neuro/Psych: alert (with verbal stimulation) - Line/s other Lines: other (R IJ), No drainage, No erythema ICD10 Worksheet Patient Problems: Problems Problem Status Onset Altered mental status Acute CHF (congestive heart failure) Acute Hypoxic Acute Respiratory failure Acute Sepsis Acute Chronic back pain Acute Chronic pain Acute Dehydration Acute Hyponatremia Acute Pneumonia Acute Status post cervical arthrodesis Acute Vomiting Acute Weakness Acute
--- NOTE | 2017-08-17 14:58 | WOCRNPDOC ---
WOCRN Advanced Assessment Note - Skin Integrity Problem, Advanced Assess Right Sacrum Pressure Injury Dressing Type: Allevyn Life, Plain Packing Dressing Description: Clean/Dry, Intact Exudate Amount: Scant Exudate Color: Reddish/Yellow Exudate Characteristic(s): Serosanguinous Integumentary Issue Intervention: Visualized Under Dressing Carlee Wound Tissue: Blanching, Erythema Wound Bed Color: [place], Yellow Wound Bed Constitution: Smooth Tissue, Tunneling (at 3 o'clock), Adhered Slough Wound Edges: Well Defined Pressure Injury Stage: Stage 4 Pressure Injury Present on Admit: Yes Skin Integrity Problem Comment: Patient turned to left side with assist of ZACH Garcia. Dressing already changed today so I just pulled back the allevyn to visualize under it. I was able to palpate the area of tunneling beneath the skin and feel the packing. I lifted the remaining length of packing that was laid in the wound bed and noted that it adhered to it. I moistened the packing in the wound bed with the Puracyn from the patient's wound care bucket and recovered with the allevyn. Patient tolerated the procedure well. Wound care will follow up with this patient early next week.
--- NOTE | 2017-08-17 15:04 | ASMTCMCOM ---
CM Note CM Note Notes: Patient reviewed in rounds. Son present declines family meeting at this time. Needs still remain undetermined. CM to follow. Date Signed: 08/17/2017 03:03 PM Electronically Signed By:Paige Hutchison RN
--- NOTE | 2017-08-17 15:11 | PDINTPN ---
Cleaning Handyman Progress Note Assessment/Plan: Assessment/plan: 66 F admitted 08/06/17 with septic shock of uncertain etiology (possible UTI) and respiratory failure. She was urgently intubated in ER with difficulty and required a 6.0 ETT. She had persistent hypotension until Zosyn added 08/12 which resulted in substantial improvement. Urine cultures grew stenotrophomonas. * Cardiac arrest- per staff psychologist, patient was markedly tachypneic and had suboptimal response to diuretics in the afternoon of 08/15. She developed bradycardia and was given atropine, but they had difficulty finding pulses so began CPR. This continued for about 10 minutes during which she received epi x 2 and was intubated with a 6.0 ETT. The intubation resulted in ROSC. 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 She has not shown serious sequelae from this to date. Further eval is pending extubation * Acute respiratory failure with hypoxia- as above, complicated by initial difficult intubation. Now back on vent, but minimal support (40%+5 peep). Started lasix 20 tid 08/16, but failed CPAP trials without high PS (eg 20). Her CXR 08/17 looks marginally better, so additional diuresis is warranted. Will try albumin with additional lasix today and re-examine CXR/ABG in AM. * Septic shock- presumed urinary source with slow improvement. Abdomen was distended and had tap, but no evidence of SBP or peritonitis. No empyema either with thoracentesis. WBC substantially better after adding Zosyn and Bcx remain negative. Changed levaquin to Bactrim per ID on 08/16. May need to consider sinus CT, MRI back (though difficult with hardware) * DM- glucose control has been suboptimal. Lantus started today. She has a long standing debate with her PCP about glucose control and appears excessively concerned about hypoglycemia. Her BS has been stable, but she prefers it 150- 180. She understood the risks of this strategy (though not excessive risk) which would be OK with me. * Transaminitis- continued improving LFTs, likely from shock liver. * NICOLE- resolved * Anemia- stable * critical care time 55 minutes including bedside eval, discussion with RNs, family, hospitalists 08/17/17 15:11 Objective: Vital Signs Temp Pulse Resp BP Pulse Ox 38.0 C 70 22 H 102/49 L 100 08/17/17 12:00 08/17/17 12:00 08/17/17 12:00 08/17/17 12:00 08/17/17 12:00 Microbiology 08/13/17 Unknown Gram Stain - Final Peritoneal Fluid - Aspirate Body Fluid Culture - Final 08/13/17 Unknown Gram Stain - Final Peritoneal Fluid - Aspirate Body Fluid Culture - Final 08/13/17 Unknown Gram Stain - Final Pleural Fluid - Aspirate Body Fluid Culture - Final 08/13/17 Unknown Gram Stain - Final Pleural Fluid - Aspirate Body Fluid Culture - Final Laboratory Results 08/17/17 05:40 08/17/17 11:10 08/16/17 08/17/17 08/18/17 05:59 05:59 05:59 Intake Total 1202 4311.4 162 Output Total 3700 2250 800 Balance -2498 2061.4 -638 PT 19.4 SEC (12.0-15.0) H 08/12/17 18:30 INR 1.63 (0.83-1.16) H 08/12/17 18:30 Physical Exam - Physical Exam General Appearance: alert, no apparent distress, obese EENT: PERRL/EOMI Neck: supple Respiratory: rales, No respiratory distress, No accessory muscle use Cardiac/Chest: regular rate, rhythm, edema Abdomen: non-tender, soft, No distended Skin: normal color, warm/dry Lymphatic: no adenopathy Extremities: pedal edema Neuro/Psych: alert, cognition abnormalities ICD10 Worksheet Patient Problems: Problems Problem Status Onset Altered mental status Acute CHF (congestive heart failure) Acute Hypoxic Acute Respiratory failure Acute Sepsis Acute Chronic back pain Acute Chronic pain Acute Dehydration Acute Hyponatremia Acute Pneumonia Acute Status post cervical arthrodesis Acute Vomiting Acute Weakness Acute
[2017-08-17] MEDS ORDERED: LACTULOSE 20 GM/30 ML UDCUP PO PRN (16:05)
[2017-08-17] MEDS ORDERED: POLYETHYLENE GLYCOL 3350 17 GM PKT PO PRN (16:05)
[2017-08-17] MEDS ORDERED: MAGNESIUM HYDROXIDE 30 ML UDCUP PO PRN (16:05)
[2017-08-17] MEDS ORDERED: BISACODYL 10 MG SUPP PR PRN (16:05)
[2017-08-17] MEDS: D5W 1,000 ML IV SCH (16:33)
[2017-08-17] MEDS: INSULIN REGULAR HUMAN 100 UNIT in NS 100 ML IV SCH (16:33)
[2017-08-17] MEDS: SENNOSIDES 17.6 MG/10 ML UDL - IF LIQUID ORDERED PO SCH (20:53)
[2017-08-17] MEDS: fentaNYL/NACL 100 ML IV SCH (21:49)
[2017-08-18] MEDS: PIPERACILLIN/TAZO 3.375 GM/DEX 50 ML IV SCH ×4 (00:17→17:14)
[2017-08-18 01:03] LABS: POTASSIUM 4.2 mEq/L (3.5-5.2)
[2017-08-18] MEDS: D5W 1,000 ML IV SCH (01:19)
[2017-08-18] MEDS: INSULIN REGULAR HUMAN 100 UNIT in NS 100 ML IV SCH (02:25)
[2017-08-18] MEDS: HEPARIN 5,000 UNIT/0.5 ML SYR SC SCH ×3 (05:26→21:28)
[2017-08-18] MEDS: FUROSEMIDE 20 MG/2 ML VIAL IVP SCH ×3 (05:26→21:28)
[2017-08-18] MEDS: LEVOTHYROXINE 100 MCG TAB TUBE SCH (05:26)
[2017-08-18 05:30] LABS: % IMMATURE GRANULYOCYTES 1.2 % (0.0-1.1); ABSOLUTE IMMATURE GRANULOCYTES 0.23 10^3/uL (0.00-0.10); ABSOLUTE NRBC COUNT 0.03 10^3/uL (0-0.01); ADD DIFF? NO; ADD MORPH? NO; ADD SCAN? NO; ATYPICAL LYMPHOCYTE FLAG 0 (0-99); FRAGMENT RBC FLAG 0 (0-99); HEMATOCRIT 22.2 % (38.0-47.0); HEMOGLOBIN 7.7 g/dL (12.6-16.3); LEFT SHIFT FLG 0 (0-99); LIPEMIA HEMOLYSIS FLAG 90 (0-99); MEAN CELL HEMOGLOBIN 30.1 pg (27.9-34.1); MEAN CELL HEMOGLOBIN CONCENTR. 34.7 g/dL (32.4-36.7); MEAN CELL VOLUME 86.7 fL (81.5-99.8); MEAN PLATELET VOLUME 10.3 fL (8.7-11.7); NRBC-AUTO% 0.2 % (0.0-0.2); PLATELET CLUMPS FLAG 0 (0-99); PLATELET COUNT 166 10^3/uL (150-400); RED BLOOD CELL COUNT 2.56 10^6/uL (4.18-5.33); RED CELL DISTRIBUTION WIDTH 19.3 % (11.5-15.2)
[2017-08-18 05:39] LABS: INR 1.54 (0.83-1.16); PROTIME(PATIENT) 18.5 SEC (12.0-15.0)
[2017-08-18 05:41] LABS: ALANINE AMINOTRANSFERASE 274 IU/L (9-52); ALBUMIN 2.6 g/dL (3.5-5.0); ALKALINE PHOSPHATASE 109 IU/L (38-126); ANION GAP 9 mEq/L (8-16); ASPARTATE AMINOTRANSFERASE 57 IU/L (14-46); BILIRUBIN,TOTAL 0.9 mg/dL (0.1-1.4); CALCIUM 8.2 mg/dL (8.5-10.4); CARBON DIOXIDE 27 mEq/l (22-31); CHLORIDE 108 mEq/L (97-110); CREATININE 1.1 mg/dL (0.6-1.0); GLOMERULAR FILTRATION RATE 50; GLUCOSE 107 mg/dL (70-100); MAGNESIUM 1.9 mg/dL (1.6-2.3); POTASSIUM 3.7 mEq/L (3.5-5.2); SODIUM 144 mEq/L (134-144); TOTAL PROTEIN 4.7 g/dL (6.3-8.2)
[2017-08-18] MEDS: D5W IV SCH ×3 (06:49→22:22)
[2017-08-18] MEDS: TMP IV SCH ×3 (06:49→22:22)
[2017-08-18] MEDS: SULFAMETHOX IV SCH ×3 (06:49→22:22)
[2017-08-18] MEDS: SENNOSIDES 17.6 MG/10 ML UDL - IF LIQUID ORDERED PO SCH ×2 (08:09→20:37)
[2017-08-18] MEDS: FAMOTIDINE 20 MG/NACL 50 ML IV SCH (08:41)
[2017-08-18] MEDS: AMIODARONE HCL 200 MG TAB TUBE SCH ×2 (08:41→20:37)
[2017-08-18] MEDS: MICAFUNGIN NA 100 MG in NS 100 ML IV SCH (08:42)
[2017-08-18] MEDS: DEXMEDETOMIDINE IN 0.9 % NACL 100 ML IV SCH ×2 (09:57→17:52)
[2017-08-18] MEDS ORDERED: INSULIN GLARGINE 100 UNITS/ML SYRINGE SC SCH (10:25)
[2017-08-18] MEDS: INSULIN GLARGINE 100 UNITS/ML SYRINGE SC SCH (12:35)
[2017-08-18] MEDS: INSULIN LISPRO 100 UNIT/ML SC SCH ×2 (12:35→17:17)
[2017-08-18 12:51] LABS: POTASSIUM 4.1 mEq/L (3.5-5.2)
--- NOTE | 2017-08-18 13:27 | PCMIDPN ---
Assessment/Plan: 1. Sepsis: She continues to have a leukocytosis and intermittent hypotension requiring pressors for unclear reasons. Clinical status out of proportion for a urinary tract infection without overt bacteremia. The patient is also complaining of total body pain, which makes elucidating an etiology and examining her quite difficult. I did examine her carefully today, turning her over etc. I think that an infection of her extensive back hardware seems less likely. Her sacral decubitus looks like it is healing nicely. Of note, the patient's CT scan of the abdomen and pelvis was done with intravenous contrast only; would prefer a CT scan with *oral* and IV contrast for completeness sake at some point moving forward to make sure we are not missing an intra-abdominal process. I have spoken with , who prefers to wait on this CT scan for now, as she is being diuresed in preparation for extubation. Will also order a.m. cortisol to ensure adrenal insufficiency is not contributing. For now, will continue antibiotics in the form of Zosyn, Bactrim, and Micafungin. I will likely discontinue Micafungin tomorrow (that will be day 7 of anti fungal therapy). Over 35 minutes spent with this patient today coordinating care and reviewing data. 08/18/17 13:30 Subjective: Remains intubated. Awake and alert however. Complaining of total body pain, including pain in her abdomen and right hip. Spoke with her at length today. He reports the patient had an infection in her back 17 years ago and is concerned that this infection is coming back. He is concerned we are missing an infection. Objective: Zosyn 3.375 g IV q.6 hours day 8 Bactrim 290 mg IV q.8h day 2 Micafungin 100 mg IV daily day 6 Intermittent pressors T-max 38.2degrees Vital Signs Temp Pulse Resp BP Pulse Ox 37.3 C 94 29 H 150/128 H 94 08/18/17 11:00 08/18/17 11:35 08/18/17 11:00 08/18/17 11:00 08/18/17 11:35 Microbiology 08/13/17 00:00 Blood Culture - Final Blood 08/13/17 00:15 Blood Culture - Final Blood Laboratory Results 08/18/17 05:12 08/18/17 12:25 08/17/17 08/18/17 08/19/17 05:59 05:59 05:59 Intake Total 4311.4 1890 Output Total 2250 3800 Balance 1.4 -1909August 26 blood culture x2 negative August 06 urine was stenotrophomonas maltophilia (levofloxacin SAMPSON 2, Bactrim SAMPSON less than 0.5) - Physical Exam General Appearance: obese EENT: NG Tube (Intubated. Not able to visualize her oropharynx. Neck is supple.), other Respiratory: lungs clear Cardiac/Chest: regular rate, rhythm Abdomen: other (Obese, tender, but tender wherever I touch her.) Back: other (Her back is notable for a half-dollar sized sacral decubitus ulceration with a clean base and packing in place.) Skin: other (Anasarca.), No rash ICD10 Worksheet Patient Problems: Problems Problem Status Onset Altered mental status Acute CHF (congestive heart failure) Acute Hypoxic Acute Respiratory failure Acute Sepsis Acute Chronic back pain Acute Chronic pain Acute Dehydration Acute Hyponatremia Acute Pneumonia Acute Status post cervical arthrodesis Acute Vomiting Acute Weakness Acute
--- NOTE | 2017-08-18 13:28 | HOSPPROG ---
Hospitalist Progress Note Assessment/Plan: # acute respiratory failure - suspected d/t volume - cont vent support, diuresis # septic shock - off and on pressors x 24 hours - no clear source; CT abd unrevealing, pleural fluid and ascites NGTD - plan to recheck CT abd with IV and PO contrast - will hold off today given aggressive diuresis - Stenotrophomonas in urine - empiric zosyn (improved her sepsis physiology when stared), micafungin, bactrim # UTI with Stenotrophomonas - bactrim # NICOLE - resolved # vol overload - cont lasix 20 IV Q8; # hyperNa - better today, free H2O flushes increased # cardiopulmonary arrest s/p CPR # pleural effusion - exudative # ascites - NGTD # NSVT in setting of arrest - amiodarone, changed to per tube - no recurrence since arrest # transaminitis/shock liver - improving # nutrition - tube feeds # DM1 - now hyperglycemic today - low dose glargine, lispro SSI # indwelling thompson 35 mins of critical care time Subjective: failed CPAP trial this morning; Objective: Vital Signs Temp Pulse Resp BP Pulse Ox 37.3 C 94 29 H 150/128 H 94 08/18/17 11:00 08/18/17 11:35 08/18/17 11:00 08/18/17 11:00 08/18/17 11:35 Microbiology 08/13/17 00:00 Blood Culture - Final Blood 08/13/17 00:15 Blood Culture - Final Blood Laboratory Results 08/18/17 05:12 08/18/17 12:25 08/17/17 08/18/17 08/19/17 05:59 05:59 05:59 Intake Total 4311.4 1890 Output Total 2250 3800 Balance 2061.4 -1910 PT 18.5 SEC (12.0-15.0) H 08/18/17 05:12 INR 1.54 (0.83-1.16) H 08/18/17 05:12 - Physical Exam Constitutional: no apparent distress Ears, Nose, Mouth, Throat: other (ET tube) Cardiovascular: regular rate and rhythym, no murmur, rub, or gallop Respiratory: no respiratory distress, no rales or rhonchi, clear to auscultation Gastrointestinal: normoactive bowel sounds, soft, non-tender abdomen, no palpable masses Genitourinary: thompson in urethra ICD10 Worksheet Patient Problems: Problems Problem Status Onset Hyponatremia Acute Status post cervical arthrodesis Acute Pneumonia Acute Altered mental status Acute Dehydration Acute Weakness Acute Chronic pain Acute Chronic back pain Acute Vomiting Acute Sepsis Acute Hypoxic Acute Respiratory failure Acute CHF (congestive heart failure) Acute
[2017-08-18 17:40] LABS: POTASSIUM 3.8 mEq/L (3.5-5.2)
--- NOTE | 2017-08-18 19:20 | PDINTPN ---
Director Drug Progress Note Assessment/Plan: Assessment/plan: 66 F admitted 08/06/17 with septic shock of uncertain etiology (possible UTI) and respiratory failure. She was urgently intubated in ER with difficulty and required a 6.0 ETT. She had persistent hypotension until Zosyn added 08/12 which resulted in substantial improvement. Urine cultures grew stenotrophomonas. * Cardiac arrest- per staff educator, patient was markedly tachypneic and had suboptimal response to diuretics in the afternoon of 08/15. She developed bradycardia and was given atropine, but they had difficulty finding pulses so began CPR. This continued for about 10 minutes during which she received epi x 2 and was intubated with a 6.0 ETT. The intubation resulted in ROSC. 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 She has not shown serious sequelae from this to date. Further eval is pending extubation, though she seems neurologically intact today * Acute respiratory failure with hypoxia- as above, complicated by initial difficult intubation. Now back on vent, but minimal support (40%+5 peep). Started lasix 20 tid 08/16, but failed CPAP trials without high PS (eg 20). She weaned some today on minimal support, but eventually required return to AC. Continue diuresis and weaning trials and she may be ready for extubation by 08/19 * Septic shock- presumed urinary source with slow improvement. Abdomen was distended and had tap, but no evidence of SBP or peritonitis. No empyema either with thoracentesis. WBC substantially better after adding Zosyn and Bcx remain negative. Changed levaquin to Bactrim per ID on 08/16. May need to consider sinus CT, MRI back (though difficult with hardware), depending on clinical course * DM- glucose control has been suboptimal. Lantus started today. She has a long standing debate with her PCP about glucose control and appears excessively concerned about hypoglycemia. Her BS has been stable, but she prefers it 150- 180. She understood the risks of this strategy (though not excessive risk) which would be OK with me. * Transaminitis- continued improving LFTs, likely from shock liver. * NICOLE- resolved * Anemia- stable * critical care time 35 minutes including bedside eval, discussion with RNs, family, hospitalists 08/17/17 15:11 08/18/17 19:18 Subjective: more alert and less sob, still on vent Objective: Vital Signs Temp Pulse Resp BP Pulse Ox 37.4 C 82 31 H 120/74 95 08/18/17 18:00 08/18/17 18:00 08/18/17 18:00 08/18/17 18:00 08/18/17 18:00 Microbiology 08/13/17 00:00 Blood Culture - Final Blood 08/13/17 00:15 Blood Culture - Final Blood Laboratory Results 08/18/17 05:12 08/18/17 17:10 08/17/17 08/18/17 08/19/17 05:59 05:59 05:59 Intake Total 4311.4 1890 1500 Output Total 2250 3800 2350 Balance 2061.4 -1910 -850 PT 18.5 SEC (12.0-15.0) H 08/18/17 05:12 INR 1.54 (0.83-1.16) H 08/18/17 05:12 Physical Exam - Physical Exam General Appearance: alert, no apparent distress, obese EENT: PERRL/EOMI Neck: full range of motion, supple Respiratory: normal breath sounds, No respiratory distress, No rales Cardiac/Chest: regular rate, rhythm, edema Abdomen: normal bowel sounds, non-tender, soft, No distended Skin: normal color, warm/dry Lymphatic: no adenopathy Extremities: pedal edema Neuro/Psych: alert, normal mood/affect, oriented x 3 ICD10 Worksheet Patient Problems: Problems Problem Status Onset Altered mental status Acute CHF (congestive heart failure) Acute Hypoxic Acute Respiratory failure Acute Sepsis Acute Chronic back pain Acute Chronic pain Acute Dehydration Acute Hyponatremia Acute Pneumonia Acute Status post cervical arthrodesis Acute Vomiting Acute Weakness Acute
[2017-08-18] MEDS: fentaNYL/NACL 100 ML IV SCH (19:36)
[2017-08-18] MEDS ORDERED: POTASSIUM Cl (KCl) 50 ML IV ONE (22:34)
[2017-08-19] MEDS: DEXMEDETOMIDINE IN 0.9 % NACL 100 ML IV SCH ×5 (00:31→23:15)
[2017-08-19] MEDS: FUROSEMIDE 20 MG/2 ML VIAL IVP SCH ×3 (05:09→21:13)
[2017-08-19] MEDS: PIPERACILLIN/TAZO 3.375 GM/DEX 50 ML IV SCH ×5 (05:10→23:15)
[2017-08-19] MEDS: HEPARIN 5,000 UNIT/0.5 ML SYR SC SCH ×3 (05:10→21:13)
[2017-08-19] MEDS: LEVOTHYROXINE 100 MCG TAB TUBE SCH (05:10)
[2017-08-19] MEDS: fentaNYL/NACL 100 ML IV SCH ×3 (05:13→21:27)
[2017-08-19 06:01] LABS: % IMMATURE GRANULYOCYTES 0.8 % (0.0-1.1); ABSOLUTE IMMATURE GRANULOCYTES 0.11 10^3/uL (0.00-0.10); ABSOLUTE NRBC COUNT 0.02 10^3/uL (0-0.01); ADD DIFF? NO; ADD MORPH? YES; ADD SCAN? NO; ATYPICAL LYMPHOCYTE FLAG 0 (0-99); FRAGMENT RBC FLAG 20 (0-99); HEMATOCRIT 21.6 % (38.0-47.0); HEMOGLOBIN 7.2 g/dL (12.6-16.3); LEFT SHIFT FLG 0 (0-99); LIPEMIA HEMOLYSIS FLAG 80 (0-99); MEAN CELL HEMOGLOBIN 29.6 pg (27.9-34.1); MEAN CELL HEMOGLOBIN CONCENTR. 33.3 g/dL (32.4-36.7); MEAN CELL VOLUME 88.9 fL (81.5-99.8); MEAN PLATELET VOLUME 10.9 fL (8.7-11.7); NRBC-AUTO% 0.1 % (0.0-0.2); PLATELET CLUMPS FLAG 0 (0-99); PLATELET COUNT 134 10^3/uL (150-400); RED BLOOD CELL COUNT 2.43 10^6/uL (4.18-5.33)
[2017-08-19 06:09] LABS: RED CELL DISTRIBUTION WIDTH 20.8 % (11.5-15.2)
[2017-08-19 06:14] LABS: ALANINE AMINOTRANSFERASE 229 IU/L (9-52); ALBUMIN 2.4 g/dL (3.5-5.0); ALKALINE PHOSPHATASE 118 IU/L (38-126); ANION GAP 13 mEq/L (8-16); ASPARTATE AMINOTRANSFERASE 49 IU/L (14-46); BILIRUBIN,TOTAL 0.8 mg/dL (0.1-1.4); CALCIUM 8.2 mg/dL (8.5-10.4); CARBON DIOXIDE 24 mEq/l (22-31); CHLORIDE 104 mEq/L (97-110); GLOMERULAR FILTRATION RATE 55; GLUCOSE 187 mg/dL (70-100); POTASSIUM 4.2 mEq/L (3.5-5.2); SODIUM 141 mEq/L (134-144); TOTAL PROTEIN 4.4 g/dL (6.3-8.2)
[2017-08-19 06:43] LABS: CORTISOL-AM 16.2 ug/dL (4.5-22.7)
[2017-08-19 06:46] LABS: PLATELET ESTIMATE ADEQUATE (ADEQ); SCHISTOCYTES 1+; TOXIC GRANULATION PRESENT
[2017-08-19 06:48] LABS: ELLIPTOCYTES 1+; POLYCHROMASIA 2+
[2017-08-19] MEDS: D5W IV SCH ×3 (07:06→21:26)
[2017-08-19] MEDS: SULFAMETHOX IV SCH ×3 (07:06→21:26)
[2017-08-19] MEDS: TMP IV SCH ×3 (07:06→21:26)
[2017-08-19 07:48] LABS: PCO2 VENOUS 36 mmHg (40-44); PH VENOUS BLOOD 7.41 (7.31-7.42); PO2 VENOUS 29 mmHg (35-40); TCO2 VENOUS 23 mEq/L (23-27); VEN MEASURED OXYGEN SATURATION 42 % (65-75)
[2017-08-19] MEDS: FAMOTIDINE 20 MG/NACL 50 ML IV SCH (08:29)
[2017-08-19] MEDS: INSULIN LISPRO 100 UNIT/ML SC SCH ×3 (08:29→17:16)
[2017-08-19] MEDS: AMIODARONE HCL 200 MG TAB TUBE SCH ×2 (08:29→19:47)
[2017-08-19] MEDS: SENNOSIDES 17.6 MG/10 ML UDL - IF LIQUID ORDERED PO SCH ×2 (08:30→19:48)
[2017-08-19] MEDS: INSULIN GLARGINE 100 UNITS/ML SYRINGE SC SCH (08:42)
[2017-08-19] MEDS: MICAFUNGIN NA 100 MG in NS 100 ML IV SCH (08:43)
[2017-08-19] MEDS ORDERED: MAGNESIUM SULF 1 GM/DEXTROSE 100 ML IV ONE (08:59)
[2017-08-19] MEDS ORDERED: ATROPINE SULFATE 1 MG/10 ML SYR ONE (09:01)
[2017-08-19] MEDS ORDERED: INSULIN GLARGINE 100 UNITS/ML SYRINGE SC SCH (10:31)
[2017-08-19 11:33] LABS: LACTATE DEHYDROGENASE 576 IU/L (313-618)
[2017-08-19 11:38] LABS: INR 1.45 (0.83-1.16); PROTIME(PATIENT) 17.6 SEC (12.0-15.0)
--- NOTE | 2017-08-19 12:10 | HOSPPROG ---
Hospitalist Progress Note Assessment/Plan: # acute respiratory failure - d/t volume; - cont vent support, diuresis - right thoracentesis today # septic shock - off and on pressors - no clear source; CT abd unrevealing, pleural fluid and ascites NGTD - plan to recheck CT abd with IV and PO contrast - will hold off today given aggressive diuresis - Stenotrophomonas in urine - empiric zosyn (improved her sepsis physiology when stared), micafungin, bactrim; appreciate ID # UTI with Stenotrophomonas - bactrim # NICOLE - resolved # vol overload - cont lasix 20 IV Q8; improving # hyperNa - better today, free H2O flushes increased # cardiopulmonary arrest s/p CPR # pleural effusion - exudative; thoracentesis again today # ascites - NGTD # NSVT in setting of arrest - amiodarone, changed to per tube; can likely discontinue soon - no recurrence since arrest # transaminitis/shock liver - improving # nutrition - tube feeds # DM1 - now hyperglycemic today - low dose glargine (increase), lispro SSI # indwelling thompson Subjective: Attempted to CPAP this morning; clearly asking me if we can remove the tube Objective: Vital Signs Temp Pulse Resp BP Pulse Ox 36.7 C 81 20 121/50 H 96 08/19/17 11:00 08/19/17 11:00 08/19/17 11:00 08/19/17 11:00 08/19/17 11:00 Microbiology 08/13/17 00:00 Blood Culture - Final Blood 08/13/17 00:15 Blood Culture - Final Blood Laboratory Results 08/19/17 05:30 08/19/17 05:30 08/18/17 08/19/17 08/20/17 05:59 05:59 04:59 Intake Total 1890 2918 Output Total 3800 3921 535 Balance -1910 -1007 -535 PT 17.6 SEC (12.0-15.0) H 08/19/17 11:15 INR 1.45 (0.83-1.16) H 08/19/17 11:15 35 minutes of critical care time - Physical Exam Constitutional: no apparent distress, appears nourished Cardiovascular: regular rate and rhythym, no murmur, rub, or gallop Respiratory: no rales or rhonchi, reduced air movement (Right base), other ( Intubated), No expiratory wheeze, No inspiratory crackles Gastrointestinal: normoactive bowel sounds, soft, non-tender abdomen ICD10 Worksheet Patient Problems: Problems Problem Status Onset Hyponatremia Acute Status post cervical arthrodesis Acute Pneumonia Acute Altered mental status Acute Dehydration Acute Weakness Acute Chronic pain Acute Chronic back pain Acute Vomiting Acute Sepsis Acute Hypoxic Acute Respiratory failure Acute CHF (congestive heart failure) Acute
--- NOTE | 2017-08-19 16:42 | PDINTPN ---
Mingle Operator Progress Note Assessment/Plan: Assessment/plan: 66 F admitted 08/06/17 with septic shock of uncertain etiology (possible UTI) and respiratory failure. She was urgently intubated in ER with difficulty and required a 6.0 ETT. She had persistent hypotension until Zosyn added 08/12 which resulted in substantial improvement. Urine cultures grew stenotrophomonas. * Cardiac arrest on 08/15- per staff electronic warfare officer, patient was markedly tachypneic and had suboptimal response to diuretics in the afternoon of 08/15. She developed bradycardia and was given atropine, but they had difficulty finding pulses so began CPR. This continued for about 10 minutes during which she received epi x 2 and was intubated with a 6.0 ETT. The intubation resulted in ROSC. I suspect the primary racing driver of this event was respiratory, perhaps related to volume overload. She has not shown serious sequelae from this to date. Further eval is pending extubation, though she seems neurologically intact today * Acute respiratory failure with hypoxia- as above, complicated by initial difficult intubation. Now back on vent, but minimal support (40%+5 peep). Started lasix 20 tid 08/16, but failed CPAP trials without high PS (eg 20). She subsequently has weaned better each day, achieving net diuresis, but failed T- piece after 1.5 hours with desaturation. A CXR showed persistent large right and moderate left effusion, so went to IR for repeat tap and 1600 ml removed. On return to ICU, she resumed T-piece and I re-evaluated after about 15 minutes. She looked very stable at this point. She will continue T-piece for 1 hour and if continues to remain stable extubate this after noon. She will require Bipsap qhs (as long as she can tolerate) to hopefully prevent further issues. * Septic shock- presumed urinary source with slow improvement. Abdomen was distended and had tap, but no evidence of SBP or peritonitis. No empyema either with thoracentesis. WBC substantially better after adding Zosyn and Bcx remain negative. Changed levaquin to Bactrim per ID on 08/16. WBC continues to fall. Not sure additional abdomen/pelvis CT with oral contrast would be that helpful * DM- glucose control has been suboptimal. Lantus started today. She has a long standing debate with her PCP about glucose control and appears excessively concerned about hypoglycemia. Her BS has been stable, but she prefers it 150- 180. She understood the risks of this strategy (though not excessive risk) which would be OK with me. * Transaminitis- continued improving LFTs, likely from shock liver. * NICOLE- resolved * Anemia- stable * critical care time 45 minutes including several bedside evals, discussion with RNs, family, hospitalists 08/17/17 15:11 08/18/17 19:18 08/19/17 16:38 Subjective: Weaned OK yesterday and on T piece this am for abrief time but desaturated. Objective: Vital Signs Temp Pulse Resp BP Pulse Ox 36.3 C 63 20 112/42 L 100 08/19/17 16:00 08/19/17 16:00 08/19/17 15:00 08/19/17 16:00 08/19/17 16:00 Laboratory Results 08/19/17 05:30 08/19/17 05:30 08/18/17 08/19/17 08/20/17 05:59 05:59 04:59 Intake Total 1890 2918 Output Total 3800 3925 2835 Balance -1910 -1007 -2835 PT 17.6 SEC (12.0-15.0) H 08/19/17 11:15 INR 1.45 (0.83-1.16) H 08/19/17 11:15 Physical Exam - Physical Exam General Appearance: alert, no apparent distress, obese EENT: PERRL/EOMI Neck: supple Respiratory: decreased breath sounds, crackles, No respiratory distress, No accessory muscle use Cardiac/Chest: regular rate, rhythm, No edema Abdomen: non-tender, soft, No distended Skin: normal color, warm/dry Lymphatic: no adenopathy Extremities: No pedal edema Neuro/Psych: alert, normal mood/affect, oriented x 3 ICD10 Worksheet Patient Problems: Problems Problem Status Onset Altered mental status Acute CHF (congestive heart failure) Acute Hypoxic Acute Respiratory failure Acute Sepsis Acute Chronic back pain Acute Chronic pain Acute Dehydration Acute Hyponatremia Acute Pneumonia Acute Status post cervical arthrodesis Acute Vomiting Acute Weakness Acute
[2017-08-20 01:06] LABS: POTASSIUM 3.9 mEq/L (3.5-5.2)
[2017-08-20] MEDS ORDERED: POTASSIUM Cl (KCl) 50 ML IV ONE ×2 (02:32→18:46)
[2017-08-20] MEDS: fentaNYL/NACL 100 ML IV SCH (03:30)
[2017-08-20] MEDS: DEXMEDETOMIDINE IN 0.9 % NACL 100 ML IV SCH (03:30)
[2017-08-20] MEDS: LEVOTHYROXINE 100 MCG TAB TUBE SCH (05:42)
[2017-08-20] MEDS: PIPERACILLIN/TAZO 3.375 GM/DEX 50 ML IV SCH ×3 (05:42→17:33)
[2017-08-20] MEDS: FUROSEMIDE 20 MG/2 ML VIAL IVP SCH ×3 (05:42→21:28)
[2017-08-20] MEDS: HEPARIN 5,000 UNIT/0.5 ML SYR SC SCH ×3 (05:42→21:28)
[2017-08-20] MEDS: TMP IV SCH ×3 (06:04→22:30)
[2017-08-20] MEDS: SULFAMETHOX IV SCH ×3 (06:04→22:30)
[2017-08-20] MEDS: D5W IV SCH ×3 (06:04→22:30)
[2017-08-20 06:24] LABS: % IMMATURE GRANULYOCYTES 0.9 % (0.0-1.1); ABSOLUTE IMMATURE GRANULOCYTES 0.14 10^3/uL (0.00-0.10); ADD DIFF? NO; ADD MORPH? YES; ADD SCAN? NO; ANION GAP 12 mEq/L (8-16); ATYPICAL LYMPHOCYTE FLAG 0 (0-99); CALCIUM 8.2 mg/dL (8.5-10.4); CARBON DIOXIDE 27 mEq/l (22-31); CHLORIDE 100 mEq/L (97-110); FRAGMENT RBC FLAG 20 (0-99); GLOMERULAR FILTRATION RATE 55; GLUCOSE 130 mg/dL (70-100); HEMATOCRIT 22.9 % (38.0-47.0); HEMOGLOBIN 7.5 g/dL (12.6-16.3); LEFT SHIFT FLG 0 (0-99); LIPEMIA HEMOLYSIS FLAG 80 (0-99); MEAN CELL HEMOGLOBIN 29.4 pg (27.9-34.1); MEAN CELL HEMOGLOBIN CONCENTR. 32.8 g/dL (32.4-36.7); MEAN CELL VOLUME 89.8 fL (81.5-99.8); MEAN PLATELET VOLUME 11.1 fL (8.7-11.7); PLATELET CLUMPS FLAG 0 (0-99); PLATELET COUNT 133 10^3/uL (150-400); POTASSIUM 4.8 mEq/L (3.5-5.2); RED BLOOD CELL COUNT 2.55 10^6/uL (4.18-5.33); SODIUM 139 mEq/L (134-144)
[2017-08-20 06:25] LABS: RED CELL DISTRIBUTION WIDTH 22.4 % (11.5-15.2)
[2017-08-20 06:46] LABS: ELLIPTOCYTES 1+; MACROCYTES 1+; MICROCYTES 1+; PLATELET ESTIMATE ADEQUATE (ADEQ); POLYCHROMASIA 1+
[2017-08-20] MEDS: INSULIN LISPRO 100 UNIT/ML SC SCH ×3 (08:22→18:29)
--- NOTE | 2017-08-20 09:19 | HOSPPROG ---
Hospitalist Progress Note Assessment/Plan: # acute respiratory failure - d/t volume; s/p 1.6L thora yesterday - extubated 08/19 # septic shock - off pressors - no clear source; CT abd unrevealing, pleural fluid and ascites NGTD - plan to recheck CT abd with IV and PO contrast - will hold off today given aggressive diuresis - Stenotrophomonas in urine - empiric zosyn (improved her sepsis physiology when stared), micafungin, bactrim; appreciate ID # diarrhea - check c. dif # UTI with Stenotrophomonas - bactrim # NICOLE - resolved # vol overload - still 10.5L L since admit - cont lasix 20 IV Q8; improving # hyperNa - resolved # cardiopulmonary arrest s/p CPR # pleural effusion - exudative; thoracentesis again today # ascites - NGTD # NSVT in setting of arrest - - no recurrence since arrest; stop amiodarone # transaminitis/shock liver - improving # nutrition - tube feeds # DM1 - A1c 7.6% - low dose glargine (increase), lispro SSI # indwelling thompson Subjective: extubated last night; says she is having trouble breathing but appears comfortable Objective: Vital Signs Temp Pulse Resp BP Pulse Ox 35.3 C L 60 14 106/55 L 100 08/20/17 08:00 08/20/17 08:00 08/20/17 08:00 08/20/17 08:00 08/20/17 08:00 Laboratory Results 08/20/17 06:00 08/20/17 06:00 08/19/17 08/20/17 08/21/17 06:59 05:59 05:59 Intake Total Output Total Balance PT 17.6 SEC (12.0-15.0) H 08/19/17 11:15 INR 1.45 (0.83-1.16) H 08/19/17 11:15 high risk - Physical Exam Constitutional: no apparent distress, appears nourished Ears, Nose, Mouth, Throat: other (R IJ) Cardiovascular: regular rate and rhythym, no murmur, rub, or gallop Respiratory: no respiratory distress, no rales or rhonchi, clear to auscultation Gastrointestinal: normoactive bowel sounds, soft, non-tender abdomen, no palpable masses ICD10 Worksheet Patient Problems: Problems Problem Status Onset Hyponatremia Acute Status post cervical arthrodesis Acute Pneumonia Acute Altered mental status Acute Dehydration Acute Weakness Acute Chronic pain Acute Chronic back pain Acute Vomiting Acute Sepsis Acute Hypoxic Acute Respiratory failure Acute CHF (congestive heart failure) Acute
[2017-08-20] MEDS: FAMOTIDINE 20 MG TAB TUBE SCH (09:56)
[2017-08-20] MEDS: SENNOSIDES 17.6 MG/10 ML UDL - IF LIQUID ORDERED PO SCH ×2 (09:56→19:36)
[2017-08-20] MEDS: AMIODARONE HCL 200 MG TAB TUBE SCH (09:57)
--- NOTE | 2017-08-20 09:59 | PDINTPN ---
Box Toe Stitcher Progress Note Assessment/Plan: Assessment/plan: 66 F admitted 08/06/17 with septic shock of uncertain etiology (possible UTI) and respiratory failure. She was urgently intubated in ER with difficulty and required a 6.0 ETT. She had persistent hypotension until Zosyn added 08/12 which resulted in substantial improvement. Urine cultures grew stenotrophomonas. * Cardiac arrest on 08/15- per staff electronic warfare officer, patient was markedly tachypneic and had suboptimal response to diuretics in the afternoon of 08/15. She developed bradycardia and was given atropine, but they had difficulty finding pulses so began CPR. This continued for about 10 minutes during which she received epi x 2 and was intubated with a 6.0 ETT. The intubation resulted in ROSC. I suspect the primary newspaper delivery driver of this event was respiratory, perhaps related to volume overload. She has not shown serious sequelae from this to date. * Acute respiratory failure with hypoxia- as above, complicated by initial difficult intubation. Did not tolerate weans early on 08/19 and CXR showed large effusion, which was tapped by IR and yielded 1600 ml. She subsequently extubated in the early evening 08/19 and used Bipap overnight; now on 3 lpm NC. I would continue qhs bipap and consider outpatient sleep study * Septic shock- presumed urinary source with slow improvement. Abdomen was distended and had tap, but no evidence of SBP or peritonitis. No empyema either with thoracentesis. WBC substantially better after adding Zosyn and Bcx remain negative. Changed levaquin to Bactrim per ID on 08/16. WBC now stable at 14-15. Not sure additional abdomen/pelvis CT with oral contrast would be that helpful. Will discuss with ID * DM- glucose control has been suboptimal. She has a long standing debate with her PCP about glucose control and appears excessively concerned about hypoglycemia. Her BS has been stable, but she prefers it 150-180. She understood the risks of this strategy (though not excessive) which would be OK with me. * Transaminitis- continued improving LFTs, likely from shock liver. * NICOLE- resolved * Anemia- stable * Subjective: extubated 08/19, stable on bipap overnight Objective: Vital Signs Temp Pulse Resp BP Pulse Ox 35.3 C L 56 L 12 88/44 L 100 08/20/17 09:00 08/20/17 09:00 08/20/17 09:00 08/20/17 09:00 08/20/17 09:00 Laboratory Results 08/20/17 06:00 08/20/17 06:00 08/19/17 08/20/17 08/21/17 06:59 05:59 05:59 Intake Total Output Total Balance PT 17.6 SEC (12.0-15.0) H 08/19/17 11:15 INR 1.45 (0.83-1.16) H 08/19/17 11:15 Physical Exam - Physical Exam General Appearance: alert, no apparent distress, obese EENT: PERRL/EOMI Neck: supple Respiratory: lungs clear, normal breath sounds, No respiratory distress Cardiac/Chest: regular rate, rhythm, edema Abdomen: non-tender, soft, No distended Skin: normal color, warm/dry Lymphatic: no adenopathy Extremities: No calf tenderness Neuro/Psych: alert, normal mood/affect, oriented x 3 ICD10 Worksheet Patient Problems: Problems Problem Status Onset Altered mental status Acute CHF (congestive heart failure) Acute Hypoxic Acute Respiratory failure Acute Sepsis Acute Chronic back pain Acute Chronic pain Acute Dehydration Acute Hyponatremia Acute Pneumonia Acute Status post cervical arthrodesis Acute Vomiting Acute Weakness Acute
[2017-08-20] MEDS: MICAFUNGIN NA 100 MG in NS 100 ML IV SCH (10:00)
[2017-08-20] MEDS: INSULIN GLARGINE 100 UNITS/ML SYRINGE SC SCH (10:19)
[2017-08-20] MEDS: BACLOFEN 10 MG TAB PO SCH ×4 (11:02→21:16)
[2017-08-20] MEDS: oxyCODONE IR 5 MG TAB PO SCH ×4 (11:03→21:18)
[2017-08-20] MEDS: morphINE SR 30 MG TAB PO SCH ×2 (11:09→21:17)
--- NOTE | 2017-08-20 11:50 | PCMIDPN ---
Assessment/Plan: 1. Sepsis/persistent leukocytosis with presumptive urinary source as culpable etiology: Patient has had clinical improvement over the past 24-48 hours. Her white blood cell count has come down, and she is now extubated. Will continue Zosyn and Bactrim (for stenotrophomonas) as is, and discontinue Micafungin given no obvious evidence of fungal process. She did have Silvana tropicalis in her sputum, which represents colonization. Pondered CT abdomen and pelvis with oral contrast when I saw her 2 days ago, when patient was still on pressors with a significant unexplained leukocytosis. At that point, was grasping at straws for etiology of persistent hypotension. I agree that an abdominal CT scan with oral contrast is presently unnecessary given clinical improvement. Of note, serum cortisol level was within normal limits. C diff toxin to be repeated in the setting of worsening diarrhea. 2. Sacral decubitus: Took dressing down 2 days ago; this looks like it is healing nicely and is being followed by wound care. 08/20/17 11:55 Subjective: Was not able to see patient yesterday as she was down in Interventional Radiology undergoing right-sided thoracentesis. This was transudative in nature. Patient was extubated last evening successfully. She is alert and oriented today, and tells me she has no pain. Having some diarrhea, however per nursing staff. Objective: Zosyn 3.375 g IV q.6 hours day 10 Bactrim 290 mg IV q.8 hours day for Micafungin 100 mg IV daily day 8 Afebrile Vital Signs Temp Pulse Resp BP Pulse Ox 35.4 C L 64 17 96/67 L 99 08/20/17 11:00 08/20/17 11:00 08/20/17 11:00 08/20/17 11:00 08/20/17 11:00 Laboratory Results 08/20/17 06:00 08/20/17 06:00 08/19/17 08/20/17 08/21/17 06:59 05:59 05:59 Intake Total Output Total Balance Blood cultures from August 16 remain negative - Physical Exam General Appearance: alert, no apparent distress, other (Hoarse, as just extubated last evening.) Respiratory: lungs clear Neck: other (Right IJ catheter in place) Cardiac/Chest: other (Difficult to hear her heart sounds given adventitious sounds. S1-S2.) Abdomen: non-tender, soft Skin: No rash ICD10 Worksheet Patient Problems: Problems Problem Status Onset Altered mental status Acute CHF (congestive heart failure) Acute Hypoxic Acute Respiratory failure Acute Sepsis Acute Chronic back pain Acute Chronic pain Acute Dehydration Acute Hyponatremia Acute Pneumonia Acute Status post cervical arthrodesis Acute Vomiting Acute Weakness Acute
[2017-08-20] MEDS: PROMETHAZINE HCL 25 MG TAB PO PRN (13:41)
--- NOTE | 2017-08-20 15:20 | ASMTCMCOM ---
CM Note CM Note Notes: Patient has had a long recovery process. ST recommending SNF; OT-SNF vs In-pt; PT waiting on eval. CM to follow for discharge needs. Date Signed: 08/20/2017 03:19 PM Electronically Signed By:Naomy Hoyos LCSW
[2017-08-20] MEDS ORDERED: LOPERAMIDE HCL 2 MG CAP PO PRN (15:46)
[2017-08-20] MEDS: ATORVASTATIN CALCIUM 10 MG TAB PO SCH (17:29)
[2017-08-20 18:35] LABS: POTASSIUM 3.7 mEq/L (3.5-5.2)
[2017-08-20] MEDS: OXYBUTYNIN CHLORIDE 5 MG TAB PO SCH (21:16)
[2017-08-20] MEDS: traZODone 100 MG TAB PO SCH (21:19)
[2017-08-21] MEDS: PIPERACILLIN/TAZO 3.375 GM/DEX 50 ML IV SCH ×4 (00:11→17:29)
[2017-08-21] MEDS: BACLOFEN 10 MG TAB PO SCH ×8 (00:11→21:35)
[2017-08-21] MEDS: oxyCODONE IR 5 MG TAB PO SCH ×8 (00:19→21:36)
[2017-08-21] MEDS: NOREPINEPHRINE/NS 500 ML IV SCH (03:41)
[2017-08-21 03:55] LABS: ANION GAP 9 mEq/L (8-16); CALCIUM 7.5 mg/dL (8.5-10.4); CARBON DIOXIDE 26 mEq/l (22-31); CHLORIDE 103 mEq/L (97-110); GLOMERULAR FILTRATION RATE 55; GLUCOSE 87 mg/dL (70-100); POTASSIUM 3.8 mEq/L (3.5-5.2); SODIUM 138 mEq/L (134-144)
[2017-08-21 04:17] LABS: ABSOLUTE IMMATURE GRANULOCYTES 0.13 10^3/uL (0.00-0.10); ABSOLUTE NRBC COUNT 0.02 10^3/uL (0-0.01); ADD DIFF? NO; ADD MORPH? YES; ADD SCAN? NO; ATYPICAL LYMPHOCYTE FLAG 0 (0-99); FRAGMENT RBC FLAG 0 (0-99); HEMATOCRIT 19.6 % (38.0-47.0); LEFT SHIFT FLG 0 (0-99); LIPEMIA HEMOLYSIS FLAG 90 (0-99); MEAN CELL HEMOGLOBIN 30.4 pg (27.9-34.1); MEAN CELL HEMOGLOBIN CONCENTR. 34.7 g/dL (32.4-36.7); MEAN CELL VOLUME 87.5 fL (81.5-99.8); MEAN PLATELET VOLUME 11.5 fL (8.7-11.7); NRBC-AUTO% 0.2 % (0.0-0.2); PLATELET CLUMPS FLAG 0 (0-99); PLATELET COUNT 105 10^3/uL (150-400); RED BLOOD CELL COUNT 2.24 10^6/uL (4.18-5.33)
[2017-08-21 04:20] LABS: HEMOGLOBIN 6.8 g/dL (12.6-16.3); RED CELL DISTRIBUTION WIDTH 22.5 % (11.5-15.2)
[2017-08-21] MEDS ORDERED: POTASSIUM Cl (KCl) 50 ML IV ONE (04:34)
[2017-08-21 05:52] LABS: ELLIPTOCYTES 1+; MACROCYTES 1+; MICROCYTES 1+; POLYCHROMASIA 1+; SCHISTOCYTES 1+
[2017-08-21 05:53] LABS: PLATELET ESTIMATE DECREASED (ADEQ)
[2017-08-21] MEDS: FUROSEMIDE 20 MG/2 ML VIAL IVP SCH ×2 (05:55→13:19)
[2017-08-21] MEDS: HEPARIN 5,000 UNIT/0.5 ML SYR SC SCH (05:56)
[2017-08-21] MEDS: LEVOTHYROXINE 100 MCG TAB TUBE SCH (05:56)
[2017-08-21] MEDS: TMP IV SCH ×3 (07:04→23:57)
[2017-08-21] MEDS: D5W IV SCH ×3 (07:04→23:57)
[2017-08-21] MEDS: SULFAMETHOX IV SCH ×3 (07:04→23:57)
[2017-08-21] MEDS: INSULIN LISPRO 100 UNIT/ML SC SCH ×3 (07:36→17:31)
[2017-08-21] MEDS: FAMOTIDINE 20 MG TAB TUBE SCH (07:46)
[2017-08-21] MEDS: ESCITALOPRAM OXALATE 10 MG TAB PO SCH (07:46)
[2017-08-21] MEDS: morphINE SR 30 MG TAB PO SCH ×2 (07:47→21:37)
[2017-08-21] MEDS: OXYBUTYNIN CHLORIDE 5 MG TAB PO SCH (07:47)
[2017-08-21] MEDS: PROMETHAZINE HCL 25 MG TAB PO PRN (07:48)
[2017-08-21] MEDS: SENNOSIDES 17.6 MG/10 ML UDL - IF LIQUID ORDERED PO SCH ×2 (08:01→21:38)
--- NOTE | 2017-08-21 08:39 | HOSPPROG ---
Hospitalist Progress Note Assessment/Plan: 66F admitted with confusion. Had septic shock with no clearly identified source , improved on abx. Respiratory failure requiring intubation, was emergently reintubated after a PEA arrest, now extubated. # acute respiratory failure - mainly d/t volume; significantly diuresed and had a therapeutic thoracentesis - now extubated # septic shock - off pressors; Stenotrophomonas in urine unlikely source - no clear source; CT abd unrevealing, pleural fluid and ascites NGTD - empiric zosyn (improved her sepsis physiology when stared) and bactrim; micafungin stopped - ascites and pleural fluid NGTD # vol overload - still about 7L positive - cont lasix 20 IV Q8 # anemia - transfuse today 1U PRBC # thrombocytopenia - sepsis; consider HIT but less likely - recheck tomorrow # cardiopulmonary arrest s/p CPR # NSVT in setting of arrest - no recurrence since arrest; stop amiodarone # transaminitis/shock liver - improving # nutrition - dysphagia # DM1 - A1c 7.6% - low dose glargine (increase), lispro SSI # indwelling thompson # acute metabolic encephalopathy - much improved # NICOLE - resolved Subjective: off pressors today; says she feels "awful"; started on immodium Objective: Vital Signs Temp Pulse Resp BP Pulse Ox 35 C L 89 15 119/95 H 98 08/21/17 06:00 08/21/17 06:00 08/21/17 06:00 08/21/17 06:00 08/21/17 06:00 Laboratory Results 08/21/17 03:30 08/21/17 03:30 08/20/17 08/21/17 08/22/17 05:59 05:59 05:59 Intake Total 2166 Output Total 2850 Balance -684 PT 17.6 SEC (12.0-15.0) H 08/19/17 11:15 INR 1.45 (0.83-1.16) H 08/19/17 11:15 high risk - Physical Exam Constitutional: chronically ill appearing Ears, Nose, Mouth, Throat: other (R IJ) Cardiovascular: regular rate and rhythym, no murmur, rub, or gallop Respiratory: inspiratory crackles (bilat bases) Gastrointestinal: normoactive bowel sounds, soft, non-tender abdomen, no palpable masses Genitourinary: thompson in urethra ICD10 Worksheet Patient Problems: Problems Problem Status Onset Hyponatremia Acute Status post cervical arthrodesis Acute Pneumonia Acute Altered mental status Acute Dehydration Acute Weakness Acute Chronic pain Acute Chronic back pain Acute Vomiting Acute Sepsis Acute Hypoxic Acute Respiratory failure Acute CHF (congestive heart failure) Acute
[2017-08-21] MEDS ORDERED: MAGNESIUM SULF 1 GM/DEXTROSE 100 ML IV ONE (09:16)
[2017-08-21] MEDS ORDERED: FLU VACC QS 2017-18 (3YR+)/PF 0.5 ML SYR (FLUARIX QUAD) IM ONE (09:27)
[2017-08-21] MEDS: ENOXAPARIN 40 MG/0.4 ML SYR SC SCH (09:32)
--- NOTE | 2017-08-21 10:11 | PDINTPN ---
Sales Representative Consultant Progress Note Assessment/Plan: Assessment: 66 F admitted 08/06/17 with septic shock of uncertain etiology (possible UTI) and respiratory failure. She was urgently intubated in ER with difficulty and required a 6.0 ETT. She had persistent hypotension until Zosyn added 08/12 which resulted in substantial improvement. Urine cultures grew stenotrophomonas. * Cardiac arrest on 08/15- per staffing coordinator, patient was markedly tachypneic and had suboptimal response to diuretics in the afternoon of 08/15. She developed bradycardia and was given atropine, but they had difficulty finding pulses so began CPR. This continued for about 10 minutes during which she received epi x 2 and was intubated with a 6.0 ETT. The intubation resulted in ROSC. I suspect the primary public transit trolley driver of this event was respiratory, perhaps related to volume overload. She has not shown serious sequelae from this to date. * Acute respiratory failure with hypoxia- as above, complicated by initial difficult intubation. Did not tolerate weans early on 08/19 and CXR showed large effusion, which was tapped by IR and yielded 1600 ml. She subsequently extubated in the early evening 08/19 and used Bipap overnight; now on RA with sats of 90-91%. I would continue qhs bipap and consider outpatient sleep study. * Septic shock- presumed urinary source with slow improvement. Only positive culture was Stenotrophomonas on urine Cx 08/06. Abdomen was distended and had tap, but no evidence of SBP or peritonitis. No empyema either with thoracentesis. WBC substantially better after adding Zosyn and Bcx remain negative. Changed levaquin to Bactrim per ID on 08/16. WBC down this morning. Still requiring low-dose NE. * DM- glucose control has been suboptimal. She has a long standing debate with her PCP about glucose control and appears excessively concerned about hypoglycemia. Her BS has been stable, but she prefers it 150-180. She understood the risks of this strategy (though not excessive) which would be OK with me. * Transaminitis- continued improving LFTs, last checked 08/19, likely from shock liver. * Decubitus Ulcer: Stage IV. Getting wound care, healing well. * NICOLE- resolved * Anemia- H/H down this morning, s/p PRBC x 1. Plan: Recheck H/H, check NICOM. If fluid responsive, hold lasix and give PRBCs or IVF depending on repeat H/H. Increase activity as tolerated. [facility] if BP improves. 08/21/17 11:14 08/21/17 11:16 Subjective: Feels "terrible". c/o pain in buttocks/sacrum with transfer. Poor appetite. Feels dyspneic, has some cough, mostly non-productive. Objective: Vital Signs Temp Pulse Resp BP Pulse Ox 35 C L 65 17 107/74 90 L 08/21/17 06:00 08/21/17 09:47 08/21/17 09:47 08/21/17 09:47 08/21/17 09:47 Laboratory Results 08/21/17 03:30 08/21/17 03:30 08/20/17 08/21/17 08/22/17 05:59 05:59 05:59 Intake Total 2166 Output Total 2850 Balance -684 PT 17.6 SEC (12.0-15.0) H 08/19/17 11:15 INR 1.45 (0.83-1.16) H 08/19/17 11:15 CXR 08/19: Large R.L effusion.Images reviewed. Physical Exam - Physical Exam General Appearance: alert, no apparent distress EENT: normal ENT inspection Neck: normal inspection Respiratory: lungs clear, normal breath sounds Cardiac/Chest: regular rate, rhythm, edema (2+) Abdomen: normal bowel sounds, non-tender Skin: normal color, warm/dry Extremities: normal inspection Neuro/Psych: alert, normal mood/affect, oriented x 3, motor weakness (diffusely weak) ICD10 Worksheet Patient Problems: Problems Problem Status Onset Altered mental status Acute CHF (congestive heart failure) Acute Hypoxic Acute Respiratory failure Acute Sepsis Acute Chronic back pain Acute Chronic pain Acute Dehydration Acute Hyponatremia Acute Pneumonia Acute Status post cervical arthrodesis Acute Vomiting Acute Weakness Acute
[2017-08-21 12:49] LABS: HEMATOCRIT 26.8 % (38.0-47.0); HEMOGLOBIN 9.4 g/dL (12.6-16.3)
[2017-08-21] MEDS ORDERED: ALBUMIN 25% 200 ML IV ONE (13:22)
[2017-08-21 14:57] LABS: POTASSIUM 4.4 mEq/L (3.5-5.2)
--- NOTE | 2017-08-21 15:23 | PCMIDPN ---
Assessment/Plan: Assessment/Plan: * Septic shock with possible initial urinary etiology: Clinically improved with continued decrease in leukocytosis. Continue Zosyn and Bactrim (targeting stenotrophomonas). If continues to improve, will continue Zosyn for 14 days total (day # 08/29) and Bactrim times 10 days total (# /). 08/21/17 15:21 Subjective: Patient now extubated and was up in chair earlier today and ate small amounts. Objective: Vital Signs Temp Pulse Resp BP Pulse Ox 35.1 C L 74 14 122/57 H 98 08/21/17 14:59 08/21/17 14:59 08/21/17 14:59 08/21/17 15:05 08/21/17 14:59 Microbiology 08/16/17 12:15 Blood Culture - Final Blood 08/16/17 11:40 Blood Culture - Final Blood Laboratory Results 08/21/17 12:42 08/21/17 14:35 08/20/17 08/21/17 08/22/17 05:59 05:59 05:59 Intake Total 2166 Output Total 2850 385 Balance -684 -385 Zosyn # 11 Bactrim # 5 Laboratory Tests 08/20/17 12:30 C. difficile Tox (PCR) NEGATIVE - Physical Exam General Appearance: non-toxic, other (Somnolent but arousable) EENT: No scleral icterus, No conjunctival petechiae Respiratory: coarse breath sounds Neck: other (Triple-lumen catheter in place without surrounding erythema or tenderness) Cardiac/Chest: regular rate, rhythm Abdomen: non-tender, No distended ICD10 Worksheet Patient Problems: Problems Problem Status Onset Altered mental status Acute CHF (congestive heart failure) Acute Hypoxic Acute Respiratory failure Acute Sepsis Acute Chronic back pain Acute Chronic pain Acute Dehydration Acute Hyponatremia Acute Pneumonia Acute Status post cervical arthrodesis Acute Vomiting Acute Weakness Acute
[2017-08-21] MEDS: ATORVASTATIN CALCIUM 10 MG TAB PO SCH (17:29)
[2017-08-21] MEDS: traZODone 100 MG TAB PO SCH (21:35)
[2017-08-22] MEDS: PIPERACILLIN/TAZO 3.375 GM/DEX 50 ML IV SCH ×5 (00:05→23:53)
[2017-08-22] MEDS: oxyCODONE IR 5 MG TAB PO SCH ×8 (00:37→22:35)
[2017-08-22] MEDS: BACLOFEN 10 MG TAB PO SCH ×8 (00:38→22:34)
[2017-08-22 05:19] LABS: ALANINE AMINOTRANSFERASE 152 IU/L (9-52); ALBUMIN 2.5 g/dL (3.5-5.0); ALKALINE PHOSPHATASE 85 IU/L (38-126); ANION GAP 15 mEq/L (8-16); ASPARTATE AMINOTRANSFERASE 30 IU/L (14-46); BILIRUBIN,TOTAL 0.7 mg/dL (0.1-1.4); CALCIUM 8.3 mg/dL (8.5-10.4); CARBON DIOXIDE 26 mEq/l (22-31); CHLORIDE 96 mEq/L (97-110); CREATININE 1.2 mg/dL (0.6-1.0); GLOMERULAR FILTRATION RATE 45; GLUCOSE 372 mg/dL (70-100); POTASSIUM 5.1 mEq/L (3.5-5.2); SODIUM 137 mEq/L (134-144); TOTAL PROTEIN 4.4 g/dL (6.3-8.2)
[2017-08-22] MEDS: D5W IV SCH ×3 (06:29→22:56)
[2017-08-22] MEDS: LEVOTHYROXINE 100 MCG TAB TUBE SCH (06:29)
[2017-08-22] MEDS: TMP IV SCH ×3 (06:29→22:56)
[2017-08-22] MEDS: SULFAMETHOX IV SCH ×3 (06:29→22:56)
[2017-08-22] MEDS: FUROSEMIDE 20 MG/2 ML VIAL IVP SCH ×3 (07:27→22:19)
[2017-08-22 08:23] LABS: GLUCOSE 370 mg/dL (70-100); MAGNESIUM 2.1 mg/dL (1.6-2.3)
[2017-08-22] MEDS: ENOXAPARIN 40 MG/0.4 ML SYR SC SCH (08:54)
[2017-08-22] MEDS: INSULIN GLARGINE 100 UNITS/ML SYRINGE SC SCH ×3 (08:55→10:37)
[2017-08-22] MEDS: ESCITALOPRAM OXALATE 10 MG TAB PO SCH (08:55)
[2017-08-22] MEDS: morphINE SR 30 MG TAB PO SCH ×4 (08:55→21:48)
[2017-08-22] MEDS: FAMOTIDINE 20 MG TAB TUBE SCH (08:55)
[2017-08-22] MEDS: SENNOSIDES 17.6 MG/10 ML UDL - IF LIQUID ORDERED PO SCH ×2 (08:56→21:48)
--- NOTE | 2017-08-22 08:58 | WOCRNPDOC ---
WOCRN Advanced Assessment Note - Skin Integrity Problem, Advanced Assess Right Sacrum Pressure Injury Dressing Type: Allevyn Life, Packing Dressing Description: Intact Exudate Amount: Scant Exudate Color: Clear, Yellow Exudate Characteristic(s): Serous Integumentary Issue Intervention: Dressing Changed, Dressing Initialed & Dated Carlee Wound Tissue: Blanching, Erythema, Macerated Carlee Wound Swelling: Mild Wound Bed Color: Red, Yellow Wound Bed Constitution: Red/Boling - Non Granular Tissue (90%), Tunneling (0.4cm @ 3 o'clock), Adhered Slough (10%) Wound Edges: Well Defined Site Odor: None Site Measurement - Head-to-Toe Length X Width X Depth (cm): 2.5cmx2.3cmx0.3cm ( 0.4cm tunnel @ 3 o'clock) Pressure Injury Stage: Stage 4 Pressure Injury Present on Admit: Yes (Documented in H&P) Skin Integrity Problem Comment: Wound improving throughout this hospitalization. Tunnel at 3 o'clock, previously >1 cm, is now measuring 0.4cm. Wound bed comprised of 90% smooth/non-granular tissue, w/ 10% adhered slough. Thin rim of maceration observed circumferentially; remaining periwound skin is blanching erythema. Wound flushed and re-packed w/ plain packing; I suspect this tunnel will be too shallow to pack in a few days time. Will continue w/ existing order, and re-visit plan of care on Monday. Reiterated to patient importance of remaining on the [place] bed while she is inpatient, and she verbalized understanding of why we ordered this for her. medical office supervisor Lauren present and assisting.
[2017-08-22 08:59] LABS: GLUCOSE 448 mg/dL (70-100)
--- NOTE | 2017-08-22 09:42 | PCMIDPN ---
Assessment/Plan: Assessment/Plan: 1. Sepsis: -history of recurrent UTI, has chronic thompson, apparently had reported purulence around thompson and urine was described similarly as well -Urine cx with >100,000 stenotrophomonas, and 5 other colonies no otherwise identified. - Abd USG unremarkable. recent Ct abd with no new focal findings. - fluctuations in WBC of uncertain etiology but has started to trend down over past several days. -Currently on Zosyn (D#09/28), bactrim (D#03/25) - plan of care reviewed with , patient, produce clerk team - care coordinated with pharmacy, RN. Micro: pleural and peritoneal cx from 08/13: ngtd 08/10 and 08/12 blood cx: ngtd 08/06/17: blood cx ngtd 08/06/17: >100,000 S. maltophilia, 5 other colonies Meds zosyn bactrim vanco zosyn levaquin micafungin Subjective: afebrile. extubated. feeling better than she has previously. less weak. denies sob. has some abd pain. Objective: Vital Signs Temp Pulse Resp BP Pulse Ox 35.5 C L 71 19 107/77 94 08/22/17 08:00 08/22/17 08:00 08/22/17 08:00 08/22/17 08:00 08/22/17 08:00 Microbiology 08/16/17 12:15 Blood Culture - Final Blood 08/16/17 11:40 Blood Culture - Final Blood Laboratory Results 08/21/17 12:42 08/22/17 08:26 08/21/17 08/22/17 08/23/17 05:59 05:59 05:59 Intake Total 2166 1830 Output Total 2850 1510 Balance -684 320 - Physical Exam General Appearance: alert, no apparent distress Respiratory: coarse breath sounds Cardiac/Chest: regular rate, rhythm Extremities: swelling Abdomen: normal bowel sounds, distended, tender Skin: No erythema ICD10 Worksheet Patient Problems: Problems Problem Status Onset Altered mental status Acute CHF (congestive heart failure) Acute Hypoxic Acute Respiratory failure Acute Sepsis Acute Chronic back pain Acute Chronic pain Acute Dehydration Acute Hyponatremia Acute Pneumonia Acute Status post cervical arthrodesis Acute Vomiting Acute Weakness Acute
[2017-08-22] MEDS: INSULIN LISPRO 100 UNIT/ML SC SCH ×3 (10:36→17:49)
[2017-08-22 10:48] LABS: ABSOLUTE IMMATURE GRANULOCYTES 0.11 10^3/uL (0.00-0.10); ADD DIFF? NO; ADD MORPH? YES; ADD SCAN? NO; ATYPICAL LYMPHOCYTE FLAG 0 (0-99); FRAGMENT RBC FLAG 0 (0-99); HEMATOCRIT 24.7 % (38.0-47.0); HEMOGLOBIN 8.4 g/dL (12.6-16.3); LEFT SHIFT FLG 0 (0-99); LIPEMIA HEMOLYSIS FLAG 90 (0-99); MEAN CELL HEMOGLOBIN 30.3 pg (27.9-34.1); MEAN CELL VOLUME 89.2 fL (81.5-99.8); MEAN PLATELET VOLUME 11.5 fL (8.7-11.7); PLATELET CLUMPS FLAG 10 (0-99); PLATELET COUNT 83 10^3/uL (150-400); RED BLOOD CELL COUNT 2.77 10^6/uL (4.18-5.33)
[2017-08-22 10:52] LABS: RED CELL DISTRIBUTION WIDTH 21.5 % (11.5-15.2)
[2017-08-22] MEDS ORDERED: ACETAMINOPHEN 325 MG TAB PO PRN (11:31)
[2017-08-22 12:42] LABS: MACROCYTES 1+; PLATELET ESTIMATE DECREASED (ADEQ); POLYCHROMASIA 1+
[2017-08-22 12:43] LABS: ACANTHOCYTES 1+; ELLIPTOCYTES 1+
--- NOTE | 2017-08-22 12:43 | PDINTPN ---
Warehouse Team Member Progress Note Assessment/Plan: Assessment: 66 F admitted 08/06/17 with septic shock of uncertain etiology (possible UTI) and respiratory failure. She was urgently intubated in ER with difficulty and required a 6.0 ETT. She had persistent hypotension until Zosyn added 08/12 which resulted in substantial improvement. Urine cultures grew stenotrophomonas. * Cardiac arrest on 08/15- per staff development manager, patient was markedly tachypneic and had suboptimal response to diuretics in the afternoon of 08/15. She developed bradycardia and was given atropine, but they had difficulty finding pulses so began CPR. This continued for about 10 minutes during which she received epi x 2 and was intubated with a 6.0 ETT. The intubation resulted in ROSC. I suspect the primary driver's license examiner of this event was respiratory, perhaps related to volume overload. She has not shown serious sequelae from this to date. * Acute respiratory failure with hypoxia- as above, complicated by initial difficult intubation. Did not tolerate weans early on 08/19 and CXR showed large effusion, which was tapped by IR and yielded 1600 ml. She subsequently extubated in the early evening 08/19 and used Bipap overnight; O2 needs increased from 0-2 lpm yesterday to 5 lpm today. I would continue qhs bipap and consider outpatient sleep study. * Septic shock- presumed urinary source with slow improvement. Only positive culture was Stenotrophomonas on urine Cx 08/06. Abdomen was distended and had tap, but no evidence of SBP or peritonitis. No empyema either with thoracentesis. WBC substantially better after adding Zosyn and Bcx remain negative. Changed levaquin to Bactrim per ID on 08/16. WBC down this morning. Weaned off NE, has mild hypotension with MAP 50-55. * DM- glucose control has been suboptimal. She has a long standing debate with her PCP about glucose control and appears excessively concerned about hypoglycemia. Her BS has been much higher last 24 hours. * Transaminitis- continued improving LFTs, last checked 08/19, likely from shock liver. * Decubitus Ulcer: Stage IV. Getting wound care, healing well. * NICOLE- resolved * Anemia- H/H down this morning, s/p PRBC x 1. Plan: Follow H/H. Increase activity as tolerated. Probably can d/c antibiotics soon. Continue Lasix. Recheck CXR. Hopefully can transfer to [facility] if BP improves. 08/22/17 12:48 Subjective: Feels poorly, minimal PO, has some dyspnea, mild cough. Denies pain. Objective: Vital Signs Temp Pulse Resp BP Pulse Ox 35.6 C L 72 16 93/33 L 93 08/22/17 11:00 08/22/17 11:00 08/22/17 11:00 08/22/17 11:00 08/22/17 11:00 Microbiology 08/16/17 12:15 Blood Culture - Final Blood 08/16/17 11:40 Blood Culture - Final Blood Laboratory Results 08/22/17 10:43 08/22/17 08:26 08/21/17 08/22/17 08/23/17 05:59 05:59 05:59 Intake Total 2166 2180 Output Total 2850 1510 Balance -684 670 PT 17.6 SEC (12.0-15.0) H 08/19/17 11:15 INR 1.45 (0.83-1.16) H 08/19/17 11:15 Physical Exam - Physical Exam General Appearance: alert, no apparent distress EENT: normal ENT inspection Neck: normal inspection Respiratory: rales (bases) Cardiac/Chest: regular rate, rhythm, edema (2+) Abdomen: normal bowel sounds, non-tender, soft Skin: normal color Extremities: normal inspection Neuro/Psych: alert, normal mood/affect, motor weakness (diffuse) ICD10 Worksheet Patient Problems: Problems Problem Status Onset Altered mental status Acute CHF (congestive heart failure) Acute Hypoxic Acute Respiratory failure Acute Sepsis Acute Chronic back pain Acute Chronic pain Acute Dehydration Acute Hyponatremia Acute Pneumonia Acute Status post cervical arthrodesis Acute Vomiting Acute Weakness Acute
[2017-08-22 12:46] LABS: GLUCOSE 408 mg/dL (70-100)
--- NOTE | 2017-08-22 16:51 | HOSPPROG ---
Hospitalist Progress Note Assessment/Plan: 66F admitted with confusion. Had septic shock with no clearly identified source , improved on abx. Respiratory failure requiring intubation, was emergently reintubated after a PEA arrest, now extubated. # acute respiratory failure - mainly d/t volume; significantly diuresed and had a therapeutic thoracentesis Oxygen saturations 96% on 5 L - now extubated - continue diuresis - recheck chest x-ray in morning # septic shock - off pressors - no clear source; CT abd (persoanlly reviewed and interpreted) no obvious source unrevealing, Stenotrophomonas in urine unlikely source- pleural fluid and ascites NGTD - empiric zosyn (improved her sepsis physiology when stared) and bactrim; - micafungin stopped - continue current antibiotics # vol overload - still about > 5L positive this admission - cont lasix 20 IV Q8 # anemia - s/p transfuse 1U PRBC- H&H this am 06/08 # thrombocytopenia - sepsis plt 160-> 80 this am - hold lovenox - check HIT - recheck tomorrow # cardiopulmonary arrest s/p CPR # NSVT in setting of arrest - no recurrence since arrest; stop amiodarone # transaminitis/shock liver - improving # nutrition - dysphagia # DM1 - A1c 7.6%- - increase glargine - increase lispro SSI to regular # indwelling thompson # acute metabolic encephalopathy - much improved # NICOLE - resolved # diet- taking some PO # dispo- > 2MN as requires ongoing care for AHRF and recent cardiac arrest I have discussed the case with Dr. Sanchez - will increase insulin dosing today and follow Subjective: pain in abdomen Objective: Vital Signs Temp Pulse Resp BP Pulse Ox 35.2 C L 68 15 88/38 L 96 08/22/17 16:00 08/22/17 16:00 08/22/17 16:00 08/22/17 16:00 08/22/17 16:00 Microbiology 08/16/17 12:15 Blood Culture - Final Blood 08/16/17 11:40 Blood Culture - Final Blood Laboratory Results 08/22/17 10:43 08/22/17 12:16 08/21/17 08/22/17 08/23/17 05:59 05:59 05:59 Intake Total 2166 2180 Output Total 2850 1510 Balance -684 670 PT 17.6 SEC (12.0-15.0) H 08/19/17 11:15 INR 1.45 (0.83-1.16) H 08/19/17 11:15 - Physical Exam Constitutional: chronically ill appearing Eyes: anicteric sclera Ears, Nose, Mouth, Throat: dry mucous membranes Cardiovascular: regular rate and rhythym, systolic murmur Respiratory: inspiratory crackles Gastrointestinal: normoactive bowel sounds Genitourinary: no bladder fullness Skin: warm Musculoskeletal: No asymmetric calves Neurologic: other (lethargic) Psychiatric: No agitated Lymph, Heme, Immunologic: no cervical LAD ICD10 Worksheet Patient Problems: Problems Problem Status Onset Altered mental status Acute CHF (congestive heart failure) Acute Hypoxic Acute Respiratory failure Acute Sepsis Acute Chronic back pain Acute Chronic pain Acute Dehydration Acute Hyponatremia Acute Pneumonia Acute Status post cervical arthrodesis Acute Vomiting Acute Weakness Acute
--- NOTE | 2017-08-22 17:37 | ASMTCMCOM ---
CM Note CM Note Notes: Spoke to regarding patient's discharge needs. reports that this past year patient has been mostly bed ridden due to back pain. He or her caregiver would help her to a W/C and move to bathroom where she would transfer to toilet. She could not sit for any length of time, even for meals. reports that her back pain has gotten better. He thinks that she has had an infection in her back and that the ABX she has been taking to clear up her UTI have helped to clear the infection in her back which has helped with her pain. 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 He is concerned that she will resist going to a SNF. This CM told him to check out [facility] and [facility], given their emphasis on rehab and their patient private rooms. Maybe the motivator could be in strengthening to enjoy her place in [facility]. Date Signed: 08/22/2017 05:36 PM Electronically Signed By:Naomy Hoyos LCSW
[2017-08-22] MEDS: ATORVASTATIN CALCIUM 10 MG TAB PO SCH (17:53)
[2017-08-22] MEDS: NS 1,000 ML IV SCH (19:40)
[2017-08-22] MEDS: NOREPINEPHRINE/NS 500 ML IV SCH (20:57)
[2017-08-22] MEDS: traZODone 100 MG TAB PO SCH (21:49)
[2017-08-22] MEDS: D50W 25 GM/50 ML SYR IVP PRN (22:24)
[2017-08-23] MEDS: oxyCODONE IR 5 MG TAB PO SCH ×6 (01:28→15:39)
[2017-08-23] MEDS: BACLOFEN 10 MG TAB PO SCH ×6 (01:28→15:39)
[2017-08-23] MEDS: D50W 25 GM/50 ML SYR IVP PRN ×2 (04:49→20:38)
[2017-08-23] MEDS: PIPERACILLIN/TAZO 3.375 GM/DEX 50 ML IV SCH (04:51)
[2017-08-23 05:19] LABS: HEMATOCRIT 27.4 % (38.0-47.0); HEMOGLOBIN 9.3 g/dL (12.6-16.3); MEAN CELL HEMOGLOBIN 30.8 pg (27.9-34.1); MEAN CELL HEMOGLOBIN CONCENTR. 33.9 g/dL (32.4-36.7); MEAN CELL VOLUME 90.7 fL (81.5-99.8); RED BLOOD CELL COUNT 3.02 10^6/uL (4.18-5.33)
[2017-08-23 05:22] LABS: RED CELL DISTRIBUTION WIDTH 21.7 % (11.5-15.2)
[2017-08-23] MEDS: FUROSEMIDE 20 MG/2 ML VIAL IVP SCH ×2 (05:22→12:06)
[2017-08-23] MEDS: LEVOTHYROXINE 100 MCG TAB TUBE SCH (05:22)
[2017-08-23 05:31] LABS: ANION GAP 15 mEq/L (8-16); CALCIUM 8.6 mg/dL (8.5-10.4); CARBON DIOXIDE 23 mEq/l (22-31); CHLORIDE 99 mEq/L (97-110); CREATININE 1.4 mg/dL (0.6-1.0); GLOMERULAR FILTRATION RATE 38; GLUCOSE 118 mg/dL (70-100); POTASSIUM 4.4 mEq/L (3.5-5.2); SODIUM 137 mEq/L (134-144)
[2017-08-23] MEDS: NOREPINEPHRINE/NS 500 ML IV SCH (05:55)
[2017-08-23] MEDS: TMP IV SCH (07:08)
[2017-08-23] MEDS: D5W IV SCH (07:08)
[2017-08-23] MEDS: SULFAMETHOX IV SCH (07:08)
[2017-08-23] MEDS: ESCITALOPRAM OXALATE 10 MG TAB PO SCH (07:53)
[2017-08-23] MEDS: morphINE SR 30 MG TAB PO SCH (07:53)
[2017-08-23] MEDS: FAMOTIDINE 20 MG TAB TUBE SCH (07:53)
[2017-08-23] MEDS: SENNOSIDES 17.6 MG/10 ML UDL - IF LIQUID ORDERED PO SCH (07:54)
[2017-08-23] MEDS: INSULIN LISPRO 100 UNIT/ML SC SCH ×3 (07:55→17:37)
[2017-08-23] MEDS: INSULIN GLARGINE 100 UNITS/ML SYRINGE SC SCH (08:47)
--- NOTE | 2017-08-23 11:18 | PDINTPN ---
Precision Aircraft Systems Assembler Progress Note Assessment/Plan: Assessment: 66 F admitted 08/06/17 with septic shock of uncertain etiology (possible UTI) and respiratory failure. She was urgently intubated in ER with difficulty and required a 6.0 ETT. She had persistent hypotension until Zosyn added 08/12 which resulted in substantial improvement. Urine cultures grew stenotrophomonas. * Cardiac arrest on 08/15- per staff electronic warfare officer, patient was markedly tachypneic and had suboptimal response to diuretics in the afternoon of 08/15. She developed bradycardia and was given atropine, but they had difficulty finding pulses so began CPR. This continued for about 10 minutes during which she received epi x 2 and was intubated with a 6.0 ETT. The intubation resulted in ROSC. I suspect the primary truck driver of this event was respiratory, perhaps related to volume overload. She has not shown serious sequelae from this to date. * Acute respiratory failure with hypoxia- as above, complicated by initial difficult intubation. Did not tolerate weans early on 08/19 and CXR showed large effusion, which was tapped by IR and yielded 1600 ml. She subsequently extubated in the early evening 08/19 and used Bipap overnight; O2 needs increased from 0-2 lpm yesterday to 5 lpm today. I would continue qhs bipap and consider outpatient sleep study. * Septic shock- presumed urinary source with slow improvement. Only positive culture was Stenotrophomonas on urine Cx 08/06. Abdomen was distended and had tap, but no evidence of SBP or peritonitis. No empyema either with thoracentesis. WBC substantially better after adding Zosyn and Bcx remain negative. Changed levaquin to Bactrim per ID on 08/16. WBC down this morning. Pressors back up, got fluid boluses. Unclear cause for ongoing hypotension and weakness, ? abdominal source. * DM- glucose control has been suboptimal. She has a long standing debate with her PCP about glucose control and appears excessively concerned about hypoglycemia. Her BS was quite high yesterday, now better on increased SSI. * Transaminitis- continued improving LFTs, last checked 08/19, likely from shock liver. * Decubitus Ulcer: Stage IV. Getting wound care, healing well. * NICOLE- Cr back up last 48 hours. ? due to ATN, pre-renal, Bactrim (with or without reduced GFR). * Anemia- H/H up after transfusion Plan: Follow H/H. Check LFTs, ABG, lactate, lipase, CT abdomen to try to find cause of ongoing hypotension. Check CVP and NICOM to assist in determining intravascular volume status. Consider ECHO. Will probably benefit from enteral feeding. Hold on feeding tube until CT and labs back. 08/23/17 11:18 Subjective: C/O mid-abdominal pain as well as nausea. Still quite weak. Not able to swallow due to weakness. Objective: Vital Signs Temp Pulse Resp BP Pulse Ox 36.2 C 83 20 155/90 H 97 08/23/17 10:00 08/23/17 10:00 08/23/17 10:00 08/23/17 10:00 08/23/17 10:00 Laboratory Results 08/23/17 04:55 08/22/17 08/23/17 08/24/17 05:59 05:59 05:59 Intake Total 2180 3529 Output Total 1510 925 Balance 670 2604 PT 17.6 SEC (12.0-15.0) H 08/19/17 11:15 INR 1.45 (0.83-1.16) H 08/19/17 11:15 CXR: Small-Moderate bilateral effusions. Images reviewed. Physical Exam - Physical Exam General Appearance: alert, mild distress EENT: normal ENT inspection Neck: non-tender, normal inspection Respiratory: decreased breath sounds (bases) Cardiac/Chest: regular rate, rhythm, edema (1-2+ anasarca) Abdomen: normal bowel sounds, non-tender Skin: normal color, warm/dry Extremities: normal inspection Neuro/Psych: alert (speech delayed), motor weakness (diffuse), No oriented x 3 ICD10 Worksheet Patient Problems: Problems Problem Status Onset Altered mental status Acute CHF (congestive heart failure) Acute Hypoxic Acute Respiratory failure Acute Sepsis Acute Chronic back pain Acute Chronic pain Acute Dehydration Acute Hyponatremia Acute Pneumonia Acute Status post cervical arthrodesis Acute Vomiting Acute Weakness Acute
[2017-08-23 11:19] LABS: ALANINE AMINOTRANSFERASE 158 IU/L (9-52); ALBUMIN 3.4 g/dL (3.5-5.0); ALKALINE PHOSPHATASE 74 IU/L (38-126); ASPARTATE AMINOTRANSFERASE 36 IU/L (14-46); BILIRUBIN,TOTAL 0.4 mg/dL (0.1-1.4); BILIRUBIN-CONJUGATED 0.3 mg/dL (0.0-0.5); BILIRUBIN-UNCONJUGATED 0.1 mg/dL (0.0-1.1); TOTAL PROTEIN 5.2 g/dL (6.3-8.2)
[2017-08-23 11:30] LABS: TROPONIN I 0.148 ng/mL (0.000-0.034)
--- NOTE | 2017-08-23 11:38 | PCMIDPN ---
Assessment/Plan: Assessment/Plan: * Septic shock with possible initial urinary etiology: More lethargic today with recurrent hypotension requiring Levophed for blood pressure support and increasing creatinine. Concerning for possible recurrent or new infectious process. Will proceed with CT scan of abdomen and pelvis given earlier report of abdominal pain. Will obtain procalcitonin level. Repeat blood cultures x2 sets. Will continue empiric Zosyn with adjustment for renal insufficiency. Will stop Bactrim given today is day 04/21 in event contributing to rise in creatinine although I suspect this is more likely hemodynamically mediated. Participated in ICU rounds today with multi disciplinary team including sewer pipe offbearer and hospitalist service. Time spent, greater than 35 minutes, of which greater than half was spent in coordination of care related to septic shock with recurrent hypotension and renal insufficiency. 08/23/17 11:35 Subjective: Patient lethargic without focal responses but follows simple commands such as squeezing hands. Levophed initiated for hypotension. Objective: Vital Signs Temp Pulse Resp BP Pulse Ox 36.2 C 83 20 155/90 H 97 08/23/17 10:00 08/23/17 10:00 08/23/17 10:00 08/23/17 10:00 08/23/17 10:00 Laboratory Results 08/23/17 10:56 08/23/17 04:55 08/22/17 08/23/17 08/24/17 05:59 05:59 05:59 Intake Total 2180 3529 Output Total 1510 925 Balance 670 2604 Zosyn # 13 Bactrim # 7 Blood cultures x2 level/11/01 no growth Chest x-ray with bilateral pleural effusions/atelectasis - Physical Exam General Appearance: no apparent distress, non-toxic, other (Somnolent) EENT: No scleral icterus, No conjunctival petechiae Respiratory: No respiratory distress Neck: other (Right IJ triple-lumen catheter without tenderness) Cardiac/Chest: regular rate, rhythm Abdomen: non-tender, No distended ICD10 Worksheet Patient Problems: Problems Problem Status Onset Altered mental status Acute CHF (congestive heart failure) Acute Hypoxic Acute Respiratory failure Acute Sepsis Acute Chronic back pain Acute Chronic pain Acute Dehydration Acute Hyponatremia Acute Pneumonia Acute Status post cervical arthrodesis Acute Vomiting Acute Weakness Acute
[2017-08-23 11:45] LABS: COLOR PALE YELLOW; LEUKOCYTE ESTERASE,URINE NEGATIVE (NEGATIVE); NITRITE,URINE NEGATIVE (NEGATIVE)
--- NOTE | 2017-08-23 11:48 | HOSPPROG ---
Hospitalist Progress Note Assessment/Plan: 66F admitted with confusion. Had septic shock with no clearly identified source , improved on abx. Respiratory failure requiring intubation, was emergently reintubated after a PEA arrest, now extubated. # Acute Hypotension -pt with SBP 70's overnight - received 1L NS bolus and then Levophed gtt re-started - cause of hypotension remains unclear Am Cortisol 16 and NICOM previously checked not fluid responsive- pt without fever since extubation - check CVP/NICOM - check CT abdomen to rule out source for possible sepsis - UA (looking for casts etc) - procalcitonin and blood cultures - holding lasix and continue levophed currently until data back # NICOLE - ddx includes hypovolemia/hypotension - med reaction bactrim/Zosyn - check hemodynamics as above - hold lasix - discuss Abx with ID - check UA # acute hypoxic respiratory failure - assumed previously 2/2 volume; significantly diuresed and had a therapeutic thoracentesis Oxygen saturations 97% on 5 L - now extubated - holding diuresis as above # previous septic shock - no clear source; CT abd (personally reviewed and interpreted) no obvious source unrevealing, Stenotrophomonas in urine thought unlikely source- pleural fluid and ascites NGTD - empiric zosyn (improved her sepsis physiology when stared) and bactrim; - micafungin stopped - discuss current antibiotics # anemia - s/p transfuse 1U PRBC- H&H this am 06/08-> 07/12 this am # thrombocytopenia - sepsis plt 160-> 80 -> 146 - makes HIT much less likely HIT ab pending - cont lovenox - recheck tomorrow # cardiopulmonary arrest s/p CPR # NSVT in setting of arrest - no recurrence since arrest; stop amiodarone # transaminitis/shock liver - improving - recheck liver function today # nutrition - dysphagia # DM1 - A1c 7.6%- BS in 66 this am - pt without sx - may - cont glargine - cont lispro SSI # indwelling thompson- chronic # acute metabolic encephalopathy - much improved # diet- taking limited PO # dispo- > 2MN as requires ongoing care for hypotension and NICOLE I have discussed the case with Dr. Jones -initiating broad work up for hypotension today Subjective: abdominal pain persists - feels very weak Objective: Vital Signs Temp Pulse Resp BP Pulse Ox 36.2 C 83 20 155/90 H 97 08/23/17 10:00 08/23/17 10:00 08/23/17 10:00 08/23/17 10:00 08/23/17 10:00 Laboratory Results 08/23/17 10:56 08/23/17 04:55 08/22/17 08/23/17 08/24/17 05:59 05:59 05:59 Intake Total 2180 3529 Output Total 1510 925 Balance 670 2604 PT 17.6 SEC (12.0-15.0) H 08/19/17 11:15 INR 1.45 (0.83-1.16) H 08/19/17 11:15 - Physical Exam Constitutional: chronically ill appearing Eyes: anicteric sclera Ears, Nose, Mouth, Throat: dry mucous membranes Cardiovascular: regular rate and rhythym Respiratory: no respiratory distress, reduced air movement, inspiratory crackles Gastrointestinal: normoactive bowel sounds, tenderness, No guarding, No rebound Genitourinary: no bladder fullness Skin: warm Musculoskeletal: No asymmetric calves Neurologic: AAOx3 Psychiatric: interacting appropriately Lymph, Heme, Immunologic: no cervical LAD ICD10 Worksheet Patient Problems: Problems Problem Status Onset Altered mental status Acute CHF (congestive heart failure) Acute Hypoxic Acute Respiratory failure Acute Sepsis Acute Chronic back pain Acute Chronic pain Acute Dehydration Acute Hyponatremia Acute Pneumonia Acute Status post cervical arthrodesis Acute Vomiting Acute Weakness Acute
[2017-08-23 12:00] LABS: PROCALCITONIN 0.72 ng/mL (0.02-0.10)
[2017-08-23 12:10] LABS: PLATELET ESTIMATE DECREASED (ADEQ)
[2017-08-23 12:13] LABS: MACROCYTES 1+; POLYCHROMASIA 1+
[2017-08-23 13:00] LABS: PCO2 VENOUS 42 mmHg (40-44); PH VENOUS BLOOD 7.36 (7.31-7.42); PO2 VENOUS 40 mmHg (35-40); TCO2 VENOUS 25 mEq/L (23-27); VEN MEASURED OXYGEN SATURATION 70 % (65-75)
[2017-08-23] MEDS: PIPERACILLIN/TAZO 2.25 GM/DEX 50 ML IV SCH ×3 (13:56→23:51)
[2017-08-23] MEDS ORDERED: INSULIN GLARGINE 100 UNITS/ML SYRINGE SC SCH (16:09)
[2017-08-23] MEDS: ATORVASTATIN CALCIUM 10 MG TAB PO SCH (17:37)
[2017-08-23] MEDS: PANTOPRAZOLE SODIUM 40 MG VIAL IVP SCH (17:47)
[2017-08-23 19:10] LABS: HEPARIN INDUCED ANTIBODY Negative (Negative); HEPARIN-PF4 IgG ANTIBODY ELISA 0.171 OD (<0.400)
[2017-08-24] MEDS: D50W 25 GM/50 ML SYR IVP PRN (03:40)
[2017-08-24] MEDS: PIPERACILLIN/TAZO 2.25 GM/DEX 50 ML IV SCH ×3 (05:44→17:55)
[2017-08-24] MEDS: LEVOTHYROXINE 100 MCG TAB TUBE SCH (05:51)
[2017-08-24 06:13] LABS: ANION GAP 11 mEq/L (8-16); CALCIUM 8.5 mg/dL (8.5-10.4); CARBON DIOXIDE 25 mEq/l (22-31); CHLORIDE 102 mEq/L (97-110); CREATININE 1.3 mg/dL (0.6-1.0); GLOMERULAR FILTRATION RATE 41; GLUCOSE 71 mg/dL (70-100); POTASSIUM 3.9 mEq/L (3.5-5.2); SODIUM 138 mEq/L (134-144)
[2017-08-24 06:28] LABS: HEMATOCRIT 25.4 % (38.0-47.0); HEMOGLOBIN 8.4 g/dL (12.6-16.3); MEAN CELL HEMOGLOBIN 30.1 pg (27.9-34.1); MEAN CELL HEMOGLOBIN CONCENTR. 33.1 g/dL (32.4-36.7); RED BLOOD CELL COUNT 2.79 10^6/uL (4.18-5.33)
[2017-08-24 06:36] LABS: RED CELL DISTRIBUTION WIDTH 21.9 % (11.5-15.2)
[2017-08-24] MEDS: ESCITALOPRAM OXALATE 10 MG TAB PO SCH (07:45)
[2017-08-24] MEDS: ENOXAPARIN 40 MG/0.4 ML SYR SC SCH (08:14)
[2017-08-24] MEDS: INSULIN LISPRO 100 UNIT/ML SC SCH ×3 (08:14→17:56)
[2017-08-24] MEDS: PANTOPRAZOLE SODIUM 40 MG VIAL IVP SCH (08:16)
--- NOTE | 2017-08-24 10:16 | PCMIDPN ---
Assessment/Plan: Assessment/Plan: * Septic shock with possible initial urinary etiology: Clinically improved today with Levophed now at [address] of abdomen and pelvis did not show discrete intra-abdominal etiology for clinical findings. Today is day of Zosyn-will plan to discontinue at close of day with observation subsequently off antibiotic therapy. Continue to follow blood cultures which were repeated yesterday. Will check TSH. Clinical findings and plan were discussed with patient and ICU team on rounds today. 08/24/17 10:13 08/24/17 10:18 Subjective: Patient significantly more interactive today. Complains of abdominal discomfort and need for sugar. Objective: Vital Signs Temp Pulse Resp BP Pulse Ox 35.7 C L 69 21 H 134/70 H 94 08/24/17 08:00 08/24/17 08:00 08/24/17 08:00 08/24/17 08:00 08/24/17 08:00 Laboratory Results 08/24/17 05:50 08/24/17 05:50 08/23/17 08/24/17 08/25/17 05:59 05:59 05:59 Intake Total 3529 1880 Output Total 925 1850 Balance 2604 30 Zosyn # 14 Blood cultures x2 08/23/17 pending Laboratory Tests 08/19/17 08/23/17 05:30 10:56 Procalcitonin 0.72 H Cortisol AM Sample 16.2 - Physical Exam General Appearance: alert, no apparent distress EENT: No scleral icterus, No thrush Respiratory: coarse breath sounds Cardiac/Chest: regular rate, rhythm Extremities: other (Anasarca present) Abdomen: non-tender, distended ICD10 Worksheet Patient Problems: Problems Problem Status Onset Altered mental status Acute CHF (congestive heart failure) Acute Hypoxic Acute Respiratory failure Acute Sepsis Acute Chronic back pain Acute Chronic pain Acute Dehydration Acute Hyponatremia Acute Pneumonia Acute Status post cervical arthrodesis Acute Vomiting Acute Weakness Acute
[2017-08-24] MEDS ORDERED: FUROSEMIDE 40 MG/4 ML VIAL IVP ONE ×2 (11:11→11:45)
--- NOTE | 2017-08-24 11:16 | PDINTPN ---
Anti Air Warfare Operations Officer Progress Note Assessment/Plan: Assessment: 66 F admitted 08/06/17 with septic shock of uncertain etiology (possible UTI) and respiratory failure. She was urgently intubated in ER with difficulty and required a 6.0 ETT. She had persistent hypotension until Zosyn added 08/12 which resulted in substantial improvement. Urine cultures grew stenotrophomonas. * Cardiac arrest on 08/15- per catering staff member, patient was markedly tachypneic and had suboptimal response to diuretics in the afternoon of 08/15. She developed bradycardia and was given atropine, but they had difficulty finding pulses so began CPR. This continued for about 10 minutes during which she received epi x 2 and was intubated with a 6.0 ETT. The intubation resulted in ROSC. I suspect the primary commercial front load driver of this event was respiratory, perhaps related to volume overload. She has not shown serious sequelae from this to date. * Acute respiratory failure with hypoxia- as above, complicated by initial difficult intubation. Did not tolerate weans early on 08/19 and CXR showed large effusion, which was tapped by IR and yielded 1600 ml. She subsequently extubated in the early evening 08/19 and used Bipap overnight; Increased O2 needs today, now on BiPAP. * Septic shock- presumed urinary source with slow improvement. Only positive culture was Stenotrophomonas on urine Cx 08/06. Abdomen was distended and had tap, but no evidence of SBP or peritonitis. No empyema either with thoracentesis. WBC substantially better after adding Zosyn and Bcx remain negative. Changed levaquin to Bactrim per ID on 08/16. WBC down again this morning. On NE @ 1. * DM- glucose control has been suboptimal. She has a long standing debate with her PCP about glucose control and appears excessively concerned about hypoglycemia. Her BS was quite high yesterday, now better on increased SSI. * Transaminitis- continued improving LFTs, last checked 08/19, likely from shock liver. * Decubitus Ulcer: Stage IV. Getting wound care, healing well. * NICOLE- Cr down slightly this AM. Urinalysis negative. * Anemia- H/H up after transfusion Plan: Resume Lasix. Continue BiPAP. Activity as tolerated. OK to take PO, will likely need feeding tube to get nutrition if unable to take adequate PO. D/W Drs. Martin and Rishabh 08/24/17 11:20 Subjective: Doing better this morning, increased energy, started to take some PO. Then had desats a few minutes ago, required BiPAP to improve saturations. Objective: Vital Signs Temp Pulse Resp BP Pulse Ox 35.7 C L 70 18 139/51 H 95 08/24/17 10:00 08/24/17 10:00 08/24/17 10:00 08/24/17 10:00 08/24/17 10:00 Laboratory Results 08/24/17 05:50 08/24/17 05:50 08/23/17 08/24/17 08/25/17 05:59 05:59 05:59 Intake Total 3529 1880 Output Total 925 1850 Balance 2604 30 PT 17.6 SEC (12.0-15.0) H 08/19/17 11:15 INR 1.45 (0.83-1.16) H 08/19/17 11:15 CT Abdomen: Ascites, anasarca, bilateral effusions. Images reviewed. Laboratory Tests 08/16/17 08/23/17 09:30 10:56 AST 36 ALT 158 H Troponin I 0.148 H Albumin 3.4 L Lipase 29 Procalcitonin 0.91 H 0.72 H Laboratory Tests 08/23/17 08/23/17 12:44 12:44 VBG pH 7.36 VBG HCO3 24 VBG Total CO2 25 VBG Lactic Acid 2.0 D Mixed VBG pO2 40 Total O2 Concentration 5.0 Physical Exam - Physical Exam General Appearance: alert, mild distress EENT: normal ENT inspection Neck: normal inspection Respiratory: decreased breath sounds Cardiac/Chest: regular rate, rhythm, edema (3+ anasarca) Abdomen: normal bowel sounds, non-tender Skin: normal color, warm/dry Extremities: normal inspection Neuro/Psych: alert, No oriented x 3, No motor weakness ICD10 Worksheet Patient Problems: Problems Problem Status Onset Altered mental status Acute CHF (congestive heart failure) Acute Hypoxic Acute Respiratory failure Acute Sepsis Acute Chronic back pain Acute Chronic pain Acute Dehydration Acute Hyponatremia Acute Pneumonia Acute Status post cervical arthrodesis Acute Vomiting Acute Weakness Acute
--- NOTE | 2017-08-24 16:35 | HOSPPROG ---
Hospitalist Progress Note Assessment/Plan: 66F admitted with confusion. Had septic shock with no clearly identified source , improved on abx. Respiratory failure requiring intubation, was emergently reintubated after a PEA arrest, now extubated. # acute hypoxic respiratory failure - assumed previously 2/2 volume- acute worsening of sats today - placed on BiPAP and diuresis restarted earlier in hospital stay significantly diuresed and had a therapeutic thoracentesis Oxygen saturations 94% on BiPAP - now extubated - restart diuresis per pulmonary # Acute Hypotension -pt with SBP 70's when off pressors - cause of hypotension remains unclear Am Cortisol 16 and NICOM checked not fluid responsive- pt without fever since extubation CT abdomen (persoanlly reviewed and interpreted) without new source of infection repeat procalcitonin and blood cultures and UA - non-diagnostic - continue pressors as needed # NICOLE - ddx includes hypovolemia/hypotension - med reaction bactrim/Zosyn - continue pressors - zosyn completes today # previous septic shock - no clear source; CT abd (personally reviewed and interpreted) no obvious source unrevealing, Stenotrophomonas in urine thought unlikely source- pleural fluid and ascites NGTD - empiric zosyn (improved her sepsis physiology when stared) and bactrim; - micafungin stopped - discuss current antibiotics # anemia - s/p transfuse 1U PRBC- H&H this am 06/09 this am # thrombocytopenia - sepsis plt 160-> 80 -> 146 - makes HIT much less likely HIT ab pending - cont lovenox - recheck tomorrow # cardiopulmonary arrest s/p CPR # NSVT in setting of arrest - no recurrence since arrest; stop amiodarone # transaminitis/shock liver - improving - recheck liver function today # nutrition - dysphagia # DM1 - A1c 7.6%- BS in 66 this am - pt without sx - may - cont glargine - cont lispro SSI # indwelling thompson- chronic # acute metabolic encephalopathy - much improved # diet- taking limited PO # dispo- > 2MN as requires ongoing care for hypotension and NICOLE I have discussed the case with Dr. Sanchez - pt with rapid pulmonary deterioration CVP - 15 - restarting diuretic Subjective: still with abdominal pain Objective: Vital Signs Temp Pulse Resp BP Pulse Ox 35.7 C L 70 26 H 117/40 L 100 11/09/17 16:00 08/24/17 16:00 08/24/17 16:00 08/24/17 16:00 08/24/17 16:00 Laboratory Results 08/24/17 05:50 08/24/17 05:50 08/23/17 08/24/17 08/25/17 05:59 05:59 05:59 Intake Total 3529 1880 Output Total 925 1850 1400 Balance 2604 30 -1400 PT 17.6 SEC (12.0-15.0) H 08/19/17 11:15 INR 1.45 (0.83-1.16) H 08/19/17 11:15 - Physical Exam Constitutional: chronically ill appearing Eyes: anicteric sclera Ears, Nose, Mouth, Throat: dry mucous membranes Cardiovascular: regular rate and rhythym Respiratory: no respiratory distress, No expiratory wheeze, No inspiratory crackles Gastrointestinal: normoactive bowel sounds Genitourinary: no bladder fullness Skin: warm Musculoskeletal: No asymmetric calves Neurologic: AAOx3 Psychiatric: depressed, flat affect Lymph, Heme, Immunologic: no cervical LAD ICD10 Worksheet Patient Problems: Problems Problem Status Onset Altered mental status Acute CHF (congestive heart failure) Acute Hypoxic Acute Respiratory failure Acute Sepsis Acute Chronic back pain Acute Chronic pain Acute Dehydration Acute Hyponatremia Acute Pneumonia Acute Status post cervical arthrodesis Acute Vomiting Acute Weakness Acute
[2017-08-24] MEDS: ATORVASTATIN CALCIUM 10 MG TAB PO SCH (17:55)
[2017-08-24] MEDS: FUROSEMIDE 40 MG/4 ML VIAL IVP SCH ×2 (17:57→22:26)
[2017-08-25 06:32] LABS: HEMATOCRIT 25.2 % (38.0-47.0); HEMOGLOBIN 8.5 g/dL (12.6-16.3); MEAN CELL HEMOGLOBIN 30.8 pg (27.9-34.1); MEAN CELL HEMOGLOBIN CONCENTR. 33.7 g/dL (32.4-36.7); MEAN CELL VOLUME 91.3 fL (81.5-99.8); RED BLOOD CELL COUNT 2.76 10^6/uL (4.18-5.33)
[2017-08-25 06:33] LABS: RED CELL DISTRIBUTION WIDTH 21.9 % (11.5-15.2)
[2017-08-25 06:58] LABS: ANION GAP 11 mEq/L (8-16); CALCIUM 8.4 mg/dL (8.5-10.4); CARBON DIOXIDE 26 mEq/l (22-31); CHLORIDE 100 mEq/L (97-110); CREATININE 1.2 mg/dL (0.6-1.0); GLOMERULAR FILTRATION RATE 45; GLUCOSE 90 mg/dL (70-100); POTASSIUM 3.5 mEq/L (3.5-5.2); SODIUM 137 mEq/L (134-144)
[2017-08-25] MEDS: LEVOTHYROXINE 100 MCG TAB TUBE SCH (07:26)
[2017-08-25] MEDS: FUROSEMIDE 40 MG/4 ML VIAL IVP SCH ×3 (07:26→20:33)
--- NOTE | 2017-08-25 08:29 | PCMIDPN ---
Assessment/Plan: #Multiple episodes sepsis, unclear etiology possible stenotrophomonas initially identified in urine: now s/p 14d zosyn and Rx steno 15 days levoflox > bactrim now off antibiotics and off pressors times 12 hours. --continue to monitor off antibiotics # multiple loose stools: Continue to monitor patient with a normal white count and afebrile. C diff was 08/20/2017 # mildly elevated creatinine: Stable as compared to yesterday Microbiology 08/06/17 Urine,Catheterized Stenotrophomonas Maltophilia (Levoflox SAMPSON = 2, bactrim SAMPSON <0.5/9) + Five Or More Stebbins Types 08/06/17 Blood Cx (2) neg 08/13/17 Pleural Fluid L - Neg 08/13/17 Peritoneal Fluid -Neg 08/13/17 Pleural Fluid R Neg 08/13/17 blood cx (2) Neg 08/16/17 blood cx (2) neg 08/23/17 blood cx (2) NGTD Care was coordinated with Dr. Arias and Dr. Sanchez Subjective: Patient requesting that her TV turned up. She is requesting her standard home caregiver. She is having multiple soft stools but no associated abdominal pain. She describes her chronic back pain. Objective: Vital Signs Temp Pulse Resp BP Pulse Ox 36 C 68 18 135/42 H 96 08/25/17 06:00 08/25/17 06:00 08/25/17 06:00 08/25/17 06:00 08/25/17 06:00 Laboratory Results 08/25/17 06:15 08/25/17 06:15 08/24/17 08/25/17 08/26/17 05:59 05:59 05:59 Intake Total 1880 1683.5 Output Total 1850 5450 Balance 30 -4406.5 - Physical Exam General Appearance: alert EENT: pale conjunctiva, poor dentition, No scleral icterus Respiratory: other (Decreased breath sounds in the bases), No accessory muscle use Neck: supple Cardiac/Chest: regular rate, rhythm Extremities: pedal edema (Anasarca) Abdomen: non-tender, soft Pelvic Exam: thompson Skin: pallor, No rash Neuro/Psych: alert, normal mood/affect - Line/s other Lines: other (Right IJ), No drainage, No erythema ICD10 Worksheet Patient Problems: Problems Problem Status Onset Altered mental status Acute CHF (congestive heart failure) Acute Hypoxic Acute Respiratory failure Acute Sepsis Acute Chronic back pain Acute Chronic pain Acute Dehydration Acute Hyponatremia Acute Pneumonia Acute Status post cervical arthrodesis Acute Vomiting Acute Weakness Acute
--- NOTE | 2017-08-25 09:12 | HOSPPROG ---
Hospitalist Progress Note Assessment/Plan: DIAGNOSES: -acute septic shock with organ failure, improved now off pressor -s/p in hospital cardiac arrest, with good neurologic outcome and other organs unaffected; NSVT at time -acute resp failure, now off vent doing ok on NC O2; causes include weakness, volume of resuscitation -suspect she may be aspirating -acute UTI, complicated, ? role of this in her sepsis -acute renal failure, hemodynic, now resolved -shock liver -anemia, normal iron studies -diabetes mellitus currently very labile sugars -hyponatremia resolved -chronic debility with wheelchair-bound state She remains critically ill still quite dependent on mechanical ventilator. Yesterday morning her antibiotics were altered to try to better cover the known organisms from culture though there is uncertain tibia the actual pathogenic organism involved. She has now had significant fever since yesterday afternoon approximately 18 hours. Is unclear if this represents response to the change in antibiotics, or whether she may have a new infectious process. She does have suspected UTI has been having quite a lot of plugging of her Dietrich catheter due to significant sediment requiring several rounds of flushing the catheter through the night. PLANS: -continue pulmonary toilet -speech therapy swallowing assessment -at this time will keep off of antibiotics and follow closely -will make adjustments in her insulin therapies again at this time and follow sugars closely -physical occupational therapies reviewed w Dr Sanchez and Dr Babcock seen on multidisc rounds SUBJ: At this point she complains of ongoing dyspnea and nausea with some degree of abdominal pain No flatus or bowel movement past 24 hours No vomiting Denies chills Shortly after swallowing some thickened liquids with the assistance of her nurse , the patient developed worsening hypoxemia and tachypnea. This apparently happened also yesterday. OBJ: vitals: currently stable without fever card monitor: Sinus rhythm with some periods of SVT exam: awake, oriented, mild anxiety extremely weak skin warm and dry, pale resps slighlty fast lungs clear though very diminished BSs heart reg abd soft nondistended no palpable abnormality some edema remains Cultures: Stenotrophomonas in initial urine; mulitple other cultures negative so far Objective: Vital Signs Temp Pulse Resp BP Pulse Ox 36 C 68 18 135/42 H 96 08/25/17 06:00 08/25/17 06:00 08/25/17 06:00 08/25/17 06:00 08/25/17 06:00 Laboratory Results 08/25/17 06:15 08/25/17 06:15 08/24/17 08/25/17 08/26/17 06:59 06:59 06:59 Intake Total 1880 1683.5 Output Total 1850 5450 Balance 30 -3766.5 PT 17.6 SEC (12.0-15.0) H 08/19/17 11:15 INR 1.45 (0.83-1.16) H 08/19/17 11:15 - Time Spent With Patient Time Spent with Patient: greater than 35 minutes Time Spent with Patient: Greater than 35 minutes spent on this patients care, greater than 50% of time spent counseling, educating, and coordinating care regarding the above mentioned plan. ICD10 Worksheet Patient Problems: Problems Problem Status Onset Altered mental status Acute CHF (congestive heart failure) Acute Hypoxic Acute Respiratory failure Acute Sepsis Acute Chronic back pain Acute Chronic pain Acute Dehydration Acute Hyponatremia Acute Pneumonia Acute Status post cervical arthrodesis Acute Vomiting Acute Weakness Acute
[2017-08-25] MEDS: PANTOPRAZOLE SODIUM 40 MG VIAL IVP SCH (09:23)
[2017-08-25] MEDS: ONDANSETRON 4 MG/2 ML VIAL IVP PRN ×2 (09:23→20:28)
[2017-08-25] MEDS: ESCITALOPRAM OXALATE 10 MG TAB PO SCH ×2 (09:23→12:34)
[2017-08-25] MEDS: ENOXAPARIN 40 MG/0.4 ML SYR SC SCH (09:23)
[2017-08-25] MEDS: INSULIN LISPRO 100 UNIT/ML SC SCH (09:24)
[2017-08-25] MEDS ORDERED: PROTOCOL POTASSIUM 1 DOSE MISC PRN (11:21)
[2017-08-25] MEDS ORDERED: POTASSIUM Cl (KCl) 50 ML IV SCH (13:00)
--- NOTE | 2017-08-25 13:14 | PDINTPN ---
Deck Scaler Progress Note Assessment/Plan: Assessment: 66 F admitted 08/06/17 with septic shock of uncertain etiology (possible UTI) and respiratory failure. She was urgently intubated in ER with difficulty and required a 6.0 ETT. She had persistent hypotension until Zosyn added 08/12 which resulted in substantial improvement. Urine cultures grew stenotrophomonas. * Cardiac arrest on 08/15- per staff respiratory therapist, patient was markedly tachypneic and had suboptimal response to diuretics in the afternoon of 08/15. She developed bradycardia and was given atropine, but they had difficulty finding pulses so began CPR. This continued for about 10 minutes during which she received epi x 2 and was intubated with a 6.0 ETT. The intubation resulted in ROSC. I suspect the primary regional driver of this event was respiratory, perhaps related to volume overload. She has not shown serious sequelae from this to date. * Acute respiratory failure with hypoxia- as above, complicated by initial difficult intubation. Did not tolerate weans early on 08/19 and CXR showed large effusion, which was tapped by IR and yielded 1600 ml. She subsequently extubated in the early evening 08/19 and used Bipap overnight; Increased O2 needs yesterday, improved overnight, then worsened again today after eating. Suspect aspiration in addition to bilateral effusions/atelectasis. * Septic shock- presumed urinary source with slow improvement. Only positive culture was Stenotrophomonas on urine Cx 08/06. Abdomen was distended and had tap, but no evidence of SBP or peritonitis. No empyema either with thoracentesis. WBC substantially better after adding Zosyn and Bcx remain negative. Changed levaquin to Bactrim per ID on 08/16. WBC remains low this morning. Off NE. Stopped Zosyn and Bactrim. * DM- glucose control has been suboptimal. She has a long standing debate with her PCP about glucose control and appears excessively concerned about hypoglycemia. Her BS has been quite variable over the last few days, currently mildly elevated. * Decubitus Ulcer: Stage IV. Getting wound care, healing well. * NICOLE- Cr down slightly this AM. Urinalysis negative. * Anemia- H/H stable Plan: Observe off antibiotics. Continue Lasix. Continue BiPAP PRN. NPO. Offered feeding tube, she refused. D/W Drs. Babcock and Hugo 08/25/17 13:26 Subjective: Feels weaker, is back on BiPAP after having fairly rapid oxygen desaturation late mid-day. Objective: Vital Signs Temp Pulse Resp BP Pulse Ox 36 C 69 15 113/40 L 98 08/25/17 12:00 08/25/17 12:00 08/25/17 12:00 08/25/17 12:00 08/25/17 12:00 Laboratory Results 08/25/17 06:15 08/25/17 06:15 08/24/17 08/25/17 08/26/17 05:59 05:59 05:59 Intake Total 1880 1683.5 Output Total 1850 5450 Balance 30 -3766.5 PT 17.6 SEC (12.0-15.0) H 08/19/17 11:15 INR 1.45 (0.83-1.16) H 08/19/17 11:15 Physical Exam - Physical Exam General Appearance: alert, no apparent distress EENT: normal ENT inspection Neck: normal inspection Respiratory: chest non-tender, lungs clear, normal breath sounds Cardiac/Chest: regular rate, rhythm, edema (3+ anasarca) Abdomen: normal bowel sounds, non-tender, soft Skin: normal color, warm/dry Extremities: normal inspection Neuro/Psych: alert, normal mood/affect, oriented x 3 ICD10 Worksheet Patient Problems: Problems Problem Status Onset Altered mental status Acute CHF (congestive heart failure) Acute Hypoxic Acute Respiratory failure Acute Sepsis Acute Chronic back pain Acute Chronic pain Acute Dehydration Acute Hyponatremia Acute Pneumonia Acute Status post cervical arthrodesis Acute Vomiting Acute Weakness Acute
[2017-08-25] MEDS: POTASSIUM Cl (KCl) 100 ML IV SCH ×2 (13:32→14:32)
--- NOTE | 2017-08-25 15:37 | WOCRNPDOC ---
WOCRN Advanced Assessment Note - Skin Integrity Problem, Advanced Assess Right Sacrum Pressure Injury Dressing Type: Allevyn Life, Packing Dressing Description: Clean/Dry, Intact Exudate Amount: Minimal Exudate Color: Yellow Exudate Characteristic(s): Serous Integumentary Issue Intervention: Dressing Changed Carlee Wound Tissue: Blanching, Erythema Carlee Wound Swelling: Mild Wound Bed Color: Jaconita Wound Bed Constitution: Red/Jaconita - Non Granular Tissue, Tunneling (3 o'clock for 3 cm), Undermining (1 o'clock for 0.3cm) Wound Edges: Well Defined Site Measurement - Head-to-Toe Length X Width X Depth (cm): 2.8cmx1.7cmx0.6cm Pressure Injury Stage: Stage 4 Pressure Injury Present on Admit: Yes Skin Integrity Problem Comment: Patient turned to her left side with assist of student Phu. Wound bed cleaned with NS and gauze and then measured. Qtip inserted into tunnel at 3 o'clock and measured. Overall, wound is improving but maintains the appearance of a chronic wound. Carlee wound skin prepped with skin prep. Tunnel packed with Puracyn moistened packing and tail draped in wound bed and covered with an allevyn. Patient tolerated procedure well. Wound care will round again late next week.
--- NOTE | 2017-08-25 17:11 | ASMTCMCOM ---
CM Note CM Note Notes: Patient has been too ill to discuss d/c plan. See 08/22 case management note. Will need to have a discussion with patient about rehab recommendtations and what she is willing to do. CM will follow. Date Signed: 08/25/2017 05:10 PM Electronically Signed By:Chloé Ahmadi LCSW
[2017-08-25] MEDS: ATORVASTATIN CALCIUM 10 MG TAB PO SCH (18:26)
[2017-08-25 18:35] LABS: POTASSIUM 4.4 mEq/L (3.5-5.2)
[2017-08-26] MEDS: FUROSEMIDE 40 MG/4 ML VIAL IVP SCH ×4 (02:08→23:12)
[2017-08-26] MEDS: LEVOTHYROXINE 100 MCG TAB TUBE SCH (02:08)
[2017-08-26] MEDS: ONDANSETRON 4 MG/2 ML VIAL IVP PRN (05:42)
[2017-08-26 05:43] LABS: POTASSIUM 4.4 mEq/L (3.5-5.2)
[2017-08-26] MEDS: PANTOPRAZOLE SODIUM 40 MG VIAL IVP SCH (08:42)
[2017-08-26] MEDS: ENOXAPARIN 40 MG/0.4 ML SYR SC SCH (08:45)
[2017-08-26] MEDS: ESCITALOPRAM OXALATE 10 MG TAB PO SCH (08:46)
[2017-08-26] MEDS ORDERED: MAGNESIUM SULF 1 GM/DEXTROSE 100 ML IV ONE (08:51)
--- NOTE | 2017-08-26 09:23 | HOSPPROG ---
Hospitalist Progress Note Assessment/Plan: DIAGNOSES: -acute septic shock with organ failure, improved now off pressor -s/p in hospital cardiac arrest, with good neurologic outcome and other organs unaffected; NSVT at time -acute resp failure, now off vent doing ok on NC O2; causes include weakness, volume of resuscitation -suspect she may be aspirating -acute UTI, complicated, ? role of this in her sepsis -acute renal failure, hemodynic, now resolved -shock liver -anemia, normal iron studies -diabetes mellitus sugars have been very labile but no lows off insulin past day -hyponatremia resolved -chronic debility with wheelchair-bound state PLANS: -continue pulmonary toilet -continue diuresis -speech therapy swallowing assessment -at this time will keep off of antibiotics and follow closely -will make adjustments in her insulin therapies again at this time and follow sugars closely -physical occupational therapies -? if will need enteral feeding tube reviewed w Dr Sanchez seen on multidisc rounds SUBJ: states she feels slightly better today but overall very weak, tired, with ongoing abd discomfort and dyspnea; somewhat less pain and dyspnea today OBJ: vitals: currently stable without fever I&O ~ 8 L down past 48 hours card monitor: Sinus rhythm with some periods of SVT exam: awake, oriented, mild anxiety extremely weak skin warm and dry, pale resps slighlty fast lungs clear though very diminished BSs heart reg abd soft nondistended no palpable abnormality some edema remains Cultures: Stenotrophomonas in initial urine; mulitple other cultures negative so far Sugars off insulin ranged from 200 last night to 300 this am Objective: Vital Signs Temp Pulse Resp BP Pulse Ox 36.1 C 94 19 111/46 L 98 08/26/17 08:00 08/26/17 08:00 08/26/17 08:00 08/26/17 08:00 08/26/17 08:00 Laboratory Results 08/25/17 06:15 08/26/17 05:15 08/25/17 08/26/17 08/27/17 06:59 06:59 06:59 Intake Total 1683.5 1613 Output Total 5450 5825 Balance -3766.5 -4212 PT 17.6 SEC (12.0-15.0) H 08/19/17 11:15 INR 1.45 (0.83-1.16) H 08/19/17 11:15 - Time Spent With Patient Time Spent with Patient: greater than 35 minutes Time Spent with Patient: Greater than 35 minutes spent on this patients care, greater than 50% of time spent counseling, educating, and coordinating care regarding the above mentioned plan. ICD10 Worksheet Patient Problems: Problems Problem Status Onset Altered mental status Acute CHF (congestive heart failure) Acute Hypoxic Acute Respiratory failure Acute Sepsis Acute Chronic back pain Acute Chronic pain Acute Dehydration Acute Hyponatremia Acute Pneumonia Acute Status post cervical arthrodesis Acute Vomiting Acute Weakness Acute
--- NOTE | 2017-08-26 09:30 | PCMIDPN ---
Assessment/Plan: #Multiple episodes sepsis, unclear etiology possible stenotrophomonas initially identified in urine: now s/p 14d zosyn and Rx steno 15 days levoflox > bactrim now off antibiotics and off pressors for over a day. Patient did aspirate yesterday by report with transient increase in O2 requirement but is back to baseline this morning --continue to monitor off antibiotics --blood cultures from 08/23 continued to be negative continue to monitor until final --id will follow peripherally --consider changing IV access since right IJ has been in place since admission # multiple loose stools: Last BM overnight. Trajectory appears to not be consistent with C diff. Would not test at this point # mildly elevated creatinine: Creatinine not checked this a.m. Microbiology 08/06/17 Urine,Catheterized Stenotrophomonas Maltophilia (Levoflox SAMPSON = 2, bactrim SAMPSON <0.5/9) + Five Or More [place] Types 08/06/17 Blood Cx (2) neg 08/13/17 Pleural Fluid L - Neg 08/13/17 Peritoneal Fluid -Neg 08/13/17 Pleural Fluid R Neg 08/13/17 blood cx (2) Neg 08/16/17 blood cx (2) neg 08/23/17 blood cx (2) NGTD Subjective: Patient continues to complain of back pain. Wants to drink apple juice Objective: Vital Signs Temp Pulse Resp BP Pulse Ox 36.1 C 94 19 111/46 L 98 08/26/17 08:00 08/26/17 08:00 08/26/17 08:00 08/26/17 08:00 08/26/17 08:00 Laboratory Results 08/25/17 06:15 08/26/17 05:15 08/25/17 08/26/17 08/27/17 05:59 05:59 05:59 Intake Total 1683.5 1613 Output Total 5450 5825 Balance -6916.5 -4212 - Physical Exam, afebrile for multiple days General Appearance: alert EENT: pale conjunctiva, poor dentition, No scleral icterus Respiratory: Decreased breath sounds in the bases and scattered coarse rhonchi , No accessory muscle use Neck: supple Cardiac/Chest: regular rate, rhythm Extremities: Anasarca Abdomen: non-tender, soft Pelvic Exam: thompson Skin: pallor, No rash Neuro/Psych: alert, normal mood/affect Right IJ: No drainage, No erythema ICD10 Worksheet Patient Problems: Problems Problem Status Onset Altered mental status Acute CHF (congestive heart failure) Acute Hypoxic Acute Respiratory failure Acute Sepsis Acute Chronic back pain Acute Chronic pain Acute Dehydration Acute Hyponatremia Acute Pneumonia Acute Status post cervical arthrodesis Acute Vomiting Acute Weakness Acute
[2017-08-26] MEDS: INSULIN NPH HUMAN 100 UNITS/ML SYRINGE SC SCH (10:06)
--- NOTE | 2017-08-26 11:04 | PDINTPN ---
Podiatry Teacher Progress Note Assessment/Plan: Assessment: 66 F admitted 08/06/17 with septic shock of uncertain etiology (possible UTI) and respiratory failure. She was urgently intubated in ER with difficulty and required a 6.0 ETT. She had persistent hypotension until Zosyn added 08/12 which resulted in substantial improvement. Urine cultures grew stenotrophomonas. * Cardiac arrest on 08/15- per licensed staff mft, patient was markedly tachypneic and had suboptimal response to diuretics in the afternoon of 08/15. She developed bradycardia and was given atropine, but they had difficulty finding pulses so began CPR. This continued for about 10 minutes during which she received epi x 2 and was intubated with a 6.0 ETT. The intubation resulted in ROSC. I suspect the primary crew truck driver of this event was respiratory, perhaps related to volume overload. She has not shown serious sequelae from this to date. * Acute respiratory failure with hypoxia- as above, complicated by initial difficult intubation. Did not tolerate weans early on 08/19 and CXR showed large effusion, which was tapped by IR and yielded 1600 ml. She subsequently extubated in the early evening 08/19 and used Bipap overnight; Increased O2 needs 08/24, improved overnight, then worsened again after eating 08/25. Suspect aspiration in addition to bilateral effusions/atelectasis. * Septic shock- presumed urinary source with slow improvement. Only positive culture was Stenotrophomonas on urine Cx 08/06. Abdomen was distended and had tap, but no evidence of SBP or peritonitis. No empyema either with thoracentesis. WBC substantially better after adding Zosyn and Bcx remain negative. Changed levaquin to Bactrim per ID on 08/16. WBC remains low this morning. Off NE. Stopped Zosyn and Bactrim. * DM- glucose control has been suboptimal. She has a long standing debate with her PCP about glucose control and appears excessively concerned about hypoglycemia. Her BS has been quite variable over the last few days, currently elevated. * Decubitus Ulcer: Stage IV. Getting wound care, healing well. * NICOLE- Cr improved yesterday, not checked today * Anemia- H/H stable as of 08/25 Plan: Observe off antibiotics. Continue Lasix. Continue BiPAP PRN. NPO. Adjust insulin per hospitalist. Increase activity as tolerated. Check labs. Will try to d/c TLC, replace with PICC or peripheral IV. 08/26/17 11:07 Subjective: Feels better, stronger, less dyspnea Objective: Vital Signs Temp Pulse Resp BP Pulse Ox 36.1 C 90 21 H 117/41 L 95 08/26/17 08:00 08/26/17 10:00 08/26/17 10:00 08/26/17 10:00 08/26/17 10:00 Laboratory Results 08/25/17 06:15 08/26/17 05:15 08/25/17 08/26/17 08/27/17 05:59 05:59 05:59 Intake Total 1683.5 1613 Output Total 5450 5825 Balance -3766.5 -4212 PT 17.6 SEC (12.0-15.0) H 08/19/17 11:15 INR 1.45 (0.83-1.16) H 08/19/17 11:15 Physical Exam - Physical Exam General Appearance: alert, no apparent distress EENT: normal ENT inspection Neck: normal inspection Respiratory: lungs clear, normal breath sounds Cardiac/Chest: regular rate, rhythm, edema (2+ anasarca) Abdomen: normal bowel sounds, non-tender, soft Skin: normal color, warm/dry Extremities: normal inspection Neuro/Psych: alert, normal mood/affect, motor weakness (diffuse) ICD10 Worksheet Patient Problems: Problems Problem Status Onset Altered mental status Acute CHF (congestive heart failure) Acute Hypoxic Acute Respiratory failure Acute Sepsis Acute Chronic back pain Acute Chronic pain Acute Dehydration Acute Hyponatremia Acute Pneumonia Acute Status post cervical arthrodesis Acute Vomiting Acute Weakness Acute
[2017-08-26] MEDS: INSULIN LISPRO 100 UNIT/ML SC SCH ×4 (12:03→16:45)
[2017-08-26 16:58] LABS: ALANINE AMINOTRANSFERASE 141 IU/L (9-52); ALBUMIN 2.9 g/dL (3.5-5.0); ALKALINE PHOSPHATASE 97 IU/L (38-126); ANION GAP 17 mEq/L (8-16); ASPARTATE AMINOTRANSFERASE 40 IU/L (14-46); BILIRUBIN,TOTAL 0.4 mg/dL (0.1-1.4); CALCIUM 8.9 mg/dL (8.5-10.4); CARBON DIOXIDE 22 mEq/l (22-31); CHLORIDE 97 mEq/L (97-110); CREATININE 1.2 mg/dL (0.6-1.0); GLOMERULAR FILTRATION RATE 45; GLUCOSE 217 mg/dL (70-100); POTASSIUM 4.2 mEq/L (3.5-5.2); SODIUM 136 mEq/L (134-144); TOTAL PROTEIN 4.8 g/dL (6.3-8.2)
[2017-08-26] MEDS: D50W 25 GM/50 ML SYR IVP PRN (21:23)
[2017-08-26] MEDS: ATORVASTATIN CALCIUM 10 MG TAB PO SCH (21:42)
[2017-08-26 21:50] LABS: POTASSIUM 3.5 mEq/L (3.5-5.2)
[2017-08-27] MEDS ORDERED: POTASSIUM CL 20 MEQ TAB PO ONE (04:00)
[2017-08-27 05:16] LABS: % IMMATURE GRANULYOCYTES 0.3 % (0.0-1.1); ABSOLUTE IMMATURE GRANULOCYTES 0.02 10^3/uL (0.00-0.10); ADD DIFF? NO; ADD MORPH? YES; ADD SCAN? NO; ATYPICAL LYMPHOCYTE FLAG 0 (0-99); FRAGMENT RBC FLAG 0 (0-99); HEMATOCRIT 26.7 % (38.0-47.0); HEMOGLOBIN 9.1 g/dL (12.6-16.3); LEFT SHIFT FLG 0 (0-99); LIPEMIA HEMOLYSIS FLAG 90 (0-99); MEAN CELL HEMOGLOBIN 31.2 pg (27.9-34.1); MEAN CELL HEMOGLOBIN CONCENTR. 34.1 g/dL (32.4-36.7); MEAN CELL VOLUME 91.4 fL (81.5-99.8); MEAN PLATELET VOLUME 10.3 fL (8.7-11.7); PLATELET CLUMPS FLAG 0 (0-99); PLATELET COUNT 138 10^3/uL (150-400); RED BLOOD CELL COUNT 2.92 10^6/uL (4.18-5.33)
[2017-08-27 05:22] LABS: RED CELL DISTRIBUTION WIDTH 21.2 % (11.5-15.2)
[2017-08-27 06:01] LABS: ELLIPTOCYTES 1+; MACROCYTES 1+; PLATELET ESTIMATE DECREASED (ADEQ)
[2017-08-27 06:56] LABS: ALANINE AMINOTRANSFERASE 126 IU/L (9-52); ALBUMIN 2.9 g/dL (3.5-5.0); ALKALINE PHOSPHATASE 89 IU/L (38-126); ANION GAP 11 mEq/L (8-16); ASPARTATE AMINOTRANSFERASE 36 IU/L (14-46); BILIRUBIN,TOTAL 0.3 mg/dL (0.1-1.4); CALCIUM 8.8 mg/dL (8.5-10.4); CARBON DIOXIDE 28 mEq/l (22-31); CHLORIDE 99 mEq/L (97-110); CREATININE 1.1 mg/dL (0.6-1.0); GLOMERULAR FILTRATION RATE 50; GLUCOSE 92 mg/dL (70-100); POTASSIUM 3.3 mEq/L (3.5-5.2); SODIUM 138 mEq/L (134-144); TOTAL PROTEIN 4.6 g/dL (6.3-8.2)
[2017-08-27] MEDS: LEVOTHYROXINE 100 MCG TAB TUBE SCH (07:50)
[2017-08-27] MEDS: FUROSEMIDE 40 MG/4 ML VIAL IVP SCH (07:50)
[2017-08-27] MEDS: ENOXAPARIN 40 MG/0.4 ML SYR SC SCH (08:44)
[2017-08-27] MEDS: PANTOPRAZOLE SODIUM 40 MG VIAL IVP SCH (08:45)
[2017-08-27] MEDS: INSULIN NPH HUMAN 100 UNITS/ML SYRINGE SC SCH ×2 (08:45→08:50)
[2017-08-27] MEDS: INSULIN LISPRO 100 UNIT/ML SC SCH ×6 (08:46→18:20)
[2017-08-27] MEDS: ESCITALOPRAM OXALATE 10 MG TAB PO SCH (09:08)
--- NOTE | 2017-08-27 10:02 | HOSPPROG ---
Hospitalist Progress Note Assessment/Plan: Chronically debilitated, mostly wheelchair bound woman with hx of prior critical illnesses, comes in with severe sepsis (unknown source) and acute resp failure requiring mechanical vent, further complicated by in hospital cardiac arrest, is now extubated and doing well on NC O2 with baseline neurologic function. DIAGNOSES: -acute septic shock with organ failure, improved now off pressor -s/p in hospital cardiac arrest, with good neurologic outcome and other organs unaffected; NSVT at time -acute resp failure, now off vent doing ok on NC O2; causes include weakness, volume of resuscitation -suspect she may be aspirating -acute UTI, complicated, ? role of this in her sepsis -acute renal failure, hemodynic, now resolved -shock liver -anemia, normal iron studies -diabetes mellitus previous severe lability of sugars here now resolved on a regimen of AM only NPH and tid humalog: Note that she has not had any nutrition for a while, and if/when she either can eat or accepts a feeding tube her insulin requirements may change -hyponatremia resolved -severe chronic weakness and deconditioning with wheelchair-bound state PLANS: -continue pulmonary toilet -continue diuresis though likely getting close to euvolemic -speech therapy swallowing assessments ongoing -continue off of antibiotics and follow closely (finished full course of empiric therapy for her sepsis) -follow sugars closely, further adjustments in her insulin as needed (currently on AM NPH and tid humalog which has so far eliminated the severe highs and lows she was having, Note that she has not had any nutrition for a while, and if/ when she either can eat or accepts a feeding tube her insulin requirements may change) -physical occupational therapies -? if will need enteral feeding tube reviewed w Dr Sanchez seen on multidisc rounds SUBJ: c/o ongoing cough, abd pain, weakness essentially no change in sxs OBJ: vitals: currently stable without fever I&O continues with large volume diuresis card monitor: Sinus rhythm exam: awake, oriented, mild anxiety, watching movie on TV extremely weak skin warm and dry, pale resps not labored lungs mostly clear though very diminished BSs, a few rhonchi at bases heart reg abd soft nondistended no palpable abnormality still mild edema but decreased Cultures: Stenotrophomonas in initial urine; mulitple other cultures negative so far Sugars now in good range on current insulin Objective: Vital Signs Temp Pulse Resp BP Pulse Ox 35.9 C L 93 24 H 140/45 H 97 08/27/17 07:37 08/27/17 07:37 08/27/17 07:37 08/27/17 07:37 08/27/17 07:37 Laboratory Results 08/27/17 04:45 08/27/17 04:45 08/26/17 08/27/17 08/28/17 06:59 06:59 06:59 Intake Total 1613 589 Output Total 5825 3200 600 Balance -4212 -2611 -600 PT 17.6 SEC (12.0-15.0) H 08/19/17 11:15 INR 1.45 (0.83-1.16) H 08/19/17 11:15 - Time Spent With Patient Time Spent with Patient: greater than 35 minutes Time Spent with Patient: Greater than 35 minutes spent on this patients care, greater than 50% of time spent counseling, educating, and coordinating care regarding the above mentioned plan. ICD10 Worksheet Patient Problems: Problems Problem Status Onset Altered mental status Acute CHF (congestive heart failure) Acute Hypoxic Acute Respiratory failure Acute Sepsis Acute Chronic back pain Acute Chronic pain Acute Dehydration Acute Hyponatremia Acute Pneumonia Acute Status post cervical arthrodesis Acute Vomiting Acute Weakness Acute
--- NOTE | 2017-08-27 11:20 | PDINTPN ---
Foreign Broadcast Specialist Progress Note Assessment/Plan: Assessment: 66 F admitted 08/06/17 with septic shock of uncertain etiology (possible UTI) and respiratory failure. She was urgently intubated in ER with difficulty and required a 6.0 ETT. She had persistent hypotension until Zosyn added 08/12 which resulted in substantial improvement. Urine cultures grew stenotrophomonas. * Cardiac arrest on 08/15- per public health staff nurse, patient was markedly tachypneic and had suboptimal response to diuretics in the afternoon of 08/15. She developed bradycardia and was given atropine, but they had difficulty finding pulses so began CPR. This continued for about 10 minutes during which she received epi x 2 and was intubated with a 6.0 ETT. The intubation resulted in ROSC. I suspect the primary racing driver of this event was respiratory, perhaps related to volume overload. She has not shown serious sequelae from this to date. * Acute respiratory failure with hypoxia- as above, complicated by initial difficult intubation. Did not tolerate weans early on 08/19 and CXR showed large effusion, which was tapped by IR and yielded 1600 ml. She subsequently extubated in the early evening 08/19 and used Bipap overnight; Increased O2 needs 08/24, improved overnight, then worsened again after eating 08/25. Suspect aspiration in addition to bilateral effusions/atelectasis. Oxygen needs remain fairly low. Still using BiPAP at night. * Septic shock- presumed urinary source with slow improvement. Only positive culture was Stenotrophomonas on urine Cx 08/06. Abdomen was distended and had tap, but no evidence of SBP or peritonitis. No empyema either with thoracentesis. WBC substantially better after adding Zosyn and Bcx remain negative. Changed levaquin to Bactrim per ID on 08/16. WBC remains low this morning. Off NE. Stopped Zosyn and Bactrim. * DM- glucose control has been suboptimal. She has a long standing debate with her PCP about glucose control and appears excessively concerned about hypoglycemia. Her BS has been quite variable over the last few days, currently elevated. * Decubitus Ulcer: Stage IV. Getting wound care, healing well. * NICOLE- Cr normal, down slightly today. * Anemia- H/H stable last several days * Tachycardia: Not ST. ? AF earlier. No Sx Plan: Observe off antibiotics. Continue Lasix. Continue BiPAP PRN. NPO and get videoswallow. Check abdominal xray, lipase. Adjust insulin per hospitalist. Increase activity as tolerated. Will try to d/c TLC, replace with PICC or peripheral IV. 08/27/17 11:24 Subjective: Feels "terrible". C/O pain in her stomach, as well as nausea. Objective: Vital Signs Temp Pulse Resp BP Pulse Ox 35.9 C L 93 24 H 140/45 H 97 08/27/17 07:37 08/27/17 07:37 08/27/17 07:37 08/27/17 07:37 08/27/17 07:37 Laboratory Results 08/27/17 04:45 08/27/17 04:45 08/26/17 08/27/17 08/28/17 05:59 05:59 05:59 Intake Total 1613 589 Output Total 5877 3200 600 Balance -4212 -2611 -600 PT 17.6 SEC (12.0-15.0) H 08/19/17 11:15 INR 1.45 (0.83-1.16) H 08/19/17 11:15 Physical Exam - Physical Exam General Appearance: alert, mild distress EENT: normal ENT inspection Neck: normal inspection Respiratory: decreased breath sounds (bases) Cardiac/Chest: edema (2+ LE), tachycardia (regular) Abdomen: normal bowel sounds, non-tender Skin: normal color, warm/dry Extremities: normal inspection Neuro/Psych: alert, normal mood/affect, No motor weakness ICD10 Worksheet Patient Problems: Problems Problem Status Onset Altered mental status Acute CHF (congestive heart failure) Acute Hypoxic Acute Respiratory failure Acute Sepsis Acute Chronic back pain Acute Chronic pain Acute Dehydration Acute Hyponatremia Acute Pneumonia Acute Status post cervical arthrodesis Acute Vomiting Acute Weakness Acute
[2017-08-27] MEDS ORDERED: FUROSEMIDE 40 MG/4 ML VIAL IVP SCH (11:29)
[2017-08-27] MEDS: METOPROLOL TARTRATE 5 MG/5 ML INJ IVP SCH ×2 (12:44→18:16)
[2017-08-27] MEDS: POTASSIUM Cl (KCl) 50 ML IV SCH ×3 (12:44→15:01)
[2017-08-27] MEDS: FUROSEMIDE 20 MG/2 ML VIAL IVP SCH ×2 (15:00→21:19)
[2017-08-27] MEDS: ATORVASTATIN CALCIUM 10 MG TAB PO SCH (17:45)
[2017-08-27 19:20] LABS: POTASSIUM 3.7 mEq/L (3.5-5.2)
[2017-08-27] MEDS: ENOXAPARIN 60 MG/0.6 ML SYR SC SCH (21:19)
[2017-08-28] MEDS: PROMETHAZINE HCL 25 MG/ML INJ IVP PRN ×2 (00:05→21:17)
[2017-08-28] MEDS: METOPROLOL TARTRATE 5 MG/5 ML INJ IVP SCH ×5 (00:06→23:00)
[2017-08-28] MEDS ORDERED: POTASSIUM Cl (KCl) 50 ML IV ONE (01:04)
[2017-08-28] MEDS: LEVOTHYROXINE 100 MCG TAB TUBE SCH (06:34)
[2017-08-28] MEDS: FUROSEMIDE 20 MG/2 ML VIAL IVP SCH ×3 (06:34→21:10)
[2017-08-28 06:56] LABS: ALANINE AMINOTRANSFERASE 118 IU/L (9-52); ALBUMIN 3.3 g/dL (3.5-5.0); ALKALINE PHOSPHATASE 119 IU/L (38-126); ANION GAP 14 mEq/L (8-16); ASPARTATE AMINOTRANSFERASE 52 IU/L (14-46); BILIRUBIN,TOTAL 0.6 mg/dL (0.1-1.4); CARBON DIOXIDE 24 mEq/l (22-31); CHLORIDE 98 mEq/L (97-110); GLOMERULAR FILTRATION RATE 55; GLUCOSE 174 mg/dL (70-100); POTASSIUM 4.8 mEq/L (3.5-5.2); SODIUM 136 mEq/L (134-144); TOTAL PROTEIN 5.1 g/dL (6.3-8.2)
--- NOTE | 2017-08-28 08:41 | HOSPPROG ---
Hospitalist Progress Note Assessment/Plan: #Acute hypoxic resp failure: BL effusions on CXR today. Cont diuresis, Bipap at night #Septic shock: presumed urinary with Stenotrophomonas #Cardiac arrest: 08/15 #Diabetes: uncontrolled, but patient refusing, bc she is concerned about hypoglycemia #Dysphagia: can have pureed with sitting straight up, but cannot tolerate due back pain. Needs PEG tuba #Decubitus ulcer: wound care #NICOLE: resolved #Normocytic anemia: H/H stable #Diet: NPO #DVT ppx: Lovenox #Disp: warrants inpt admission requiring intermittent Biap, diuresis. Will benefit from LTAC Subjective: refused insulin this morning. Does not want to go to LTAC. Feels weak Objective: Vital Signs Temp Pulse Resp BP Pulse Ox 36.5 C 83 16 125/35 H 100 08/28/17 04:00 08/28/17 06:34 08/28/17 04:00 08/28/17 06:34 08/28/17 04:00 Laboratory Results 08/27/17 04:45 08/28/17 06:10 08/27/17 08/28/17 08/29/17 05:59 05:59 05:59 Intake Total 589 1300 Output Total 3200 5125 Balance -2611 -3825 PT 17.6 SEC (12.0-15.0) H 08/19/17 11:15 INR 1.45 (0.83-1.16) H 08/19/17 11:15 - Physical Exam Constitutional: other (fatgiued) Eyes: PERRL Ears, Nose, Mouth, Throat: moist mucous membranes, hearing normal Cardiovascular: regular rate and rhythym, no murmur, rub, or gallop Respiratory: other (decreased BS bilateral bases) Gastrointestinal: normoactive bowel sounds Genitourinary: no bladder fullness Skin: warm Musculoskeletal: generalized weakness Neurologic: AAOx3, CN II-XII Intact Psychiatric: depressed, flat affect ICD10 Worksheet Patient Problems: Problems Problem Status Onset Altered mental status Acute CHF (congestive heart failure) Acute Hypoxic Acute Respiratory failure Acute Sepsis Acute Chronic back pain Acute Chronic pain Acute Dehydration Acute Hyponatremia Acute Pneumonia Acute Status post cervical arthrodesis Acute Vomiting Acute Weakness Acute
--- NOTE | 2017-08-28 09:21 | PDINTPN ---
Finishing Supervisor Plastic Sheets Progress Note Assessment/Plan: Assessment/Plan: * Cardiac arrest on 08/15- * Acute respiratory failure with hypoxia- Still using BiPAP at night. * Septic shock- resolved * DM- glucose control has been suboptimal. She has a long standing debate with her PCP about glucose control and appears excessively concerned about hypoglycemia. Her BS has been quite variable over the last few days, currently elevated. * Decubitus Ulcer: Stage IV. Getting wound care, healing well. * NICOLE- Cr normal, down slightly today. * Anemia- H/H stable last several days * Tachycardia: Not ST. ? AF earlier. No Sx * Disposition-likely ready for LTAC Subjective: Awake and alert. Comfortable. Objective: Vital Signs Temp Pulse Resp BP Pulse Ox 36.5 C 83 16 125/35 H 100 08/28/17 04:00 08/28/17 06:34 08/28/17 04:00 08/28/17 06:34 08/28/17 04:00 Laboratory Results 08/27/17 04:45 08/28/17 06:10 08/27/17 08/28/17 08/29/17 05:59 05:59 05:59 Intake Total 589 1300 Output Total 3200 5125 Balance -2611 -3825 PT 17.6 SEC (12.0-15.0) H 08/19/17 11:15 INR 1.45 (0.83-1.16) H 08/19/17 11:15 Physical Exam - Physical Exam General Appearance: alert, no apparent distress EENT: PERRL/EOMI, normal ENT inspection Neck: non-tender, full range of motion Respiratory: chest non-tender, lungs clear, crackles (few) Cardiac/Chest: normal peripheral pulses, regular rate, rhythm Abdomen: normal bowel sounds, non-tender, soft Pelvic Exam: deferred Rectal: deferred Skin: normal color, warm/dry ICD10 Worksheet Patient Problems: Problems Problem Status Onset Altered mental status Acute CHF (congestive heart failure) Acute Hypoxic Acute Respiratory failure Acute Sepsis Acute Chronic back pain Acute Chronic pain Acute Dehydration Acute Hyponatremia Acute Pneumonia Acute Status post cervical arthrodesis Acute Vomiting Acute Weakness Acute
[2017-08-28] MEDS: INSULIN LISPRO 100 UNIT/ML SC SCH ×5 (10:04→17:49)
[2017-08-28] MEDS: INSULIN NPH HUMAN 100 UNITS/ML SYRINGE SC SCH (10:05)
[2017-08-28] MEDS: ESCITALOPRAM OXALATE 10 MG TAB PO SCH (10:05)
[2017-08-28] MEDS: ENOXAPARIN 60 MG/0.6 ML SYR SC SCH ×2 (10:18→21:10)
[2017-08-28] MEDS: ONDANSETRON 4 MG/2 ML VIAL IVP PRN ×2 (10:18→17:33)
[2017-08-28] MEDS: PANTOPRAZOLE SODIUM 40 MG VIAL IVP SCH (10:18)
--- NOTE | 2017-08-28 14:13 | ASMTCMCOM ---
CM Note CM Note Notes: Behavioral Health Care Manager and Hospitalist feel that patient will be better served in an LTAC at this time. wound is better. she has been NPO to have a video swallow eval today to determine how to provide nurtrition. Spoke to patient and who were reluctant at first to leave [facility], but want to do what's best. Referrals sent to [facility], [place], [place]. to visit [facility], which would be closer in terms of their home address. Date Signed: 08/28/2017 02:12 PM Electronically Signed By:Naomy Hoyos LCSW
[2017-08-28] MEDS: ALBUTEROL 3 ML DEYVIAL IH PRN (14:27)
--- NOTE | 2017-08-28 15:36 | ASMTCMCOM ---
CM Note CM Note Notes: concerned that [facility] is in the opposite travel direction for him. He works in [place]. Gave him a list for LTAC's and their locations-3 are in [place]. [place], [place] and [facility] coming tomorrow to talk with patient and about their programs. Patient failed her video swallow eval-aspirated, so will need a feeding tube. Date Signed: 08/28/2017 03:36 PM Electronically Signed By:Naomy Hoyos LCSW
[2017-08-29] MEDS: LEVOTHYROXINE 100 MCG TAB TUBE SCH (05:04)
[2017-08-29] MEDS: FUROSEMIDE 20 MG/2 ML VIAL IVP SCH ×3 (05:07→21:29)
[2017-08-29] MEDS: PROMETHAZINE HCL 25 MG/ML INJ IVP PRN ×3 (05:08→18:38)
[2017-08-29] MEDS: METOPROLOL TARTRATE 5 MG/5 ML INJ IVP SCH ×2 (05:08→11:40)
[2017-08-29 05:35] LABS: HEMATOCRIT 30.5 % (38.0-47.0); MEAN CELL HEMOGLOBIN 30.8 pg (27.9-34.1); MEAN CELL HEMOGLOBIN CONCENTR. 32.8 g/dL (32.4-36.7); MEAN CELL VOLUME 93.8 fL (81.5-99.8); RED BLOOD CELL COUNT 3.25 10^6/uL (4.18-5.33)
[2017-08-29 05:42] LABS: RED CELL DISTRIBUTION WIDTH 20.4 % (11.5-15.2)
--- NOTE | 2017-08-29 05:50 | GCON ---
[f rep st] CONSULTATION DATE OF CONSULTATION: 08/28/2017 REFERRING PHYSICIAN: Lita Arambula MD Dear Dr. Arambula, Thank you very kindly for asking me to evaluate Mrs. Lenz in consultation for a chief complaint of as piration pneumonia and, what is believed to be, oropharyngeal dysphagia. She is a complicated 66-yea r-old female, who was admitted on August 06 for altered mental status and recently had urosepsis wit h hypotension and respiratory failure requiring intubation. She recently had a speech and swallow ev aluation today, which showed silent aspiration. It is believed that she is unsafe to tolerate oral n utrition, hydration, and medication at this time. I am asked to assist with further evaluation and m anagement of her feeding difficulty, likely oropharyngeal dysphagia related to multiple comorbidities and medical problems, and recent urosepsis. PAST MEDICAL HISTORY: Significant for: 1. Diabetes mellitus. 2. Chronic opiate dependency due to chronic pain syndrome. 3. Wheelchair-bound with urinary retention and a chronic Dietrich. 4. Nephrolithiasis. 5. Urosepsis with recent respiratory failure. 6. Hypothyroidism. 7. Depression. 8. Chronic sacral decubitus with wound. 9. Hyponatremia. 10. Hyperlipidemia. 11. Recent aspiration pneumonia complicated by pleural effusions. 12. Ascites, thought to be related to anasarca. PAST SURGICAL HISTORY: 1. Cervical fusion. 2. Lumbar laminectomy with fusions. 3. Indwelling Dietrich placement. 4. Cholecystectomy. 5. Recent thoracentesis. 6. Recent intubation with mechanical ventilation. SOCIAL HISTORY: She is . Her is the primary supportive healthcare educator. History of tobac co and alcohol are negative. Chronic opiate dependence. ALLERGIES: Flagyl and codeine. FAMILY HISTORY: Coronary disease in her father and diabetes mellitus in her mom. HOME MEDICATIONS: Synthroid, baclofen, multivitamin, oxycodone IR, Lexapro, insulin, Phenergan, simv astatin, Bactrim, morphine, trazodone. REVIEW OF SYSTEMS: CONSTITUTIONAL: Reports feeling generally fatigued. Feels "ill," general malais e. No appetite. HEENT: Reports chronic neck pain. She feels like her mouth is dry. She has a hea dache. PULMONARY: She reports cough. She does feel a little short of breath. CARDIOVASCULAR: No chest pain or palpitations. GI: No active diarrhea or abdominal pain. No heartburn. No dysphagia. She says she does not notice that she aspirates with swallowing. RHEUMATOLOGIC: Diffuse low back and cervical pain. Diffuse joint pain but no swelling. GENITOURINARY: She says there is a Dietrich in place that does not bother her too much. NEUROLOGIC: She says she feels weak and tired. Sometimes a bit dizzy. She denies any focal paresthesias. PSYCHIATRIC: Depression. Some anxiety. She has difficulty sleeping. PHYSICAL EXAMINATION: VITAL SIGNS: Blood pressure is 129/44, pulse is 83, respirations are 25, oxyg enation is 98% but on 5 liters. Temperature is 37.1. GENERAL: A chronically ill-appearing female. Alert, able to cooperate and answer questions. HEENT: She has a face mask and nasal. She has a fa ce mask on for oxygen. There is a right-sided central line in the neck. NECK: Supple. No tenderne ss to palpation in the posterior cervix. No jugular venous distention. PULMONARY: Diminished breat h sounds. Coarse breathing throughout. Scant rales in the base. CARDIOVASCULAR: Regular rate and rhythm without gallop. There is a systolic murmur on the left border. ABDOMEN: Soft. There is a r ight lower quadrant scar that as well-healed. No organomegaly. No distention no obvious ascites. B owel sounds are slightly hypoactive. GENITOURINARY: There is a Dietrich. EXTREMITIES: There is no ov ert edema. SKIN: Pale but warm. No diaphoresis. NEURO: The patient is alert to person and place. Not time. She is able to answer questions appropriately. Her speech is fluent and normal. She as ks questions appropriately. NEURO: Nonfocal exam. DATABASE: Includes the following: White blood count 5.9, hematocrit 26.7, platelets 138. INR is 1. 45 with a PT of 17.6. Sodium is 136, potassium 4.8, chloride 98, BUN 14, creatinine 1.0, glucose 174 , AST is 52, ALT 118, alkaline phosphatase 119, total protein 5.1, albumin 3.3. Chest x-ray, 017 shows the cardiac silhouette is normal in size. There are moderate bilateral pleural effusions. Right internal jugular line is in the superior vena cava. No pneumothorax. There is a cervical fus ion plate. There is a thoracolumbar posterior fusion. There is a right lower lobe opacity abdominal x-ray August 27, 2017 shows extensive lower thoracic lumbar and sacral hardware, orthopedic hardwa re in the left femur, left iliac crest bone harvesting site is seen, anasarca and ascites is present. Nondistended air filled loops of bowel. No free air. No mechanical obstruction. CT of the abdome n and pelvis, August 23, 2017, shows large bilateral pleural effusions with lower lobe atelectasis, diffuse anasarca, ileus without obstruction. Video and speech swallow, August 28, 2017, is reviewe d and shows silent aspiration with thin and thick consistencies. IMPRESSION: 1. Aspiration pneumonia. 2. Oropharyngeal dysphagia. 3. Recent urosepsis with cardiopulmonary arrest. 4. Ventilatory failure. Now improving, but still requiring significant oxygen support and continuou s positive airway pressure. 5. Ascites. 6. Chronic pain related to cervical, thoracic, and lumbar degenerative disease with surgical interve ntion. 7. Diabetes. RECOMMENDATIONS: 1. If she has a large or moderate volume of ascites, a PEG tube should not be placed as this could l eak and cause problems with healing and develop a chronically draining nonhealing ascites tract. 2. Dobhoff feeding would be the safest approach in the short term to let her recover for a longer pe riod of time and see if she is actually able to eat and swallow again. Prior to her admission in july, she was eating and drinking at home normally and she is not believed to have a stroke or o ther event that should be causing the oropharyngeal dysphagia. 3. It is possible that she was aspirating more chronically perhaps due to her medical comorbidities and the use of narcotics and muscle relaxers, but this is not known. 4. I presented options of a Dobhoff feeding tube to Mrs. Lenz, but she is not certain she would acce pt this. 5. I will start with obtaining an abdominal ultrasound. If she has a moderate to large volume ascit es, then I would recommend either TPN or Dobhoff feeds to her at that point. 6. If, however, her ultrasound shows only a minimal amount of fluid, as she has diuresed quite subst antially over the last few days, then a gastrostomy feeding tube. Would be reasonable while she dutch vers. 7. The bigger question, at that point, would be the proper and best method of placement. She has si gnificant respiratory illness and is very tenuous in this regard, and I do not know if she would tole rate anesthesia that would be necessary for endoscopic placement of the feeding tube. It is possible a radiological approach might be safer for her. 8. For now, I will hold her Lovenox, keep her n.p.o., and discuss this further after the ultrasound results with her family to decide about the best way to provide nutrition, hydration, and medication while we are allowing her to strengthen and recover, with the hope that she can again begin oral nutr ition and intake. 9. She will require speech therapy follow up, however, and if we do place a gastrostomy she will not be able to eat or drink by mouth until she is improved and cleared by a speech and swallow study to be able to safely eat and drink. 10. Further, I will discuss this also with the hospitalist team and further recommendations to karen lofton /[id number]/MODL
[2017-08-29 05:58] LABS: ALANINE AMINOTRANSFERASE 103 IU/L (9-52); ALBUMIN 3.2 g/dL (3.5-5.0); ALKALINE PHOSPHATASE 109 IU/L (38-126); ANION GAP 21 mEq/L (8-16); ASPARTATE AMINOTRANSFERASE 44 IU/L (14-46); BILIRUBIN,TOTAL 0.6 mg/dL (0.1-1.4); CALCIUM 8.7 mg/dL (8.5-10.4); CARBON DIOXIDE 20 mEq/l (22-31); CHLORIDE 98 mEq/L (97-110); GLOMERULAR FILTRATION RATE 55; GLUCOSE 205 mg/dL (70-100); MAGNESIUM 1.4 mg/dL (1.6-2.3); SODIUM 139 mEq/L (134-144); TOTAL PROTEIN 4.8 g/dL (6.3-8.2)
[2017-08-29] MEDS ORDERED: MAGNESIUM SULF 1 GM/DEXTROSE 100 ML IV ONE (08:20)
--- NOTE | 2017-08-29 08:45 | SOAPPROG ---
SOAP Progress Note Assessment/Plan: Assessment: 1. Oropharyngeal dysphagia 2. Recurrent aspiration pneumonia 3. Malnutrition 4. Chronic pain Plan: 1. U/S without ascites so I feel it is safe to place a PEG tube endoscopically 2. Patient and agreeable to feeding tube placement. Extensive discussion of risks and benefits were reviewed with them. All questions answered. 3. Patient has been NPO and lovenox held 4. Will give pre-procedure antibiotics 5. Anesthesia consult for PEG assistance 08/29/17 08:41 Subjective: Dysphagia Oropharyngeal dysphagia continues. U/S without any significant ascites. Failed swallow study with silent aspiration. Also has failed several bedside challenges. Objective: Vital Signs Temp Pulse Resp BP Pulse Ox 39 C H 87 16 132/47 H 100 08/29/17 07:39 08/29/17 07:39 08/29/17 07:39 08/29/17 05:08 08/29/17 07:39 Microbiology 08/23/17 16:30 Blood Culture - Final Blood 08/23/17 14:05 Blood Culture - Final Blood Laboratory Results 08/29/17 05:24 08/29/17 05:24 08/28/17 08/29/17 08/30/17 05:59 05:59 05:59 Intake Total 1300 1130 Output Total 5125 2250 Balance -3825 -1120 PT 17.6 SEC (12.0-15.0) H 08/19/17 11:15 INR 1.45 (0.83-1.16) H 08/19/17 11:15 Physical Exam - Physical Exam General Appearance: mild distress, thin EENT: pharynx normal Neck: normal inspection, No carotid bruit Respiratory: decreased breath sounds, crackles, rhonchi Cardiac/Chest: regular rate, rhythm, systolic murmur Abdomen: normal bowel sounds, non-tender, soft, No guarding, No rebound, No ascites Skin: warm/dry, pallor ICD10 Worksheet Patient Problems: Problems Problem Status Onset Altered mental status Acute CHF (congestive heart failure) Acute Hypoxic Acute Respiratory failure Acute Sepsis Acute Chronic back pain Acute Chronic pain Acute Dehydration Acute Hyponatremia Acute Pneumonia Acute Status post cervical arthrodesis Acute Vomiting Acute Weakness Acute
[2017-08-29] MEDS ORDERED: ceFAZolin 2 GM/DEXTROSE 100 ML IV ONE (08:50)
[2017-08-29] MEDS: PANTOPRAZOLE SODIUM 40 MG VIAL IVP SCH (09:02)
[2017-08-29] MEDS: INSULIN LISPRO 100 UNIT/ML SC SCH ×3 (09:02→16:27)
[2017-08-29] MEDS: INSULIN NPH HUMAN 100 UNITS/ML SYRINGE SC SCH (09:03)
--- NOTE | 2017-08-29 09:03 | PDINTPN ---
High Pressure Cleaner Progress Note Assessment/Plan: Assessment/Plan: * Cardiac arrest on 08/15- * Acute respiratory failure with hypoxia- off BiPAP last night -will change to p.r.n. BiPAP * Septic shock- resolved * DM- glucose control has been suboptimal. She has a long standing debate with her PCP about glucose control and appears excessively concerned about hypoglycemia. Her BS has been quite variable over the last few days, currently elevated. * Decubitus Ulcer: Stage IV. Getting wound care, healing well. * Nutrition-none. Patient shows significant aspiration with swallowing evaluation -PEG tube to place today * NICOLE- Cr normal, down slightly today. * Anemia- H/H stable last several days * Tachycardia: Not ST. ? AF earlier. No Sx * Disposition-likely ready for LTAC Subjective: More awake and alert today. Objective: Vital Signs Temp Pulse Resp BP Pulse Ox 39 C H 87 16 132/47 H 100 08/29/17 07:39 08/29/17 07:39 08/29/17 07:39 08/29/17 05:08 08/29/17 07:39 Microbiology 08/23/17 16:30 Blood Culture - Final Blood 08/23/17 14:05 Blood Culture - Final Blood Laboratory Results 08/29/17 05:24 08/29/17 05:24 08/28/17 08/29/17 08/30/17 05:59 05:59 05:59 Intake Total 1300 1130 Output Total 5125 2250 Balance -3825 -1120 PT 17.6 SEC (12.0-15.0) H 08/19/17 11:15 INR 1.45 (0.83-1.16) H 08/19/17 11:15 Physical Exam - Physical Exam General Appearance: alert EENT: PERRL/EOMI, normal ENT inspection Neck: non-tender, full range of motion Respiratory: crackles, No respiratory distress Cardiac/Chest: normal peripheral pulses, regular rate, rhythm Abdomen: normal bowel sounds, non-tender, soft Pelvic Exam: deferred Rectal: deferred Extremities: non-tender Neuro/Psych: alert ICD10 Worksheet Patient Problems: Problems Problem Status Onset Altered mental status Acute CHF (congestive heart failure) Acute Hypoxic Acute Respiratory failure Acute Sepsis Acute Chronic back pain Acute Chronic pain Acute Dehydration Acute Hyponatremia Acute Pneumonia Acute Status post cervical arthrodesis Acute Vomiting Acute Weakness Acute
--- NOTE | 2017-08-29 09:23 | PDANEPAE ---
ANE Past Medical History - Cardiovascular History Hx Hypertension: No Hx Arrhythmias: Yes Hx Coronary Artery / Peripheral Vascular Disease: Yes Hx CHF / Valvular Disease: No Hx Palpitations: No Cardiovascular History Comment: palpitations. cad- no stents - Pulmonary History Hx COPD: No Hx Asthma/Reactive Airway Disease: No Hx Recent Upper Respiratory Infection: No Hx Oxygen in Use at Home: No Hx Sleep Apnea: No Sleep Apnea Screening Result - Last Documented: Negative - Neurologic History Hx Cerebrovascular Accident: No Hx Seizures: No Hx Dementia: No Neurologic History Comment: hx of multiple spinal fusions over the past 10 years - Endocrine History Hx Diabetes: Yes Endocrine History Comment: dm type 1 - Renal History Hx Renal Disorders: Yes Renal History Comment: prolapsed bladder - Liver History Hx Hepatic Disorders: No - Neurological & Psychiatric Hx Hx Neurological and Psychiatric Disorders: Yes Neurological / Psychiatric History Comment: depression. anxiety - Cancer History Hx Cancer: No - Congenital Disorder History Hx Congenital Disorders: No - GI History Hx Gastrointestinal Disorders: Yes Gastrointestinal History Comment: chronic constipation uses otc meds, gallstones - Other Health History Other Health History: arthritis - Chronic Pain History Chronic Pain: Yes (lower and mid back) - Surgical History Prior Surgeries: colonoscopy 11/10/14 c- section,. spinal fusions over last 10 years. broken left femur with repair, cholecystectomy ANE Review of Systems Review of Systems: ANE Patient History - Allergies Allergies/Adverse Reactions: codeine Allergy (Severe, Verified 06/04/17 11:52) Loss of consciousness metronidazole [From Flagyl] Allergy (Intermediate, Verified 06/04/17 11:52) Other-Enter Comments quetiapine [From Seroquel] Allergy (Intermediate, Verified 06/04/17 11:52) Other-Enter Comments - Home Medications Home Medications: Levothyroxine [Synthroid 100 mcg (*)] 100 mcg PO DAILY06 08/27/14 [Last Taken ] Baclofen [Baclofen 10 mg (*)] 2.5 mg PO Q3 03/17/17 [Last Taken 03/16/17] Multivitamins [Multivitamin (*)] 1 each PO DAILY 03/17/17 [Last Taken Unknown] Oxybutynin Chloride 5 mg PO BID 03/17/17 [Last Taken 03/17/17] oxyCODONE IR [Oxycodone Ir (*)] 2.5 mg PO Q3 03/17/17 [Last Taken 03/17/17] Escitalopram Oxalate [Lexapro] 10 mg PO DAILY 08/06/17 [Last Taken Unknown] Insulin Regular Human [Humulin R 100 units/ml (*)] 0 unit SC 5XD 08/06/17 [Last Taken Unknown] Promethazine HCl [Phenergan 25mg (*)] 12.5 mg PO Q6 PRN 08/06/17 [Last Taken Unknown] Simvastatin 20 mg PO DAILY18 08/06/17 [Last Taken Unknown] Sodium Chloride [Salt Tablet] 500 gm PO BID 08/06/17 [Last Taken Unknown] Trimethoprim [TRIMPEX 100MG (*)] 100 mg PO Q2D 08/06/17 [Last Taken 08/04/17] morphINE SR [MS Contin/Oramorph SR 30 mg (*)] 30 mg PO BID 08/06/17 [Last Taken Unknown] traZODone [traZODONE 100MG (*)] 200 mg PO HS 08/06/17 [Last Taken Unknown] - Smoking Hx Smoking Status: Never smoked - Alcohol Use Alcohol Use: Occasionally - Family Anes Hx Family Hx Anesthesia Complications: none ANE Labs/Vital Signs - Labs Result Diagrams: 08/29/17 05:24 08/29/17 05:24 - Vital Signs Blood Pressure: 132/47 Heart Rate: 87 Respiratory Rate: 16 O2 Sat (%): 100 Height: 154.94 cm Weight: 58.8 kg ANE Physical Exam - Airway Neck exam: decreased ROM Mallampati Score: Class 3 Mouth exam: poor dentition - Pulmonary Pulmonary: reduced air movement, rhonchi - Cardiovascular Cardiovascular: regular rate and rhythym - ASA Status ASA Status: III ANE Anesthesia Plan Anesthesia Plan: general endotracheal anesthesia
[2017-08-29 09:37] LABS: INR 1.23 (0.83-1.16); PROTIME(PATIENT) 15.5 SEC (12.0-15.0)
[2017-08-29] MEDS ORDERED: fentaNYL 100 MCG/2 ML INJ ONE (10:03)
[2017-08-29] MEDS ORDERED: PROPOFOL 200 MG/20 ML VIAL ONE (10:03)
[2017-08-29] MEDS ORDERED: LIDOCAINE 2% 100 MG/5 ML SYR ONE (10:04)
[2017-08-29] MEDS ORDERED: ROCURONIUM 50 MG/5 ML VIAL ONE (10:04)
[2017-08-29] MEDS ORDERED: SUGAMMADEX SODIUM 200 MG/2 ML VIAL IVP ONE (10:44)
[2017-08-29] MEDS ORDERED: NALOXONE HCL 0.4 MG/ML INJ IVP PRN (10:57)
--- NOTE | 2017-08-29 10:57 | POSTANESTH ---
Post Anesthetic Evaluation Cardiovascular Status: Similar to Pre-Op Cond Respiratory Status: Similar to Pre-op Cond. Level of Consciousness/Mental Status: Mildly Sleepy, Arousable Pain Control: Adequate, Prn Tx Ordered Nausea/Vomiting Control: Adequate, Prn Tx Ordered Complications Possibly Related to Anesthesia: None Noted
--- NOTE | 2017-08-29 10:59 | GIREPORT ---
Former[facility] - Endoscopy Department Patient Name: Arlet Lenz Procedure Date: 08/29/2017 10:11 AM Patient Type: Inpatient Attending MD/ ER Physician: Jose Edmonds MD Procedure: Upper GI endoscopy Indications: Oropharyngeal phase dysphagia Providers: Jose Edmonds MD Medicines: General Anesthesia, Ancef 2000 mg IV Complications: No immediate complications. Description of Procedure: After obtaining informed consent, the endoscope was passed under direct vision. Throughout the procedure, the patient's blood pressure, pulse, and oxygen saturations were monitored continuously. The Endoscope was intro duced through the mouth, and advanced to the second part of duodenum. The [facility] er GI endoscopy was accomplished without difficulty. The patient tolerated th e procedure well. Findings: One moderate benign-appearing, intrinsic stenosis was found at the cricopharyngeus. This measured 1 cm (inner diameter) x 2 cm (in length) and was traversed. One non-bleeding superficial gastric ulcer with no stigmata of bleeding was found on the lesser curvature of the gastric body. The lesion was 8 mm in largest dimension. The stomach, cardia, gastric fundus, gastric antrum, prepyloric region of the stomach and pylorus were normal. The patient was placed in the supi ne position for PEG placement. The stomach was insufflated to appose gastr ic and abdominal bonilla. A site was located in the body of the stomach with excellent transillumination and manual external pressure for placement. The abdominal wall was marked and prepped in a sterile manner. The area was anesthetized with 5 mL of 1% lidocaine. The trocar needle was introduce d through the abdominal wall and into the stomach under direct endoscopic view. A snare was introduced through the endoscope and opened in the ga stric lumen. The guide wire was passed through the trocar and into the open s nare. The snare was closed around the guide wire. The endoscope and snare wer e removed, pulling the wire out through the mouth. A skin incision was ma de at the site of needle insertion. The externally removable 20 Fr EndoMOWGLI S afety gastrostomy tube was lubricated. The G-tube was tied to the guide wire and pulled through the mouth and into the stomach. The trocar needle was removed, and the gastrostomy tube was pulled out from the stomach throu gh the skin. The external bumper was attached to the gastrostomy tube, and the tube was cut to remove the guide wire. The final position of the gastrostomy tub e was confirmed by relook endoscopy, and skin marking noted to be 3 cm at the external bumper. The final tension and compression of the abdominal wal l by the PEG tube and external bumper were checked and revealed that the bum per was moderately tight and mildly deforming the skin. The feeding tube wa s capped, and the tube site cleaned and dressed. The examined duodenum was normal. Estimated Blood Loss: Estimated blood loss was minimal. Post Op Diagnosis: - Benign-appearing esophageal stenosis. - Superficial, clean based gastric ulcer. - Normal examined duodenum. - An externally removable PEG placement was successfully completed. - No specimens collected. Recommendation: - Use Protonix (pantoprazole) 40 mg per PEG daily. - Please follow the post-PEG recommendations including: Nutrition consult for formula and volume External bolster snug to abdominal wall Change dressing on top of bumper daily starting 08/30/17 May use PEG today for meds and water today with nutrition to start fanny rrow Antibiotic ointment to site was placed and does not need to be repeated Check site for bleeding q 4 hrs Clean site with soap and water daily and dry thoroughly prior to dressi ng change starting tomorrow. - Return patient to hospital [facility] for ongoing care. - Thank you for allowing me to be involved in the care of your patient. Attending Participation: I personally performed the entire procedure. Jose Edmonds MD Jose Edmonds MD 08/29/2017 10:59:16 AM This report has been signed electronicallyDavid MD Kendal Number of Addenda: 0 Note Initiated On: 08/29/2017 10:11 AM [email or web address]
[2017-08-29] MEDS ORDERED: NS 250 ML IV ONE (12:50)
[2017-08-29] MEDS ORDERED: PROTOCOL MAGNESIUM 1 DOSE IV PRN (12:52)
--- NOTE | 2017-08-29 13:12 | HOSPPROG ---
Hospitalist Progress Note Assessment/Plan: #Acute hypoxic resp failure: BL effusions on CXR today. Cont diuresis, Bipap at night PRN #Dysphagia: failed swallow eval. PEG placed today. Can use tomorrow #Septic shock: resolved presumed urinary with Stenotrophomonas #Cardiac arrest: 08/15 #Diabetes: uncontrolled, high this morn, less than 50 now. amp D5. q2hr glucose , hold NPH. Add D5W if warranted. #Dysphag #Decubitus ulcer: wound care #NICOLE: resolved #Normocytic anemia: H/H stable #Diet: NPO #DVT ppx: Lovenox #Disp: warrants inpt admission requiring intermittent Biap, diuresis. looking at LTAC today Subjective: PEG placed Objective: Vital Signs Temp Pulse Resp BP Pulse Ox 36.9 C 88 16 90/41 L 97 08/29/17 11:18 08/29/17 12:50 08/29/17 12:50 08/29/17 12:50 08/29/17 12:50 Microbiology 08/23/17 16:30 Blood Culture - Final Blood 08/23/17 14:05 Blood Culture - Final Blood Laboratory Results 08/29/17 05:24 08/29/17 05:24 08/28/17 08/29/17 08/30/17 05:59 05:59 05:59 Intake Total 1300 1130 Output Total 5125 2250 150 Balance -3825 -1120 -150 PT 15.5 SEC (12.0-15.0) H 08/29/17 09:10 INR 1.23 (0.83-1.16) H 08/29/17 09:10 - Physical Exam Constitutional: other (extremely pale, fatigue) Eyes: PERRL Ears, Nose, Mouth, Throat: dry mucous membranes Cardiovascular: regular rate and rhythym, edema (trace leg edema) Respiratory: reduced air movement, dullness to percussion Gastrointestinal: normoactive bowel sounds, other (PEG in place) Genitourinary: no bladder fullness Skin: warm Musculoskeletal: generalized weakness Neurologic: AAOx3, CN II-XII Intact Psychiatric: not encephalopathic, flat affect ICD10 Worksheet Patient Problems: Problems Problem Status Onset Altered mental status Acute CHF (congestive heart failure) Acute Hypoxic Acute Respiratory failure Acute Sepsis Acute Chronic back pain Acute Chronic pain Acute Dehydration Acute Hyponatremia Acute Pneumonia Acute Status post cervical arthrodesis Acute Vomiting Acute Weakness Acute
[2017-08-29] MEDS: ONDANSETRON 4 MG/2 ML VIAL IVP PRN ×2 (14:48→22:00)
[2017-08-29] MEDS: D50W 25 GM/50 ML SYR IVP PRN (16:25)
[2017-08-29 21:55] LABS: POTASSIUM 3.4 mEq/L (3.5-5.2)
[2017-08-29] MEDS ORDERED: ACETAMINOPHEN 650 MG/20.3 ML UDCUP TUBE PRN (23:33)
[2017-08-29] MEDS ORDERED: LACTULOSE 20 GM/30 ML UDCUP TUBE PRN (23:33)
[2017-08-29] MEDS: POTASSIUM Cl (KCl) 50 ML IV SCH (23:46)
[2017-08-30] MEDS: POTASSIUM Cl (KCl) 50 ML IV SCH ×4 (01:07→23:54)
[2017-08-30] MEDS: PROMETHAZINE HCL 25 MG/ML INJ IVP PRN ×3 (02:38→15:40)
[2017-08-30 04:35] LABS: ALANINE AMINOTRANSFERASE 84 IU/L (9-52); ALBUMIN 3.1 g/dL (3.5-5.0); ALKALINE PHOSPHATASE 103 IU/L (38-126); ANION GAP 17 mEq/L (8-16); ASPARTATE AMINOTRANSFERASE 43 IU/L (14-46); BILIRUBIN,TOTAL 0.6 mg/dL (0.1-1.4); CALCIUM 8.6 mg/dL (8.5-10.4); CARBON DIOXIDE 24 mEq/l (22-31); CHLORIDE 99 mEq/L (97-110); CREATININE 0.9 mg/dL (0.6-1.0); GLOMERULAR FILTRATION RATE > 60; GLUCOSE 150 mg/dL (70-100); MAGNESIUM 1.5 mg/dL (1.6-2.3); POTASSIUM 4.5 mEq/L (3.5-5.2); SODIUM 140 mEq/L (134-144); TOTAL PROTEIN 4.8 g/dL (6.3-8.2)
[2017-08-30 04:38] LABS: HEMATOCRIT 28.6 % (38.0-47.0); HEMOGLOBIN 9.4 g/dL (12.6-16.3); MEAN CELL HEMOGLOBIN 30.9 pg (27.9-34.1); MEAN CELL HEMOGLOBIN CONCENTR. 32.9 g/dL (32.4-36.7); MEAN CELL VOLUME 94.1 fL (81.5-99.8); RED BLOOD CELL COUNT 3.04 10^6/uL (4.18-5.33)
[2017-08-30 04:45] LABS: RED CELL DISTRIBUTION WIDTH 21.1 % (11.5-15.2)
[2017-08-30] MEDS: ONDANSETRON 4 MG/2 ML VIAL IVP PRN ×5 (05:58→23:17)
[2017-08-30] MEDS: FUROSEMIDE 20 MG/2 ML VIAL IVP SCH ×2 (05:58→13:34)
[2017-08-30] MEDS ORDERED: MAGNESIUM SULF 1 GM/DEXTROSE 100 ML IV ONE (06:11)
[2017-08-30] MEDS: INSULIN LISPRO 100 UNIT/ML SC SCH ×3 (08:33→17:46)
[2017-08-30] MEDS ORDERED: ENOXAPARIN 60 MG/0.6 ML SYR SC SCH (09:00)
--- NOTE | 2017-08-30 09:44 | PDINTPN ---
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 BiPAP * Septic shock- resolved * DM- glucose control improved * Decubitus Ulcer: Stage IV. Getting wound care, healing well. * Nutrition-none. Patient shows significant aspiration with swallowing evaluation -PEG tube to place today * NICOLE- Cr normal, down slightly today. * Anemia- H/H stable last several days * Tachycardia: Not ST. ? AF earlier. No Sx * Disposition-ready for LTAC Subjective: Sitting up in chair. Complains of nausea. Objective: Vital Signs Temp Pulse Resp BP Pulse Ox 36.4 C 79 12 135/46 H 100 08/29/17 21:14 08/30/17 04:00 08/30/17 04:00 08/30/17 04:00 08/30/17 04:00 Microbiology 08/23/17 16:30 Blood Culture - Final Blood 08/23/17 14:05 Blood Culture - Final Blood Laboratory Results 08/30/17 04:00 08/30/17 04:00 08/29/17 08/30/17 08/31/17 05:59 05:59 05:59 Intake Total 1130 1005 Output Total 2250 1050 Balance -1120 -45 PT 15.5 SEC (12.0-15.0) H 08/29/17 09:10 INR 1.23 (0.83-1.16) H 08/29/17 09:10 Physical Exam - Physical Exam General Appearance: alert, mild distress EENT: PERRL/EOMI Neck: non-tender, supple Respiratory: rhonchi (Few basilar), No wheezing Cardiac/Chest: normal peripheral pulses, regular rate, rhythm Abdomen: normal bowel sounds, non-tender, soft Pelvic Exam: deferred Rectal: deferred Skin: normal color, warm/dry Neuro/Psych: no motor/sensory deficits, alert, normal mood/affect, oriented x 3 ICD10 Worksheet Patient Problems: Problems Problem Status Onset Altered mental status Acute CHF (congestive heart failure) Acute Hypoxic Acute Respiratory failure Acute Sepsis Acute Chronic back pain Acute Chronic pain Acute Dehydration Acute Hyponatremia Acute Pneumonia Acute Status post cervical arthrodesis Acute Vomiting Acute Weakness Acute
--- NOTE | 2017-08-30 10:18 | SOAPPROG ---
SOAP Progress Note Assessment/Plan: Assessment: 1. Oropharyngeal dysphagia 2. Recurrent aspiration pneumonia 3. Malnutrition 4. Chronic pain 5. S/P Endoscopically placed 20Fr externally removable PEG tube Plan: 1. Ok to use tube for nutrition, hydration and medications 2. I will change the dressing tomorrow AM and loosen the bolster prior to her departure. 3. Call with questions. 08/30/17 10:15 Objective: Vital Signs Temp Pulse Resp BP Pulse Ox 36.4 C 79 12 135/46 H 100 08/29/17 21:14 08/30/17 04:00 08/30/17 04:00 08/30/17 04:00 08/30/17 04:00 Microbiology 08/23/17 16:30 Blood Culture - Final Blood 08/23/17 14:05 Blood Culture - Final Blood Laboratory Results 08/30/17 04:00 08/30/17 04:00 08/29/17 08/30/17 08/31/17 05:59 05:59 05:59 Intake Total 1130 1005 Output Total 2250 1050 Balance -1120 -45 PT 15.5 SEC (12.0-15.0) H 08/29/17 09:10 INR 1.23 (0.83-1.16) H 08/29/17 09:10 Physical Exam - Physical Exam General Appearance: no apparent distress, thin EENT: normal ENT inspection Neck: supple Respiratory: decreased breath sounds, rhonchi Cardiac/Chest: regular rate, rhythm, tachycardia Abdomen: soft, other (PEG site c/d/i. Dressing without blood. Mild TTP around the PEG.), No distended, No guarding, No rebound, No ascites ICD10 Worksheet Patient Problems: Problems Problem Status Onset Altered mental status Acute CHF (congestive heart failure) Acute Hypoxic Acute Respiratory failure Acute Sepsis Acute Chronic back pain Acute Chronic pain Acute Dehydration Acute Hyponatremia Acute Pneumonia Acute Status post cervical arthrodesis Acute Vomiting Acute Weakness Acute
--- NOTE | 2017-08-30 10:38 | HOSPPROG ---
Hospitalist Progress Note Assessment/Plan: #Acute hypoxic resp failure: BL effusions. Cont diuresis, Bipap at night PRN #Dysphagia: failed swallow eval. PEG placed today. Can use tomorrow #Septic shock: resolved presumed urinary with Stenotrophomonas #Cardiac arrest: 08/15 #Diabetes: brittle. Had hypoglycemia yesterday, high today. Low-dose NPH BID #Decubitus ulcer: wound care #Atrial fibrillation: now in NRS. CHADsVasc 4, thus warrants AC. I had extensive conversation with her about warfarin vs. novel agents. She wants to proceed with coumadin and acknowledged risks of bleeding. #NICOLE: resolved #Normocytic anemia: H/H stable #Chronic pain: cannot crush MS contin and she says it doesn't work, best thing has been baclofen. Will restart and stop opioids. #Diet: NPO #DVT ppx: Lovenox #Disp: warrants inpt admission requiring intermittent Biap, diuresis. looking at LTAC today, plan to DC tomorrow Time spent on visit: 50 min on visit reviewing labs, records, counseling on anticoagulation and pain Subjective: Pain all over Objective: Vital Signs Temp Pulse Resp BP Pulse Ox 36.4 C 79 12 135/46 H 100 08/29/17 21:14 08/30/17 04:00 08/30/17 04:00 08/30/17 04:00 08/30/17 04:00 Microbiology 08/23/17 16:30 Blood Culture - Final Blood 08/23/17 14:05 Blood Culture - Final Blood Laboratory Results 08/30/17 04:00 08/30/17 04:00 08/29/17 08/30/17 08/31/17 05:59 05:59 05:59 Intake Total 1130 1005 Output Total 2250 1050 Balance -1120 -45 PT 15.5 SEC (12.0-15.0) H 08/29/17 09:10 INR 1.23 (0.83-1.16) H 08/29/17 09:10 - Physical Exam Constitutional: other (very pale. Sitting up in chair. Angry) Ears, Nose, Mouth, Throat: moist mucous membranes Cardiovascular: regular rate and rhythym Respiratory: no respiratory distress Gastrointestinal: other (will not allow me to examine abdomen) Genitourinary: no bladder fullness Skin: warm Musculoskeletal: generalized weakness Neurologic: CN II-XII Intact Psychiatric: depressed, flat affect, other (angry) ICD10 Worksheet Patient Problems: Problems Problem Status Onset Altered mental status Acute CHF (congestive heart failure) Acute Hypoxic Acute Respiratory failure Acute Sepsis Acute Chronic back pain Acute Chronic pain Acute Dehydration Acute Hyponatremia Acute Pneumonia Acute Status post cervical arthrodesis Acute Vomiting Acute Weakness Acute
[2017-08-30] MEDS: LEVOTHYROXINE 100 MCG TAB TUBE SCH (10:56)
[2017-08-30] MEDS: METOPROLOL TARTRATE 25 MG TAB TUBE SCH ×2 (10:57→21:21)
[2017-08-30] MEDS: ESCITALOPRAM OXALATE 10 MG TAB TUBE SCH (10:57)
[2017-08-30] MEDS: LANSOPRAZOLE SUSP 30MG/10ML UDSYR (Adult) TUBE SCH (11:00)
[2017-08-30] MEDS: OXYBUTYNIN CHLORIDE 5 MG TAB TUBE SCH ×2 (12:57→21:22)
[2017-08-30] MEDS ORDERED: FAMOTIDINE 20 MG TAB TUBE SCH (14:00)
--- NOTE | 2017-08-30 15:07 | ASMTCMCOM ---
CM Note CM Note Notes: Spoke with patient's Tony who has selected [facility]. Updates sent to [facility] @ [facility] [place] today. Dr Pena called and did MD to phone call w Dr Song at the facility. Discharge likely tomorrow AM. Patient will transfer via stretcher. plans to be at hospital to assist. CM will facilitate. Date Signed: 08/30/2017 03:06 PM Electronically Signed By:Anabell Fernandes RN
[2017-08-30] MEDS: BACLOFEN 10 MG TAB PO PRN ×2 (15:40→23:16)
[2017-08-30] MEDS ORDERED: WARFARIN SODIUM 5 MG TAB TUBE SCH (16:00)
[2017-08-30] MEDS ORDERED: INSULIN NPH HUMAN 100 UNITS/ML SYRINGE SC SCH (17:30)
[2017-08-30] MEDS: D50W 25 GM/50 ML SYR IVP PRN (17:50)
[2017-08-30] MEDS ORDERED: ATORVASTATIN CALCIUM 10 MG TAB TUBE SCH (18:00)
[2017-08-30 19:25] LABS: POTASSIUM 3.5 mEq/L (3.5-5.2)
[2017-08-31] MEDS: POTASSIUM Cl (KCl) 50 ML IV SCH (00:44)
[2017-08-31] MEDS: INSULIN LISPRO 100 UNIT/ML SC SCH ×3 (01:22→11:07)
[2017-08-31] MEDS: ONDANSETRON 4 MG/2 ML VIAL IVP PRN ×2 (03:12→09:42)
[2017-08-31] MEDS ORDERED: INSULIN LISPRO 100 UNIT/ML SC ONE (03:55)
[2017-08-31] MEDS ORDERED: INSULIN NPH HUMAN 100 UNITS/ML SYRINGE SC SCH ×2 (03:57→08:39)
[2017-08-31 04:29] LABS: HEMATOCRIT 29.3 % (38.0-47.0); HEMOGLOBIN 9.6 g/dL (12.6-16.3); MEAN CELL HEMOGLOBIN 30.8 pg (27.9-34.1); MEAN CELL HEMOGLOBIN CONCENTR. 32.8 g/dL (32.4-36.7); MEAN CELL VOLUME 93.9 fL (81.5-99.8); RED BLOOD CELL COUNT 3.12 10^6/uL (4.18-5.33)
[2017-08-31 04:39] LABS: INR 1.33 (0.83-1.16); PROTIME(PATIENT) 16.5 SEC (12.0-15.0)
[2017-08-31 04:49] LABS: RED CELL DISTRIBUTION WIDTH 20.7 % (11.5-15.2)
[2017-08-31 05:12] LABS: MAGNESIUM 1.8 mg/dL (1.6-2.3); POTASSIUM 4.4 mEq/L (3.5-5.2)
[2017-08-31] MEDS ORDERED: MAGNESIUM SULF 1 GM/DEXTROSE 100 ML IV ONE (05:18)
[2017-08-31] MEDS: LEVOTHYROXINE 100 MCG TAB TUBE SCH (05:33)
[2017-08-31] MEDS: LOPERAMIDE HCL 1 MG/5 ML UDCUP TUBE PRN ×2 (05:33→09:42)
[2017-08-31 08:01] VITALS: RESP 18; TEMP 97.7; O2SAT 95
[2017-08-31] MEDS: BACLOFEN 10 MG TAB PO PRN (08:11)
[2017-08-31] MEDS: OXYBUTYNIN CHLORIDE 5 MG TAB TUBE SCH (08:12)
[2017-08-31] MEDS: ESCITALOPRAM OXALATE 10 MG TAB TUBE SCH (08:12)
[2017-08-31] MEDS: METOPROLOL TARTRATE 25 MG TAB TUBE SCH (08:13)
[2017-08-31 08:26] VITALS: BP 134/55; PULSE 87
[2017-08-31] MEDS ORDERED: FUROSEMIDE 40 MG TAB PO SCH (09:00)
--- NOTE | 2017-08-31 09:15 | PDINTPN ---
Deaf Interpreter Progress Note Assessment/Plan: Assessment/Plan: * Cardiac arrest on 08/15- * Acute respiratory failure with hypoxia- off BiPAP last night -will change to p.r.n. BiPAP * DM- glucose control poor * Decubitus Ulcer: Stage IV. Getting wound care, healing well. * Nutrition-none. Patient shows significant aspiration with swallowing evaluation -PEG tube to place today * NICOLE- Cr normal, down slightly today. * Anemia- H/H stable last several days * Tachycardia: Not ST. ? AF earlier. No Sx * Disposition-to long-term acute care today Subjective: Planes of cough Objective: Vital Signs Temp Pulse Resp BP Pulse Ox 36.5 C 87 18 134/55 H 95 08/31/17 07:58 08/31/17 08:13 08/31/17 07:58 08/31/17 08:13 08/31/17 07:58 Laboratory Results 08/31/17 04:18 08/31/17 04:18 08/30/17 08/31/17 09/01/17 05:59 05:59 05:59 Intake Total 1005 1903 Output Total 1050 1500 Balance -45 403 PT 16.5 SEC (12.0-15.0) H 08/31/17 04:18 INR 1.33 (0.83-1.16) H 08/31/17 04:18 Physical Exam - Physical Exam General Appearance: alert, no apparent distress EENT: PERRL/EOMI Neck: non-tender, full range of motion Respiratory: rhonchi (Few), No respiratory distress, No wheezing Cardiac/Chest: normal peripheral pulses, regular rate, rhythm Abdomen: normal bowel sounds, non-tender, soft Pelvic Exam: deferred Rectal: deferred Skin: normal color, warm/dry ICD10 Worksheet Patient Problems: Problems Problem Status Onset Altered mental status Acute CHF (congestive heart failure) Acute Hypoxic Acute Respiratory failure Acute Sepsis Acute Chronic back pain Acute Chronic pain Acute Dehydration Acute Hyponatremia Acute Pneumonia Acute Status post cervical arthrodesis Acute Vomiting Acute Weakness Acute
[2017-08-31] MEDS: LANSOPRAZOLE SUSP 30MG/10ML UDSYR (Adult) TUBE SCH (09:16)
--- NOTE | 2017-08-31 09:16 | GDS ---
[f rep st] DISCHARGE SUMMARY DISCHARGE DIAGNOSES: 1. Acute hypoxic respiratory failure. 2. Volume overload. 3. Dysphagia with percutaneous endoscopic gastrostomy placement. 4. Septic shock. 5. Cardiac arrest 08/15/2017. 6. Brittle diabetes. A1c 8 in April 2017. 7. Decubitus ulcer. 8. Atrial fibrillation. CHADS-VASc score of 4. 9. Acute kidney injury. 10. Normocytic anemia. 11. Chronic pain. 12. Chronic urinary retention with a chronic Dietrich. 13. Hypothyroidism. 14. Depression. 15. Anxiety. 16. Hypertension. 17. Hyperlipidemia. 18. Chronic hyponatremia. 19. Urinary tract infection. PROCEDURES: PEG placements 08/29/2017. HISTORY OF PRESENT ILLNESS: A 66-year-old female with a history of chronic pain on opioids, right ischial pressure injury, chronic urinary retention with indwelling Dietrich, hypothyroidism, presented with nausea, vomiting. Days prior to admission, she had been having minimal oral intake. She was able to tolerate oxycodone and baclofen, but not able to tolerate her oral suppressive antibiotics and other home medications. She had been following regularly with wound care clinic for her right ischial pressure injury that has been healing and was receiving home care. She had become less arousable at home. On the day of admission, she was tachycardic and 80% on room air. In the emergency room, she was intubated and transferred to the ICU for further care. HOSPITAL COURSE BY PROBLEM: 1. Septic shock: Suspect secondary to a UTI. Culture grew Stenotrophomonas maltophilia. She completed a course of antibiotics. 2. Acute hypoxic respiratory failure secondary to volume overload. Echocardiogram showed EF of 65% to 70%, but an RVSP of 54 mmHg. She is currently diuresing well on 40 b.i.d. 3. Cardiac arrest 08/15/2017. Suspect trigger for this event was respiratory perhaps due to volume overload. She has been stable since this time. 4. Paroxysmal atrial fibrillation: She is now in normal sinus rhythm. Given CHADS-VASC 4, recommend anticoagulation with Coumadin. I had extensive conversation with patient and she understands the risks and is agreeable. Continue metoprolol 25 mg b.i.d. 5. Hyperlipidemia. Statin. 6. Hypothyroidism. Levothyroxine. 7. Chronic urinary retention with Dietrich: Continue oxybutynin. 8. Chronic pain with the opioid dependence: Patient previously on morphine sulfate Contin and immediate release. She says doesn't work well, plus, cannot crush. At this time has not been using many opioids here. Continue low-dose oxycodone and Baclofen. Can consider Fentanyl patch in future. Caution with pulmonary hypertension 9. Diabetes, brittle and has had hypoglycemia intermittently. Would start with low-dose NPH with p.r.n. sliding scale with tube feeds. 10. Depression/anxiety: home meds 11. Right ischial wound: cont dressings per wound care 12, Dysphagia: aspiration on videofluoroscopy. PEG placed and tube feeds started. 13. Diet: tube feed Follow up: 1. INR for coumadin dosing 2. Cardiology MEDICATIONS: See medication reconciliation. /[id number]/MODL MTDD
--- NOTE | 2017-08-31 09:54 | PDIAF ---
- Diagnosis Diagnosis: septic shock, atrial fibrillation Code Status: Full Code - Medication Management Discharge Medications: Medications to Continue on Transfer Levothyroxine [Synthroid 100 mcg (*)] 100 mcg PO DAILY06 08/27/14 [Last Taken ] Multivitamins [Multivitamin (*)] 1 each PO DAILY 03/17/17 [Last Taken Unknown] Oxybutynin Chloride 5 mg PO BID 03/17/17 [Last Taken 03/17/17] traZODone [traZODONE 100MG (*)] 200 mg PO HS 08/06/17 [Last Taken Unknown] Acetaminophen [Tylenol 650/20.3ML Oral Liq (*)] 650 mg TUBE Q4HRS PRN udcup [Last Taken Unknown] Albuterol [Proventil Neb] 3 ml IH Q4H PRN deyvial 08/31/17 [Last Taken Unknown] Atorvastatin Calcium [Lipitor 10 mg (*)] 10 mg TUBE DAILY@1800 tab 08/31/17 [ Last Taken Unknown] Baclofen [Baclofen 10 mg (*)] 5 mg PO Q8H PRN #0 08/31/17 [Last Taken 03/16/17] Baclofen [Baclofen 10 mg (*)] 5 mg PO TID PRN tab 08/31/17 [Last Taken Unknown] Dextrose 50% Syringe 25 gm IVP PRN PRN syr 08/31/17 [Last Taken Unknown] Escitalopram Oxalate [Lexapro 10 MG] 10 mg TUBE DAILY tab 08/31/17 [Last Taken Unknown] Furosemide [Lasix 40 MG (*)] 40 mg PO BID@0900,1500 tab 08/31/17 [Last Taken Unknown] Insulin Lispro [humALOG LISPRO 100 units/ml (*)] 0 unit SC TIDMEAL unit [Last Taken Unknown] Insulin NPH Human [humULIN N 100 UNITS/ML (*)] 2 units SC BIDAC ml 08/31/17 [ Last Taken Unknown] Lansoprazole [PREVACID 30mg/10ml susp (Adult) (*)] 30 mg TUBE DAILY udsyr 08/31 [Last Taken Unknown] Levothyroxine [Synthroid 100 mcg (*)] 100 mcg TUBE DAILY06 tab 08/31/17 [Last Taken Unknown] Warfarin Sodium 5 mg TUBE DAILY #30 tablet 08/31/17 [Last Taken Unknown] oxyCODONE IR [Oxycodone Ir (*)] 2.5 mg PO Q6H #0 08/31/17 [Last Taken 03/17/17] Discharge Medications: Refer to the Discharge Home Medication list for PRN reason. - Orders Services needed: Registered Nurse, Certified Inside Sales Director, Master Dredge Mate , Physical Therapy, Occupational Therapy, Speech Language Pathologist Isolation Type: None Diet Texture: None (tube feeds) Tube feeding: Glucerna 1.2, 50ml/hr. Rodrick packet BID - Follow Up Care Current Providers and Referrals: Arthur Danielle MD [Primary Care Provider] - As per Instructions
--- NOTE | 2017-08-31 09:54 | SOAPPROG ---
SOAP Progress Note Assessment/Plan: Assessment: 1. Oropharyngeal dysphagia 2. Recurrent aspiration pneumonia 3. Malnutrition 4. Chronic pain 5. S/P Endoscopically placed 20Fr externally removable PEG tube Plan: 1. Ok to use tube for nutrition, hydration and medications 2. Bumper loosened to 3cm 3. Tube site cleaned and rotated 360 degrees in tract 4. Ok for transfer to acute detention care today. 08/31/17 09:52 Objective: Vital Signs Temp Pulse Resp BP Pulse Ox 36.5 C 87 18 134/55 H 95 08/31/17 07:58 08/31/17 08:13 08/31/17 07:58 08/31/17 08:13 08/31/17 07:58 Laboratory Results 08/31/17 04:18 08/31/17 04:18 08/30/17 08/31/17 09/01/17 05:59 05:59 05:59 Intake Total 1005 1903 Output Total 1050 1500 Balance -45 403 PT 16.5 SEC (12.0-15.0) H 08/31/17 04:18 INR 1.33 (0.83-1.16) H 08/31/17 04:18 Physical Exam - Physical Exam General Appearance: WD/WN, no apparent distress EENT: pharynx normal Neck: supple Respiratory: lungs clear Cardiac/Chest: regular rate, rhythm Abdomen: non-tender, soft, other (PEG site dressing with old blood. Removed and site cleaned. Skin is clean and without redness or fluctuance. Bolster loosened to 3cm and rotated 360 degrees in tract. ) ICD10 Worksheet Patient Problems: Problems Problem Status Onset Altered mental status Acute CHF (congestive heart failure) Acute Hypoxic Acute Respiratory failure Acute Sepsis Acute Chronic back pain Acute Chronic pain Acute Dehydration Acute Hyponatremia Acute Pneumonia Acute Status post cervical arthrodesis Acute Vomiting Acute Weakness Acute
--- NOTE | 2017-08-31 11:31 | ASMTCMCOM ---
CM Note CM Note Notes: Spoke with patient's about stretcher transport and their insurance. is not concerned about the billing. Arranged transportation with [facility], patient to be picked up @11:30 today 08/31/17 and transported stretcher to [facility] in [place]. Spoke with Mallory Chappell to let her know greens picker time and get number for report. ([phone]). Patient's nurse Bridget called report. Discharge summaries faxed to [phone] as their admissions fax is not working. Date Signed: 08/31/2017 11:30 AM Electronically Signed By:Chloé Ahmadi LCSW
--- NOTE | 2017-08-31 13:19 | HOSPPROG ---
Hospitalist Progress Note Assessment/Plan: #Acute hypoxic resp failure: BL effusions. Cont diuresis, Bipap at night PRN #Dysphagia: failed swallow eval. PEG placed and used without issue #Septic shock: resolved presumed urinary with Stenotrophomonas #Cardiac arrest: 08/15 #Diabetes: brittle. Had hypoglycemia yesterday, high today. Low-dose NPH BID #Decubitus ulcer: wound care #Atrial fibrillation: now in NRS. CHADsVasc 4, thus warrants AC. I had extensive conversation with her about warfarin vs. novel agents. She wants to proceed with coumadin and acknowledged risks of bleeding. #NICOLE: resolved #Normocytic anemia: H/H stable #Chronic pain: cannot crush MS contin and she says it doesn't work, best thing has been baclofen. Will restart and stop opioids. #Diet: NPO #DVT ppx: Lovenox #Disp: DC today Time spent on DC: 50 min discussing meds with pt and and coordinating DC Subjective: no acute events Objective: Vital Signs Temp Pulse Resp BP Pulse Ox 36.5 C 87 18 134/55 H 95 08/31/17 07:58 08/31/17 08:13 08/31/17 07:58 08/31/17 08:13 08/31/17 07:58 Laboratory Results 08/31/17 04:18 08/31/17 04:18 08/30/17 08/31/17 09/01/17 05:59 05:59 05:59 Intake Total 1005 1903 Output Total 1050 1500 Balance -45 403 PT 16.5 SEC (12.0-15.0) H 08/31/17 04:18 INR 1.33 (0.83-1.16) H 08/31/17 04:18 - Physical Exam Constitutional: chronically ill appearing, other (pale) Eyes: PERRL Ears, Nose, Mouth, Throat: moist mucous membranes Cardiovascular: regular rate and rhythym, edema (no edema) Respiratory: no respiratory distress Gastrointestinal: other (PEG in place) Genitourinary: no bladder fullness Skin: warm Musculoskeletal: full muscle strength Neurologic: AAOx3, CN II-XII Intact Psychiatric: depressed, flat affect ICD10 Worksheet Patient Problems: Problems Problem Status Onset Altered mental status Acute CHF (congestive heart failure) Acute Chronic back pain Acute Chronic pain Acute Dehydration Acute Hyponatremia Acute Hypoxic Acute Pneumonia Acute Respiratory failure Acute Sepsis Acute Status post cervical arthrodesis Acute Vomiting Acute Weakness Acute
--- NOTE | 2017-09-01 15:41 | ASDISCHSUM ---
Discharge Information Plan Status:LTAC Medically Cleared to Leave:08/30/2017 Discharge Date:08/31/2017 12:08 PM D/C Disposition:[facility] ADT D/C Disposition:[facility] Projected Discharge Date:08/29/2017 12:00 AM Transportation at D/C:ALS/BLS Discharge Delay Reason: Follow-Up Date:08/29/2017 12:00 AM Discharge Slot: Final Diagnosis:Hypotension, Hypoxia, Sepsis, CHF Placement Information Referral Type:[facility] Referral ID:[id number] Provider Name:[facility] Address 1:[address] Address 2: City:[place] Selection Factors: State:[place] Patient Contact Information Contact Name:ALISA Relationship: Address:[address] City:[place] Alternate Phone: State/Zip Code:[place] [address] Email: Financial Information Financial Class: Primary Plan Desc:MEDICARE OUTPATIENT Primary Plan Number:[id number] Secondary Plan Desc:[employer]/MDR SUPPLEMENT Secondary Plan Number:[id number] Assessment Information [facility] CM Progress Note CM Note CM Note Notes: 66 year old female admitted for septic shock, encephalopathy, N/V, respiratory failure, possible UTI. Patient has a hx of chronic neck and back pain-narc dependent, hypothyroid, chronic thompson, hypothyroid, HTN, HLD, DM-insulin, Hyponatremia, Depression, Anxiety. Patient being followed for wound care and vented. cares for her at home. Therapies to eval for discharge needs. CM to follow. Date Signed: 08/06/2017 12:53 PM Electronically Signed By:Naomy Hoyos LCSW [facility] CM Progress Note CM Note CM Note Notes: Patient continues to be intubated and sedated. Wound care will see tomorrow. Per chart review, patient was last admitted to [facility] in March and was discharged home with [facility]. I spoke with Therese at [facility] who says that they discharged patient due to non-compliance and she is now on their "do not admit" list. Per beauty operator notes, patient is [facility] being [facility]. Other discharge needs TBD; CM will follow. Date Signed: 08/09/2017 01:59 PM Electronically Signed By:Anabell Fernandes RN [facility] CM Progress Note CM Note CM Note Notes: Patient status unchanged at present. 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 Remains intubated on Vent. CM to follow. Patient continues to be intubated and sedated. Wound care will see tomorrow. Per chart review, patient was last admitted to [facility] in March and was discharged home with [facility]. I spoke with Therese at [facility] who says that they discharged patient due to non-compliance and she is now on their "do not admit" list. Per beauty operator notes, patient is currently being followed by [facility]. Date Signed: 08/10/2017 12:25 PM Electronically Signed By:Paige Hutchison RN [facility] CM Progress Note CM Note CM Note Notes: Patient extubated today. Therapies to begin. not interested in having a "Family Meeting" at this time, maybe later. CM to follow for discharge needs. Date Signed: 08/14/2017 04:11 PM Electronically Signed By:Naomy Hoyos LCSW [facility] CM Progress Note CM Note CM Note Notes: Patient was re-intubated emergently early this morning after cardiopulmonary arrest with CPR. She is currently stable on minimal vent settings. ID following to query source of sepsis. When extubated, recommend that patient work with PT/OT/MACHINE TANK OPERATOR. Discharge needs unidentified at this time; CM/spiritual care will offer family meeting tomorrow. Date Signed: 08/16/2017 02:23 PM Electronically Signed By:Anabell Fernandes RN [facility] CM Progress Note CM Note CM Note Notes: Patient reviewed in rounds. Son present declines family meeting at this time. Needs still remain undetermined. CM to follow. Date Signed: 08/17/2017 03:03 PM Electronically Signed By:Paige Hutchison RN [facility] Progress Note CM Note CM Note Notes: Patient has had a long recovery process. ST recommending SNF; OT-SNF vs In-pt; PT waiting on eval. CM to follow for discharge needs. Date Signed: 08/20/2017 03:19 PM Electronically Signed By:Naomy Hoyos LCSW [facility] Progress Note CM Note CM Note Notes: Spoke to regarding patient's discharge needs. reports that this past year patient has been mostly bed ridden due to back pain. He or her caregiver would help her to a W/C and move to bathroom where she would transfer to toilet. She could not sit for any length of time, even for meals. reports that her back pain has gotten better. He thinks that she has had an infection in her back and that the ABX she has been taking to clear up her UTI have helped to clear the infection in her back which has helped with her pain. They own a cabin in [place] which she enjoys, but during the past year, visits have been limited. He is concerned that she will resist going to a SNF. This CM told him to check out [facility], given their emphasis on rehab and their patient private rooms. Maybe the motivator could be in strengthening to enjoy her place in [facility]. Date Signed: 08/22/2017 05:36 PM Electronically Signed By:Naomy Hoyos LCSW [facility] CM Progress Note CM Note CM Note Notes: Patient has been too ill to discuss d/c plan. See 08/22 case management note. Will need to have a discussion with patient about rehab recommendtations and what she is willing to do. CM will follow. Date Signed: 08/25/2017 05:10 PM Electronically Signed By:Chloé Ahmadi LCSW [facility] CM Progress Note CM Note CM Note Notes: Dry Room Operator and Hospitalist feel that patient will be better served in an LTAC at this time. wound is better. she has been NPO to have a video swallow eval today to determine how to provide nurtrition. Spoke to patient and who were reluctant at first to leave [facility], but want to do what's best. Referrals sent to [facility], [place] [facility]. to visit [facility], which would be closer in terms of their home address. Date Signed: 08/28/2017 02:12 PM Electronically Signed By:Naomy Hoyos LCSW [facility] CM Progress Note CM Note CM Note Notes: concerned that [facility] is in the opposite travel direction for him. He works in [place]. Gave him a list for LTAC's and their locations-3 are in [place]. [place], [facility] and [facility] coming tomorrow to talk with patient and about their programs. Patient failed her video swallow eval-aspirated, so will need a feeding tube. Date Signed: 08/28/2017 03:36 PM Electronically Signed By:Naomy Hoyos LCSW [facility] Progress Note CM Note CM Note Notes: Spoke with patient's Tony who has selected [facility]. Updates sent to Mallory Ramesh today. Dr Pena called and did MD to MD phone call w Dr Song at the facility. Discharge likely tomorrow AM. Patient will transfer via stretcher. plans to be at hospital to assist. CM will facilitate. Date Signed: 08/30/2017 03:06 PM Electronically Signed By:Anabell Fernandes RN [facility] Progress Note CM Note CM Note Notes: Spoke with patient's about stretcher transport and their insurance. is not concerned about the billing. Arranged transportation with [facility], patient to be picked up @11:30 today 08/31/17 and transported stretcher to [facility] in [place]. Spoke with Mallory Misti to let her know apple picker time and get number for report. ([phone]). Patient's nurse Bridget called report. Discharge summaries faxed to [phone] as their admissions fax is not working. Date Signed: 08/31/2017 11:30 AM Electronically Signed By:Chloé Ahmadi LCSW Intervention Information Intervention Type:*IM-Signed Date of Service:08/31/2017 10:41 AM Patient Type:Inpatient Staff Member:Allison Kenney Hours: Discipline: Severity: Comment:
--- NOTE | 2017-09-04 18:18 | PQFORM ---
PHYSICIAN QUERY FORM Needs Your Response This query form is being sent to you to assure this patient record is coded properly. Please respond to the question below: GRINDING WHEEL FACER QUESTION: Dear Dr. Arambula, In reviewing this patients medical record it was noted the patient had a UTI along with having a Dietrich catheter. H&P states "indwelling Dietrich catheter for chronic urinary retention," later stated "suspected "Catheter Associated Urinary tract infection." In Dr. Anand's 08/06 Consultation it is noted patient had "pyuria related to her indwelling Dietrich catheter." In Dr. Babcock's Consultation it is noted the patient has "sepsis suspected urinary source and Dietrich." After Study, should the diagnosis of "Catheter Associated Urinary tract infection" be included in the Discharge Summary? x Yes No Other more appropriate diagnosis Unable to determine Thank you NORBERTO Garzon [facility]/Coding Dept. [phone] INSTRUCTIONS FOR RESPONSE: Answer question by clicking on the "Edit Document" button. Move cursor to area below the stars. When complete, hit "Save." Click on the "Sign" button, then click "Sign" again. Type in your PIN and hit "Enter." MTDD
== END 2017-08-31 12:08 | disposition other institution (70) | DRG 698 ==
LOC: EDUNIT# → F2N 10:17
PROVIDERS: ADMIT Internal Medicine; ATTEND Internal Medicine
PROC: 5A1955Z Respiratory Ventilation, Greater than 96 Consecutive Hours (ICD-10-PCS; principal; 2017-08-06)
PROC: 0BH17EZ Insertion of Endotracheal Airway into Trachea, Via Natural or Artificial Opening (ICD-10-PCS; principal; 2017-08-06)
PROC: 0W993ZX Drainage of Right Pleural Cavity, Percutaneous Approach, Diagnostic (ICD-10-PCS; 2017-08-13)
PROC: 0W9G3ZX Drainage of Peritoneal Cavity, Percutaneous Approach, Diagnostic (ICD-10-PCS; 2017-08-13)
PROC: 0W9B3ZX Drainage of Left Pleural Cavity, Percutaneous Approach, Diagnostic (ICD-10-PCS; 2017-08-13)
PROC: 5A1945Z Respiratory Ventilation, 24-96 Consecutive Hours (ICD-10-PCS; 2017-08-16)
PROC: 0BH17EZ Insertion of Endotracheal Airway into Trachea, Via Natural or Artificial Opening (ICD-10-PCS; 2017-08-16)
PROC: 0W993ZZ Drainage of Right Pleural Cavity, Percutaneous Approach (ICD-10-PCS; 2017-08-19)
PROC: 0D163J4 Bypass Stomach to Cutaneous with Synthetic Substitute, Percutaneous Approach (ICD-10-PCS; 2017-08-29)
DX: T83.518A Infection and inflammatory reaction due to other urinary catheter, initial encounter (principal); A41.89 Other specified sepsis; R65.21 Severe sepsis with septic shock; J96.01 Acute respiratory failure with hypoxia; I46.9 Cardiac arrest, cause unspecified; L89.314 Pressure ulcer of right buttock, stage 4; N17.9 Acute kidney failure, unspecified; E87.1 Hypo-osmolality and hyponatremia; N39.0 Urinary tract infection, site not specified; F11.20 Opioid dependence, uncomplicated; R13.12 Dysphagia, oropharyngeal phase; E10.649 Type 1 diabetes mellitus with hypoglycemia without coma; I48.91 Unspecified atrial fibrillation; D64.9 Anemia, unspecified; G89.29 Other chronic pain; R33.8 Other retention of urine; E03.9 Hypothyroidism, unspecified; F32.9 Major depressive disorder, single episode, unspecified; F41.9 Anxiety disorder, unspecified; I10 Essential (primary) hypertension; E78.5 Hyperlipidemia, unspecified; Z74.01 Bed confinement status; Z99.3 Dependence on wheelchair; Z79.4 Long term (current) use of insulin
CPT/HCPCS: 82947-QW; 86022-90; 92526-GN; 92610-GN; 92611-GN; 96365; 97110-GO; 97162-GP; 97166-GO; 97530-GO; 97530-GP; G0008; G0480; G8978-GP-CM; G8979-GP-CK; G8987-GO-CM; G8988-GO-CJ; G8996-GN-CK; G8996-GN-CL; G8997-GN-CI; J0282; J0330; J0461; J0690; J1650; J1815; J1940; J1956; J2001; J2248; J2250; J2405; J2543; J2550; J2704; J3010; J3370; J3475; P9016; P9047; Q9967

== ENCOUNTER 2017-11-02 15:26 | Inpatient (IN) | payer OTHER, MEDICARE ==
--- NOTE | 2017-11-02 16:26 | EDPHY ---
H & P Time Seen by Provider: 11/02/17 16:08 HPI/ROS: CHIEF COMPLAINT: Confusion HISTORY OF PRESENT ILLNESS: 66-year-old female with multiple medical problems including recent septic shock, diabetes, dysphagia, chronic low back pain and chronic hyponatremia presents with confusion. Onset of drowsiness and confusion 2 days ago, persistent since then. Associated with an occasional cough. No fever. She saw her primary care physician 2 days ago, Dr. Danielle, and had a urinalysis performed. Apparently this sample was contaminated, so a repeat urinalysis was performed today. She has a decubitus ulceration, which is healing well. She is followed by the wound care clinic. In August 2017, she presented with similar symptoms and diagnosed with septic shock, probably secondary to urinary tract infection. REVIEW OF SYSTEMS: Constitutional: No fever, no chills Eyes: No visual changes ENT: No sore throat Respiratory: no shortness of breath Cardiac: No chest pain Gastrointestinal: No nausea, no vomiting, no abdominal pain Genitourinary: no dysuria Musculoskeletal: No leg pain or swelling Skin: No rash Neurological: No headache Psychiatric: depression Past Medical/Surgical History: Diabetes Septic shock Recurrent urinary tract infections, indwelling Dietrich catheter Dysphagia, peg tube in place Chronic hyponatremia Atrial fibrillation Social History: PCP: Dr. Danielle Smoking Status: Never smoked Physical Exam: General Appearance: Alert, pleasant Eyes: Pupils equal and round, conjunctival pallor ENT, Mouth: Mucous membranes moist Neck: Normal inspection Respiratory: Lungs are clear to auscultation Cardiovascular: Regular rate and rhythm Gastrointestinal: Abdomen is soft, mild diffuse tenderness, no erythema or drainage around the PEG to Neurological: Alert and oriented, diffuse weakness Skin: Warm and dry Extremities: Normal inspection Psychiatric: Flat affect Constitutional: Initial Vital Signs Temperature (C) 36.9 C 11/02/17 15:28 Heart Rate 110 H 11/02/17 15:28 Respiratory Rate 16 11/02/17 15:28 Blood Pressure 92/54 L 11/02/17 15:28 O2 Sat (%) 94 11/02/17 15:28 O2 Delivery Mode Room Air Allergies/Adverse Reactions: codeine Allergy (Severe, Verified 11/02/17 15:27) Loss of consciousness metronidazole [From Flagyl] Allergy (Intermediate, Verified 11/02/17 15:27) Other-Enter Comments quetiapine [From Seroquel] Allergy (Intermediate, Verified 11/02/17 15:27) Other-Enter Comments Home Medications: Medication Instructions Recorded Levothyroxine [Synthroid 100 mcg 100 mcg PO DAILY06 08/27/14 (*)] Multivitamins [Multivitamin (*)] 1 each PO DAILY 03/17/17 traZODone [traZODONE 100MG (*)] 200 mg PO HS 08/06/17 Baclofen [Baclofen 10 mg (*)] 2.5 mg PO Q3 11/02/17 Duloxetine HCl [Cymbalta] 60 mg PO DAILY 11/02/17 Insulin Glargine [Lantus 100 4 units SC HS 11/02/17 UNITS/ML (*)] Insulin Regular Human [Humulin R 0 unit SC PRN PRN 11/02/17 100 units/ml (*)] Lisinopril [Zestril 10 mg (*)] 2.5 mg PO DAILY 11/02/17 Ondansetron HCl 4 mg PO BID 11/02/17 Rivaroxaban [Xarelto] 20 mg PO DAILY18 11/02/17 Simvastatin 20 mg PO HS 11/02/17 Sodium Chloride [Salt Tablet] 1 gm PO BID 11/02/17 Trimethoprim [TRIMPEX 100MG (*)] 100 mg PO DAILY 11/02/17 traMADol [Ultram 50 mg (*)] 12.5 mg PO Q3 11/02/17 traZODone [traZODONE 100MG (*)] 100 mg PO HS@0000 11/02/17 Medical Decision Making - Diagnostics Imaging Results: Chest x-ray independently reviewed by me reveals no acute disease. ED Course/Re-evaluation: This complicated patient presents with confusion and decreased oral intake. This presentation is similar to a prior episode of urinary tract infection and septic shock. IV access was difficult in the patient, but ultimately the ED nurses obtained an IV and laboratory tests. IV NS 1 liter given. Urinalysis is consistent with urinary tract infection, though since she is catheterized, it is unclear whether this is colonization versus infection. A urine culture was sent. Chest x-ray reveals no evidence of infection. Given that her presentation is similar to prior episode of septic shock, I will treat her with IV Levaquin. Prior urine culture revealed Stenotropomonas maltophilia, sensitive to Levaquin and Bactrim. She does not meet SIRS criteria. In addition, she has severe anemia, with a hemoglobin of 8.5. This is decreased from her last hemoglobin of 9.6 on 08/31/2017. 1 U packed red blood cells ordered. The hospitalist service was consulted for admission. Differential Diagnosis: Altered mental status including but not limited to hypoglycemia, infectious process, electrolyte abnormality, head injury and intoxicants. - Data Points Laboratory Results: Laboratory Results 11/02/17 19:00 11/02/17 19:00 Medications Given: Acetaminophen (Tylenol) 650 mg PO Q4HRS PRN PRN Reason: Pain, Mild/Fever, Can Take PO Stop: 05/01/18 19:35 Last Admin: 11/03/17 04:06 Dose: 650 mg Sodium Chloride (Ns) 1,000 mls @ 100 mls/hr IV CONT JANET Stop: 05/01/18 19:44 Last Admin: 11/03/17 08:32 Dose: 1,000 mls Levofloxacin/Dextrose (Levaquin 750 Mg (Premix)) 150 mls @ 100 mls/hr IV DAILY JANET PRN Reason: Protocol Stop: 12/03/17 08:59 Last Admin: 11/03/17 08:30 Dose: 150 mls Insulin Human Lispro (Humalog Lispro) 0 unit SC TIDMEAL JANET PRN Reason: Protocol Stop: 05/02/18 07:59 Last Admin: 11/03/17 08:29 Dose: Not Given Ondansetron HCl (Zofran) 4 mg IVP Q4HRS PRN PRN Reason: Nausea/Vomiting, Can't Take PO Stop: 05/01/18 19:35 Last Admin: 11/03/17 08:28 Dose: 4 mg Tramadol HCl (Ultram) 25 mg PO Q6HRS PRN PRN Reason: Pain, Moderate Able to Take PO Stop: 05/02/18 00:23 Last Admin: 11/03/17 00:39 Dose: 25 mg Discontinued Medications Baclofen (Baclofen) 5 mg PO ONCE ONE Stop: 11/02/17 20:41 Last Admin: 11/02/17 22:11 Dose: 5 mg Sodium Chloride (Ns) 1,000 mls @ 0 mls/hr IV ONCE ONE; Wide Open PRN Reason: Protocol Stop: 11/02/17 16:28 Last Admin: 11/02/17 18:39 Dose: 1,000 mls Levofloxacin/Dextrose (Levaquin 750 Mg (Premix)) 150 mls @ 100 mls/hr IV EDNOW ONE PRN Reason: Protocol Stop: 11/02/17 20:59 Last Admin: 11/02/17 20:36 Dose: 150 mls Rivaroxaban (Xarelto) 20 mg PO ONCE ONE Stop: 11/02/17 20:40 Last Admin: 11/02/17 22:11 Dose: 20 mg Tramadol HCl (Ultram) 50 mg PO ONCE ONE Stop: 11/02/17 20:42 Last Admin: 11/02/17 22:10 Dose: 50 mg Trazodone HCl (Trazodone) 100 mg PO ONCE ONE Stop: 11/02/17 20:41 Last Admin: 11/02/17 22:12 Dose: 100 mg Departure - Departure Disposition: [facility] Acute Clinical Impression: Dehydration Urinary tract infection Qualifiers: Urinary tract infection type: acute cystitis Hematuria presence: without hematuria Qualified Code(s): N30.00 - Acute cystitis without hematuria Altered mental status Qualifiers: Altered mental status type: somnolence Qualified Code(s): R40.0 - Somnolence Condition: Fair
[2017-11-02] MEDS ORDERED: NS 1,000 ML IV ONE (16:27)
[2017-11-02 19:12] LABS: PLATELET COUNT 214 10^3/uL (150-400)
[2017-11-02] MEDS ORDERED: ONDANSETRON 4 MG/2 ML VIAL IVP PRN (19:36)
[2017-11-02] MEDS ORDERED: ONDANSETRON DISINTEGRATING 4 MG TAB PO PRN (19:36)
[2017-11-02] MEDS ORDERED: ACETAMINOPHEN 325 MG TAB PO PRN (19:36)
[2017-11-02] MEDS ORDERED: RIVAROXABAN 20 MG TAB PO ONE (20:39)
[2017-11-02] MEDS ORDERED: BACLOFEN 10 MG TAB PO ONE (20:40)
[2017-11-02] MEDS ORDERED: traZODone 100 MG TAB PO ONE (20:40)
[2017-11-02] MEDS ORDERED: traMADol 50 MG TAB PO ONE (20:41)
[2017-11-02] MEDS ORDERED: D50W 25 GM/50 ML SYR IVP PRN (20:49)
[2017-11-02 20:55] LABS: INR 2.6 (0.83-1.16); PROTIME(PATIENT) 27.8 SEC (12.0-15.0)
--- NOTE | 2017-11-02 21:18 | GHP ---
[f rep st] HISTORY AND PHYSICAL DATE OF ADMISSION: 11/02/2017 CHIEF COMPLAINT: Lethargy. HISTORY OF PRESENT ILLNESS: This is a 66-year-old female who has multiple medical comorbidities and had a hospitalization nearly a month long in July and August of 2017 for similar complaints. Th e patient was diagnosed during that hospital stay with septic shock, presumed from urinary source. T he patient's hospital stay was complicated by hypoxic respiratory failure, paroxysmal atrial fibrilla tion. The patient was released to a long-term care where she had excellent recovery, and returned ho il to the care of her . The patient has been in a stable state of health per his description, although her activity level has been waning over the course of the last 2 weeks. He brought her in today for fear that some of these new symptoms of lethargy and confusion, as well as lightheadedness may be a prodrome to another severe illness. The patient has a chronic indwelling catheter. She not es that her urine has been more concentrated and foul smelling. Denies any measured fevers. She rep orts abdominal discomfort, neck pain. Denies shortness of breath. Denies pleuritic chest pain. She notes swelling of the bilateral hands. PAST MEDICAL HISTORY: 1. Diabetes. 2. Paroxysmal atrial fibrillation. 3. Hypothyroidism. 4. Hypertension. 5. Depression. 6. Anxiety. 7. Chronic urinary retention with an indwelling Dietrich and recurrent urinary tract infections includi ng E. faecalis, E. coli, Proteus, and most recently Stenotrophomonas. 8. Chronic hyponatremia. 9. Chronic pain with previous continuous opioid dependency. It appears the patient has been largely weaned off narcotics. 10. Intermittent severe constipation. SOCIAL HISTORY: The patient lives at home with her . Negative for tobacco. Occasional alcoh ol. No illicit drugs. FAMILY HISTORY: Positive for father with coronary disease. ADVANCED DIRECTIVES: The patient is full cor, full tube. Her would be her medical decision maker. REVIEW OF SYSTEMS: A 10-point review of systems is negative with the exception of that reported in t he HPI. PHYSICAL EXAMINATION: VITAL SIGNS: Blood pressure 114/57, heart rate 98, respiratory rate 18, 97% o n room air, 36.8. GENERAL: This is a thin-appearing, chronically ill middle-aged female. HEENT: N otable for moist mucous membranes. Eye exam is negative for any icterus. CARDIAC: The patient is r egular rate and rhythm. A quiet systolic murmur is heard best at the left upper sternal border. PUL MONARY: Limited respiratory effort, but clear to auscultation bilaterally. GASTROINTESTINAL: PEG t ube is in place. Positive bowel sounds. ABDOMEN: Diffusely tender. No rebound or guarding. MUSCU LOSKELETAL: Negative for any lower extremity edema. SKIN: Negative for any rashes. NEUROLOGIC: T he patient appears somnolent on my examination. LABORATORY DATA: White count 9.4, hematocrit 24.8, platelets of 214, creatinine 0.7. Urinalysis rep ortedly positive by the Emergency Department with 50-182 white blood cells. Negative for influenza. Chest x-ray, which I personally reviewed and interpreted, shows no acute infiltrates or edema. ASSESSMENT AND PLAN: This is a 66-year-old female presenting with lethargy, lightheadedness, and sub jective confusion. 1. Suspected acute urinary tract infection. The patient has a history of recurrent urinary infectio ns, most recent of which was Stenotrophomonas sensitive to levofloxacin. Blood cultures were obtaine d from the Emergency Department. We are empirically treating with IV levofloxacin. We will follow b oth blood and urine cultures from the lab. 2. Atrial fibrillation. The patient appears rate controlled. We will continue her Xarelto this jeffrey bren, and reinitiate her rate control medications once reconciled. 3. Lethargy. The patient has a longstanding history of complicated medical comorbid illness. We wi ll fluid resuscitate based on the patient's 's description of her concentrated urine, and her poor p.o. intake, and follow. 4. Diabetes. We will reconcile her home insulin regiment, and add sliding scale insulin as needed. 5. Hypertension. We will continue her home medications in the morning. 6. Prophylaxis. The patient is on Xarelto. We will give a single dose this evening until med recon ciliation is complete. DIET: As she can tolerate. DISPOSITION: I expect greater than 2 midnights. The patient is quite complicated, presenting with a nonspecific complaint which will require more diagnostic workup and empiric treatment. Discussed th e case with the emergency room physician. The patient will be triaged to the medical-surgical floor. /[id number]/MODL
[2017-11-03] MEDS ORDERED: traMADol 50 MG TAB PO PRN (00:24)
[2017-11-03 05:00] LABS: PLATELET COUNT 218 10^3/uL (150-400)
[2017-11-03] MEDS: INSULIN LISPRO 100 UNIT/ML SC SCH ×3 (08:29→17:50)
[2017-11-03] MEDS: NS 1,000 ML IV SCH ×2 (08:32→16:12)
[2017-11-03] MEDS ORDERED: ENOXAPARIN 40 MG/0.4 ML SYR SC SCH (09:00)
[2017-11-03] MEDS ORDERED: INSULIN REGULAR HUMAN SC PRN (10:18)
[2017-11-03] MEDS ORDERED: LISINOPRIL 10 MG TAB PO SCH (10:30)
--- NOTE | 2017-11-03 11:10 | PDMN ---
Medical Necessity Medical necessity: est los>2mn for eval and rx of suspected acute UTI, and lethargy, presenting with nonspecific complaint, requiring more diagnostic w/u and empiric treatment; admit for IV abx, follow cx's; comorbid afib, DM, HTN, hx recurrent UTI's w/ recent long hospitalization and LTAC stay; per order and H &P 11/02/17
[2017-11-03] MEDS: DULoxetine 60 MG CAP PO SCH ×2 (11:29→11:41)
[2017-11-03] MEDS: PROMETHAZINE HCL 25 MG/ML INJ IVP PRN (11:30)
[2017-11-03] MEDS: LEVOTHYROXINE 100 MCG TAB PO SCH ×2 (11:30→11:41)
[2017-11-03] MEDS: TRIMETHOPRIM 100 MG TAB PO SCH ×2 (11:32→11:41)
[2017-11-03] MEDS ORDERED: BACLOFEN 10 MG TAB PO SCH (12:00)
[2017-11-03] MEDS ORDERED: traMADol 50 MG TAB PO SCH (12:00)
--- NOTE | 2017-11-03 13:51 | WOCRNPDOC ---
WOCRN Advanced Assessment Note - Skin Integrity Problem, Advanced Assess Right Sacrum Pressure Injury Dressing Type: Allevyn Life Dressing Description: Intact Exudate Amount: Scant Exudate Color: Reddish/Yellow Exudate Characteristic(s): Serosanguinous Integumentary Issue Intervention: Visualized Under Dressing Carlee Wound Tissue: Blanching, Erythema, Macerated (in immediate periwound tissues) Carlee Wound Swelling: Mild Wound Bed Color: Red, Yellow Wound Bed Constitution: Granulation Tissue (40%), Red/[place] - Non Granular Tissue (40%), Undermining (0.2cm from 1-4 o'clock), Adhered Slough (20%) Site Odor: None Site Measurement - Head-to-Toe Length X Width X Depth (cm): 2.2cmx1.5cmx0.2cm Pressure Injury Stage: Stage 4 (per previous history) Pressure Injury Present on Admit: Yes (notified Dr. Keating) Skin Integrity Problem Comment: This patient is well-known to wound care, and was treated for a stage 4 pressure injury during previous hospitalization in August 2017. Presently, wound has appearance of a stage 3 pressure injury, w/ full-thickness tissue loss noted and some adhered slough in the proximal aspect of the wound bed. However, per staging guidelines, wound resumes its previous staging. Periwound skin is currently intact w/ blanching erythema. Patient was previously on a [place] air-fluidized bed, but reports that patient experienced back pain on that surface. I ordered a P500 low air loss bed for her today, and will reassess on Sunday 11/05 to determine if the wound is adequately off-loaded. Turns q2 and TAPS initiated by nursing, and appropriate to continue.
[2017-11-03] MEDS ORDERED: ACETAMINOPHEN 325 MG TAB TUBE PRN (14:30)
[2017-11-03] MEDS ORDERED: ONDANSETRON DISINTEGRATING 4 MG TAB TUBE PRN (14:30)
--- NOTE | 2017-11-03 15:12 | HOSPPROG ---
Hospitalist Progress Note Assessment/Plan: 66y female with c/o weakness. First encounter, chart reviewed. #UTI acute with reoccurence cont abx await cx #N/V supportive care #Afib not on any rate controlling meds cont to follow may need beta karen xeralto #Tachy related to above follow #Hypotension in the setting of acute illness and afib bolus given asymptomatic #DM cont home insulin pt to determine own sliding scale dose D/W RN and pharmacy #Hx HTn hold meds #weakness multifactorial wheelchair used at baseline may need SNF cont PT/OT #Dispo unclear, will require more evaluation cont supportive care Subjective: Feeling terrible. Nauseous. Pain in back. Objective: Vital Signs Temp Pulse Resp BP Pulse Ox 37.4 C 137 H 18 86/36 L 96 11/03/17 10:56 11/03/17 10:56 11/03/17 10:56 11/03/17 11:32 11/03/17 10:56 Laboratory Results 11/03/17 04:51 11/02/17 11/03/17 11/04/17 05:59 05:59 05:59 Intake Total 1000 750 Output Total 550 450 Balance 450 300 PT 27.8 SEC (12.0-15.0) H 11/02/17 19:00 INR 2.60 (0.83-1.16) H 11/02/17 19:00 - Physical Exam Constitutional: appears nourished, chronically ill appearing, uncomfortable Eyes: PERRL, anicteric sclera, EOMI Ears, Nose, Mouth, Throat: moist mucous membranes, hearing normal, ears appear normal Cardiovascular: tachycardia, No JVD, No edema Respiratory: no respiratory distress, no rales or rhonchi, reduced air movement Gastrointestinal: normoactive bowel sounds, No tenderness, No ascites Skin: warm, pressure ulcer, No mottled Musculoskeletal: no joint effusions, generalized weakness, No normal joint ROM Psychiatric: not anxious, not encephalopathic, poor insight, poor judgement, poor memory ICD10 Worksheet Patient Problems: Problems Problem Status Onset Hyponatremia Acute Status post cervical arthrodesis Acute Pneumonia Acute Altered mental status Acute Dehydration Acute Weakness Acute Chronic pain Acute Chronic back pain Acute Vomiting Acute Sepsis Acute Hypoxic Acute Respiratory failure Acute CHF (congestive heart failure) Acute Urinary tract infection Acute
[2017-11-03] MEDS: BACLOFEN 10 MG TAB TUBE SCH ×3 (15:50→21:01)
[2017-11-03] MEDS: traMADol 50 MG TAB TUBE SCH ×3 (15:50→21:00)
--- NOTE | 2017-11-03 16:11 | ASMTCMCOM ---
CM Note CM Note Notes: Pt admitted w/UTI. Pt was hospitalized with this and septic shock in Jul/Aug and then went to [facility]. She then went home w/ and was set up w/ [facility] per admissions person at [facility]. I was not able to locate this agency to notify them; CM will need to ask if he has their info. 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 PT/OT rec's pending, dc needs not lear. Current dc poc: TBD, if home will resume current HHC Date Signed: 11/03/2017 04:11 PM Electronically Signed By:Claudine Obrien RN
[2017-11-03] MEDS: RIVAROXABAN 20 MG TAB TUBE SCH (17:50)
[2017-11-03] MEDS: SODIUM CHLORIDE 1,000 MG TAB TUBE SCH (21:00)
[2017-11-03] MEDS ORDERED: INSULIN GLARGINE 4 UNIT SC SCH (21:00)
[2017-11-03] MEDS: traZODone 100 MG TAB TUBE SCH (21:01)
[2017-11-03] MEDS: ONDANSETRON DISINTEGRATING 4 MG TAB TUBE SCH (21:01)
[2017-11-03] MEDS: INSULIN GLARGINE 100 UNITS/ML UNIT SC SCH (21:44)
[2017-11-04] MEDS: BACLOFEN 10 MG TAB TUBE SCH ×6 (00:32→17:07)
[2017-11-04] MEDS: traZODone 100 MG TAB TUBE SCH ×2 (00:32→22:22)
[2017-11-04] MEDS: traMADol 50 MG TAB TUBE SCH ×6 (00:32→17:06)
[2017-11-04] MEDS: NS 1,000 ML IV SCH (02:11)
[2017-11-04] MEDS: LEVOTHYROXINE 100 MCG TAB TUBE SCH (06:26)
[2017-11-04] MEDS: INSULIN LISPRO 100 UNIT/ML SC SCH ×4 (07:38→21:59)
[2017-11-04] MEDS: DULoxetine 60 MG CAP TUBE SCH (08:36)
[2017-11-04] MEDS: SODIUM CHLORIDE 1,000 MG TAB TUBE SCH ×2 (08:36→22:22)
[2017-11-04] MEDS: LISINOPRIL 10 MG TAB TUBE SCH (08:39)
[2017-11-04] MEDS: ONDANSETRON DISINTEGRATING 4 MG TAB TUBE SCH ×2 (08:39→22:22)
[2017-11-04] MEDS: MULTIVITAMINS 1 EACH TAB PO SCH (08:41)
[2017-11-04] MEDS: TRIMETHOPRIM 100 MG TAB TUBE SCH ×3 (11:05→13:30)
[2017-11-04] MEDS: ATORVASTATIN CALCIUM 10 MG TAB TUBE SCH ×2 (13:00→22:22)
--- NOTE | 2017-11-04 15:28 | HOSPPROG ---
Hospitalist Progress Note Assessment/Plan: 66y female with c/o weakness. #UTI acute with reoccurence cont abx cx shows multiple bacteria ID consult ordered #N/V supportive care #Afib not on any rate controlling meds cont to follow may need beta karen xeralto #Tachy resolved related to above follow #Hypotension in the setting of acute illness and afib bolus given asymptomatic resolved #DM cont home insulin pt to determine own sliding scale dose D/W RN and pharmacy #Hx HTN hold meds #weakness multifactorial wheelchair used at baseline may need SNF cont PT/OT #Anemia lower then normal has been low in the past offered EGD/Colon pt refused will hem stools watch received 1 unit PRBC #Dispo unclear, will require more evaluation cont supportive care D/W and CM wants to take her home.... Spoke at length with Subjective: Doesn't want to participate. Not feeling well. Objective: Vital Signs Temp Pulse Resp BP Pulse Ox 36.4 C 91 20 126/58 H 100 11/04/17 11:37 11/04/17 11:37 11/04/17 11:37 11/04/17 11:37 11/04/17 11:37 Laboratory Results 11/03/17 04:51 11/03/17 11/04/17 11/05/17 05:59 05:59 05:59 Intake Total 4929 190 7005 Output Total 550 1600 0 Balance 450 -750 3375 PT 27.8 SEC (12.0-15.0) H 11/02/17 19:00 INR 2.60 (0.83-1.16) H 11/02/17 19:00 - Physical Exam Constitutional: appears nourished, not in pain, chronically ill appearing Eyes: PERRL, anicteric sclera, EOMI Ears, Nose, Mouth, Throat: moist mucous membranes, hearing normal, ears appear normal Cardiovascular: regular rate and rhythym, No JVD, No edema Respiratory: no respiratory distress, no rales or rhonchi, reduced air movement Gastrointestinal: normoactive bowel sounds, No tenderness, No ascites Skin: warm, normal color, pressure ulcer Musculoskeletal: normal joint ROM, no joint effusions, generalized weakness Neurologic: AAOx3 Psychiatric: not anxious, not encephalopathic, thought process linear, poor insight, poor judgement ICD10 Worksheet Patient Problems: Problems Problem Status Onset Altered mental status Acute Dehydration Acute Urinary tract infection Acute CHF (congestive heart failure) Acute Chronic back pain Acute Chronic pain Acute Hyponatremia Acute Hypoxic Acute Pneumonia Acute Respiratory failure Acute Sepsis Acute Status post cervical arthrodesis Acute Vomiting Acute Weakness Acute
[2017-11-04] MEDS: RIVAROXABAN 20 MG TAB TUBE SCH (17:05)
[2017-11-04] MEDS: INSULIN GLARGINE 100 UNITS/ML UNIT SC SCH (22:03)
[2017-11-05] MEDS: traMADol 50 MG TAB TUBE SCH ×5 (00:11→23:27)
[2017-11-05] MEDS: traZODone 100 MG TAB TUBE SCH ×3 (00:12→23:28)
[2017-11-05] MEDS: BACLOFEN 10 MG TAB TUBE SCH ×5 (00:12→23:27)
[2017-11-05] MEDS: LEVOTHYROXINE 100 MCG TAB TUBE SCH (06:08)
[2017-11-05] MEDS: DULoxetine 60 MG CAP TUBE SCH (08:27)
[2017-11-05] MEDS: ONDANSETRON DISINTEGRATING 4 MG TAB TUBE SCH ×2 (08:27→21:42)
[2017-11-05] MEDS: TRIMETHOPRIM 100 MG TAB TUBE SCH (08:27)
[2017-11-05] MEDS: INSULIN LISPRO 100 UNIT/ML SC SCH ×3 (08:28→18:03)
[2017-11-05] MEDS: MULTIVITAMINS 1 EACH TAB PO SCH (08:28)
[2017-11-05] MEDS: SODIUM CHLORIDE 1,000 MG TAB TUBE SCH ×2 (08:28→21:42)
--- NOTE | 2017-11-05 10:05 | WOCRNPDOC ---
[facility] Advanced Assessment Note - Skin Integrity Problem, Advanced Assess Left Medial Abdomen Pressure Injury Dressing Type: Dressing Sponge (Drain sponge) Dressing Description: Intact Exudate Amount: Scant Exudate Color: Red Exudate Characteristic(s): Bloody, Dried Integumentary Issue Intervention: Dressing Changed Carlee Wound Tissue: Intact Carlee Wound Swelling: None Wound Bed Color: Purple, Red Site Measurement - Head-to-Toe Length X Width X Depth (cm): 0.8cmx1.7pae3dc Pressure Injury Stage: Deep Tissue Injury (DTI), Parachutist/Combatant Diver Qualified Related Pressure Injury (from bumper on PEG; present on admission) Pressure Injury Present on Admit: Yes (hospitalist notified) Skin Integrity Problem Comment: Area of purple/red, non-blanching tissue noted just distal to PEG tube on patient's left mid-abdomen. While there is some scattered erythema throughout, the tissue is predominantly ecchymotic, consistent with deep tissue injury r/t to pressure from the PEG bumper. Per Tony, he cut the bumper because he felt it was exerting too much pressure on the surrounding skin. This created a flat edge that is now pressing into patient's skin. Protective foam Polymem dressing applied under bumper to absorb drainage from PEG and provide more protection to carlee-tube skin. Report given to children's attendantZACH Kiser.
[2017-11-05] MEDS: LISINOPRIL 10 MG TAB TUBE SCH (11:37)
--- NOTE | 2017-11-05 12:54 | HOSPPROG ---
Hospitalist Progress Note Assessment/Plan: 66y female with c/o weakness. #UTI acute with reoccurence cont abx cx shows multiple bacteria ID consulted will see today #N/V supportive care #Afib not on any rate controlling meds cont to follow may need beta karen xeralto NSR #Tachy resolved related to above follow #Hypotension in the setting of acute illness and afib bolus given asymptomatic resolved #DM cont home insulin pt to determine own sliding scale dose D/W RN #Hx HTN hold meds #weakness multifactorial wheelchair used at baseline refusing SNF cont PT/OT #Anemia lower then normal has been low in the past offered EGD/Colon pt refused will hem stools watch received 1 unit PRBC repeat CBC in am #Dispo unclear, will require more evaluation cont supportive care D/W and CM wants to take her home.... Spoke at length with plan for home with [facility] when able Subjective: Slept well last night. Doing better today. Objective: Vital Signs Temp Pulse Resp BP Pulse Ox 37.2 C 84 18 130/85 H 98 11/05/17 11:57 11/05/17 11:57 11/05/17 11:57 11/05/17 11:57 11/05/17 11:57 Laboratory Results 11/03/17 04:51 11/04/17 11/05/17 11/06/17 05:59 05:59 05:59 Intake Total 850 4015 582 Output Total 1600 2049 Balance -750 1965 582 PT 27.8 SEC (12.0-15.0) H 11/02/17 19:00 INR 2.60 (0.83-1.16) H 11/02/17 19:00 - Physical Exam Constitutional: appears nourished, not in pain, chronically ill appearing Eyes: PERRL, anicteric sclera, EOMI Ears, Nose, Mouth, Throat: moist mucous membranes, hearing normal, ears appear normal Cardiovascular: regular rate and rhythym, No JVD, No edema Respiratory: no respiratory distress, no rales or rhonchi, reduced air movement Gastrointestinal: other (PEG), No tenderness, No ascites Genitourinary: thompson in urethra Skin: warm, normal color, pressure ulcer Musculoskeletal: no joint effusions, pain with ROM, generalized weakness Neurologic: AAOx3 Psychiatric: not anxious, not encephalopathic, poor insight, poor judgement, poor memory ICD10 Worksheet Patient Problems: Problems Problem Status Onset Hyponatremia Acute Status post cervical arthrodesis Acute Pneumonia Acute Altered mental status Acute Dehydration Acute Weakness Acute Chronic pain Acute Chronic back pain Acute Vomiting Acute Sepsis Acute Hypoxic Acute Respiratory failure Acute CHF (congestive heart failure) Acute Urinary tract infection Acute
--- NOTE | 2017-11-05 14:45 | ASMTCMCOM ---
CM Note CM Note Notes: Met with patient and her . Unable to locate [facility] in nearby areas. Requested to bring in or call in agency number so we can make appropriate referrals to resume patients HHC. CM to follow Date Signed: 11/05/2017 02:44 PM Electronically Signed By:Paige Hutchison RN
--- NOTE | 2017-11-05 15:45 | PCMIDPN ---
Assessment/Plan: Assessment/Plan: 1. Polymicrobial UTI: - Cx with enterococcus, Acintobacter, and stenotrophomonas - spoke with micro, susceptiblites on steno just being set up today. -Currently on levaquin. . - Will add unasyn (which will cover enterococcus and acintobacter) and keep levaquin for stenotrophomonas for now. -she has been taking trimethoprim ppx so hopefully she hasn't developed resistance to this as ideally it would be preferable to use bactrim for stenotrophomonas. Also, Based on her previous sensitivities and clinical response. -plan of care reviewed with , patient, - care coordianted with her RN. -check labs in AM. Subjective: Pt well known to ID service. Hospitalized in Jul. Had sepsis like presentation possibly related to UTI. Has come back in due to not feeling well, lethargy, weakness. She has a chronic thompson catheter. she apparently takes trimethoprim at home for prophylaxsis and per her she has not missed any dosesApparenlty it was not functioning well last week or so and it was changed. She denies fevers, but did have shaking chills prior to admit. she has chronic pain all over. denies sob. her bowel fluctuate between constipation and diarrhea. she had taken a bunch of stool softeners prior to admit so she had diarrhea when she came in. Now she has not moved bowel in two days. she did vomit on admit also. URine cs gorwin out several organisms. ID asked to help in management. 10 point review of system negative except above. Objective: Vital Signs Temp Pulse Resp BP Pulse Ox 37.2 C 84 18 130/85 H 98 11/05/17 11:57 11/05/17 11:57 11/05/17 11:57 11/05/17 11:57 11/05/17 11:57 Laboratory Results 11/03/17 04:51 11/04/17 11/05/17 11/06/17 05:59 05:59 05:59 Intake Total 850 4015 582 Output Total 1600 0 Balance -750 1965 582 - Physical Exam General Appearance: alert, no apparent distress Respiratory: lungs clear Cardiac/Chest: regular rate, rhythm Extremities: No swelling Abdomen: normal bowel sounds, non-tender, soft, No distended Pelvic Exam: thompson Skin: No erythema - Time Spent With Patient Time Spent with Patient: greater than 35 minutes Time Spent with Patient: Greater than 35 minutes spent on this patients care, greater than 50% of time spent counseling, educating, and coordinating care regarding the above mentioned plan. ICD10 Worksheet Patient Problems: Problems Problem Status Onset Altered mental status Acute Dehydration Acute Urinary tract infection Acute CHF (congestive heart failure) Acute Chronic back pain Acute Chronic pain Acute Hyponatremia Acute Hypoxic Acute Pneumonia Acute Respiratory failure Acute Sepsis Acute Status post cervical arthrodesis Acute Vomiting Acute Weakness Acute
[2017-11-05] MEDS: RIVAROXABAN 20 MG TAB TUBE SCH (18:02)
[2017-11-05] MEDS: AMPICILLIN/SULBACTAM 3 GM in NS 100 ML IV SCH ×2 (18:51→23:15)
[2017-11-05] MEDS: ATORVASTATIN CALCIUM 10 MG TAB TUBE SCH (21:42)
[2017-11-05] MEDS: INSULIN GLARGINE 100 UNITS/ML UNIT SC SCH (21:54)
[2017-11-06] MEDS ORDERED: INSULIN LISPRO 100 UNIT/ML SC ONE (01:30)
[2017-11-06] MEDS: AMPICILLIN/SULBACTAM 3 GM in NS 100 ML IV SCH ×2 (05:27→12:05)
[2017-11-06] MEDS: LEVOTHYROXINE 100 MCG TAB TUBE SCH (05:28)
[2017-11-06] MEDS: BACLOFEN 10 MG TAB TUBE SCH ×4 (05:29→23:34)
[2017-11-06] MEDS: traMADol 50 MG TAB TUBE SCH ×4 (05:30→23:34)
[2017-11-06] MEDS: LISINOPRIL 10 MG TAB TUBE SCH (08:39)
[2017-11-06] MEDS: ONDANSETRON DISINTEGRATING 4 MG TAB TUBE SCH ×2 (08:40→20:42)
[2017-11-06] MEDS: MULTIVITAMINS 1 EACH TAB PO SCH (08:40)
[2017-11-06] MEDS: TRIMETHOPRIM 100 MG TAB TUBE SCH (08:40)
[2017-11-06] MEDS: SODIUM CHLORIDE 1,000 MG TAB TUBE SCH ×2 (08:40→20:42)
[2017-11-06] MEDS: DULoxetine 60 MG CAP TUBE SCH (08:40)
[2017-11-06] MEDS: INSULIN LISPRO 100 UNIT/ML SC SCH ×3 (08:41→17:52)
--- NOTE | 2017-11-06 10:51 | ASMTCMCOM ---
CM Note CM Note Notes: CM called [facility] and pt is current with them. Updates sent to [facility]. Kyle will come and check in on pt today. Needs are TBD at this time. ID and wound care is involved. CM awaiting recommendations from ID and wound care. CM to follow. Plan: [facility], RN, PT, OT Date Signed: 11/06/2017 10:50 AM Electronically Signed By:MORGAN Boateng
--- NOTE | 2017-11-06 15:11 | PCMIDPN ---
Assessment/Plan: Assessment/Plan: * Catheter associated UTI with catheter/infection present upon admission: Polymicrobial cultures with growth of Enterococcus faecalis, stenotrophomonas, and Acinetobacter. Patient describes having sulfa allergy with tongue swelling although did receive Bactrim during prior hospital stay; she notes this occurred post discharge. Will complete 10 days total of levofloxacin for Acinetobacter and stenotrophomonas which are susceptible (5 more days). Will change Unasyn to ampicillin with plans to change to amoxicillin 500 mg orally 3 times per day at time of discharge which likely will be tomorrow. This should be continued for 8 days post discharge. 11/06/17 15:06 Subjective: Patient complains of pain in lower back. Describes having sulfa allergy which led to tongue swelling. She describes it as occurring after her last hospital discharge and she was given Bactrim during that stay. Objective: Vital Signs Temp Pulse Resp BP Pulse Ox 36.9 C 91 14 107/50 L 97 11/06/17 12:00 11/06/17 12:00 11/06/17 12:00 11/06/17 12:00 11/06/17 12:00 Laboratory Results 11/06/17 05:30 11/06/17 05:25 11/05/17 11/06/17 11/07/17 05:59 05:59 05:59 Intake Total 4015 2401 Output Total 0 2260 0 Balance 1965 141 0 Levofloxacin # 5 Unasyn # 2 Urine culture with growth of Enterococcus faecalis, stenotrophomonas ( susceptible to Bactrim and levofloxacin), and Acinetobacter - Physical Exam General Appearance: alert, no apparent distress EENT: No scleral icterus, No thrush Respiratory: lungs clear (Anterolaterally) Cardiac/Chest: regular rate, rhythm Abdomen: non-tender, No distended ICD10 Worksheet Patient Problems: Problems Problem Status Onset Altered mental status Acute Dehydration Acute Urinary tract infection Acute CHF (congestive heart failure) Acute Chronic back pain Acute Chronic pain Acute Hyponatremia Acute Hypoxic Acute Pneumonia Acute Respiratory failure Acute Sepsis Acute Status post cervical arthrodesis Acute Vomiting Acute Weakness Acute
--- NOTE | 2017-11-06 15:44 | HOSPPROG ---
Hospitalist Progress Note Assessment/Plan: 66y female with c/o weakness. D/W Dr Martin #UTI acute with reoccurence cont abx per ID cx shows multiple bacteria catheter changed will be able to DC on PO abx see ID note #N/V supportive care #Afib not on any rate controlling meds cont to follow may need beta karen xeralto NSR #Tachy resolved related to above follow #Hypotension in the setting of acute illness and afib bolus given asymptomatic resolved #DM cont home insulin pt to determine own sliding scale dose D/W RN #Sacral wound POA cont wound care #Hx HTN hold meds #weakness multifactorial wheelchair used at baseline refusing SNF cont PT/OT #Anemia better offered EGD/Colon pt refused will hem stools watch received 1 unit PRBC FU outpt #Dispo DC in am to home cont supportive care D/W and CM wants to take her home.... Spoke at length with plan for home with C in am Subjective: Feeling weak. No specific issues. Objective: Vital Signs Temp Pulse Resp BP Pulse Ox 36.9 C 91 14 107/50 L 97 11/06/17 12:00 11/06/17 12:00 11/06/17 12:00 11/06/17 12:00 11/06/17 12:00 Laboratory Results 11/06/17 05:30 11/06/17 05:25 11/05/17 11/06/17 11/07/17 05:59 05:59 05:59 Intake Total 4015 2401 Output Total 2050 2260 0 Balance 1965 141 0 PT 27.8 SEC (12.0-15.0) H 11/02/17 19:00 INR 2.60 (0.83-1.16) H 11/02/17 19:00 - Physical Exam Constitutional: appears nourished, not in pain, chronically ill appearing Eyes: PERRL, anicteric sclera, EOMI Ears, Nose, Mouth, Throat: moist mucous membranes, hearing normal, ears appear normal Cardiovascular: No JVD, No tachycardia, No edema Respiratory: no respiratory distress, no rales or rhonchi, reduced air movement Gastrointestinal: normoactive bowel sounds, No tenderness, No ascites Skin: warm, normal color, pressure ulcer Musculoskeletal: normal joint ROM, no joint effusions, generalized weakness Psychiatric: interacting appropriately, poor insight, poor judgement, poor memory ICD10 Worksheet Patient Problems: Problems Problem Status Onset Hyponatremia Acute Status post cervical arthrodesis Acute Pneumonia Acute Altered mental status Acute Dehydration Acute Weakness Acute Chronic pain Acute Chronic back pain Acute Vomiting Acute Sepsis Acute Hypoxic Acute Respiratory failure Acute CHF (congestive heart failure) Acute Urinary tract infection Acute
[2017-11-06] MEDS: PROMETHAZINE HCL 25 MG/ML INJ IVP PRN (15:45)
[2017-11-06] MEDS: RIVAROXABAN 20 MG TAB TUBE SCH (17:50)
[2017-11-06] MEDS: AMPICILLIN SODIUM 2 GM in NS 100 ML IV SCH ×2 (17:50→23:35)
[2017-11-06] MEDS ORDERED: AMPICILLIN/SULBACTAM 3 GM in STERILE WATER INJ 8 ML IV SCH (18:00)
[2017-11-06] MEDS: INSULIN GLARGINE 100 UNITS/ML UNIT SC SCH (20:40)
[2017-11-06] MEDS: ATORVASTATIN CALCIUM 10 MG TAB TUBE SCH (20:40)
[2017-11-06] MEDS: traZODone 100 MG TAB TUBE SCH ×2 (20:42→23:35)
[2017-11-06] MEDS ORDERED: INSULIN REGULAR HUMAN 100 UNIT/ML UNIT SC ONE (22:51)
[2017-11-06] MEDS ORDERED: D50W 25 GM/50 ML VIAL IVP PRN (23:00)
[2017-11-07] MEDS: LEVOTHYROXINE 100 MCG TAB TUBE SCH (05:14)
[2017-11-07] MEDS: BACLOFEN 10 MG TAB TUBE SCH (05:14)
[2017-11-07] MEDS: traMADol 50 MG TAB TUBE SCH (05:15)
[2017-11-07] MEDS: AMPICILLIN SODIUM 2 GM in NS 100 ML IV SCH (05:16)
[2017-11-07 07:11] VITALS: PULSE 94; RESP 16; TEMP 98.3; O2SAT 94
[2017-11-07] MEDS: INSULIN LISPRO 100 UNIT/ML SC SCH (07:42)
--- NOTE | 2017-11-07 08:21 | HOSPPROG ---
Hospitalist Progress Note Assessment/Plan: 66y female with c/o weakness. Today is my 1st encounter with the patient. Chart reviewed. #Catheter associated UTI with catheter/infection present upon admission Polymicrobial cultures Will need Levaquin for 5 more days amoxicillin 500 mg three times daily for 8 more days #N/V supportive care Patient has poor oral intake and often uses tube feeding #FTT patient appears to be in very poor health declines SNF wants to be home with her # hyponatremia Chronic #Afib not on any rate controlling meds cont to follow may need beta karen On Xarelto #Tachy resolved #Hypotension asymptomatic had been gvien a fluid bolus Recommending to stop her blood pressure medication on discharge until she gets follow up with her primary care provider #DM cont home insulin pt to determine own sliding scale dose D/W RN # pressure ulcer present on admission noted to be stage IV on sacrum area cont wound care # Hx HTN hold meds #weakness multifactorial wheelchair used at baseline refusing SNF cont PT/OT #Anemia better offered EGD/Colon by previous provider pt refused received 1 unit PRBC FU outpt Metabolic encephalopathy 2/2 infection resolved #plan. dc home w home care Subjective: Marly wants to be discharged immediately. He is agreeable to get home care Objective: Vital Signs Temp Pulse Resp BP Pulse Ox 36.8 C 94 16 96/51 L 94 11/07/17 07:11 11/07/17 07:11 11/07/17 07:11 11/07/17 07:11 11/07/17 07:11 Laboratory Results 11/06/17 05:30 11/06/17 05:25 11/06/17 11/07/17 11/08/17 05:59 05:59 05:59 Intake Total 2401 1250 Output Total 2260 2450 Balance 141 -1200 PT 27.8 SEC (12.0-15.0) H 11/02/17 19:00 INR 2.60 (0.83-1.16) H 11/02/17 19:00 - Physical Exam Constitutional: not in pain, chronically ill appearing, other (The patient is very thin and appears to be in very poor health) Ears, Nose, Mouth, Throat: hearing normal Cardiovascular: regular rate and rhythym Respiratory: no respiratory distress Skin: warm Musculoskeletal: generalized weakness Neurologic: AAOx3 Psychiatric: interacting appropriately ICD10 Worksheet Patient Problems: Problems Problem Status Onset Altered mental status Acute Dehydration Acute Urinary tract infection Acute CHF (congestive heart failure) Acute Chronic back pain Acute Chronic pain Acute Hyponatremia Acute Hypoxic Acute Pneumonia Acute Respiratory failure Acute Sepsis Acute Status post cervical arthrodesis Acute Vomiting Acute Weakness Acute
--- NOTE | 2017-11-07 10:09 | PDIAF ---
- Diagnosis Diagnosis: catheter associated UTI, anemia, hypotension Code Status: Full Code - Medication Management Discharge Medications: Medications to Continue on Transfer Levothyroxine [Synthroid 100 mcg (*)] 100 mcg PO DAILY06 08/27/14 [Last Taken ] Multivitamins [Multivitamin (*)] 1 each PO DAILY 03/17/17 [Last Taken Unknown] traZODone [traZODONE 100MG (*)] 200 mg PO HS 08/06/17 [Last Taken Unknown] Baclofen [Baclofen 10 mg (*)] 2.5 mg PO Q3 11/02/17 [Last Taken Unknown] Duloxetine HCl [Cymbalta] 60 mg PO DAILY 11/02/17 [Last Taken 11/02/17] Insulin Glargine [Lantus 100 UNITS/ML (*)] 4 units SC HS 11/02/17 [Last Taken Unknown] Insulin Regular Human [Humulin R 100 units/ml (*)] 0 unit SC PRN PRN 11/02/17 [ Last Taken Unknown] Ondansetron HCl 4 mg PO BID 11/02/17 [Last Taken Unknown] Rivaroxaban [Xarelto] 20 mg PO DAILY18 11/02/17 [Last Taken 11/01/17] Simvastatin 20 mg PO HS 11/02/17 [Last Taken Unknown] Sodium Chloride [Salt Tablet] 1 gm PO BID 11/02/17 [Last Taken Unknown] Trimethoprim [TRIMPEX 100MG (*)] 100 mg PO DAILY 11/02/17 [Last Taken Unknown] traMADol [Ultram 50 mg (*)] 12.5 mg PO Q3 11/02/17 [Last Taken Unknown] traZODone [traZODONE 100MG (*)] 100 mg PO HS@0000 11/02/17 [Last Taken Unknown] Amoxicillin Trihydrate [Amoxil] 500 mg PO TID 8 Days #24 cap 11/07/17 [Last Taken Unknown] levOFLOXACIN [levAQUIN (*)] 750 mg PO DAILY #5 tab 11/07/17 [Last Taken Unknown] Discharge Medications: Refer to the Discharge Home Medication list for PRN reason. - Orders Services needed: Home Care, Registered Nurse, Physical Therapy, Occupational Therapy Home Care Face to Face: I certify that this patient was under my care and that I had the required [id number] encounter meeting the encounter requirements on the discharge day. My findings support the fact that the patient is homebound as defined in Home Care Face to Face Continued: CMS Chapter 7 Medicare Benefits Manual 30.1.1 , The condition of the patient is such that there exists a normal inability to leave home and consequently, leaving home would require a considerable and taxing effort. Isolation Type: None Diet Recommendation: no restrictions on diet Diet Texture: Regular Texture Diet Wound Care Instructions: Dressing change order for PEG tube site: to be done daily. 1) cleanse around PEG w/ NS and gauze. 2) apply skin prep to skin surrounding PEG. 3) cover w/ Polymem tube dressing (in patient's specialty supplies), or other padded foam dressing to prevent bumper from pressing into patient's skin. Dressing change orders for R sacrum: to be done q3 days and PRN. 1) cleanse w/ NS and gauze. 2) apply skin prep to rani wound skin. 3) tear off piece of Yasmeen Promogran Ag collagen and place into wound bed. 4) cut out piece of Hydrofera Blue Ready foam dressing just slightly smaller than the wound diameter, and place into wound bed writing side facing up. 5) secure w/ steri-strip, and cover w/ large 6x6 Allevyn Life foam dressing. RORY Hall Additional: your lisinopril has been stopped due to low blood pressure. you had significant anemia during your hospital stay requiring a transfusion, you are on Xarelto, you need to get further work up in regards to this. you could be bleeding slowly. need to see Dr Danielle to get further evaluation. Avoid taking Trazodone and Zofran while on the Levaquin, it affects the QT interval in regards to the heart. Levaquin can affect the tendons, so if you start having pain in tendons, stop and see your doctor - Labs/Radiology HCT/HGB Date: 11/11/17 - Follow Up Care Current Providers and Referrals: Arthur Danielle MD [Primary Care Provider] - As per Instructions
[2017-11-07] MEDS: LISINOPRIL 10 MG TAB TUBE SCH (10:17)
[2017-11-07] MEDS: MULTIVITAMINS 1 EACH TAB PO SCH (10:17)
[2017-11-07] MEDS: DULoxetine 60 MG CAP TUBE SCH (10:18)
[2017-11-07] MEDS: SODIUM CHLORIDE 1,000 MG TAB TUBE SCH (10:21)
[2017-11-07] MEDS: ONDANSETRON DISINTEGRATING 4 MG TAB TUBE SCH (10:22)
[2017-11-07] MEDS: TRIMETHOPRIM 100 MG TAB TUBE SCH (10:22)
[2017-11-07 10:26] VITALS: BP 105/52
[2017-11-07] MEDS ORDERED: AMPICILLIN SODIUM 2 GM in STERILE WATER INJ 25 ML IV SCH (12:00)
--- NOTE | 2017-11-07 12:56 | GDS ---
[f rep st] DISCHARGE SUMMARY DISCHARGE DIAGNOSES: 1. Catheter-associated urinary tract infection. 2. Nausea and vomiting. 3. Overall failure to thrive. 4. Hyponatremia. 5. Atrial fibrillation. 6. Tachycardia. 7. Hypotension. 8. Diabetes, type 2. 9. Pressure ulcer present on admission, noted to be stage IV on the sacral area. 10. History of hypertension. 11. Anemia. 12. Metabolic encephalopathy. CONSULTATION: Parmjit Martin MD BRIEF HISTORY: The patient is a 66-year-old female who has multiple medical comorbidities and has burnett d a hospitalization nearly a month long in July and August for similar complaints. She had sept ic shock, presumed from a urinary source and was complicated by hypoxemic respiratory failure and par oxysmal atrial fibrillation. She was released to long-term care where she had good recovery and retu rn to the care of her . Her brought her here to the hospital because she was having l ethargy and confusion as well as lightheadedness. It was noted that she had a catheter-associated ur inary tract infection and was seen and evaluated by Infectious Disease. She has improved during her stay. She will be discharged on Levaquin and amoxicillin. In addition, blood cultures were checked, which showed no growth. She will follow up with Dr. Danielle in the outpatient setting. Recommendation is for her to go to a [facility]p facility, which she has declined at this time. HOSPITAL COURSE: 1. Dietrich catheter-associated urinary tract infection: This is polymicrobial. She will need Levaqui n and amoxicillin. Prescriptions have been sent to her pharmacy. 2. Nausea and vomiting: None this morning. She has a tube feedings that she uses p.r.n. failure to thrive. She appears to be in very poor health, having a pressure ulcer as well as anemia and uses a wheelchair. She prefers to be home with her . 3. Hyponatremia: Chronic. 4. Atrial fibrillation: She is not on any rate-controlling medications. She is not tachycardic. S he is on Xarelto. 5. Tachycardia: Resolved. 6. Hypotension: She has been asymptomatic. Recommendation is for her stop her lisinopril until she follows up with her PCP. 7. Diabetes: Continue her home regimen. She has been doing her own sliding scale dose. 8. Pressure ulcer present on admission, which is stage IV. A home care nurse will be seeing her and dressing orders have been placed in her chart. 9. Hypertension: Home medications stopped. 10. Anemia: Hemoglobin 11.6 and hematocrit 33.6 yesterday. Recommendation was to get an EGD and co lonoscopy. Patient has declined this. I have asked that she follow up with Dr. Danielle and also kacey funes get her hemoglobin and hematocrit checked in the next few days. 11. Metabolic encephalopathy: This is resolved. DISCHARGE CONDITION: Stable. Blood pressure is 105/52, heart rate is 94, respiratory rate 16, O2 sa t on room air 94%, temperature 36.8 Celsius. MEDICATIONS AT DISCHARGE: Please see the EMR. New medications include amoxicillin and Levaquin. DISCHARGE INSTRUCTIONS: 1. To follow up with Dr. Danielle. She should get an outpatient colonoscopy and EGD. 2. Stop her lisinopril. 3. Home care will be evaluating the patient. Greater than 30 minutes discharging and coordinating her care. /[id number]/MODL
[2017-11-08] MEDS ORDERED: LISINOPRIL 5 MG TAB TUBE SCH (09:00)
--- NOTE | 2017-11-08 09:21 | ASDISCHSUM ---
Discharge Information Plan Status:Home with Home Health Medically Cleared to Leave:11/06/2017 Discharge Date:11/07/2017 01:00 PM CM D/C Disposition: ADT D/C Disposition:Home, Routine, Self-Care Projected Discharge Date:11/07/2017 11:00 AM Transportation at D/C: Discharge Delay Reason: Follow-Up Date:11/07/2017 11:00 AM Discharge Slot: Final Diagnosis: Placement Information Referral Type:*Home Health Care Services Referral ID:[id number] Provider Name:[facility] ([facility]) Address 1:[address] [place] [address] Address 2: City:[place] Selection Factors: State:[place] Patient Contact Information Contact Name:ALISA Relationship: Address:[address] City:[place] Alternate Phone: State/Zip Code:[place] [address] Email: Financial Information Financial Class: Primary Plan Desc:MEDICARE INPATIENT Primary Plan Number:[id number] Secondary Plan Desc:AARP/MDR SUPPLEMENT Secondary Plan Number:[id number] Assessment Information [facility] Progress Note CM Note CM Note Notes: Pt admitted w/UTI. Pt was hospitalized with this and septic shock in Jul/Aug and then went to [facility]. She then went home w/ and was set up w/ [facility] per admissions person at [facility]. I was not able to locate this agency to notify them; CM will need to ask if he has their info. Pt says she is still current w/HHC; has RN twice/wk, [employer] 3x/wk and husb is home on Mon and . PT/OT rec's pending, dc needs not lear. Current dc poc: TBD, if home will resume current HHC Date Signed: 11/03/2017 04:11 PM Electronically Signed By:Claudine Obrien RN [facility] CM Progress Note CM Note CM Note Notes: Met with patient and her . Unable to locate [facility] in nearby areas. Requested to bring in or call in agency number so we can make appropriate referrals to resume patients [facility]. CM to follow Date Signed: 11/05/2017 02:44 PM Electronically Signed By:Paige Hutchison RN [facility] CM Progress Note CM Note CM Note Notes: CM called [facility] and pt is current with them. Updates sent to [facility]. Kyle will come and check in on pt today. Needs are TBD at this time. ID and wound care is involved. CM awaiting recommendations from ID and wound care. CM to follow. Plan: [facility], RN, PT, OT Date Signed: 11/06/2017 10:50 AM Electronically Signed By:MORGAN Boateng Case Management Discharge Plan Note Case Management Discharge Discharge Order Complete? Answers: Yes Patient to Obtain Answers: via Family Medications Transportation Arranged Answers: Family/Friends EMTALA Complete Answers: No Case Management Transport Answers: No Form Complete Faxed Final Orders Answers: Yes Agency/Facility Transfer Answers: Yes Report Printed & Faxed to Receiving Agency Family Notified Answers: No Discharge Comments Notes: CM spoke w/ ZACH Coreas regarding d/c POC. Pt is being discharged w/ [facility], RN, PT, OT. DC orders sent to [facility]. CM available for changes. Plan: [facility], RN, PT, OT Date Signed: 11/07/2017 10:57 AM Electronically Signed By:MORGAN Boateng Intervention Information Intervention Type:*IM-Signed Date of Service:11/07/2017 11:25 AM Patient Type:Inpatient Staff Member:Allison Kenney Hours: Discipline: Severity: Comment:
== END 2017-11-07 13:00 | disposition home or self-care (01) | DRG 698 ==
LOC: F3E 21:53
PROVIDERS: ADMIT Hospitalist; ATTEND Hospitalist
PROC: 30233N1 Transfusion of Nonautologous Red Blood Cells into Peripheral Vein, Percutaneous Approach (ICD-10-PCS; principal; 2017-11-02)
DX: T83.518A Infection and inflammatory reaction due to other urinary catheter, initial encounter (principal); G93.41 Metabolic encephalopathy; L89.154 Pressure ulcer of sacral region, stage 4; E87.1 Hypo-osmolality and hyponatremia; R62.7 Adult failure to thrive; I48.91 Unspecified atrial fibrillation; E11.9 Type 2 diabetes mellitus without complications; I10 Essential (primary) hypertension; D64.9 Anemia, unspecified; E86.0 Dehydration; Z86.19 Personal history of other infectious and parasitic diseases; B95.2 Enterococcus as the cause of diseases classified elsewhere
CPT/HCPCS: 97162-GP; 97166-GO; 97530-GP; 97535-GO; G8978-GP-CN; G8979-GP-CK; G8987-GO-CM; G8988-GO-CK; J0290; J0295; J1650; J1815; J1956; J2405; J2550; P9016

== ENCOUNTER 2017-11-16 11:37 | Inpatient (IN) | payer OTHER, MEDICARE ==
[2017-11-16] MEDS ORDERED: NALOXONE HCL 2 MG/2 ML SYR IVP ONE (11:43)
[2017-11-16] MEDS ORDERED: NALOXONE HCL 0.4 MG/ML INJ IVP ONE ×3 (11:45→13:26)
--- NOTE | 2017-11-16 11:48 | EDPHY ---
H & P HPI/ROS: CHIEF COMPLAINT: Lethargy call altered mental status HISTORY OF PRESENT ILLNESS: The patient is a 66-year-old female with multiple medical comorbidities who presents to the emergency department with altered mental status and hypotension. She was in the emergency department and hospitalized previously in JulyAugust 2017 for similar complaints. Report was taken from EMS. The patient is unable to give history. Per EMS, the stated the patient has been lethargic and altered for the past 2 days. Since it is not improving and called EMS today. EMS found the play prieto with glucose of 202. The patient was hypotensive with a systolic blood pressure of 60. In route the placed a 2nd IV line but were only able to give 100 mL of normal saline. Patient's pressure on arrival was 70 systolic. The patient denies any complaints. When I ask her questions she states "you're here to give any pain medicine. " REVIEW OF SYSTEMS: Unable to obtain due to altered mental status Past Medical/Surgical History: Includes diabetes, paroxysmal atrial fibrillation, hypothyroidism, hypertension , depression, anxiety, urinary retention with indwelling Dietrich, chronic hyponatremia, chronic pain with opioid dependency, intermittent constipation, hypotension, failure to thrive, anemia, encephalopathy Social history: The patient lives at home with her . Smoking Status: Never smoked Physical Exam: Hypotensive GENERAL: Minimal responsiveness. The patient does open her eyes to voice. She states her name. Somnolent. HEENT: Eyes normal to inspection, pupils are not pinpoint, dry mucous membranes , no signs of dehydration. NECK: [No thyromegaly, no lymphadenopathy, supple. RESPIRATORY: Clear to auscultation bilaterally, no rales, rhonchi or wheezing. CVS: Regular rate and rhythm, no rubs, murmurs, or gallops. ABDOMEN: Soft, nontender, nondistended, no organomegaly. Patient has a feeding tube in place. There is no erythema or warmth surrounding the insertion site. : Dietrich in place. No discharge. BACK: Large vertical surgical incision. Normal to inspection, no CVA tenderness. No patches. SKIN: Normal color, no rash, warm, dry. No pallor. EXTREMITIES: No pedal edema, no calf tenderness, no Homans sign or cords, no joint swelling. NEURO/PSYCH: Somnolent. Opens eyes to voice. Able to give name but no other orientation. Has difficulty answering questions. Moves all extremities purposefully. No obvious cranial nerve deficit. Constitutional: Initial Vital Signs Temperature (C) 36.3 C 11/16/17 11:37 Heart Rate 92 11/16/17 11:37 Respiratory Rate 15 11/16/17 11:37 Blood Pressure 68/34 L 11/16/17 11:37 O2 Sat (%) 86 L 11/16/17 11:37 O2 Delivery Mode Nasal Cannula O2 (L/minute) 3 Allergies/Adverse Reactions: codeine Allergy (Severe, Verified 11/02/17 15:27) Loss of consciousness metronidazole [From Flagyl] Allergy (Intermediate, Verified 11/02/17 15:27) Other-Enter Comments quetiapine [From Seroquel] Allergy (Intermediate, Verified 11/02/17 15:27) Other-Enter Comments Home Medications: Medication Instructions Recorded Levothyroxine [Synthroid 100 mcg 100 mcg PO DAILY06 08/27/14 (*)] Multivitamins [Multivitamin (*)] 1 each PO DAILY 03/17/17 traZODone [traZODONE 100MG (*)] 200 mg PO HS 08/06/17 Baclofen [Baclofen 10 mg (*)] 2.5 mg PO Q3 11/02/17 Duloxetine HCl [Cymbalta] 60 mg PO DAILY 11/02/17 Insulin Glargine [Lantus 100 4 units SC HS 11/02/17 UNITS/ML (*)] Insulin Regular Human [Humulin R 0 unit SC PRN PRN 11/02/17 100 units/ml (*)] Ondansetron HCl 4 mg PO BID 11/02/17 Rivaroxaban [Xarelto] 20 mg PO DAILY18 11/02/17 Simvastatin 20 mg PO HS 11/02/17 Sodium Chloride [Salt Tablet] 1 gm PO BID 11/02/17 Trimethoprim [TRIMPEX 100MG (*)] 100 mg PO DAILY 11/02/17 traMADol [Ultram 50 mg (*)] 12.5 mg PO Q3 11/02/17 traZODone [traZODONE 100MG (*)] 100 mg PO HS@0000 11/02/17 Oxybutynin Chloride 5 mg PO BID 11/16/17 morphINE SR [MS Contin/Oramorph SR 30 mg PO BID 11/16/17 30 mg (*)] Medical Decision Making - Diagnostics Imaging Results: Imaging Impressions Chest X-Ray 11/16/17 11:49 Impression: 1. Right lower lobe pneumonia. 2. Recommend follow-up until clear. ED Course/Re-evaluation: On arrival in took report from the auto damage adjuster. I discussed the plan with the patient and nursing staff. Patient was given normal saline 1 L IV for hydration. Laboratory studies and EKG were ordered. Patient was given Narcan 0.2 mg IV. Patient's arrived. I took further history from the patient's . He states that she has had decreased mental status over the past couple of days. This is similar to her previous episodes when she has been admitted for urinary tract infection. I reviewed the patient's laboratory studies [place] [address]. Her med crit is low at 31. Platelet count is 198. Patient's chemistry panel revealed low sodium 126. This is dropped from her previous value. Creatinine is 1.4. Lipase and LFTs are unremarkable. Troponin is pending. Urine showed positive white cells and red cells as well as protein and leuk esterase. 12 10: Patient's blood pressure improved to 127/52. 108. This improvement could be secondary to the fluid bolus. This also could be secondary to the Narcan the patient received. Patient was given Rocephin 1 g IV to cover for possible urosepsis. I discussed the case with the patient and family. I answered all her questions. I discussed the case with the hospitalist service. Dr. Arias will admit. 12 30: The patient is stable. She is more alert than when she arrived Patient continued to have intermittent episodes of hypotension. She seemed to respond well to doses of Narcan. Because of this her bed was changed to the ICU when she was started on a Narcan drip. Differential Diagnosis: My differential includes but is not limited to bacteremia, sepsis, urinary tract infection, pyelonephritis, pneumonia, ACS, acute FL, dehydration, hyponatremia, electrolyte abnormality, sugar abnormality Critical Care Time: Patient required 35 min of critical care time. This was exclusive of any unbundled procedure. This was due the patient's altered mental status, hypotension on arrival. I took history from the paramedics her, her medical record and her . I spent significant time at the patient's bedside and rechecked the patient on numerous occasions. She had multiple abnormalities in her lab work. - Data Points Laboratory Results: Laboratory Results 11/16/17 11:44 11/16/17 11:44 11/16/17 11/16/17 11/16/17 12:08 12:05 11:44 WBC RBC Hgb Hct MCV MCH MCHC RDW Plt Count MPV Neut % (Auto) Lymph % (Auto) Major % (Auto) Eos % (Auto) Baso % (Auto) Nucleat RBC Rel Count Absolute Neuts (auto) Absolute Lymphs (auto) Absolute Monos (auto) Absolute Eos (auto) Absolute Basos (auto) Absolute Nucleated RBC Immature Gran % Immature Gran # PT INR APTT VBG Lactic Acid 2.0 mmol/L mmol/L (0.7-2.1) Sodium Potassium Chloride Carbon Dioxide Anion Gap BUN Creatinine Estimated GFR Glucose Calcium Total Bilirubin Conjugated Bilirubin Unconjugated Bilirubin AST ALT Alkaline Phosphatase Troponin I NT-Pro-B Natriuret Pep Total Protein Albumin Lipase Urine Color FCO Urine Appearance MODERATELY TURBID Urine pH 5.0 (5.0-7.5) Ur Specific [place] 1.016 (1.002-1.030) Urine Protein 1+ H (NEGATIVE) Urine Ketones NEGATIVE (NEGATIVE) Urine Blood 3+ H (NEGATIVE) Urine Nitrate NEGATIVE (NEGATIVE) Urine Bilirubin NEGATIVE (NEGATIVE) Urine Urobilinogen 2.0 EU H EU (0.2-1.0) Ur Leukocyte Esterase 2+ H (NEGATIVE) Urine RBC 15-25 /hpf H /hpf (0-3) Urine WBC 50-182 /hpf H /hpf (0-3) Ur Epithelial Cells NONE SEEN /lpf /lpf (NONE-1+) Hyaline Casts 25-50 /lpf H /lpf (0-1) Urine Mucus TRACE /lpf /lpf (NONE-1+) Urine Yeast PRESENT /hpf /hpf (NONE SEEN) Urine Glucose NEGATIVE (NEGATIVE) Nasal Influenza A PCR NEGATIVE FOR FLU A (NEGATIVE) Nasal Influenza B PCR NEGATIVE FOR FLU B (NEGATIVE) 11/16/17 11/16/17 11/16/17 11:44 11:44 11:44 WBC 16.36 10^3/uL H 10^3/uL (3.80-9.50) RBC 3.48 10^6/uL L 10^6/uL (4.18-5.33) Hgb 10.7 g/dL L g/dL (12.6-16.3) Hct 31.0 % L % (38.0-47.0) MCV 89.1 fL fL (81.5-99.8) MCH 30.7 pg pg (27.9-34.1) MCHC 34.5 g/dL g/dL (32.4-36.7) RDW 14.3 % % (11.5-15.2) Plt Count 198 10^3/uL D 10^3/uL (150-400) MPV 9.5 fL fL (8.7-11.7) Neut % (Auto) 89.3 % H % (39.3-74.2) Lymph % (Auto) 2.9 % L % (15.0-45.0) Major % (Auto) 6.6 % % (4.5-13.0) Eos % (Auto) 0.3 % L % (0.6-7.6) Baso % (Auto) 0.2 % L % (0.3-1.7) Nucleat RBC Rel Count 0.0 % % (0.0-0.2) Absolute Neuts (auto) 14.60 10^3/uL H 10^3/uL (1.70-6.50) Absolute Lymphs (auto) 0.48 10^3/uL L 10^3/uL (1.00-3.00) Absolute Monos (auto) 1.08 10^3/uL H 10^3/uL (0.30-0.80) Absolute Eos (auto) 0.05 10^3/uL 10^3/uL (0.03-0.40) Absolute Basos (auto) 0.04 10^3/uL 10^3/uL (0.02-0.10) Absolute Nucleated RBC 0.00 10^3/uL 10^3/uL (0-0.01) Immature Gran % 0.7 % % (0.0-1.1) Immature Gran # 0.11 10^3/uL H 10^3/uL (0.00-0.10) PT 28.0 SEC H SEC (12.0-15.0) INR 2.63 H (0.83-1.16) APTT 38.8 SEC H SEC (23.0-38.0) VBG Lactic Acid Sodium 126 mEq/L L mEq/L (135-145) Potassium 3.8 mEq/L mEq/L (3.5-5.2) Chloride 93 mEq/L L mEq/L (97-110) Carbon Dioxide 21 mEq/l L mEq/l (22-31) Anion Gap 12 mEq/L mEq/L (8-16) BUN 20 mg/dL mg/dL (7-23) Creatinine 1.4 mg/dL H mg/dL (0.6-1.0) Estimated GFR 38 Glucose 168 mg/dL H mg/dL (70-100) Calcium 7.9 mg/dL L mg/dL (8.5-10.4) Total Bilirubin 0.4 mg/dL mg/dL (0.1-1.4) Conjugated Bilirubin 0.4 mg/dL mg/dL (0.0-0.5) Unconjugated Bilirubin 0.0 mg/dL mg/dL (0.0-1.1) AST 13 IU/L L IU/L (14-46) ALT 27 IU/L IU/L (9-52) Alkaline Phosphatase 107 IU/L IU/L (38-126) Troponin I < 0.012 ng/mL ng/mL (0.000-0.034) NT-Pro-B Natriuret Pep 1340 pg/mL H pg/mL (0-125) Total Protein 4.2 g/dL L g/dL (6.3-8.2) Albumin 1.9 g/dL L g/dL (3.5-5.0) Lipase 10 IU/L L IU/L (23-300) Urine Color Urine Appearance Urine pH Ur Specific [place] Urine Protein Urine Ketones Urine Blood Urine Nitrate Urine Bilirubin Urine Urobilinogen Ur Leukocyte Esterase Urine RBC Urine WBC Ur Epithelial Cells Hyaline Casts Urine Mucus Urine Yeast Urine Glucose Nasal Influenza A PCR Nasal Influenza B PCR Medications Given: Levofloxacin/Dextrose (Levaquin 750 Mg (Premix)) 150 mls @ 100 mls/hr IV EDNOW ONE PRN Reason: Protocol Stop: 11/16/17 14:39 Last Admin: 11/16/17 13:53 Dose: 150 mls Discontinued Medications Ceftriaxone Sodium 1 gm/ (Sterile Water) 10 mls @ 150 mls/hr IV EDNOW ONE PRN Reason: Protocol Stop: 11/16/17 12:22 Last Admin: 11/16/17 12:38 Dose: 10 mls Naloxone HCl (Narcan) 0.2 mg IVP EDNOW ONE Stop: 11/16/17 11:46 Last Admin: 11/16/17 11:49 Dose: 0.2 mg Naloxone HCl (Narcan) 0.2 mg IVP EDNOW ONE Stop: 11/16/17 13:27 Last Admin: 11/16/17 13:26 Dose: 0.2 mg Naloxone HCl (Narcan) 0.2 mg IVP EDNOW ONE Stop: 11/16/17 13:01 Last Admin: 11/16/17 13:00 Dose: 0.2 mg Ondansetron HCl (Zofran) 4 mg IVP EDNOW ONE Stop: 11/16/17 11:57 Last Admin: 11/16/17 11:57 Dose: 4 mg Departure - Departure Disposition: [facility] Inpatient Acute Clinical Impression: Severe sepsis Altered mental status Qualifiers: Altered mental status type: unspecified Qualified Code(s): R41.82 - Altered mental status, unspecified Urinary tract infection Qualifiers: Urinary tract infection type: acute cystitis Hematuria presence: with hematuria Qualified Code(s): N30.01 - Acute cystitis with hematuria Condition: Good
[2017-11-16] MEDS ORDERED: ONDANSETRON 4 MG/2 ML VIAL ONE (11:54)
[2017-11-16] MEDS ORDERED: ONDANSETRON 4 MG/2 ML VIAL IVP ONE (11:56)
[2017-11-16 11:58] LABS: PLATELET COUNT 198 10^3/uL (150-400)
[2017-11-16 12:08] LABS: INR 2.63 (0.83-1.16)
[2017-11-16] MEDS ORDERED: cefTRIAXone 1 GM in STERILE WATER INJ 10 ML IV ONE (12:19)
[2017-11-16] MEDS ORDERED: NALOXONE HCL 2 MG in D5W 500 ML IV SCH (14:30)
[2017-11-16] MEDS ORDERED: ONDANSETRON DISINTEGRATING 4 MG TAB PO PRN (15:59)
[2017-11-16] MEDS ORDERED: ONDANSETRON 4 MG/2 ML VIAL IVP PRN (15:59)
[2017-11-16] MEDS ORDERED: NS 1,000 ML IV ONE (15:59)
[2017-11-16] MEDS ORDERED: ACETAMINOPHEN 325 MG TAB PO PRN (15:59)
[2017-11-16] MEDS ORDERED: VANCOMYCIN HCL/NORMAL SALINE 250 ML IV ONE (16:00)
--- NOTE | 2017-11-16 16:43 | ECHO ---
[email or web address] [address] [address] Main: [phone] Fax: Transthoracic Echocardiogram Name: NUSRAT CERVANTES MR#: [id number] Study Date: 11/16/2017 Study Time: 12:13 PM Date of : 1950 Age: 66 year(s) Height: 154.9 cm (61 in.) Weight: 49.9 kg (110 lb.) BSA: 1.47 m2 Gender: Female Examination: Echo Indication: stat echo in ER for chest pain Image Quality: Technically Difficult Contrast: Requested by: Maryanne Edwards BP: 76 mmHg/40 mmHg Heart Rate: Rhythm: Tachycardia Indication: stat echo in ER for chest pain Procedure Staff Data Management Manager: Audrey Angel [facility] Reading Physician: Phu Wu Requesting Provider: Conclusions: Normal size left ventricle. Global hypercontractility of the left ventricle. EF is 72 %. Mildly dilated right ventricle. Grossly normal RV function.. Grossly normal MV function with no significant stenosis nor regurgitation.. Aortic valve is not well visualized. There is no significant aortic valve regurgitation. No aortic valve stenosis is present. Right ventricular systolic pressure measures 50mmHg. Small pericardial effusion. When compared to the 08/06/17 study. A small pericardial effusion is now appreciated. Measurements: Chambers Valvular Assessment AV/MV Valvular Assessment TV/PV Normal Normal Normal Name Value Range Name Value Range Name Value Range Ao Lana (MM): 2.6 cm (2.2 cm-3.7 AV Vmax: 1.73 m/s (1 m/s-1.7 TR Vmax: 3.35 mm/s ( - ) cm) m/s) TR PGmax: 45 mmHg ( - ) IVSd (2D): 0.6 cm (0.6 cm-1.1 AV maxP mmHg ( - ) syst. PAP: 50 mmHg ( - ) cm) LVOT Vmax: 1.00 m/s (0.7 m/s-1.1 PV Vmax: 1.03 m/s (0.6 m/s-0.9 LVDd (2D): 3.2 cm (3.9 cm-5.3 m/s) m/s) cm) MV E Vmax: 0.92 m/s ( - ) PV PGmax: 4 mmHg ( - ) LVDs (2D): 1.9 cm (2.1 cm-4 MV A Vmax: 0.95 m/s ( - ) cm) MV E/A: 0.97 ( - ) LVPWd (2D): 0.7 cm ( - ) LVEF (2D): 72 (>=54 %) Continued Measurements: Valvular Assessment TV/PV Patient: NUSRAT CERVANTES Study Date: 11/16/2017 Page 1 of 2 12:13 PM Name Value CVP (est.): 5 mmHg Findings: Left Ventricle: Normal size left ventricle. No LV hypertrophy. Global hypercontractility of the left ventricle. EF is 72 %. No regional wall motion abnormality. Unable to assess diastolic dysfunction. Right Ventricle: Mildly dilated right ventricle. Grossly normal RV function.. Left Atrium: The left atrium is normal in size. Right Atrium: The right atrium is normal in size. Mitral Valve: Grossly normal MV function with no significant stenosis nor regurgitation.. Aortic Valve: Aortic valve is not well visualized. There is no significant aortic valve regurgitation. No aortic valve stenosis is present. Tricuspid Valve: The tricuspid valve appears normal. Mild tricuspid regurgitation is present. Right ventricular systolic pressure measures 50mmHg. The pulmonary artery pressure is moderately increased. Pulmonic Valve: Pulmonary valve not well visualized. Pericardium: Small pericardial effusion. (No Signature Object) Patient: NUSRAT CERVANTES Study Date: 11/16/2017 Page 2 of 2 12:13 PM [id number]
[2017-11-16] MEDS ORDERED: ALTEPLASE 2 MG VIAL IVP PRN (16:55)
[2017-11-16] MEDS: NOREPINEPHRINE/NS 500 ML IV SCH ×2 (17:03→20:03)
--- NOTE | 2017-11-16 17:08 | CPEKG ---
Heart Rate: 92 RR Interval: 652 P-R Interval: 168 QRSD Interval: 80 QT Interval: 396 QTC Interval: 490 P [place]: 75 QRS [place]: 96 T Wave [place]: 76 EKG Severity - ABNORMAL ECG - EKG Impression: SINUS RHYTHM EKG Impression: LOW VOLTAGE WITH RIGHT AXIS DEVIATION EKG Impression: BORDERLINE T WAVE ABNORMALITIES EKG Impression: BORDERLINE PROLONGED QT INTERVAL Electronically Signed By: Beau Almonte 18-Nov-2017 09:02:42
[2017-11-16] MEDS ORDERED: RIVAROXABAN 20 MG TAB PO SCH (18:00)
--- NOTE | 2017-11-16 18:58 | GHP ---
[f rep st] HISTORY AND PHYSICAL DATE OF ADMISSION: 11/16/2017 CHIEF COMPLAINT: Altered mental status. HISTORY OF PRESENT ILLNESS: This is a 66-year-old female with a history of chronic pain as well as a chronic indwelling Dietrich with multiple urinary tract infections. She was admitted just a couple of weeks ago and discharged 7 days ago with a UTI. This grew out enterococcus as well as acinetobacter and stenotrophomonas. She was placed on antibiotics and, according to her , she had been doin g okay fairly well; however, the last couple days she has been having increasing worsening mental sta tus. She has been coughing some as well. No reported fevers. No shortness of breath. also says that she has been anemic recently and got a blood transfusion also pretty recently. She has no t had an endoscopic evaluation for her anemia. REVIEW OF SYSTEMS: Limited review of systems obtained secondary to patient being obtunded. PAST MEDICAL HISTORY: 1. Type 1 diabetes. 2. Paroxysmal atrial fibrillation, on anticoagulation. 3. Chronic urinary retention with indwelling Dietrich and recurrent urinary tract infections. 4. Chronic hyponatremia, on salt tablets. 5. Chronic pain with chronic opiates. 6. Hypothyroidism. 7. Hypertension. 8. Depression and anxiety. SOCIAL HISTORY: The patient lives at home with her . No tobacco. FAMILY HISTORY: Father had coronary artery disease. PHYSICAL EXAM: VITAL SIGNS: Afebrile. Blood pressure initially was in the 60s and then with fluids came up, but now it has come back down into the 70s and 60s systolic. Heart rate 89, oxygen saturat ion is 100% on 2 L. GENERAL: The patient is somnolent but somewhat arousable, does not really answe r questions though. HEENT: Nonicteric sclerae. Dry mucous membranes. NECK: Supple. No thyromega ly. LUNGS: Poor effort but fairly clear bilaterally. CARDIOVASCULAR: Regular rate and rhythm. No murmurs, rubs, or gallops. ABDOMEN: Positive bowel sounds. Soft. Some mild tenderness which has been chronic. EXTREMITIES: No clubbing, cyanosis, or edema. SKIN: No rash, dry, intact. NEURO: Obtunded, moving all 4 extremities. Does respond to some questions. LABORATORY DATA: Sodium 126, potassium is 3.8, creatinine 1.4. BNP 1340. White count 16, hemoglobi n 10. UA shows 2+ leukocyte esterase. Chest x-ray shows right-sided pneumonia. Lactate 2.0. ASSESSMENT: A 66-year-old female presenting with probable urosepsis and hypotension. PLAN: 1. Sepsis due to probable urinary source versus pneumonia. The patient's blood pressure is not comi ng up. Interestingly, her lactate is 2.0. Her blood pressure did briefly go up with Narcan, and the re might be an element of her chronic opiates being the cause of her low blood pressure. She has act ually been started on Narcan drip by the ER which we will continue for now. We will cover with antib iotics as below. 2. Possible urinary tract infection. Looking to through her previous microbiology, we will start he r on Levaquin and vancomycin to cover enterococcus. The bacteria were sensitive to Levaquin. 3. Possible pneumonia. We will continue with just the Levaquin and the vancomycin. There is a ques tion this might be aspiration and may broaden her antibiotics. Her respiratory symptoms are not that significant, however. 4. Chronic pain. As above, we will continue the Narcan drip as it may be contributing to her low bl ood pressure. 5. Possible GI bleeding. When she is stable, we will probably have GI see them. We will check stoo l for blood at this time. She is not really that anemic. 6. Hypotension. She is getting a PICC line, and we will start Levophed if needed. 7. Patient is a full code. /[id number]/MODL
[2017-11-16] MEDS ORDERED: ALBUMIN 5% 500 ML IV ONE (19:00)
[2017-11-16] MEDS: RIVAROXABAN 15 MG TAB PO SCH ×2 (19:19→19:57)
[2017-11-16] MEDS: INSULIN LISPRO 100 UNIT/ML SC SCH (19:53)
--- NOTE | 2017-11-16 19:53 | PCMIDPN ---
Assessment/Plan: Assessment/Plan: * Septic shock: Patient with clinical findings consistent with septic shock. Recent hospitalization for catheter associated UTI with cultures at that time showing growth of Enterococcus faecalis, stenotrophomonas, and Acinetobacter. Recently completed course of amoxicillin and levofloxacin. Noted to have purulent appearing urine at time of catheter changed today. Urinary etiology possible etiology for presentation. Chest x-ray with subtle findings at right base raising question of right lower lobe pneumonia although no significant pulmonary symptoms are present. notes abdominal pain as well raising consideration of intra-abdominal process. Agree with continued vancomycin and levofloxacin. Will add meropenem for broad coverage including Acinetobacter and anaerobic brittany pending culture data. If clinically stabilizes, plan to proceed with CT scan of abdomen and pelvis to further evaluate for intra- abdominal process. Will also obtain a.m. cortisol level to assess adrenal function. * Renal insufficiency: Antibiotics dose adjusted for renal insufficiency. Will need to monitor creatinine for further adjustment and to determine if feasible to continue ongoing vancomycin. Time spent, greater than 35 min, of which greater than half was spent in coordination of care related to septic shock. 11/16/17 19:49 11/16/17 19:53 Subjective: Patient recently seen by our service for catheter associated urinary tract infection earlier this month and was discharged home with amoxicillin levofloxacin for treatment of polymicrobial brittany including Enterococcus faecalis, stenotrophomonas, and Acinetobacter. notes that patient has become confused and lethargic over last 2 days. This appeared to be starting prior to completion of antibiotic therapy. No significant cough noted. notes that patient does complain of abdominal pain. Patient found to have leukocytosis with significant hypotension and now requiring both vasopressin and norepinephrine for blood pressure support. Also has been started on Narcan drip for possibility of opioid affect on blood pressure. Dietrich catheter changed by nursing staff in noted to have purulent urine present. Influenza testing in the emergency department by PCR is negative. Given the above findings, Infectious Disease consultation is now requested for assistance in her ongoing management. Objective: Vital Signs Temp Pulse Resp BP Pulse Ox 36.3 C 137 H 15 139/38 H 100 11/16/17 16:00 11/16/17 19:00 11/16/17 19:00 11/16/17 19:00 11/16/17 19:00 Laboratory Results 11/16/17 18:45 11/15/17 11/16/17 11/17/17 05:59 05:59 05:59 Intake Total 1100 Balance 1100 Laboratory Tests 11/16/17 11/16/17 11:44 18:45 WBC 16.36 H Neut % (Auto) 89.3 H VBG Lactic Acid 2.6 H - Physical Exam General Appearance: non-toxic, other (Somnolent but arousable) EENT: dry mucous membranes, No scleral icterus, No thrush Neck: non-tender Cardiac/Chest: tachycardia, systolic murmur (2/6 left upper sternal border) Extremities: No inflammation Abdomen: non-tender, distended (Mild) Skin: other (Decubitus ulcer measuring approximately 2 cm in diameter with shallow basin no purulence over sacral region), No embolic lesions Neuro/Psych: other (Somnolent but arousable) ICD10 Worksheet Patient Problems: Problems Problem Status Onset Altered mental status Acute Severe sepsis Acute Urinary tract infection Acute CHF (congestive heart failure) Acute Chronic back pain Acute Chronic pain Acute Dehydration Acute Hyponatremia Acute Hypoxic Acute Pneumonia Acute Respiratory failure Acute Sepsis Acute Status post cervical arthrodesis Acute Vomiting Acute Weakness Acute
[2017-11-16] MEDS: SODIUM CHLORIDE 1,000 MG TAB PO SCH (19:56)
[2017-11-16] MEDS: OXYBUTYNIN CHLORIDE 5 MG TAB PO SCH (19:58)
[2017-11-16] MEDS: INSULIN GLARGINE 100 UNITS/ML UNIT SC SCH (20:01)
[2017-11-16] MEDS: VASOPRESSIN/DEXTROSE 250 ML IV SCH (20:02)
[2017-11-16] MEDS: NS W/ 20 KCl/L 1,000 ML IV SCH (20:03)
[2017-11-16] MEDS: MEROPENEM 1 GM in STERILE WATER INJ 20 ML IV SCH (20:38)
[2017-11-16] MEDS ORDERED: SODIUM BICARBONATE 50 MEQ/50 ML SYR IVP ONE ×2 (20:45)
[2017-11-16] MEDS ORDERED: ALBUMIN 5% 500 ML IV PRN (20:46)
[2017-11-16] MEDS ORDERED: ATORVASTATIN CALCIUM 10 MG TAB PO SCH (21:00)
[2017-11-16] MEDS ORDERED: traZODone 100 MG TAB PO SCH (21:00)
[2017-11-16] MEDS ORDERED: INSULIN GLARGINE 4 UNIT SC SCH (21:00)
[2017-11-16] MEDS ORDERED: ORAL BALANCE GEL TUBE PO PRN (21:16)
[2017-11-17] MEDS ORDERED: traZODone 100 MG TAB PO SCH
[2017-11-17] MEDS: INSULIN LISPRO 100 UNIT/ML SC SCH ×4 (00:23→18:13)
[2017-11-17 04:10] LABS: PLATELET COUNT 210 10^3/uL (150-400)
[2017-11-17] MEDS: NOREPINEPHRINE/NS 500 ML IV SCH ×2 (05:25→16:21)
[2017-11-17] MEDS: VASOPRESSIN/DEXTROSE 250 ML IV SCH ×2 (05:27→15:04)
[2017-11-17] MEDS ORDERED: LEVOTHYROXINE 100 MCG TAB PO SCH (06:00)
[2017-11-17] MEDS ORDERED: TRIMETHOPRIM 100 MG TAB PO SCH (09:00)
[2017-11-17] MEDS ORDERED: DULoxetine 60 MG CAP PO SCH (09:00)
[2017-11-17] MEDS: MEROPENEM 1 GM in STERILE WATER INJ 20 ML IV SCH ×2 (09:12→21:01)
--- NOTE | 2017-11-17 09:13 | ASMTCMCOM ---
CM Note CM Note Notes: Patient admitted with altered mental status. She was recently admitted and treated for a UTI (11/02 - 11/07) and returned home with her and home health. Since then, her has noticed a change in her mental status. Also of note is a prolonged hospitalization in Jul/Aug 2017 and subsequent discharge to [facility]. Patient has chronic pain with chronic opioiod use as well as a chronic indwelling Dietrich. She lives with her , is [facility] with [facility]. PT/OT has been ordered. Case Managment will follow for discharge needs. Date Signed: 11/17/2017 09:12 AM Electronically Signed By:Anabell Fernandes RN
--- NOTE | 2017-11-17 09:39 | PCMIDPN ---
Assessment/Plan: # Sepsis unclear etiology, patient remains febrile, tachy on pressors with leukocytosis. Source considerations include urinary, GI, pulmonary. CXR personally reviewed by me and very subtle infiltrate RLL. She remains quite sedated, with suspected component of therapeutic misadventure with chronic narcotic therapy. --added on UCx to UA from yesterday --dc levoquin for now, see below --could add Bactrim for continued coverage of past isolates of steno, but will hold off for now --Continue meropenem which would provide general broad coverage as welll as directed therapy to Acinetobacter --obtain CT abdomen and pelvis today to evaluate for source # Myotonia, ?new, query rare CLAIM ANALYST side effect Levofloxacin (which she completed course 2-3 days ago) Merrem can cause CLAIM ANALYST side effect but just started during hospitalization and stiffness started prior to hospitalization. Reviewed medication list no other identified meds. --dc FQ as above meds meropenem 1gm IV q12 levofloxacin 750mg IV q48 vancomycin 750mg IV q24 micro influenza A/B neg 2 blood cx (2) pending 11/16 UCx pending Subjective: patient continues to have decreased responsiveness, apparently this improved in the ER when given Narcan. Purulence also noted with thompson change on NE, vasopressin gtt worried about recurrent nature of sepsis and unexplained chronic anemia Objective: Vital Signs Temp Pulse Resp BP Pulse Ox 38 C 121 H 10 L 112/58 L 100 11/17/17 09:00 11/17/17 09:00 11/17/17 09:00 11/17/17 09:00 11/17/17 09:00 Laboratory Results 11/17/17 03:55 11/17/17 03:55 11/16/17 11/17/17 11/18/17 05:59 05:59 05:59 Intake Total 5928 Output Total 250 130 Balance 5678 -130 - Physical Exam General Appearance: no apparent distress, other (sedated) EENT: dry mucous membranes, No thrush Respiratory: coarse breath sounds, No respiratory distress, No accessory muscle use, No wheezing Cardiac/Chest: tachycardia Extremities: pedal edema Abdomen: soft, other (G tube in place), No rebound Pelvic Exam: thompson (soha urine) Skin: pallor, No diaphoresis, No rash Neuro/Psych: confused, other (diffuse stiffness/cogwheel rigidity) - Time Spent With Patient Time Spent with Patient: greater than 35 minutes (reviewed potential causes of sepsis w , reviewed plans and evaluation with RN and DR. Melton) Time Spent with Patient: Greater than 35 minutes spent on this patients care, greater than 50% of time spent counseling, educating, and coordinating care regarding the above mentioned plan. ICD10 Worksheet Patient Problems: Problems Problem Status Onset Altered mental status Acute Severe sepsis Acute Urinary tract infection Acute CHF (congestive heart failure) Acute Chronic back pain Acute Chronic pain Acute Dehydration Acute Hyponatremia Acute Hypoxic Acute Pneumonia Acute Respiratory failure Acute Sepsis Acute Status post cervical arthrodesis Acute Vomiting Acute Weakness Acute
--- NOTE | 2017-11-17 09:53 | WOCRNPDOC ---
WOCRN Advanced Assessment Note - Skin Integrity Problem, Advanced Assess Right Sacrum Pressure Injury Dressing Type: Hydrofera Blue Ready, Mepilex Border Dressing Description: Intact, Shadowed Exudate Amount: Minimal Exudate Color: Reddish/Yellow Exudate Characteristic(s): Serosanguinous Integumentary Issue Intervention: Visualized Under Dressing Carlee Wound Tissue: Blanching, Erythema Carlee Wound Swelling: Mild Wound Bed Color: Red, Yellow Wound Bed Constitution: Red/[place] - Non Granular Tissue (50%), Adhered Slough (50 %) Wound Edges: Attached Site Odor: None Site Measurement - Head-to-Toe Length X Width X Depth (cm): 1cmx0.8cmx0.2cm Pressure Injury Stage: Stage 3 Pressure Injury Present on Admit: Yes (in H&P) Skin Integrity Problem Comment: Patient well-known to from previous admissions. 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 Periwound skin is intact and blanching. She does have some adhered slough to the wound bed which was not there during her last admission. Will initiate dressing w/ honey to autolytically debride the slough. Pressure- releiving interventions in place.
[2017-11-17] MEDS ORDERED: PROTOCOL POTASSIUM 1 DOSE MISC PRN (10:32)
[2017-11-17] MEDS ORDERED: PROTOCOL MAGNESIUM 1 DOSE IV PRN (10:32)
[2017-11-17] MEDS: NS W/ 20 KCl/L 1,000 ML IV SCH ×2 (10:43→23:38)
[2017-11-17] MEDS ORDERED: ACETAMINOPHEN 650 MG/20.3 ML UDCUP TUBE PRN (10:51)
[2017-11-17] MEDS ORDERED: POTASSIUM CL 20 MEQ/15 ML UDCUP TUBE ONE (11:15)
[2017-11-17] MEDS ORDERED: ONDANSETRON DISINTEGRATING 4 MG TAB TUBE PRN (11:30)
[2017-11-17] MEDS: SODIUM CHLORIDE 1,000 MG TAB PO SCH (11:33)
[2017-11-17] MEDS: OXYBUTYNIN CHLORIDE 5 MG TAB PO SCH (11:33)
--- NOTE | 2017-11-17 12:43 | PDMN ---
Medical Necessity Medical necessity: est los >2mn for sepsis r/t probable UTI vs PNA, hypotension , and possible GIB; admit to ICU/SDU for IV abx, Narcan gtt; comorbid DM1,paf on AC, chronic Dietrich w/recurrent UTI's, htn, chronic hyponatremia, chronic pain on opiates, and hx recent transfusion; per order and H&P 11/16/17
[2017-11-17] MEDS ORDERED: PANTOPRAZOLE SODIUM 40 MG VIAL IVP ONE (13:54)
--- NOTE | 2017-11-17 13:59 | HOSPPROG ---
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 ID is following, await cultures. Will obtain CT Abd/Pelvis to r/o source of infection -Cont pressor support -Not on a rate limiting agent despite history of Afib, tachycardia noted but likely reactive to infection, volume depletion. monitor for now, but consider rate limiting agent pending clinical course -Start PPI once daily -Await stool testing for blood -Cont Xarelto for now -Hold narcotic pain meds -Hold Neuro depressing meds total critical care time is 40 minutes Case d/w with fleet salesperson and team during team rounds Subjective: encephalopathic. Good urine output. BP have improved. Still needing pressors Objective: Vital Signs Temp Pulse Resp BP Pulse Ox 37.9 C 104 H 14 113/59 L 100 11/17/17 13:00 11/17/17 13:00 11/17/17 13:00 11/17/17 13:00 11/17/17 13:00 Laboratory Results 11/17/17 03:55 11/17/17 03:55 11/16/17 11/17/17 11/18/17 05:59 05:59 05:59 Intake Total 5928 Output Total 250 130 Balance 5678 -130 PT 28.0 SEC (12.0-15.0) H 11/16/17 11:44 INR 2.63 (0.83-1.16) H 11/16/17 11:44 - Physical Exam Constitutional: chronically ill appearing Eyes: PERRL Ears, Nose, Mouth, Throat: dry mucous membranes Cardiovascular: regular rate and rhythym, No edema Respiratory: reduced air movement Gastrointestinal: normoactive bowel sounds Genitourinary: no bladder fullness Skin: warm Neurologic: No AAOx3, No facial droop Psychiatric: encephalopathic Lymph, Heme, Immunologic: No petechiae ICD10 Worksheet Patient Problems: Problems Problem Status Onset Altered mental status Acute Severe sepsis Acute Urinary tract infection Acute CHF (congestive heart failure) Acute Chronic back pain Acute Chronic pain Acute Dehydration Acute Hyponatremia Acute Hypoxic Acute Pneumonia Acute Respiratory failure Acute Sepsis Acute Status post cervical arthrodesis Acute Vomiting Acute Weakness Acute
[2017-11-17] MEDS ORDERED: IOPAMIDOL (ISOVUE-300) 100 ML BTL ONE (14:10)
[2017-11-17] MEDS ORDERED: VANCOMYCIN 750 MG in D5W 150 ML IV SCH (16:00)
[2017-11-17] MEDS: VANCOMYCIN 750 MG in NS 150 ML IV SCH (17:06)
--- NOTE | 2017-11-17 17:08 | PDINTPN ---
Medicaid Analyst Progress Note Assessment/Plan: Assessment: Sepsis: Suspect pulmonary or GI source. Findings could also be related to G- tube displacement. On Vanco/Levaquin. Hypotension improved with IVF, pressors. Pressors being titrated down. Hypotension: Likely due to sepsis/SIRS, narcotics, ? hypovolemia. Now improved. Chronic Narcotic use, oversedation at admission: Improved with Narcan gtt, now off. Chronic AF: Anticoagulated. Rate high at 110, likely null to acute illness and pressors. Pneumonia: Looks more like effusion with atelectasis on CT. Plan: GI to re-evaluate G-tube, ? have IR attempt to advance if possible. Continue antibiotics. Wean pressors as tolerated. 11/17/17 17:15 Subjective: Somnolent but arousable. C/O back pain when awake. Has a cough with rattling in her throat. Objective: Vital Signs Temp Pulse Resp BP Pulse Ox 37.8 C 106 H 10 L 97/60 L 100 11/17/17 16:00 11/17/17 16:00 11/17/17 16:00 11/17/17 16:00 11/17/17 16:00 Laboratory Results 11/17/17 03:55 11/17/17 03:55 11/16/17 11/17/17 11/18/17 05:59 05:59 05:59 Intake Total 5928 Output Total 250 130 Balance 5678 -130 PT 28.0 SEC (12.0-15.0) H 11/16/17 11:44 INR 2.63 (0.83-1.16) H 11/16/17 11:44 Laboratory Tests 11/16/17 11/16/17 18:45 20:05 POC pH 7.13 L* POC pCO2 33 L POC pO2 59 L POC HCO3 11 L POC Total CO2 12 L POC O2 Sat (Calc) 83 L VBG Lactic Acid 2.[address] Abdomen: G-tube out of stomach, with tip directed at stomach wall. Bilateral moderate effusions. No ascites/free air. Images reviewed by me. Physical Exam - Physical Exam General Appearance: alert, no apparent distress EENT: normal ENT inspection, pharynx normal Neck: full range of motion, normal inspection Respiratory: decreased breath sounds (bases), rhonchi (throat) Cardiac/Chest: regular rate, rhythm, No edema Abdomen: soft, other (G-tube), No normal bowel sounds (quiet) Skin: normal color, warm/dry Extremities: normal inspection Neuro/Psych: normal mood/affect, No alert (sommolent but arousable), No oriented x 3, No motor weakness ICD10 Worksheet Patient Problems: Problems Problem Status Onset Altered mental status Acute Severe sepsis Acute Urinary tract infection Acute CHF (congestive heart failure) Acute Chronic back pain Acute Chronic pain Acute Dehydration Acute Hyponatremia Acute Hypoxic Acute Pneumonia Acute Respiratory failure Acute Sepsis Acute Status post cervical arthrodesis Acute Vomiting Acute Weakness Acute
--- NOTE | 2017-11-17 17:32 | GCON ---
[f rep st] CONSULTATION PULMONARY/CRITICAL CARE CONSULTATION DATE OF CONSULTATION: 11/16/2017 REFERRING PHYSICIAN: Migdalia Amezcua MD REASON FOR REFERRAL: Evaluation and management of hypotension. HISTORY: The patient is a 66-year-old woman with a history of chronic pain and recurrent urinary tra ct infections. She has had multiple hospitalizations for problems related to her urinary tract infec tions, as well as chronic narcotic use and pain. She was just discharged from the hospital about a w ugashik ago with a urinary tract infection with Enterococcus, as well as Acinetobacter and Stenotrophomon as. She was being treated outpatient with antibiotics and was doing fairly well until a few days ago when she started having worsening mental status, as well as some cough. She was brought to the [facility], where she was found to have a systolic blood pressure in the 60s. Oxygenation was fairly good there. She was given several liters of IV fluids and started on empiric antibiotics. Elia perla was also started on a Narcan drip because of reduced level of alertness, and her alertness improved a bit. I was asked to see the patient emergently because of hypotension, with a blood pressure in t he 50s and reduced responsiveness. Her Narcan drip had been stopped at the patient's request a littl e bit before I saw her because she said she was having pain. At the time I see her, she is minimally responsive and not complaining of pain. PAST MEDICAL HISTORY: 1. Type 1 diabetes. 2. Paroxysmal atrial fibrillation, on anticoagulation. 3. Chronic pain with chronic opiate use. 4. Chronic urinary retention with indwelling Dietrich catheter. 5. Hyponatremia. 6. Hypothyroid. 7. Hypertension. 8. Depression and anxiety. MEDICATIONS: Medications at the time of admission include Synthroid, trazodone, simvastatin, trimeth oprim, insulin, Ultram, Cymbalta, Xarelto, ondansetron, trazodone, salt tablets, baclofen, MS Contin 30 mg twice daily, and oxybutynin 5 mg twice daily. ALLERGIES: Codeine, metronidazole, and quetiapine. SOCIAL HISTORY: The patient lives at home with her . She does not smoke or drink alcohol. FAMILY HISTORY: Unremarkable. REVIEW OF SYSTEMS: A 10-point review of systems adds nothing to the History of Present Illness. PHYSICAL EXAMINATION: GENERAL: The patient is somnolent but arousable to mildly noxious stimuli. V ITAL SIGNS: Her blood pressure is 69/28, with a heart rate of 92. She is afebrile. Oxygen saturati ons are 100% on 2 L. HEENT: Normocephalic and atraumatic. No icterus. NECK: No adenopathy. Trac hea is midline. CHEST: She has decreased breath sounds in the bases. CARDIAC: Regular rate and rhy thm, without murmur. ABDOMEN: Soft. She has a G-tube in place. Bowel sounds are hypoactive. Ther e is no tenderness or guarding. EXTREMITIES: No clubbing, cyanosis, or edema. NEURO: As above, th e patient is somnolent but arousable to noxious stimuli. She moves all 4 extremities without evidenc e of motor weakness. LABORATORY DATA: Chemistry group shows a sodium of 126, with a potassium of 3.8. BUN is 20, with a creatinine of 1.4. Glucose is 168. An AST is 13. BNP is 1340, and albumin is 1.9. A white blood c ount is 16.4, with a hemoglobin of 10.7 and a platelet count of 198. INR is 2.6. Urinalysis shows 1 5-25 red blood cells and 50-180 white blood cells. IMAGING: A nasal swab is negative for influenza. A chest x-ray shows right lower lobe infiltrate wi th possible small effusion. Images reviewed by me. ASSESSMENT: 1. Probable sepsis. The patient has sepsis likely due to either a pneumonia or a urinary source. H er lactate is just 2, but she has a low bicarbonate at 21, as well as severe hypotension. There are no signs or symptoms of significant acute blood loss or other volume loss that could cause hypotensio n. She has received 2 L of fluid, but a PICC line was placed, and CVP is estimated at 2, so she coul d probably benefit from some more fluids. 2. Possible urinary tract infection. The patient has been empirically started on vancomycin and Lev aquin, which would cover bacteria recently recovered from her urine culture. 3. Possible pneumonia. This is seen on chest x-ray. The patient is being empirically treated for s epsis and also with vancomycin and Levaquin, which would be fairly good coverage for most infectious causes, although anaerobes would not be well covered. 4. Chronic narcotic use. The patient appears to have some respiratory depression likely related to narcotic use. Given her hypotension, I think she would benefit from having some reversal of her narc otics. RECOMMENDATIONS: 1. Give IV fluids. I have ordered a liter of saline, as well as 500 cc of albumin. 2. Check an arterial blood gas to get an idea of her acid-base status. I suspect she has some respi ratory, as well as metabolic acidosis. The respiratory acidosis hopefully will be improved with Narc an. 3. Continue empiric antibiotics. /[id number]/MODL
[2017-11-17] MEDS ORDERED: RIVAROXABAN 15 MG TAB TUBE SCH (18:00)
[2017-11-17] MEDS: INSULIN GLARGINE 100 UNITS/ML UNIT SC SCH (20:58)
[2017-11-17] MEDS ORDERED: traZODone 100 MG TAB TUBE SCH (21:00)
[2017-11-17] MEDS ORDERED: ATORVASTATIN CALCIUM 10 MG TAB TUBE SCH (21:00)
[2017-11-17] MEDS ORDERED: SODIUM CHLORIDE 1,000 MG TAB TUBE SCH (21:00)
[2017-11-17] MEDS ORDERED: OXYBUTYNIN CHLORIDE 5 MG TAB TUBE SCH (21:00)
[2017-11-18] MEDS ORDERED: traZODone 100 MG TAB TUBE SCH
[2017-11-18 05:31] LABS: PLATELET COUNT 253 10^3/uL (150-400)
[2017-11-18] MEDS ORDERED: LEVOTHYROXINE 100 MCG TAB TUBE SCH (06:00)
[2017-11-18] MEDS: NOREPINEPHRINE/NS 500 ML IV SCH (06:34)
[2017-11-18] MEDS ORDERED: NS 500 ML IV ONE (06:56)
--- NOTE | 2017-11-18 07:26 | CPEKG ---
Heart Rate: 156 RR Interval: 385 P-R Interval: 52 QRSD Interval: 98 QT Interval: 300 QTC Interval: 483 P Henniker: 0 QRS Henniker: [phone] T Wave Henniker: 95 EKG Severity - ABNORMAL ECG - EKG Impression: SUPRAVENTRICULAR TACHYCARDIA EKG Impression: CONSIDER RIGHT VENTRICULAR HYPERTROPHY EKG Impression: INFERIOR INFARCT, OLD EKG Impression: CONSIDER ANTERIOR INFARCT EKG Impression: LATERAL LEADS ARE ALSO INVOLVED Electronically Signed By: Beau Almonte 18-Nov-2017 09:00:39
[2017-11-18] MEDS ORDERED: AMIODARONE HCL 200 ML IV ONE (07:41)
[2017-11-18] MEDS ORDERED: AMIODARONE HCL 100 ML IV ONE (07:41)
--- NOTE | 2017-11-18 07:45 | HOSPPROG ---
Hospitalist Progress Note Assessment/Plan: XC: Notified by RN of tachyarrhythmia around 7 AM. Rate > 150 despite 1L IVF bolus and decreasing BP requiring increase in vasopressors. Will start amiodarone load to hopefully decrease HR and increase filling time/BP. Objective: Vital Signs Temp Pulse Resp BP Pulse Ox 38.3 C 158 H 26 H 90/61 L 97 11/18/17 06:00 11/18/17 07:30 11/18/17 07:30 11/18/17 07:30 11/18/17 07:30 Laboratory Results 11/18/17 05:15 11/18/17 05:15 11/17/17 11/18/17 11/19/17 05:59 05:59 05:59 Intake Total 5928 4000 Output Total 250 665 Balance 5678 3335 PT 28.0 SEC (12.0-15.0) H 11/16/17 11:44 INR 2.63 (0.83-1.16) H 11/16/17 11:44 ICD10 Worksheet Patient Problems: Problems Problem Status Onset Altered mental status Acute Severe sepsis Acute Urinary tract infection Acute CHF (congestive heart failure) Acute Chronic back pain Acute Chronic pain Acute Dehydration Acute Hyponatremia Acute Hypoxic Acute Pneumonia Acute Respiratory failure Acute Sepsis Acute Status post cervical arthrodesis Acute Vomiting Acute Weakness Acute
[2017-11-18] MEDS ORDERED: MAGNESIUM SULF 2 GM/WATER 50 ML IV ONE (08:22)
[2017-11-18] MEDS ORDERED: DULoxetine 60 MG CAP TUBE SCH (09:00)
[2017-11-18] MEDS ORDERED: TRIMETHOPRIM 100 MG TAB TUBE SCH (09:00)
[2017-11-18] MEDS ORDERED: PHENYLEPHRINE HCL 50 MG in D5W 250 ML IV SCH (09:00)
[2017-11-18 09:08] LABS: PLATELET COUNT 255 10^3/uL (150-400)
[2017-11-18 09:16] LABS: INR 2.87 (0.83-1.16)
[2017-11-18] MEDS ORDERED: KETAMINE 200 MG/20 ML VIAL ONE (09:50)
[2017-11-18] MEDS: INSULIN LISPRO 100 UNIT/ML SC SCH ×3 (09:51→18:53)
[2017-11-18] MEDS: MEROPENEM 1 GM in STERILE WATER INJ 20 ML IV SCH ×2 (09:52→20:55)
[2017-11-18] MEDS: VASOPRESSIN/DEXTROSE 250 ML IV SCH ×2 (10:23→22:07)
[2017-11-18] MEDS: PANTOPRAZOLE SODIUM 40 MG VIAL IVP SCH ×2 (10:24→20:28)
[2017-11-18] MEDS ORDERED: FUROSEMIDE 40 MG/4 ML VIAL IVP ONE (11:12)
--- NOTE | 2017-11-18 11:55 | PCMIDPN ---
Assessment/Plan: # Sepsis unclear etiology, patient remains febrile, tachy on multiple pressors after code overnight. Source: resp (infection/PE), Urine : Yeast on Ucx - certainly at risk for candidemia with extensive prior antibiotic exposure. GI source seems less likely. Reviewed CT with rads, G tube in well developed tract with no intraabdominal air; very small amt ascites, spine with extensive HWR but no focal bony abn. B pleural effusions with compressive atelectasis. Cdiff certainly of consideration but no clear diarrhea and CT scan shows no colits and bowel full of stool --add micafungin --check vancomycin trough --continue meropenem --based on Ucx results will hold off on starting bactrim (prior dose 290mg q8) --if develops diarrhea would check cdiff # Myotonia, less pronounced today but on sedation meds meropenem 1gm IV q12, #2 vancomycin 750mg IV q24, #3 micro influenza A/B neg 11/16 blood cx (2) pending 11/16 UCx 100K jairo tropicalis Subjective: patient coded overnight now on multiple pressors Objective: Vital Signs Temp Pulse Resp BP Pulse Ox 36.7 C 118 H 35 H 95/57 L 90 L on 100% vent 11/18/17 11:00 11/18/17 11:00 11/18/17 11:00 11/18/17 11:00 11/18/17 11:00 Laboratory Results 11/18/17 08:45 11/18/17 08:45 11/17/17 11/18/17 11/19/17 05:59 05:59 05:59 Intake Total 5928 4000 2000 Output Total 250 665 100 Balance 5678 3335 1900 - Physical Exam General Appearance: other (sedated) EENT: pale conjunctiva, ET Tube, NG Tube Respiratory: coarse breath sounds, other (on vent) Cardiac/Chest: tachycardia Extremities: pedal edema Abdomen: soft, distended, other (decreased bs; G tube L side) Male Genitalia: thompson Skin: decubitus (stage 2 lower back without surrounding erythema (present on admit)) Neuro/Psych: other (sedated) - Line/s RUE PICC Lines: No drainage, No erythema - Time Spent With Patient Time Spent with Patient: greater than 35 minutes (discussed with Dr. Sheriff, Dr. Sanchez) Time Spent with Patient: Greater than 35 minutes spent on this patients care, greater than 50% of time spent counseling, educating, and coordinating care regarding the above mentioned plan. ICD10 Worksheet Patient Problems: Problems Problem Status Onset Altered mental status Acute Severe sepsis Acute Urinary tract infection Acute CHF (congestive heart failure) Acute Chronic back pain Acute Chronic pain Acute Dehydration Acute Hyponatremia Acute Hypoxic Acute Pneumonia Acute Respiratory failure Acute Sepsis Acute Status post cervical arthrodesis Acute Vomiting Acute Weakness Acute
--- NOTE | 2017-11-18 12:03 | HOSPPROG ---
Hospitalist Progress Note Assessment/Plan: #Cardiopulmonary arrest #Acute Respiratory Failure #Septic Shock #UTI #RLL Pneumonia vs pleural effusion #Acute anemia, possible acute blood loss anemia, GI source #Malfunctioning/dislodged feeding tube #Chronic Pain #DM I, some hyperglycemia, but now ok #PAfib #chronic AC #Anemia #Chronic Hyponatremia, Na is at target #Acute Renal Failure, Cr now back to baseline #Myotonia,possibly as a side effect of Levaquin #Acute encephalopathy Plan: -Vent per pulm -Pressor support. She is on 4 pressors (Levo, Tom, Epi, Vaso). Can hopefully wean as able to -IVF -ID is following. Cont with Vanco and Meropenem. Unclear source. Will await further recommendations. Leukocytosis has worsened -Likely Lasix in between units of blood -GI to evaluate feeding tube, would favor replacement -Cont PPI BID. Hgb has not dropped substantially. -Hold Xarelto -Cont Amio -Hold narcotics total critical care time is 85 minutes Case d/w with letter carrier and team during team rounds Spent additional time with the pt's at bedside updating on the pt's care and discussion goals of care and code status Subjective: The patient had cardiolpulmonary arrest today. See my previous note Objective: Vital Signs Temp Pulse Resp BP Pulse Ox 36.7 C 118 H 35 H 95/57 L 90 L 11/18/17 11:00 11/18/17 11:00 11/18/17 11:00 11/18/17 11:00 11/18/17 11:00 Laboratory Results 11/18/17 08:45 11/18/17 08:45 11/17/17 11/18/17 11/19/17 05:59 05:59 05:59 Intake Total 5928 4000 2000 Output Total 250 665 100 Balance 5678 3335 1900 PT 30.0 SEC (12.0-15.0) H 11/18/17 08:45 INR 2.87 (0.83-1.16) H 11/18/17 08:45 - Physical Exam Constitutional: no apparent distress Eyes: PERRL Ears, Nose, Mouth, Throat: dry mucous membranes Cardiovascular: tachycardia, No edema Respiratory: reduced air movement Gastrointestinal: distension, No guarding, No rebound Skin: warm Psychiatric: encephalopathic Lymph, Heme, Immunologic: petechiae ICD10 Worksheet Patient Problems: Problems Problem Status Onset Altered mental status Acute Severe sepsis Acute Urinary tract infection Acute CHF (congestive heart failure) Acute Chronic back pain Acute Chronic pain Acute Dehydration Acute Hyponatremia Acute Hypoxic Acute Pneumonia Acute Respiratory failure Acute Sepsis Acute Status post cervical arthrodesis Acute Vomiting Acute Weakness Acute
--- NOTE | 2017-11-18 12:09 | HOSPPROG ---
Hospitalist Progress Note Assessment/Plan: I presented to the pt's bedside as camila baires was called. The pt had been having tachycardia this morning and Amio has been started. Tachycardia initially improved but then she became unresponsive. CPR including Chest compressions were started. ACLS was initiated and the pt received 3 rounds of Epi. She did not have a shockable rhythm. IVF and pressors were increased and provided. Adequate ventilation was initially established by bag valve mask. The patient was eventually intubated and placed on a ventilator. The patient eventually regained a pulse and blood pressure and additional pressors were started. Amio was continued PRBC's 2 units were provided Mg 2 units was given Bicarb administered OG tube was placed Abx were continued CXR and Abd XR were reviewed for adequate placement O: BP 60/40's, HR: 120's, tubed RRR decreased lungs sounds abd distended ext: no edema Dietrich in place Objective: Vital Signs Temp Pulse Resp BP Pulse Ox 36.7 C 118 H 35 H 95/57 L 90 L 11/18/17 11:00 11/18/17 11:00 11/18/17 11:00 11/18/17 11:00 11/18/17 11:00 Laboratory Results 11/18/17 08:45 11/18/17 08:45 11/17/17 11/18/17 11/19/17 05:59 05:59 05:59 Intake Total 5928 4000 2000 Output Total 250 665 100 Balance 5678 333 1900 PT 30.0 SEC (12.0-15.0) H 11/18/17 08:45 INR 2.87 (0.83-1.16) H 11/18/17 08:45 ICD10 Worksheet Patient Problems: Problems Problem Status Onset Altered mental status Acute Severe sepsis Acute Urinary tract infection Acute CHF (congestive heart failure) Acute Chronic back pain Acute Chronic pain Acute Dehydration Acute Hyponatremia Acute Hypoxic Acute Pneumonia Acute Respiratory failure Acute Sepsis Acute Status post cervical arthrodesis Acute Vomiting Acute Weakness Acute
[2017-11-18] MEDS: MICAFUNGIN NA 100 MG in NS 100 ML IV SCH (12:45)
--- NOTE | 2017-11-18 14:09 | SOAPPROG ---
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 Tract looks well formed on CT and no sig fluid inflammation around site I can fix it by performing EGD and placing wire thru the PEG from outside, pull old PEG leaving wire in place and put replacement PEG over guidewire. If tract is stenosed then I can also dilate the tract prior to replacing PEG. I could also place a new pull PEG (not a replacement PEG) with modified technique This is not urgent and given her recent code I will wait on the sidelines until [facility] feel she is stable enough to undergo procedure. Can feed via NGT - but if leaking out of PEG site I would stop the NGT feeds She can also get PPN or TPN if needed temporarily 11/18/17 13:59 Objective: Vital Signs Temp Pulse Resp BP Pulse Ox 36.7 C 114 H 30 H 93/69 L 90 L 11/18/17 12:00 11/18/17 13:00 11/18/17 13:00 11/18/17 13:00 11/18/17 13:00 Laboratory Results 11/18/17 08:45 11/18/17 08:45 11/17/17 11/18/17 11/19/17 05:59 05:59 05:59 Intake Total 5928 4000 2000 Output Total 250 665 165 Balance 5678 3335 1835 PT 30.0 SEC (12.0-15.0) H 11/18/17 08:45 INR 2.87 (0.83-1.16) H 11/18/17 08:45 ICD10 Worksheet Patient Problems: Problems Problem Status Onset Altered mental status Acute Severe sepsis Acute Urinary tract infection Acute CHF (congestive heart failure) Acute Chronic back pain Acute Chronic pain Acute Dehydration Acute Hyponatremia Acute Hypoxic Acute Pneumonia Acute Respiratory failure Acute Sepsis Acute Status post cervical arthrodesis Acute Vomiting Acute Weakness Acute
[2017-11-18] MEDS ORDERED: AMIODARONE A.FIB-18HR INFSN (ORDER 3/3) IV ONE (15:00)
[2017-11-18] MEDS ORDERED: CALCIUM CHLORIDE 1 GM/10 ML INJ IV ONE (15:10)
[2017-11-18] MEDS ORDERED: ALBUMIN 25% 100 ML IV ONE (15:15)
[2017-11-18] MEDS ORDERED: FUROSEMIDE 20 MG/2 ML VIAL IVP ONE (15:15)
[2017-11-18] MEDS ORDERED: EPINEPHrine 1 MG/10 ML SYR IVP ONE (15:17)
[2017-11-18] MEDS ORDERED: SODIUM BICARBONATE 50 MEQ/50 ML SYR IVP ONE (15:18)
--- NOTE | 2017-11-18 15:29 | GCON ---
[f rep st] CONSULTATION DATE OF CONSULTATION: 11/18/2017 REFERRING PHYSICIAN: Migdalia Amezcua MD I have been asked by Dr. Amezcua to see the patient in consultation for chief complaint of buried bumper syndrome/dislodged PEG. Patient was admitted yesterday with sepsis and altered mental status. She has a history of recurrent UTIs and was discharged about a week ago on antibiotics. According to the , she has had worsening mental status a few days prior to admission but did not have any fevers, chills, or sweats. He states that they have not used the PEG for feedings for many weeks. They do use it to place large pills she cannot swallow. They crush it and place through the PEG. The PEG was placed in mid August and was a 20-Persian pull PEG with a deformable bumper. A CT scan obtained on admission showed that the bumper had migrated and was no longer in the gastric lumen. The tract seems well formed, and there was no associated fluid or inflammation near the PEG site. Infectious Disease, myself, and the radiologist do not believe that the dislodged PEG is the cause of her sepsis. Of note, she had a code this morning, where she underwent CPR, ACLS, and intubation. The history is obtained from the chart, as well as from the . I am now here to help evaluate and treat her buried bumper syndrome/dislodged PEG. PAST MEDICAL/SURGICAL HISTORY: Diabetes, paroxysmal AFib, chronic urinary retention with indwelling Dietrich, recurrent UTIs, chronic pain on chronic opiates , hyperthyroidism, hypertension, depression, anxiety, hyponatremia (takes salt tablets). back surgeries, PEG HOSPITAL MEDICATIONS: Include PICC line policy, insulin sliding scale, meropenem 1 g IV q.12, micafungin 100 mg IV daily, Oral Balance applied to dry mouth, norepinephrine drip, Zofran p.r.n., Protonix 40 mg IV b.i.d., potassium protocol, vancomycin 750 mg q.24, vasopressin. ALLERGIES: Codeine, metronidazole, and quetiapine. SOCIAL HISTORY: She lives at home with her who takes care of her. She does not smoke or drink. FAMILY HISTORY: Unobtainable from the patient. In the HPI, it states, for Family History, Father had coronary artery disease. REVIEW OF SYSTEMS: Unobtainable from the patient. PHYSICAL EXAM: GENERAL: Chronically ill-appearing female, intubated in ICU bed , sedated. VITAL SIGNS: Blood pressure 93/69, pulse is 114, respiratory rate is 30. She is 90% on ventilator. EYES: Anicteric. MOUTH: Intubated. NECK: No obvious JVD. No adenopathy. LUNGS: Decreased breath sounds, coarse. CARDIAC: S1, S2. Tachycardic. ABDOMEN: Bowel sounds are normal in pitch but decreased frequency. ABDOMEN: Soft with no significant tenderness, but she is intubated and sedated. EXTREMITIES: No cyanosis or edema. NEUROLOGIC: Intubated, sedated. LABORATORY DATA: WBC 20.32, hemoglobin 7.6, hematocrit 23.3, platelet count 255. Pro time of 30.0, INR 2.87, PTT 54.8. Sodium 142, potassium 4.1, chloride 109, bicarb 10, BUN 13, creatinine 0.7 from earlier today. AST 88, ALT 48, alkaline phosphatase 174. Nasal swabs were negative for flu A and flu B. urine from November 16 showed 50-182 WBCs, no epithelial cells, 2+ leukocyte esterase. Urine culture from November 16 is growing Silvana tropicalis. Blood cultures from November 16 are pending. IMAGING: CT scan of the abdomen performed November 17, 2017, reveals G tube outside of the gastric lumen with the tip alongside the gastric wall. Tract seems well formed. Moderate amount of ascites. Moderate amount of residual fecal material in the distal colon. Mildly distended esophagus, with fluid from possible reflux, possible atelectasis, moderate periportal edema. Abdominal x-ray from the showed good position of new EG tube. Chest x-ray from November 18 reveals good position of new ET tube and moderate bilateral pleural effusions, interstitial edema, and bibasilar airspace consolidation, worse left than right. ASSESSMENT: 1. Buried bumper syndrome. 2. Sepsis. 3. Code overnight status post ACLS. 4. Abnormal urine culture. RECOMMENDATIONS: 1. Antibiotics as per ID. 2. Pressors as per hospitalist. 3. Continue intubation for now. 4. I can replace the PEG, once the patient is more stable to undergo a procedure. I can perform an EGD and, while my scope is in the stomach, I can pass a guidewire through the external portion of the PEG, watch that come into the stomach, grab that with my endoscope, and then just pull the PEG out through the well-formed tract. I can then place a replacement PEG over the wire and try to advance it down the well-formed tract back into the stomach, visualizing it in the stomach with my endoscope. If the tract is stenosed, I can dilate the tract before replacing the PEG from the outside. Alternatively, I could also do a modified technique and put a brand new PEG in with a similar fashion, using a guidewire back up through the mouth and then pulling the PEG back down through the mouth, through the stomach wall. Of course, this needs to be done when she is more stable. 5. For now, can use NG tube for feeds. If there is any leakage of feeds out of the PEG site. I would stop the NG tube feeds, only use it for meds, and consider PPN or TPN. 6. Further recommendations to follow results above and clinical course. As stated above, the patient is acutely ill and do not think she would benefit from me performing this PEG replacement procedure at present. When she is more stable, we can certainly attempt it as noted above. This will be a high-risk procedure. If the patient is not intubated at that time, I will request Anesthesia be present for the procedure. If the patient is intubated, we can continue sedation in the ICU and perform it at bedside. Thank you for allowing me to partake in this patient's healthcare. Do not hesitate to call me with questions. /[id number]/MODL MTDD
[2017-11-18] MEDS ORDERED: CALCIUM GLUCONATE 50 ML IV ONE (15:30)
--- NOTE | 2017-11-18 16:10 | PDINTPN ---
Title Camera Operator Progress Note Assessment/Plan: Assessment: Witnessed arrest: ? Cause, cardiac vs. PE (unlikely with INR therapeutic), sepsis, electrolyte (none significantly out of range except hypocalcemia), respiratory/acidosis, abdominal/mesenteric sepsis. Improved HD status, weaning pressors. CVP high at end of arrest, but still hypotensive. Sepsis: Suspect pulmonary or GI source. Findings could also be related to G- tube displacement, but minimal local inflammation seen on CT and only medswere being given through the tube. On Vanco/Levaquin. Chronic Narcotic use, oversedation at admission: Improved with Narcan gtt, now off. Chronic AF: Anticoagulated. Rate high. On Amio Pneumonia: Looks more like effusion with atelectasis on CT.c On empiric antibiotics. Renal: Minimal urine output today. Likely will develop/has developed NICOLE due to ATN from sepsis/CP arrest. Anemia: Now s/p transfusion PRBCx2 Plan: Continue antibiotics. Wean pressors as tolerated. ECHO, U/S LEs. Trial of lasix. Closely follow H/H, electrolytes, acid/base. D/W 85 minutes running code, severe hypotension after code, metabolic acidosis. 11/18/17 16:14 Subjective: CTSP urgently on my arrival due to arrest. Had tachycardia with increasing rate , dropping BP, then PEA->asystole. 10-15 minute of CPR, several courses of Epi, difficult intubation but sats>90%. Code terminated after 15 minutes, but patient had ROSC with wide->narrowing tachycardia c/w rapid AF vs. ST with ectopy. 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 ABG during code initially with severe metabolic>respiratory acidosis, responded to NaHCO3 x3. Hgb down compared to prior level, 2 PRBCs ordered. Objective: Vital Signs Temp Pulse Resp BP Pulse Ox 37.2 C 115 H 32 H 94/64 L 90 L 11/18/17 15:25 11/18/17 15:25 11/18/17 15:25 11/18/17 15:00 11/18/17 15:25 Laboratory Results 11/18/17 08:45 11/18/17 08:45 11/17/17 11/18/17 11/19/17 05:59 05:59 05:59 Intake Total 5928 4000 2000 Output Total 250 665 210 Balance 5678 3335 1790 PT 30.0 SEC (12.0-15.0) H 11/18/17 08:45 INR 2.87 (0.83-1.16) H 11/18/17 08:45 CXR: ETT OK, effusions/left basilar infiltrate. Images reviewed by me. Abd Xray: NGT in good position. No free air (flat plate). Images reviewed by me. Laboratory Tests 11/18/17 11/18/17 11/18/17 08:45 08:45 08:54 Hgb 7.6 L POC Hgb 6.5 L INR 2.87 H POC pH POC pCO2 pCO2 POC pO2 pO2 POC HCO3 POC Total CO2 ABG pH ABG HCO3 ABG O2 Saturation O2 Concentration % Respiration Rate Set Respiration Rate Assist Control Tidal Volume POC Glucose Ionized Calcium 11/18/17 11/18/17 11/18/17 08:57 09:18 09:31 Hgb POC Hgb INR POC pH 6.82 L* 7.23 L POC pCO2 47 H 38 pCO2 POC pO2 52 L 26 L* 25 L* pO2 POC HCO3 8 L POC Total CO2 9 L* 15 L 17 L ABG pH ABG HCO3 ABG O2 Saturation O2 Concentration % Respiration Rate Set Respiration Rate Assist Control Tidal Volume POC Glucose Ionized Calcium 11/18/17 11/18/17 11/18/17 09:36 10:15 11:47 Hgb POC Hgb 7.1 L INR POC pH POC pCO2 pCO2 30 L POC pO2 pO2 63 L POC HCO3 POC Total CO2 ABG pH 7.27 L D ABG HCO3 13 L ABG O2 Saturation 88 L D O2 Concentration % 100 Respiration Rate 33 Set Respiration Rate 30 Assist Control YES Tidal Volume 451 POC Glucose 234 H Ionized Calcium 1.00 L Physical Exam - Physical Exam General Appearance: unresponsive EENT: normal ENT inspection Neck: normal inspection Respiratory: lungs clear Cardiac/Chest: edema, tachycardia, irregularly irregular Abdomen: normal bowel sounds, non-tender, soft Skin: normal color, warm/dry Extremities: normal inspection Neuro/Psych: other (spontaneous respirations, opens eyes, not following commands ), No alert ICD10 Worksheet Patient Problems: Problems Problem Status Onset Altered mental status Acute Severe sepsis Acute Urinary tract infection Acute CHF (congestive heart failure) Acute Chronic back pain Acute Chronic pain Acute Dehydration Acute Hyponatremia Acute Hypoxic Acute Pneumonia Acute Respiratory failure Acute Sepsis Acute Status post cervical arthrodesis Acute Vomiting Acute Weakness Acute
[2017-11-18] MEDS: oxyCODONE IR 5 MG TAB TUBE PRN ×2 (16:14→20:27)
[2017-11-18 16:44] LABS: PLATELET COUNT 237 10^3/uL (150-400)
[2017-11-18] MEDS: VANCOMYCIN 750 MG in NS 150 ML IV SCH (16:59)
[2017-11-18] MEDS: VANCOMYCIN 1 GM in D5W 250 ML IV SCH (16:59)
[2017-11-18] MEDS: ACETAMINOPHEN 325 MG TAB PO PRN (20:37)
[2017-11-18] MEDS: NOREPINEPHRINE BITARTRATE 4 MG in NS 500 ML IV SCH (22:07)
[2017-11-19] MEDS: ACETAMINOPHEN 325 MG TAB PO PRN ×2 (02:50→13:06)
[2017-11-19] MEDS: INSULIN LISPRO 100 UNIT/ML SC SCH ×5 (04:20→23:29)
[2017-11-19 05:26] LABS: PLATELET COUNT 216 10^3/uL (150-400)
[2017-11-19] MEDS: PANTOPRAZOLE SODIUM 40 MG VIAL IVP SCH ×2 (08:02→21:42)
[2017-11-19] MEDS: oxyCODONE IR 5 MG TAB TUBE PRN (08:02)
[2017-11-19] MEDS: MICAFUNGIN NA 100 MG in NS 100 ML IV SCH (09:30)
[2017-11-19 09:43] LABS: INR 4.99 (0.83-1.16); PROTIME(PATIENT) 45.7 SEC (12.0-15.0)
[2017-11-19] MEDS: MEROPENEM 1 GM in STERILE WATER INJ 20 ML IV SCH ×2 (10:08→22:24)
--- NOTE | 2017-11-19 11:10 | CPEKG ---
Heart Rate: 136 RR Interval: 441 QRSD Interval: 160 QT Interval: 368 QTC Interval: 554 P [place]: 0 QRS [place]: -80 T Wave [place]: 91 EKG Severity - ABNORMAL ECG - EKG Impression: wide complex tachycardia, cannot rule out vt Electronically Signed By: Jun Gandhi 20-Nov-2017 08:03:40
[2017-11-19] MEDS ORDERED: PROTOCOL CALCIUM 1 DOSE IV PRN (11:30)
--- NOTE | 2017-11-19 11:41 | SOAPPROG ---
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 Tract looks well formed on CT and no sig fluid inflammation around site I can fix it by performing EGD and placing wire thru the PEG from outside, pull old PEG leaving wire in place and put replacement PEG over guidewire. If tract is stenosed then I can also dilate the tract prior to replacing PEG. I could also place a new pull PEG (not a replacement PEG) with modified technique This is not urgent and given her recent code I will wait on the sidelines until supply cataloguer feel she is stable enough to undergo procedure. 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 pending her clinical status, would like INR 2 or less 2) Sepsis - abx antifungal as per ID, Subjective: cc- buried bumper syndrome pt intubated sedated, still with elevated WBC,INR up to 4 Objective: Vital Signs Temp Pulse Resp BP Pulse Ox 38.6 C H 115 H 30 H 96/55 L 97 11/19/17 08:45 11/19/17 11:00 11/19/17 11:00 11/19/17 11:00 11/19/17 11:00 Laboratory Results 11/19/17 05:00 11/19/17 05:00 11/18/17 11/19/17 11/20/17 05:59 05:59 05:59 Intake Total 4000 5318 Output Total 665 775 25 Balance 3335 4543 -25 PT 45.7 SEC (12.0-15.0) H D 11/19/17 09:15 INR 4.99 (0.83-1.16) H 11/19/17 09:15 intubated coarse breath sound anteriorly S1S2, tachy +BS, decreased, soft ICD10 Worksheet Patient Problems: Problems Problem Status Onset Altered mental status Acute Severe sepsis Acute Urinary tract infection Acute CHF (congestive heart failure) Acute Chronic back pain Acute Chronic pain Acute Dehydration Acute Hyponatremia Acute Hypoxic Acute Pneumonia Acute Respiratory failure Acute Sepsis Acute Status post cervical arthrodesis Acute Vomiting Acute Weakness Acute
--- NOTE | 2017-11-19 11:46 | HOSPPROG ---
Hospitalist Progress Note Assessment/Plan: 66 yo female with hx of chronic UTIs admitted with Sepsis, presumably Urinary source, but unclear. Had witnessed arrest and resuscitation on 11/18. Overnight she has had minimal urine output. Leukocytosis is worse. She still has a fever. Cr has increased slightly. Liver enzymes have increased and INR has significantly increased. She looks intravascularly dry. She has very poor protein stores. she has a dislodge feeding tube which is not felt to be the source of infection #s/p Arrest #Acute Respiratory Failure #Septic Shock #Hepatic Injury, ?Shock Liver, coagulopathy, transaminitis #UTI #RLL Pneumonia vs pleural effusion, CXR appears worsened #Acute anemia, possible acute blood loss anemia, GI source #Malfunctioning/dislodged feeding tube #SPCMN #Chronic Pain #DM I, some hyperglycemia, but now ok #PAfib #chronic AC #Anemia #Chronic Hyponatremia, Na is at target #Acute Renal Failure, Cr now back to baseline #Myotonia,possibly as a side effect of Levaquin #Acute encephalopathy #Hypocalcemia #Hypomagnesemia Plan: -Vent per pulm -Pressor support. She is down to 2 pressors -IVF -Vanco, Meropenem and Micofungin, ID is following. Is there another source? Back /Hardware? -GI to replace feeding tube once patient is more stable -Attempt to reverse coagulopathy -Transfuse PRN -Hold Xarelto -Cont Amio -replace Calcium -Consult Palliative Care. Discussed during team rounds. Subjective: minimal urine output. Elevated INR. Weaned off 2 pressors Objective: Vital Signs Temp Pulse Resp BP Pulse Ox 38.6 C H 115 H 30 H 93/60 L 98 11/19/17 08:45 11/19/17 10:00 11/19/17 10:00 11/19/17 10:00 11/19/17 10:00 Laboratory Results 11/19/17 05:00 11/19/17 05:00 11/18/17 11/19/17 11/20/17 05:59 05:59 05:59 Intake Total 4000 5318 Output Total 665 775 10 Balance 3335 4543 -10 PT 45.7 SEC (12.0-15.0) H D 11/19/17 09:15 INR 4.99 (0.83-1.16) H 11/19/17 09:15 - Physical Exam Constitutional: no apparent distress Ears, Nose, Mouth, Throat: dry mucous membranes Cardiovascular: tachycardia Respiratory: reduced air movement Gastrointestinal: normoactive bowel sounds, soft, non-tender abdomen, No distension Skin: warm Neurologic: No AAOx3 Psychiatric: other, No interacting appropriately Lymph, Heme, Immunologic: No petechiae ICD10 Worksheet Patient Problems: Problems Problem Status Onset Altered mental status Acute Severe sepsis Acute Urinary tract infection Acute CHF (congestive heart failure) Acute Chronic back pain Acute Chronic pain Acute Dehydration Acute Hyponatremia Acute Hypoxic Acute Pneumonia Acute Respiratory failure Acute Sepsis Acute Status post cervical arthrodesis Acute Vomiting Acute Weakness Acute
[2017-11-19] MEDS ORDERED: CALCIUM GLUCONATE 50 ML IV ONE (12:29)
[2017-11-19] MEDS ORDERED: CALCIUM GLUCONATE 1 GM in D5W 50 ML IV ONE (13:00)
--- NOTE | 2017-11-19 13:44 | PCMIDPN ---
Assessment/Plan: # Sepsis unclear etiology, patient remains febrile, tachy. Less pressors Source: resp (infection/PE), Urine : Yeast on Ucx - certainly at risk for candidemia with extensive prior antibiotic exposure. GI source seems less likely. CT reviewed w rads yesterday, see discussion. Spine etiology unlikely. --continue micafungin --increased vancomycin to 1gm IV daily yesterday --continue meropenem --check blood cultures, sputum culture and resp panel PCR # Myotonia, less pronounced, FQ stopped bc of finding prior to intubation meds meropenem 1gm IV q12, #3 vancomycin 1gm IV q24, #4 micafungin 100mg IV daily #2 micro influenza A/B neg 2/ blood cx (2) NGTD 2/ UCx 100K jairo tropicalis CXR: LLL infiltrate Subjective: continued fever less pressor support no diarrhea Objective: Vital Signs Temp Pulse Resp BP Pulse Ox 39.0 C H 117 H 31 H 89/52 L 99 11/19/17 12:00 11/19/17 13:00 11/19/17 13:00 11/19/17 13:00 11/19/17 13:00 Laboratory Results 11/19/17 05:00 11/19/17 05:00 11/18/17 11/19/17 11/20/17 05:59 05:59 05:59 Intake Total 4000 5318 Output Total 665 775 40 Balance 3335 4543 -40 General Appearance: sedated, anasarca EENT: pale conjunctiva, ET Tube, NG Tube Respiratory: coarse breath sounds, on vent Cardiac/Chest: tachycardia Extremities: pedal edema Abdomen: soft, distended, decreased bs; G tube L side Male Genitalia: thompson Neuro/Psych: sedated RUE PICC: No drainage, No erythema - Time Spent With Patient Time Spent with Patient: greater than 35 minutes (plan for care discussed with , son; care coordinated with Dr. Sanchez and ZACH Schaffer.) Time Spent with Patient: Greater than 35 minutes spent on this patients care, greater than 50% of time spent counseling, educating, and coordinating care regarding the above mentioned plan. ICD10 Worksheet Patient Problems: Problems Problem Status Onset Altered mental status Acute Severe sepsis Acute Urinary tract infection Acute CHF (congestive heart failure) Acute Chronic back pain Acute Chronic pain Acute Dehydration Acute Hyponatremia Acute Hypoxic Acute Pneumonia Acute Respiratory failure Acute Sepsis Acute Status post cervical arthrodesis Acute Vomiting Acute Weakness Acute
[2017-11-19] MEDS ORDERED: PHYTONADIONE 2.5 MG/2.5 ML ORAL UDL PO ONE (13:49)
--- NOTE | 2017-11-19 14:14 | PDINTPN ---
Carpenter Form Progress Note Assessment/Plan: Assessment: Witnessed arrest 11/18/17: ? Cause, cardiac vs. PE (unlikely with INR therapeutic) , sepsis, electrolyte (none significantly out of range except hypocalcemia), respiratory/acidosis, abdominal/mesenteric sepsis. Improved HD status, but still unable to wean off pressors. CVP high at 13-16. Sepsis: Suspect pulmonary or GI source. Findings could also be related to G- tube displacement, but minimal local inflammation seen on CT and only meds were being given through the tube. On Vanco; Levaquin stopped and Meropenam/ Mycafungin started. Chronic Narcotic use, oversedation at admission: Improved with Narcan gtt, now off. Chronic AF: Anticoagulated. Rate high. On Amio Pneumonia: Looks more like effusion with atelectasis on initial CT, now with more extensive infiltrates/edema. On empiric antibiotics. Renal: Minimal urine output today. Likely will develop/has developed NICOLE due to ATN from sepsis/CP arrest. Anemia: Suspect some GI blood loss with anticoagulation, anemia of chronic disease. Now s/p transfusion PRBCx2, H/H normal. G-tube positioning: Balloon is outside of stomach, ? if tip is still in stomach. Acute hepatitis: Likely shock liver from arrest Plan: Continue antibiotics per ID. Wean pressors as tolerated. Follow electrolytes, acid/base. Hold TF until G-tube addressed Will give Vit K and FFP to get INR down for possible PEG repositioning by Dr. Sheriff tomorrow if hemodynamics/oxygenation are stable. Goal INR about 2. D/W . Palliative care consult, as patient has limited quality of life due to chronic pain/immobility, ? level of ongoing support that is appropriate, as her prognosis for return to even her prior reduced level of function is not great. 40 minutes cc time, addressing ongoing hypotension requiring pressor adjustment , respiratory failure on vent with hypoxemia. 11/19/17 14:33 11/19/17 14:35 Subjective: Intubated, sedated but opens eyes Objective: Vital Signs Temp Pulse Resp BP Pulse Ox 39.0 C H 117 H 30 H 96/64 L 99 11/19/17 12:00 11/19/17 14:00 11/19/17 14:00 11/19/17 14:00 11/19/17 14:00 Laboratory Results 11/19/17 05:00 11/19/17 05:00 11/18/17 11/19/17 11/20/17 05:59 05:59 05:59 Intake Total 4000 5318 Output Total 665 775 40 Balance 3335 4543 -40 PT 45.7 SEC (12.0-15.0) H D 11/19/17 09:15 INR 4.99 (0.83-1.16) H 11/19/17 09:15 Laboratory Tests 11/19/17 11/19/17 05:00 09:15 INR 4.99 H VBG pH 7.30 L VBG HCO3 12 L VBG Total CO2 13 L VBG O2 Saturation 64 L Mixed VBG pCO2 26 L Mixed VBG pO2 41 H O2 Concentration % 100 Respiration Rate 30 Assist Control YES Tidal Volume 450 End Tidal CO2 13 CXR: Increase L>R basilar infiltrate, left effusion. Images reviewed by me. Doppler US LE: Negative PE. Physical Exam - Physical Exam General Appearance: alert, no apparent distress EENT: normal ENT inspection Neck: normal inspection Respiratory: lungs clear, normal breath sounds Cardiac/Chest: regular rate, rhythm, No edema Abdomen: normal bowel sounds, non-tender Skin: normal color, warm/dry Extremities: normal inspection Neuro/Psych: alert, normal mood/affect, oriented x 3 ICD10 Worksheet Patient Problems: Problems Problem Status Onset Altered mental status Acute Severe sepsis Acute Urinary tract infection Acute CHF (congestive heart failure) Acute Chronic back pain Acute Chronic pain Acute Dehydration Acute Hyponatremia Acute Hypoxic Acute Pneumonia Acute Respiratory failure Acute Sepsis Acute Status post cervical arthrodesis Acute Vomiting Acute Weakness Acute
[2017-11-19] MEDS: VANCOMYCIN 1 GM in D5W 250 ML IV SCH (16:25)
[2017-11-19] MEDS: NS W/ 20 KCl/L 1,000 ML IV SCH (16:25)
[2017-11-19] MEDS: VASOPRESSIN/DEXTROSE 250 ML IV SCH (20:51)
[2017-11-19] MEDS: NOREPINEPHRINE BITARTRATE 4 MG in NS 500 ML IV SCH (21:52)
[2017-11-19] MEDS ORDERED: NS 250 ML IV ONE (22:59)
[2017-11-20] MEDS: INSULIN LISPRO 100 UNIT/ML SC SCH ×3 (05:25→18:18)
[2017-11-20 05:44] LABS: PLATELET COUNT 165 10^3/uL (150-400)
[2017-11-20 05:52] LABS: INR 4.13 (0.83-1.16); PROTIME(PATIENT) 39.6 SEC (12.0-15.0)
[2017-11-20] MEDS ORDERED: CALCIUM GLUCONATE 50 ML IV ONE (06:08)
[2017-11-20] MEDS ORDERED: CALCIUM CHLORIDE 1 GM in D5W 50 ML IV ONE (06:45)
[2017-11-20] MEDS ORDERED: DILTIAZEM 25 MG/5 ML VIAL IVP ONE ×2 (07:00)
[2017-11-20] MEDS ORDERED: NS 250 ML IV ONE (07:00)
--- NOTE | 2017-11-20 07:07 | CPEKG ---
Heart Rate: 134 RR Interval: 448 P-R Interval: 164 QRSD Interval: 68 QT Interval: 336 QTC Interval: 502 P [place]: 70 QRS [place]: -52 T Wave [place]: 74 EKG Severity - ABNORMAL ECG - EKG Impression: SINUS TACHYCARDIA EKG Impression: PAIRED VENTRICULAR PREMATURE COMPLEXES EKG Impression: EXTENSIVE ANTERIOR INFARCT, AGE INDETERMINATE EKG Impression: LOW VOLTAGE ECG Electronically Signed By: Alex Franz 21-Nov-2017 15:51:09
[2017-11-20] MEDS: MICAFUNGIN NA 100 MG in NS 100 ML IV SCH (08:10)
[2017-11-20] MEDS: PANTOPRAZOLE SODIUM 40 MG VIAL IVP SCH ×2 (08:10→20:48)
[2017-11-20] MEDS: MEROPENEM 1 GM in STERILE WATER INJ 20 ML IV SCH ×2 (08:11→20:48)
[2017-11-20] MEDS ORDERED: METOPROLOL TARTRATE 5 MG/5 ML INJ IVP ONE (09:17)
[2017-11-20] MEDS ORDERED: SODIUM BICARBONATE 50 MEQ/50 ML SYR IVP ONE (10:11)
--- NOTE | 2017-11-20 10:31 | PDINTPN ---
Cyber Threat Analyst Progress Note Assessment/Plan: Assessment: 66-year-old with a long history of diabetes, recurrent urinary tract infections , an indwelling Dietrich catheter admitted on 11/16 with the sepsis, possibly from a recurrent urinary source. S/p arrest with prolonged cardiopulmonary resuscitation with eventual return of spontaneous circulation. Mental status intact. Witnessed arrest 11/18/17: ? Cause, cardiac vs. PE (unlikely with INR therapeutic) , sepsis, electrolyte (none significantly out of range except hypocalcemia), respiratory/acidosis, abdominal/mesenteric sepsis. Improved HD status, but still unable to wean off pressors. CVP high at 16. Episodes of VT persist. Amiodarone to be restarted. Sepsis: Suspect pulmonary or GI source. Findings could also be related to G- tube displacement, but minimal local inflammation seen on CT and only meds were being given through the tube. On Vanco/Meropenam/Mycafungin. Infectious Disease following. Acidosis: On going. Lactate greater than 5. This may be related to her arrest and delayed clearance of acid. Ongoing sepsis cannot be excluded however clinically she looks better than this. Will follow. Chronic Narcotic use, oversedation at admission: Improved with Narcan gtt, now off. Chronic AF: Anticoagulated. Rate high. On Amio Possible Pneumonia: Looks more like effusion with atelectasis on initial CT, now with more extensive infiltrates/edema. On empiric antibiotics as above. Renal: Minimal urine output x 48 hrs. Likely NICOLE from sepsis/CP arrest. Cr 1.2 ( best 0.7). For Lasix. May need renal consult if urine output does not brick picker and/or BUN and creatinine continue to rise significantly. Anemia: Suspect some GI blood loss with anticoagulation, anemia of chronic disease. Now s/p transfusion PRBCx2, H/H normal. G-tube positioning: Balloon is outside of stomach, ? if tip is still in stomach. Acute hepatitis: Likely shock liver from arrest. Cor status: Full cor. Prognosis remains guarded. For palliative care consultation today however I anticipate that the patient's will want to continue full cor status for now and continue aggressive treatment in hopes of full recovery. It is unclear to me what the patient might want comma this probably cannot be sorted out until she is off the ventilator, off sedatives. Plan: Continue ventilatory support. Start CPAP trials. Not a candidate for extubation at this time. Restart amiodarone for VT. Continue antibiotics per ID. Wean pressors as tolerated. Lasix bolus today to see if this will stimulate urine output. Follow electrolytes, lactate, acid/base. GI awaiting best timing for replacing her G-tube. Will not use this currently. Can give Vit K and FFP to get INR down for PEG repositioning by Dr. Sheriff if hemodynamics/oxygenation are stable. Goal INR about 2. Best to have her still on ventilator when this procedure is being done. D/W pt's , respiratory, nursing, hospitalist, Infectious Disease, GI, and the ICU multi disciplinary team. Over 1 hr of critical care time spent directly with the patient. Multiple visits. Subjective: On vent, not sedated, arouses, responds. On levo and vaso Objective: Vital Signs Temp Pulse Resp BP Pulse Ox 38.1 C 117 H 27 H 116/65 96 11/20/17 08:00 11/20/17 09:34 11/20/17 09:00 11/20/17 09:34 11/20/17 09:00 Microbiology 11/19/17 16:25 - Final Sputum, Induced/Suctioned 11/19/17 14:48 Respiratory Panel (PCR) - Final Nasal, Sinus - Swab No Organism Detected Laboratory Results 11/20/17 05:10 11/20/17 05:10 11/19/17 11/20/17 11/21/17 05:59 05:59 05:59 Intake Total 5318 3842 Output Total 775 200 25 Balance 4543 3642 -25 PT 39.6 SEC (12.0-15.0) H 11/20/17 05:10 INR 4.13 (0.83-1.16) H 11/20/17 05:10 Laboratory Tests 11/20/17 11/20/17 11/20/17 05:10 05:10 05:10 PT 39.6 H INR 4.13 H pCO2 pO2 Total CO2 ABG pH Total O2 Concentration Tidal Volume Calcium 7.1 L Ionized Calcium 1.02 L Magnesium 2.0 Total Bilirubin 4.9 H AST 3641 H ALT 1272 H Albumin 2.1 L 11/20/17 06:15 PT INR pCO2 16 L* pO2 86 H Total CO2 10 L ABG pH 7.39 Total O2 Concentration 40.0 Tidal Volume 450 Calcium Ionized Calcium Magnesium Total Bilirubin AST ALT Albumin ICD10 Worksheet Patient Problems: Problems Problem Status Onset Hyponatremia Acute Status post cervical arthrodesis Acute Pneumonia Acute Altered mental status Acute Dehydration Acute Weakness Acute Chronic pain Acute Chronic back pain Acute Vomiting Acute Sepsis Acute Hypoxic Acute Respiratory failure Acute CHF (congestive heart failure) Acute Urinary tract infection Acute Severe sepsis Acute
--- NOTE | 2017-11-20 12:08 | PCMIDPN ---
Assessment/Plan: Assessment: Septic shock-latest in the string of admissions for septic shock without a particular etiology being definitively established. Patient has had a G-tube and an indwelling Dietrich catheter for the last few months. Prior suspicion has been urinary tract infection and continues to be a leading candidate for the cause of this admission. She had a purulent urine sample. She is growing Silvana tropicalis in significant amount from her urine culture. She is being covered empirically with vancomycin, meropenem and micafungin which should cover all of the established bacterial growth in culture. Family is in the room and is wondering why she is having such difficult times with her infections. I believe that she may have a tendency to have a dysregulated immune response to foot would otherwise be regarded as relatively mild objective infections. It is unclear to me why this is although she does have a history of 5 decades of diabetes which has been fairly poorly controlled. Interestingly she has not suffered any significant peripheral circulation issues nor nephropathy nor retinopathy however immune function in poorly controlled diabetics is known to be dysfunctional to some degree. Reviewed her CT scan from 11/17. There is no significant extrusion of fluid around the gastric area where the G-tube balloon is clearly extraluminal. No gas in the area indicating ongoing leakage from the gastrum. Patient has significant ascites and significant pleural effusions. These are likely reactive and not the primary source of infection. At this point would continue her on empiric vancomycin, meropenem and micafungin. Her blood pressure and hemodynamics are quite tenuous. Her metabolic acidosis is worsening. Prognosis at this point is quite guarded. Reviewed other potential causes of severe hypotension such as adrenal insufficiency but her cortisol levels were sufficient 3 days ago. Plan: 1. Continue IV vancomycin, meropenem and micafungin. 2. Continue to follow microbiologic cultures closely. 3. Follow hemodynamic status and patient's clinical course. Subjective: Patient remains intubated. She occasionally moves on the bed spontaneously. No clear directed response to questions or stimuli. Continues to be febrile. Objective: Vancomycin # 2 Meropenem # 4 Micafungin # 2 Vital Signs Temp Pulse Resp BP Pulse Ox 38.1 C 89 30 H 88/52 L 100 11/20/17 08:00 11/20/17 10:00 11/20/17 10:00 11/20/17 10:00 11/20/17 10:00 Microbiology 11/19/17 16:25 - Final Sputum, Induced/Suctioned 11/19/17 14:48 Respiratory Panel (PCR) - Final Nasal, Sinus - Swab No Organism Detected Laboratory Results 11/20/17 05:10 11/20/17 05:10 11/19/17 11/20/17 11/21/17 05:59 05:59 05:59 Intake Total 5318 3842 Output Total 775 200 40 Balance 4543 3642 -40 - Physical Exam General Appearance: WD/WN, no apparent distress, thin, toxic Respiratory: coarse breath sounds, No lungs clear, No respiratory distress Cardiac/Chest: tachycardia, irregularly irregular Extremities: normal inspection, No pedal edema Abdomen: soft, distended Skin: normal color, warm/dry, No rash ICD10 Worksheet Patient Problems: Problems Problem Status Onset Altered mental status Acute Severe sepsis Acute Urinary tract infection Acute CHF (congestive heart failure) Acute Chronic back pain Acute Chronic pain Acute Dehydration Acute Hyponatremia Acute Hypoxic Acute Pneumonia Acute Respiratory failure Acute Sepsis Acute Status post cervical arthrodesis Acute Vomiting Acute Weakness Acute
[2017-11-20] MEDS: D50W 25 GM/50 ML SYR IVP PRN (12:18)
[2017-11-20] MEDS ORDERED: FUROSEMIDE 100 MG/10 ML VIAL IVP ONE (15:06)
--- NOTE | 2017-11-20 15:58 | PDCARCONS ---
Cardiology Consult Reason for Consult: Wide complex arrhythmia. Chief Complaint: White complex arrhythmia. Requesting Physician: Dr. Jammie Huntley MD. History of Present Illness: The patient is a 66-year-old female who has seen Dr. Beau Almonte in the outpatient environment given her history of paroxysmal atrial fibrillation which had been noted in the setting of prior infections. She had been treated previously with systemic anticoagulation in the form of Xarelto. She was not on rate controlling agents. Plans had been for placement of a monitor to evaluate for recurrent episodes of atrial fibrillation. She has no history of coronary artery disease, cardiomyopathy or more significant arrhythmias. She was admitted to the [facility] on November 16. At that time, she had altered mental status. She was noted to be in was thought to be septic shock. It was thought that she had a urinary source of potentially a pulmonary source for her underlying arrhythmia. She was placed in the intensive care unit and treated with broad-spectrum antibiotics. She had an echocardiogram done at the time of admission. There is a full and separately detailed report in the medical record. However, at that time, she had a normal ejection fraction. On the morning of November 18 she experienced a wide complex tachycardia. This was associated with hypotension. Per report it sounds as if she also received CPR. Amiodarone was administered. In reviewing her electrocardiogram this is consistent with ventricular tachycardia. Fortunately, her arrhythmias stabilized. She did require intubation. Since then, she has continued to have tenuous hemodynamics requiring the concomitant use of vasopressin and Levophed. She has been oliguric. This morning she had another self-limited episode of wide complex tachycardia and, as a result, we were consulted. It should be noted that she had an echocardiogram done on November 18. That echocardiogram was interpreted and completed however, for an unknown reason the interpretation was not transitioned over to the electronic record. I reviewed the echocardiogram. Her ejection fraction is approximately 20%. She has akinesis in the distribution of the left ventricular apex and adjacent apical and mid portions of the left ventricle. History Information - Allergies/Home Medication List Allergies/Adverse Reactions: codeine Allergy (Severe, Verified 11/02/17 15:27) Loss of consciousness metronidazole [From Flagyl] Allergy (Intermediate, Verified 11/02/17 15:27) Other-Enter Comments quetiapine [From Seroquel] Allergy (Intermediate, Verified 11/02/17 15:27) Other-Enter Comments Home Medications: Levothyroxine [Synthroid 100 mcg (*)] 100 mcg PO DAILY06 08/27/14 [Last Taken ] Multivitamins [Multivitamin (*)] 1 each PO DAILY 03/17/17 [Last Taken 11/15/17] traZODone [traZODONE 100MG (*)] 200 mg PO HS 08/06/17 [Last Taken 11/15/17] Baclofen [Baclofen 10 mg (*)] 2.5 mg PO Q3 11/02/17 [Last Taken 11/16/17] Duloxetine HCl [Cymbalta] 60 mg PO DAILY 11/02/17 [Last Taken 11/16/17] Insulin Glargine [Lantus 100 UNITS/ML (*)] 4 units SC HS 11/02/17 [Last Taken ] Insulin Regular Human [Humulin R 100 units/ml (*)] 0 unit SC PRN PRN 11/02/17 [ Last Taken 11/16/17 2 UNITS] Ondansetron HCl 4 mg PO BID 11/02/17 [Last Taken 11/16/17] Rivaroxaban [Xarelto] 20 mg PO DAILY18 11/02/17 [Last Taken 11/15/17] Simvastatin 20 mg PO HS 11/02/17 [Last Taken 11/15/17] Sodium Chloride [Salt Tablet] 1 gm PO BID 11/02/17 [Last Taken 11/16/17] Trimethoprim [TRIMPEX 100MG (*)] 100 mg PO DAILY 11/02/17 [Last Taken 11/16/17] traMADol [Ultram 50 mg (*)] 12.5 mg PO Q3 11/02/17 [Last Taken 11/16/17 09:00] traZODone [traZODONE 100MG (*)] 100 mg PO HS@0000 11/02/17 [Last Taken 11/16/17] Oxybutynin Chloride 5 mg PO BID 11/16/17 [Last Taken 11/16/17] morphINE SR [MS Contin/Oramorph SR 30 mg (*)] 30 mg PO BID 11/16/17 [Last Taken 11/15/17] I have personally reviewed and updated: family history, medical history, social history, surgical history Past Medical History: Type 1 diabetes mellitus for 50 years, chronic urinary retention with indwelling Dietrich and recurrent urinary tract infections, hyponatremia, chronic pain with chronic opiate use, hypothyroidism, hypertension, depression/anxiety. - Social History Smoking Status: Never smoked Physical Exam Physical Exam: Temp Pulse Resp BP Pulse Ox 37.7 C 95 31 H 81/47 L 98 11/20/17 14:00 11/20/17 15:00 11/20/17 15:00 11/20/17 15:00 11/20/17 15:00 O2 (L/minute) 40 FIO2 (%) 40 Constitutional: other (Intubated, sedated however responsive to basic commands) Cardiovascular: regular rate and rhythym, other (Positive 3rd heart sound), No JVD Peripheral Pulses: 2+: carotid (R), carotid (L) Respiratory: other (Intubated, sedated on mechanical ventilation) Gastrointestinal: soft, non-tender abdomen Skin: warm Neurologic: other (Intubated/sedated) Lab and Imaging 11/20/17 05:10 11/20/17 05:10 WBC 22.90 10^3/uL (3.80-9.50) H 11/20/17 05:10 RBC 3.85 10^6/uL (4.18-5.33) L 11/20/17 05:10 Hgb 12.4 g/dL (12.6-16.3) L 11/20/17 05:10 POC Hgb 7.1 gm/dL (12.6-16.3) L 11/18/17 09:36 Hct 33.9 % (38.0-47.0) L 11/20/17 05:10 POC Hct 21 % (38-47) L 11/18/17 09:36 MCV 88.1 fL (81.5-99.8) 11/20/17 05:10 MCH 32.2 pg (27.9-34.1) 11/20/17 05:10 MCHC 36.6 g/dL (32.4-36.7) 11/20/17 05:10 RDW 15.6 % (11.5-15.2) H 11/20/17 05:10 Plt Count 165 10^3/uL (150-400) D 11/20/17 05:10 MPV 10.0 fL (8.7-11.7) 11/20/17 05:10 Neut % (Auto) Not Reported 11/20/17 05:10 Lymph % (Auto) Not Reported 11/20/17 05:10 [place] % (Auto) Not Reported 11/20/17 05:10 Eos % (Auto) Not Reported 11/20/17 05:10 Baso % (Auto) Not Reported 11/20/17 05:10 Nucleat RBC Rel Count 0.3 % (0.0-0.2) H 11/20/17 05:10 Absolute Neuts (auto) Not Reported 11/20/17 05:10 Absolute Lymphs (auto) Not Reported 11/20/17 05:10 Absolute Monos (auto) Not Reported 11/20/17 05:10 Absolute Eos (auto) Not Reported 11/20/17 05:10 Absolute Basos (auto) Not Reported 11/20/17 05:10 Absolute Nucleated RBC 0.06 10^3/uL (0-0.01) H 11/20/17 05:10 Immature Gran % Not Reported 11/20/17 05:10 Seg Neutrophils % 91 % 11/20/17 05:10 Band Neutrophils % 13 % 11/19/17 05:00 Lymphocytes % 5 % 11/20/17 05:10 Monocytes % 3 % 11/20/17 05:10 Metamyelocytes % 1 % 11/20/17 05:10 Immature Gran # Not Reported 11/20/17 05:10 Absolute Seg Neuts 20.84 10^/uL (1.70-6.50) H 11/20/17 05:10 Absolute Band Neuts 3.26 10^3/uL (0.00-0.70) H 11/19/17 05:00 Absolute Lymphocytes 1.15 10^3/uL (1.00-3.00) 11/20/17 05:10 Absolute Monocytes 0.69 10^3/uL (0.30-0.80) 11/20/17 05:10 Absolute Metamyelocyte 0.23 10^3/mL (0.00-0.00) H 11/20/17 05:10 Nucleated RBCs 1 /100 WBC (0-0) H 11/20/17 05:10 RBC/WBC/PLT Morphology NORMAL (NORMAL) 11/18/17 16:25 Toxic Vacuolation PRESENT H 11/20/17 05:10 Platelet Estimate ADEQUATE (ADEQ) 11/20/17 05:10 Polychromasia 1+ H 11/20/17 05:10 Echinocytes 3+ H 11/20/17 05:10 Schistocytes 1+ H 11/19/17 05:00 Smear Review By Nela GARVIN MD 11/20/17 05:10 PT 39.6 SEC (12.0-15.0) H 11/20/17 05:10 INR 4.13 (0.83-1.16) H 11/20/17 05:10 APTT 58.4 SEC (23.0-38.0) H 11/18/17 08:45 POC Blood Source VENOUS 11/18/17 09:31 Puncture Site NONE GIVEN 11/20/17 06:15 Patient Temperature 37.0 DEGREES 11/20/17 06:15 POC pH 7.23 (7.35-7.45) L 11/18/17 09:31 POC pCO2 38 mmHg (34-38) 11/18/17 09:31 pCO2 16 mmHg (34-38) L* 11/20/17 06:15 POC pO2 25 mmHg (65-75) L* 11/18/17 09:31 pO2 86 mmHg (65-75) H 11/20/17 06:15 POC HCO3 16 mEq/L (22-26) L 11/18/17 09:31 Total CO2 10 mEq/L (23-27) L 11/20/17 06:15 POC Total CO2 17 mEq/L (23-27) L 11/18/17 09:31 POC Base Excess -11.0 mEq/L (-2.5-2.5) L 11/18/17 09:31 POC O2 Sat (Calc) 34 % (92-95) L 11/18/17 09:31 ABG pH 7.39 (7.35-7.45) 11/20/17 06:15 ABG PO2/FiO2 Ratio 63 RATIO 11/18/17 10:15 ABG HCO3 10 mEq/L (22-26) L 11/20/17 06:15 ABG O2 Saturation 96 % (92-95) H 11/20/17 06:15 ABG Base Excess -13.3 mEq/L (-2.5-2.5) L 11/20/17 06:15 VBG pH 7.30 (7.31-7.42) L 11/19/17 05:00 VBG HCO3 12 mEQ/L (22-26) L 11/19/17 05:00 VBG Total CO2 13 mEq/L (23-27) L 11/19/17 05:00 VBG O2 Saturation 64 % (65-75) L 11/19/17 05:00 VBG Base Excess -12.0 mEq/L (-2.5-2.5) L 11/19/17 05:00 VBG Lactic Acid 5.9 mmol/L (0.7-2.1) H 11/20/17 09:41 Mixed VBG pCO2 26 mmHg (40-44) L 11/19/17 05:00 Mixed VBG pO2 41 mmHg (35-40) H 11/19/17 05:00 Total O2 Concentration 40.0 LITERS 11/20/17 06:15 O2 Concentration % 100 % (0-100) 11/19/17 05:00 Respiration Rate 30 11/20/17 06:15 Set Respiration Rate 30 11/20/17 06:15 Assist Control YES 11/19/17 05:00 POC FiO2 100 % (0-100) 11/18/17 09:31 Tidal Volume 450 11/20/17 06:15 End Tidal CO2 14 11/20/17 06:15 PEEP 5 11/20/17 06:15 POC Sodium 142 mEq/L (135-145) 11/18/17 09:36 Sodium 138 mEq/L (135-145) 11/20/17 05:10 POC Potassium 4.1 mEq/L (3.3-5.0) 11/18/17 09:36 Potassium 5.2 mEq/L (3.5-5.2) 11/20/17 05:10 POC Chloride 109 mEq/L (97-110) 11/18/17 09:36 Chloride 108 mEq/L (97-110) 11/20/17 05:10 Carbon Dioxide 13 mEq/l (22-31) L 11/20/17 05:10 Anion Gap 17 mEq/L (8-16) H 11/20/17 05:10 POC BUN 14 mg/dL (7-23) 11/18/17 09:36 BUN 25 mg/dL (7-23) H 11/20/17 05:10 Creatinine 1.2 mg/dL (0.6-1.0) H 11/20/17 05:10 POC Creatinine 0.7 mg/dL (0.6-1.0) 11/18/17 09:36 Estimated GFR 45 11/20/17 05:10 Glucose 80 mg/dL (70-100) 11/20/17 05:10 POC Glucose 99 mg/dL (70-100) 11/20/17 12:24 Calcium 7.1 mg/dL (8.5-10.4) L 11/20/17 05:10 Ionized Calcium 1.02 MMOL/L (1.12-1.30) L 11/20/17 05:10 Phosphorus 3.1 mg/dL (2.5-4.5) 11/19/17 22:19 Magnesium 2.0 mg/dL (1.6-2.3) 11/20/17 05:10 Total Bilirubin 4.9 mg/dL (0.1-1.4) H 11/20/17 05:10 Conjugated Bilirubin 3.7 mg/dL (0.0-0.5) H 11/20/17 05:10 Unconjugated Bilirubin 1.2 mg/dL (0.0-1.1) H 11/20/17 05:10 AST 3641 IU/L (14-46) H 11/20/17 05:10 ALT 1272 IU/L (9-52) H 11/20/17 05:10 Alkaline Phosphatase 447 IU/L (38-126) H 11/20/17 05:10 Troponin I 1.170 ng/mL (0.000-0.034) H 11/20/17 09:41 NT-Pro-B Natriuret Pep 1340 pg/mL (0-125) H 11/16/17 11:44 Total Protein 4.1 g/dL (6.3-8.2) L 11/20/17 05:10 Albumin 2.1 g/dL (3.5-5.0) L 11/20/17 05:10 Prealbumin 3.0 mg/dL (17.6-36.0) L 11/18/17 08:45 Lipase 10 IU/L (23-300) L 11/16/17 11:44 Procalcitonin 0.94 ng/mL (0.02-0.10) H 11/18/17 08:45 Cortisol AM Sample 18.0 ug/dL (4.5-22.7) 11/17/17 03:55 Specimen Hemolysis Cancelled 11/19/17 05:00 Urine Color FCO 11/16/17 11:44 Urine Appearance MODERATELY TURBID 11/16/17 11:44 Urine pH 5.0 (5.0-7.5) 11/16/17 11:44 Ur Specific [place] 1.016 (1.002-1.030) 11/16/17 11:44 Urine Protein 1+ (NEGATIVE) H 11/16/17 11:44 Urine Ketones NEGATIVE (NEGATIVE) 11/16/17 11:44 Urine Blood 3+ (NEGATIVE) H 11/16/17 11:44 Urine Nitrate NEGATIVE (NEGATIVE) 11/16/17 11:44 Urine Bilirubin NEGATIVE (NEGATIVE) 11/16/17 11:44 Urine Urobilinogen 2.0 EU (0.2-1.0) H 11/16/17 11:44 Ur Leukocyte Esterase 2+ (NEGATIVE) H 11/16/17 11:44 Urine RBC 15-25 /hpf (0-3) H 11/16/17 11:44 Urine WBC 50-182 /hpf (0-3) H 11/16/17 11:44 Ur Epithelial Cells NONE SEEN /lpf (NONE-1+) 11/16/17 11:44 Hyaline Casts 25-50 /lpf (0-1) H 11/16/17 11:44 Urine Mucus TRACE /lpf (NONE-1+) 11/16/17 11:44 Urine Yeast PRESENT /hpf (NONE SEEN) 11/16/17 11:44 Urine Glucose NEGATIVE (NEGATIVE) 11/16/17 11:44 Nasal Influenza A PCR NEGATIVE FOR FLU A (NEGATIVE) 11/16/17 12:05 Nasal Influenza B PCR NEGATIVE FOR FLU B (NEGATIVE) 11/16/17 12:05 Stool Occult Bld Scrn POSITIVE (NEGATIVE) H 11/17/17 12:15 Vancomycin Trough 7.6 mcg/mL (5.0-20.0) 11/18/17 15:25 Patient ABO/Rh B POSITIVE 11/18/17 09:10 Antibody Screen NEGATIVE 11/18/17 09:10 Crossmatch IS Only See Detail 11/18/17 09:10 Visualized and Interpreted Chest x-ray results: Yes Visualized and Interpreted imaging results: Yes EKG Interpretation: Positive for: other (Normal sinus rhythm, low voltage in both the precordial and limb leads, loss of anterior R-wave, left axis deviation ) Telemetry: Normal sinus rhythm punctuated by periods of wide complex tachycardia consistent with ventricular tachycardia A/P Assessment: 66-year-old female currently admitted with probable septic shock possibly related to a urinary tract source. Since her hospitalization she has experienced 2 documented episodes of wide complex tachycardia 1 associated with hemodynamic instability. Her ejection fraction has decreased now down to about 15-20% associated with akinesis in the apex and adjacent segments of the apical and midportion of the left ventricle. This may represent transient ischemia with studying in the LAD distribution or potentially takotsubo cardiomyopathy. Other possibilities include myocardial stunning in the setting of sepsis. With her longstanding history of diabetes the likelihood of severe underlying multivessel coronary disease is very high. Additionally, she has developed rising liver function tests likely as result of her hypotension and cardiac arrest on November 18. Furthermore she is anuric and has a significant metabolic acidosis. Her renal failure is likely multifactorial related to her underlying sepsis as well as possible cardiogenic shock. Fortunately, she remains alert and responsive to commands. Her overall prognosis is, obviously, very poor. At the present time we have limited cardiovascular options. Her multiple acute cor morbidities I believe prohibit her safely going to the cardiac catheterization laboratory. Additionally, with acute renal and hepatic failure are antiarrhythmic choices are likewise limited. Her hemodynamic instability also limits our ability to add beta-blockers which would likely provide significant benefit. This case was discussed with Dr. Anand and Dr. Guajardo. Plan: 1. At the present time we will continue to monitor her in the intensive care unit. 2. She has been given intravenous Lasix and nephrology has been consulted. 3. I did have a conversation with her today outlining her overall poor prognosis especially in light of her recent cardiovascular events. 4. Will plan to reassess her in the morning. At that time, we can readdress her suitability for cardiac catheterization. 5. In the event of recurrent ventricular tachycardia I would recommend the institution of amiodarone as first-line therapy. If that fails, lidocaine and low-dose beta-blockers can be considered. In the event of refractory ventricular tachycardia or ongoing drug refractory shock we would have to consider the risk benefit ratio of taking her to the cardiac catheterization laboratory in placing an intra-aortic balloon pump.
[2017-11-20] MEDS: NOREPINEPHRINE BITARTRATE 4 MG in NS 500 ML IV SCH (16:13)
[2017-11-20] MEDS: VASOPRESSIN/DEXTROSE 250 ML IV SCH (16:13)
[2017-11-20] MEDS: VANCOMYCIN 1 GM in D5W 250 ML IV SCH (16:13)
[2017-11-20] MEDS ORDERED: DOBUTamine/DEXTROSE 250 ML IV SCH (16:45)
--- NOTE | 2017-11-20 17:08 | PDCONSULT ---
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 Pt is oliguric, poor response to IV Lasix, lytes ok, worsening lactic acidosis. - No emergent need for HD. - Pt volume overloaded, will stop IVFs. - Please avoid IVFs containing potassium in setting of NICOLE. - Her risk for KARYNA calculates to about 26.1% with 1.09% risk of needing dialysis. However, her Cr is likely uptrending as she is oliguric, and given her severe illness at this time, her risk of further NICOLE and needing dialysis this admission is likely much higher than that regardless of contrast administration. - Will continue to monitor. - Avoid hypotension and nephrotoxins. - Will have thompson catheter changed. Metabolic acidosis: pt has mostly lactic acidosis with uptrending lactate, up to 8.2 now. - pH is 7.39, would not recommend administering bicarb at this time. - Will aim for higher BP, pt on multiple pressors. Shock: may be combination septic and cardiogenic. Pt on multiple pressors, will continue to monitor. Hyperkalemia: K 5.2, will stop IVFs containing K and continue to monitor. Thank you for the interesting consult. Nephrology will continue to follow, please call if you have any additional questions or concerns. H & P Stated Complaint: AMS, hypotension HPI/ROS: HPI: Ms. Lenz is a 66 yo F with h/o DM and baseline Cr of around 0.7-0.9 who was admitted on 11/16/17 with AMS. She had been discharged just 1 week prior to presentation for UTI. She had initially improved with abx but then over a couple days prior to presentation developed worsening mental status, came with Cr of 1.3, lactate of 2 and hypotension. She had an echo done at time of admission with normal EF. on 11/18, she developed vtach with hypotension, required CPR, intubation and amiodarone. Her arrhythmia stabilized but she has had increased pressor requirements since. Repeat echo showed EF down to around 20%. Cardiology has evaluated pt and has concerns for significant underlying coronary vascular disease. They are considering cardiac cath, but are concerned about her increase in Cr from 0.8 in the middle of her admission to 1.2 yesterday, which has remained stable today. Of note, she has a thompson cath and has had minimal UOP today, got a dose of IV Lasix about an hour ago and has not had much response, has only had about 100ml UOP today and only 100ml UOP overnight. Bladder scan done just now shows <100ml. She is on two pressors and starting dobutamine now. ROS: unable to obtain 2/2 clinical condition Source: RN/, Other (EMR) - Personal History Tetanus Vaccine Date: with in 10 years - Medical/Surgical History Hx Asthma: No Hx Chronic Respiratory Disease: No Hx Diabetes: Yes Hx Cardiac Disease: Yes Hx Renal Disease: No Hx Cirrhosis: No Hx Alcoholism: No Hx HIV/AIDS: No Hx Splenectomy or Spleen Trauma: No Other PMH: Chronic back pain, diabetes, anxiety, anemia, opiate withdrawal, gait instability, hyperlipidemia, hypotension, bladder prolapse. Chronic pain. sepsis - Family History Significant Family History: Other (unable to obtain 2/2 clinical condition) - Social History Smoking Status: Never smoked - Physical Exam Exam: General: sedated, no acute distress Eyes: sclerae icteric, PERRL OP: intubated, clear Neck: supple, no thyromegaly CV: RRR, +2 edema all extremities Resp: CTA bilat, intubated and on vent Abd: Soft, NT/ND Neuro: CN II-XII grossly intact, no asterixis Skin: cold extremities, C/D/I Constitutional: Initial Vital Signs Temperature (C) 36.3 C 11/16/17 11:37 Heart Rate 92 11/16/17 11:37 Respiratory Rate 15 11/16/17 11:37 Blood Pressure 68/34 L 11/16/17 11:37 O2 Sat (%) 86 L 11/16/17 11:37 O2 Delivery Mode Nasal Cannula O2 (L/minute) 3 Allergies/Adverse Reactions: codeine Allergy (Severe, Verified 11/02/17 15:27) Loss of consciousness metronidazole [From Flagyl] Allergy (Intermediate, Verified 11/02/17 15:27) Other-Enter Comments quetiapine [From Seroquel] Allergy (Intermediate, Verified 11/02/17 15:27) Other-Enter Comments Home Medications: Medication Instructions Recorded Levothyroxine [Synthroid 100 mcg 100 mcg PO DAILY06 08/27/14 (*)] Multivitamins [Multivitamin (*)] 1 each PO DAILY 03/17/17 traZODone [traZODONE 100MG (*)] 200 mg PO HS 08/06/17 Baclofen [Baclofen 10 mg (*)] 2.5 mg PO Q3 11/02/17 Duloxetine HCl [Cymbalta] 60 mg PO DAILY 11/02/17 Insulin Glargine [Lantus 100 4 units SC HS 11/02/17 UNITS/ML (*)] Insulin Regular Human [Humulin R 0 unit SC PRN PRN 11/02/17 100 units/ml (*)] Ondansetron HCl 4 mg PO BID 11/02/17 Rivaroxaban [Xarelto] 20 mg PO DAILY18 11/02/17 Simvastatin 20 mg PO HS 11/02/17 Sodium Chloride [Salt Tablet] 1 gm PO BID 11/02/17 Trimethoprim [TRIMPEX 100MG (*)] 100 mg PO DAILY 11/02/17 traMADol [Ultram 50 mg (*)] 12.5 mg PO Q3 11/02/17 traZODone [traZODONE 100MG (*)] 100 mg PO HS@0000 11/02/17 Oxybutynin Chloride 5 mg PO BID 11/16/17 morphINE SR [MS Contin/Oramorph SR 30 mg PO BID 11/16/17 30 mg (*)] Lab and Imaging 11/20/17 05:10 11/20/17 05:10 WBC 22.90 10^3/uL (3.80-9.50) H 11/20/17 05:10 RBC 3.85 10^6/uL (4.18-5.33) L 11/20/17 05:10 Hgb 12.4 g/dL (12.6-16.3) L 11/20/17 05:10 POC Hgb 7.1 gm/dL (12.6-16.3) L 11/18/17 09:36 Hct 33.9 % (38.0-47.0) L 11/20/17 05:10 POC Hct 21 % (38-47) L 11/18/17 09:36 MCV 88.1 fL (81.5-99.8) 11/20/17 05:10 MCH 32.2 pg (27.9-34.1) 11/20/17 05:10 MCHC 36.6 g/dL (32.4-36.7) 11/20/17 05:10 RDW 15.6 % (11.5-15.2) H 11/20/17 05:10 Plt Count 165 10^3/uL (150-400) D 11/20/17 05:10 MPV 10.0 fL (8.7-11.7) 11/20/17 05:10 Neut % (Auto) Not Reported 11/20/17 05:10 Lymph % (Auto) Not Reported 11/20/17 05:10 Johnson % (Auto) Not Reported 11/20/17 05:10 Eos % (Auto) Not Reported 11/20/17 05:10 Baso % (Auto) Not Reported 11/20/17 05:10 Nucleat RBC Rel Count 0.3 % (0.0-0.2) H 11/20/17 05:10 Absolute Neuts (auto) Not Reported 11/20/17 05:10 Absolute Lymphs (auto) Not Reported 11/20/17 05:10 Absolute Monos (auto) Not Reported 11/20/17 05:10 Absolute Eos (auto) Not Reported 11/20/17 05:10 Absolute Basos (auto) Not Reported 11/20/17 05:10 Absolute Nucleated RBC 0.06 10^3/uL (0-0.01) H 11/20/17 05:10 Immature Gran % Not Reported 11/20/17 05:10 Seg Neutrophils % 91 % 11/20/17 05:10 Band Neutrophils % 13 % 11/19/17 05:00 Lymphocytes % 5 % 11/20/17 05:10 Monocytes % 3 % 11/20/17 05:10 Metamyelocytes % 1 % 11/20/17 05:10 Immature Gran # Not Reported 11/20/17 05:10 Absolute Seg Neuts 20.84 10^/uL (1.70-6.50) H 11/20/17 05:10 Absolute Band Neuts 3.26 10^3/uL (0.00-0.70) H 11/19/17 05:00 Absolute Lymphocytes 1.15 10^3/uL (1.00-3.00) 11/20/17 05:10 Absolute Monocytes 0.69 10^3/uL (0.30-0.80) 11/20/17 05:10 Absolute Metamyelocyte 0.23 10^3/mL (0.00-0.00) H 11/20/17 05:10 Nucleated RBCs 1 /100 WBC (0-0) H 11/20/17 05:10 RBC/WBC/PLT Morphology NORMAL (NORMAL) 11/18/17 16:25 Toxic Vacuolation PRESENT H 11/20/17 05:10 Platelet Estimate ADEQUATE (ADEQ) 11/20/17 05:10 Polychromasia 1+ H 11/20/17 05:10 Echinocytes 3+ H 11/20/17 05:10 Schistocytes 1+ H 11/19/17 05:00 Smear Review By Nela GARVIN MD 11/20/17 05:10 PT 39.6 SEC (12.0-15.0) H 11/20/17 05:10 INR 4.13 (0.83-1.16) H 11/20/17 05:10 APTT 58.4 SEC (23.0-38.0) H 11/18/17 08:45 POC Blood Source VENOUS 11/18/17 09:31 Puncture Site NONE GIVEN 11/20/17 06:15 Patient Temperature 37.0 DEGREES 11/20/17 06:15 POC pH 7.23 (7.35-7.45) L 11/18/17 09:31 POC pCO2 38 mmHg (34-38) 11/18/17 09:31 pCO2 16 mmHg (34-38) L* 11/20/17 06:15 POC pO2 25 mmHg (65-75) L* 11/18/17 09:31 pO2 86 mmHg (65-75) H 11/20/17 06:15 POC HCO3 16 mEq/L (22-26) L 11/18/17 09:31 Total CO2 10 mEq/L (23-27) L 11/20/17 06:15 POC Total CO2 17 mEq/L (23-27) L 11/18/17 09:31 POC Base Excess -11.0 mEq/L (-2.5-2.5) L 11/18/17 09:31 POC O2 Sat (Calc) 34 % (92-95) L 11/18/17 09:31 ABG pH 7.39 (7.35-7.45) 11/20/17 06:15 ABG PO2/FiO2 Ratio 63 RATIO 11/18/17 10:15 ABG HCO3 10 mEq/L (22-26) L 11/20/17 06:15 ABG O2 Saturation 96 % (92-95) H 11/20/17 06:15 ABG Base Excess -13.3 mEq/L (-2.5-2.5) L 11/20/17 06:15 VBG pH 7.30 (7.31-7.42) L 11/19/17 05:00 VBG HCO3 12 mEQ/L (22-26) L 11/19/17 05:00 VBG Total CO2 13 mEq/L (23-27) L 11/19/17 05:00 VBG O2 Saturation 64 % (65-75) L 11/19/17 05:00 VBG Base Excess -12.0 mEq/L (-2.5-2.5) L 11/19/17 05:00 VBG Lactic Acid 5.9 mmol/L (0.7-2.1) H 11/20/17 09:41 Mixed VBG pCO2 26 mmHg (40-44) L 11/19/17 05:00 Mixed VBG pO2 41 mmHg (35-40) H 11/19/17 05:00 Total O2 Concentration 40.0 LITERS 11/20/17 06:15 O2 Concentration % 100 % (0-100) 11/19/17 05:00 Respiration Rate 30 11/20/17 06:15 Set Respiration Rate 30 11/20/17 06:15 Assist Control YES 11/19/17 05:00 POC FiO2 100 % (0-100) 11/18/17 09:31 Tidal Volume 450 11/20/17 06:15 End Tidal CO2 14 11/20/17 06:15 PEEP 5 11/20/17 06:15 POC Sodium 142 mEq/L (135-145) 11/18/17 09:36 Sodium 138 mEq/L (135-145) 11/20/17 05:10 POC Potassium 4.1 mEq/L (3.3-5.0) 11/18/17 09:36 Potassium 5.2 mEq/L (3.5-5.2) 11/20/17 05:10 POC Chloride 109 mEq/L (97-110) 11/18/17 09:36 Chloride 108 mEq/L (97-110) 11/20/17 05:10 Carbon Dioxide 13 mEq/l (22-31) L 11/20/17 05:10 Anion Gap 17 mEq/L (8-16) H 11/20/17 05:10 POC BUN 14 mg/dL (7-23) 11/18/17 09:36 BUN 25 mg/dL (7-23) H 11/20/17 05:10 Creatinine 1.2 mg/dL (0.6-1.0) H 11/20/17 05:10 POC Creatinine 0.7 mg/dL (0.6-1.0) 11/18/17 09:36 Estimated GFR 45 11/20/17 05:10 Glucose 80 mg/dL (70-100) 11/20/17 05:10 POC Glucose 99 mg/dL (70-100) 11/20/17 12:24 Calcium 7.1 mg/dL (8.5-10.4) L 11/20/17 05:10 Ionized Calcium 1.02 MMOL/L (1.12-1.30) L 11/20/17 05:10 Phosphorus 3.1 mg/dL (2.5-4.5) 11/19/17 22:19 Magnesium 2.0 mg/dL (1.6-2.3) 11/20/17 05:10 Total Bilirubin 4.9 mg/dL (0.1-1.4) H 11/20/17 05:10 Conjugated Bilirubin 3.7 mg/dL (0.0-0.5) H 11/20/17 05:10 Unconjugated Bilirubin 1.2 mg/dL (0.0-1.1) H 11/20/17 05:10 AST 3641 IU/L (14-46) H 11/20/17 05:10 ALT 1272 IU/L (9-52) H 11/20/17 05:10 Alkaline Phosphatase 447 IU/L (38-126) H 11/20/17 05:10 Troponin I 1.170 ng/mL (0.000-0.034) H 11/20/17 09:41 NT-Pro-B Natriuret Pep 1340 pg/mL (0-125) H 11/16/17 11:44 Total Protein 4.1 g/dL (6.3-8.2) L 11/20/17 05:10 Albumin 2.1 g/dL (3.5-5.0) L 11/20/17 05:10 Prealbumin 3.0 mg/dL (17.6-36.0) L 11/18/17 08:45 Lipase 10 IU/L (23-300) L 11/16/17 11:44 Procalcitonin 0.94 ng/mL (0.02-0.10) H 11/18/17 08:45 Cortisol AM Sample 18.0 ug/dL (4.5-22.7) 11/17/17 03:55 Specimen Hemolysis Cancelled 11/19/17 05:00 Urine Color FCO 11/16/17 11:44 Urine Appearance MODERATELY TURBID 11/16/17 11:44 Urine pH 5.0 (5.0-7.5) 11/16/17 11:44 Ur Specific Matthews 1.016 (1.002-1.030) 11/16/17 11:44 Urine Protein 1+ (NEGATIVE) H 11/16/17 11:44 Urine Ketones NEGATIVE (NEGATIVE) 11/16/17 11:44 Urine Blood 3+ (NEGATIVE) H 11/16/17 11:44 Urine Nitrate NEGATIVE (NEGATIVE) 11/16/17 11:44 Urine Bilirubin NEGATIVE (NEGATIVE) 11/16/17 11:44 Urine Urobilinogen 2.0 EU (0.2-1.0) H 11/16/17 11:44 Ur Leukocyte Esterase 2+ (NEGATIVE) H 11/16/17 11:44 Urine RBC 15-25 /hpf (0-3) H 11/16/17 11:44 Urine WBC 50-182 /hpf (0-3) H 11/16/17 11:44 Ur Epithelial Cells NONE SEEN /lpf (NONE-1+) 11/16/17 11:44 Hyaline Casts 25-50 /lpf (0-1) H 11/16/17 11:44 Urine Mucus TRACE /lpf (NONE-1+) 11/16/17 11:44 Urine Yeast PRESENT /hpf (NONE SEEN) 11/16/17 11:44 Urine Glucose NEGATIVE (NEGATIVE) 11/16/17 11:44 Nasal Influenza A PCR NEGATIVE FOR FLU A (NEGATIVE) 11/16/17 12:05 Nasal Influenza B PCR NEGATIVE FOR FLU B (NEGATIVE) 11/16/17 12:05 Stool Occult Bld Scrn POSITIVE (NEGATIVE) H 11/17/17 12:15 Vancomycin Trough 7.6 mcg/mL (5.0-20.0) 11/18/17 15:25 Patient ABO/Rh B POSITIVE 11/18/17 09:10 Antibody Screen NEGATIVE 11/18/17 09:10 Crossmatch IS Only See Detail 11/18/17 09:10
--- NOTE | 2017-11-20 17:12 | ASMTCMCOM ---
CM Note CM Note Notes: Patient continues on the vent, back wound, cardiology concerned about the risks of taking her to the computer laboratory technician and expressing these to . Patient does follow commands. Date Signed: 11/20/2017 05:11 PM Electronically Signed By:Naomy Hoyos LCSW
[2017-11-20] MEDS: oxyCODONE IR 5 MG TAB TUBE PRN (17:36)
--- NOTE | 2017-11-20 18:52 | SOAPPROG ---
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 Tract looks well formed on CT and no sig fluid inflammation around site I can fix it by performing EGD and placing wire thru the PEG from outside, pull old PEG leaving wire in place and put replacement PEG over guidewire. If tract is stenosed then I can also dilate the tract prior to replacing PEG. I could also place a new pull PEG (not a replacement PEG) with modified technique This is not urgent and given her recent code I will wait on the sidelines until human resource officer feel she is stable enough to undergo procedure. 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 Anand possible change tube tomorrow pending clinical status, cardiac status and INR Subjective: cc- buried bumped syndrome pt intubated on pressors, Objective: Vital Signs Temp Pulse Resp BP Pulse Ox 37.8 C 102 H 27 H 99/55 L 96 11/20/17 16:00 11/20/17 18:00 11/20/17 18:00 11/20/17 18:00 11/20/17 17:00 Microbiology 11/19/17 16:25 - Final Sputum, Induced/Suctioned 11/19/17 14:48 Respiratory Panel (PCR) - Final Nasal, Sinus - Swab No Organism Detected Laboratory Results 11/20/17 05:10 11/20/17 17:05 11/19/17 11/20/17 11/21/17 05:59 05:59 05:59 Intake Total 5318 3842 2479 Output Total 775 200 100 Balance 4543 3642 2379 PT 39.6 SEC (12.0-15.0) H 11/20/17 05:10 INR 4.13 (0.83-1.16) H 11/20/17 05:10 intubated, coarse bs anteriorly s1s2 +BS, decreased sig, soft, PEG site no indurated, can feel bumper with palpation ICD10 Worksheet Patient Problems: Problems Problem Status Onset Altered mental status Acute Severe sepsis Acute Urinary tract infection Acute CHF (congestive heart failure) Acute Chronic back pain Acute Chronic pain Acute Dehydration Acute Hyponatremia Acute Hypoxic Acute Pneumonia Acute Respiratory failure Acute Sepsis Acute Status post cervical arthrodesis Acute Vomiting Acute Weakness Acute
[2017-11-20] MEDS ORDERED: AMIODARONE HCL 150 MG/3 ML VIAL IV ONE (19:45)
--- NOTE | 2017-11-20 20:26 | HOSPPROG ---
Hospitalist Progress Note Assessment/Plan: * Shock - sepsis vs cardiogenic -Levophed + vasopressin (improved - was previously on 4 pressors) -despite pressors - lactate is rising indicating ongoing poor perfusion -increase MAP goal 65 -? cardiogenic - cards considering IABP * s/p cardiac arrest -EF newly reduced to 15% -troponin only minimally elevated but new anterior wall motion abnormality -consider cath - renal says ok to proceed despite low UOP * Vtach -per cardiology - if recurrent then restart amiodarone -2nd line lidocaine, 3rd line low dose beta karen * Acute hepatic failure - increasing LFT/INR -also likely due to poor perfusion/sepsis/shock -rani-portal edema on CT c/w possible cholangitis? -consider MRCP * UTI with chronic thompson catheter (POA) -likely source of sepsis - Silvana Tropicalis -meropenum, IV vanco, micafungin * DM I - since age 10 * ARF - minimal UOP -nephrology consulted - patient volume overload -no indication for acute dialysis -if cardiac cath necessary for life saving measure - ok to proceed -try IV albumin * Chronic PEG - dislodged -needs EGD for replacement once stabilized * Acute respiratory failure -per Dr. Anand possible extubation in am -awake and following commands on the vent * Afib -holding Xarelto * Chronic pain with continuous narcotic dependency CC time spent 50 minutes Subjective: Vtach again this am. ongoing hypotension, lactate rising, minimal UOP. Objective: Vital Signs Temp Pulse Resp BP Pulse Ox 37.8 C 107 H 20 111/58 L 99 11/20/17 16:00 11/20/17 19:00 11/20/17 19:00 11/20/17 19:00 11/20/17 19:00 Microbiology 11/19/17 16:25 - Final Sputum, Induced/Suctioned 11/19/17 14:48 Respiratory Panel (PCR) - Final Nasal, Sinus - Swab No Organism Detected Laboratory Results 11/20/17 05:10 11/20/17 17:05 11/19/17 11/20/17 11/21/17 05:59 05:59 05:59 Intake Total 5318 3842 2479 Output Total 775 200 100 Balance 4543 3642 2379 PT 39.6 SEC (12.0-15.0) H 11/20/17 05:10 INR 4.13 (0.83-1.16) H 11/20/17 05:10 Case d/w at length with Dr. Franz, Dr. Berger and Dr. Anand - complicated, worsening despite max treatment, she may be dying despite out best efforts - Physical Exam Constitutional: no apparent distress, appears nourished, not in pain Cardiovascular: regular rate and rhythym, no murmur, rub, or gallop, edema (3+) Respiratory: no respiratory distress, no rales or rhonchi, clear to auscultation Gastrointestinal: normoactive bowel sounds, soft, non-tender abdomen, no palpable masses Skin: mottled, other (very cool extremities), No warm Neurologic: No AAOx3 Psychiatric: interacting appropriately ICD10 Worksheet Patient Problems: Problems Problem Status Onset Altered mental status Acute Severe sepsis Acute Urinary tract infection Acute CHF (congestive heart failure) Acute Chronic back pain Acute Chronic pain Acute Dehydration Acute Hyponatremia Acute Hypoxic Acute Pneumonia Acute Respiratory failure Acute Sepsis Acute Status post cervical arthrodesis Acute Vomiting Acute Weakness Acute
[2017-11-20] MEDS ORDERED: MAGNESIUM SULF 1 GM/DEXTROSE 100 ML IV ONE (20:30)
[2017-11-20] MEDS ORDERED: AMIODARONE HCL 150 MG/3 ML VIAL IVP ONE (20:30)
[2017-11-20] MEDS ORDERED: AMIODARONE A.FIB-6HR INFSN (ORDER 2/3) PREMIX IV ONE (20:30)
--- NOTE | 2017-11-20 23:24 | HOSPPROG ---
Hospitalist Progress Note Assessment/Plan: Asked to see this patient due to sudden sustained V-tach with hypotension of pressors, dobutamine, ventilator. Known acute renal failure. Patient currently with sepsis, gram negative with Abx of unknow source, acute renal failure, acute hypoxic respiratory failure, persistent sepsis with elevated lactate, recently worsening LVEF to Ef 10-15%. Patient noted to be alert on ventilator without specific complaint. hypotensive on levophed, rhythm in sinus now following bolus of amiodarone 300mg and amio drip. Lungs anterior are course, abdomen benign, vent at 40% O2 and SaO2 > 92% . Labs reviewed. Assess: Persistent V-tach with persistent sepsis, elevated lactate, source unclear on Abx. Plan: amiodarone 300mg iv and drip Lidocaine if reoccurs. time: 40 minutes critical care time Objective: Vital Signs Temp Pulse Resp BP Pulse Ox 38.2 C 94 27 H 95/50 L 95 11/20/17 23:00 11/20/17 23:00 11/20/17 23:00 11/20/17 23:00 11/20/17 23:00 Microbiology 11/19/17 16:25 - Final Sputum, Induced/Suctioned 11/19/17 14:48 Respiratory Panel (PCR) - Final Nasal, Sinus - Swab No Organism Detected Laboratory Results 11/20/17 05:10 11/20/17 17:05 11/19/17 11/20/17 11/21/17 05:59 05:59 05:59 Intake Total 5318 3842 2479 Output Total 775 200 100 Balance 4543 3642 2379 PT 39.6 SEC (12.0-15.0) H 11/20/17 05:10 INR 4.13 (0.83-1.16) H 11/20/17 05:10 ICD10 Worksheet Patient Problems: Problems Problem Status Onset Altered mental status Acute Severe sepsis Acute Urinary tract infection Acute CHF (congestive heart failure) Acute Chronic back pain Acute Chronic pain Acute Dehydration Acute Hyponatremia Acute Hypoxic Acute Pneumonia Acute Respiratory failure Acute Sepsis Acute Status post cervical arthrodesis Acute Vomiting Acute Weakness Acute
[2017-11-20] MEDS: ALBUMIN 25% 100 ML IV SCH (23:53)
[2017-11-21] MEDS: INSULIN LISPRO 100 UNIT/ML SC SCH ×3 (00:30→11:26)
[2017-11-21] MEDS ORDERED: AMIODARONE A.FIB-18HR INFSN (ORDER 3/3) IV ONE (02:30)
[2017-11-21 04:48] LABS: PLATELET COUNT 129 10^3/uL (150-400)
[2017-11-21] MEDS: ALBUMIN 25% 100 ML IV SCH ×2 (05:04→11:39)
[2017-11-21] MEDS: NOREPINEPHRINE BITARTRATE 4 MG in NS 500 ML IV SCH ×2 (05:31→10:03)
[2017-11-21] MEDS: VASOPRESSIN/DEXTROSE 250 ML IV SCH (05:53)
[2017-11-21] MEDS ORDERED: CALCIUM GLUCONATE 1 GM in D5W 50 ML IV ONE (06:30)
[2017-11-21] MEDS: oxyCODONE IR 5 MG TAB TUBE PRN (06:40)
[2017-11-21 07:10] LABS: INR 6.21 (0.83-1.16)
[2017-11-21 08:13] VITALS: RESP 20
[2017-11-21] MEDS: PANTOPRAZOLE SODIUM 40 MG VIAL IVP SCH (08:50)
[2017-11-21] MEDS: MEROPENEM 1 GM in STERILE WATER INJ 20 ML IV SCH (08:52)
--- NOTE | 2017-11-21 09:04 | CPEKG ---
Heart Rate: 104 RR Interval: 577 P-R Interval: 179 QRSD Interval: 72 QT Interval: 308 QTC Interval: 405 P [place]: 0 QRS [place]: -58 T Wave [place]: 87 EKG Severity - ABNORMAL ECG - EKG Impression: SINUS TACHYCARDIA EKG Impression: CONSIDER INFERIOR INFARCT EKG Impression: ANTERIOR INFARCT, AGE INDETERMINATE EKG Impression: LOW VOLTAGE Electronically Signed By: Alex Franz 21-Nov-2017 15:50:43
[2017-11-21] MEDS: MICAFUNGIN NA 100 MG in NS 100 ML IV SCH (09:06)
--- NOTE | 2017-11-21 09:26 | SOAPPROG ---
SOAP Progress Note Assessment/Plan: Assessment: 1)NICOLE- suspect ATN in setting of shock (cardiac + sepsis), baseline Cr < 1 2)Shock- requiring multiple pressors, recent VT arrest 3)Acute hypoxic resp failure, volume overloaded, on 40% FIO2 4)Metabolic acidosis 5)Hyperkalemia 6)frail baseline- feeding tube in place 7)DM I 8)A fib 9)shock liver, coagulopathic She is now oliguric, worsening hyperK and acidosis---> would be at point where we need to consider CRRT if we were to continue aggressive care but I think she is dying and this would be futile care. I discussed at length with hospitalist, cardiology, and ICU and we are in agreement. PLans to discuss further with later this am. Please page me if there are any questions. May Castellano MD [facility] [phone] 11/21/17 09:29 Subjective: Remains on multiple pressors, FIO2 40%. UOP 150 cc overnight. Objective: Vital Signs Temp Pulse Resp BP Pulse Ox 38.5 C H 104 H 20 93/49 L 97 11/21/17 08:00 11/21/17 08:00 11/21/17 08:00 11/21/17 08:00 11/21/17 08:00 Microbiology 11/19/17 16:25 - Final Sputum, Induced/Suctioned Laboratory Results 11/21/17 04:20 11/21/17 04:20 11/20/17 11/21/17 11/22/17 05:59 05:59 05:59 Intake Total 3842 4738 Output Total 200 225 Balance 3642 4513 PT 54.0 SEC (12.0-15.0) H D 11/21/17 04:20 INR 6.21 (0.83-1.16) H* 11/21/17 04:20 Physical Exam - Physical Exam General Appearance: other (intubated, sedated) EENT: ET tube Respiratory: other (coarse bs bilat) Cardiac/Chest: regular rate, rhythm Abdomen: soft, other (PEG in place) Skin: warm/dry Extremities: other (++edema bilat) Neuro/Psych: other (sedated) ICD10 Worksheet Patient Problems: Problems Problem Status Onset Altered mental status Acute Severe sepsis Acute Urinary tract infection Acute CHF (congestive heart failure) Acute Chronic back pain Acute Chronic pain Acute Dehydration Acute Hyponatremia Acute Hypoxic Acute Pneumonia Acute Respiratory failure Acute Sepsis Acute Status post cervical arthrodesis Acute Vomiting Acute Weakness Acute
[2017-11-21 09:28] VITALS: O2SAT 94
--- NOTE | 2017-11-21 09:30 | PDCARPN ---
Cardiology Progress Note Chief Complaint: Sustained ventricular tachycardia. Assessment/Plan: Assessment: 1. Sepsis syndrome. She has ongoing hypotension requiring multiple pressors. Additionally, she continues to manifest refractory acidosis. The source has not yet been identified. She is being treated with broad-spectrum antibiotics. 2. Cardiomyopathy. This is an acute event. This may represent myocardial stunning in the setting of hypotension. Other possibilities include cardiomyopathy related to sepsis, Takotsubo syndrome or potentially giant cell myocarditis. This is most certainly contributing to her hypotension and renal failure. 3. Oliguric acute renal failure. Likely on the basis of sepsis and the above- noted cardiomyopathy. 4. Hepatic failure. She has evidence of transaminitis and a markedly elevated INR. Likely multifactorial related to hypotension, sepsis and passive congestion. 5. Respiratory failure. Related to the above. 6. Type I diabetes mellitus. 7. History of paroxysmal atrial fibrillation. At this point, her prognosis is extremely poor. I think it is unlikely that any intervention from a cardiac perspective would improve upon that prognosis. Additionally, with her multi-system organ failure I think the likelihood of us causing significant harm in our attempts to improve the situation are much greater than the possibility of providing benefit. This was discussed with the who was at the patient's bedside. He states that he understands. Plan: 1. Continue intravenous amiodarone. 2. Discontinue dobutamine in light of her frequent episodes of ventricular tachycardia. 3. The case was discussed with Dr. Regino Anand. He has plans to talk about hospice care with the . I think this is the best course of action. 4. We will follow at a distance. 11/21/17 09:25 Subjective: Apparently, the patient experienced another episode of ventricular tachycardia last night. Fortunately, CPR was not necessary. She was administered amiodarone and started on an amiodarone drip. She has been in sinus rhythm since then. She continues to be all occurred during care and hypotensive requiring multiple pressors. Apparently dobutamine was added. Objective: Vital Signs (8 Hrs) Temp Pulse Resp BP Pulse Ox 11/21/17 08:00 38.5 C H 104 H 20 93/49 L 97 11/21/17 07:00 104 H 17 87/48 L 94 11/21/17 06:00 38.5 C H 102 H 24 H 95/68 L 97 02/06/18 05:00 38.5 C H 100 24 H 107/78 11/21/17 04:00 38.5 C H 98 25 H 99/54 L 11/21/17 03:00 38.5 C H 96 33 H 95/52 L 92 11/21/17 02:00 38.5 C H 96 31 H 90/56 L 96 Intake/Output (24 Hrs) 11/20/17 11/21/17 11/22/17 05:59 05:59 05:59 Intake Total 3842 4738 Output Total 200 225 Balance 3642 4513 Intake: Oral (ml) 60 IV Intake (ml) 695 1586 IV Infused (ml) 2720 3092 Albumin 25% 100 ml @ As 200 Directed IV Q6HRS JANET Rx# :[id number] Amiodarone HCl 200 ml @ 200 33.333 mls/hr IV ONCE ONE Rx#:[id number] Amiodarone HCl 540 mg In 42 D5w 300 ml @ 16.667 mls/ hr IV ONCE ONE Rx#: [id number] Amiodarone HCl 540 mg In 54 D5w 300 ml @ 16.667 mls/ hr IV ONCE ONE Rx#: [id number] DOBUTamine/DEXTROSE 250 122 ml @ Titrate IV [facility] Rx#:[id number] NS W/ 20 KCl/L 1,000 ml @ 1126 250 100 mls/hr IV [facility] Rx#:[id number] Norepinephrine Bitartrate 397 1701 4 mg In Ns 500 ml @ Per Protocol IV [facility] Rx#: [id number] Norepinephrine/Ns 500 ml 586 @ Per Protocol IV [facility] Rx#:[id number] Vasopressin/Dextrose 250 569 565 ml @ 24 mls/hr IV [facility] Rx#:[id number] Fresh Frozen Plasma (ml) 427 Output: Urine (ml) 175 225 Catheter 175 225 OG Tube Output (ml) 25 0 Large Bore (>12 Tajik) 25 0 Stomach Other: Number of Stools Catheter 1 Bladder Scan Volume (ml) Catheter 80 Result Diagrams: 11/21/17 04:20 11/21/17 04:20 Cardiac Labs: Cardiac Lab Results (72 Hrs) 11/20/17 11/20/17 17:05 09:41 Troponin I 0.855 H 1.170 H EKG: Sinus tachycardia. Low voltage. Loss of anterior R waves. Telemetry: Sinus tachycardia. Episodes of ventricular tachycardia. Echocardiogram: Reported in the medical record. ICD10 Worksheet Patient Problems: Problems Problem Status Onset Altered mental status Acute Severe sepsis Acute Urinary tract infection Acute CHF (congestive heart failure) Acute Chronic back pain Acute Chronic pain Acute Dehydration Acute Hyponatremia Acute Hypoxic Acute Pneumonia Acute Respiratory failure Acute Sepsis Acute Status post cervical arthrodesis Acute Vomiting Acute Weakness Acute
[2017-11-21 10:13] VITALS: TEMP 101.1
[2017-11-21] MEDS: D50W 25 GM/50 ML SYR IVP PRN (11:35)
[2017-11-21] MEDS ORDERED: LORazepam 2 MG/ML INJ IVP PRN (11:52)
[2017-11-21] MEDS ORDERED: GLYCOPYRROLATE 0.2 MG/1 ML VIAL IVP PRN (11:52)
--- NOTE | 2017-11-21 12:07 | PDINTPN ---
Software Application Tester Progress Note Assessment/Plan: Assessment: 66-year-old with a long history of diabetes, recurrent urinary tract infections , an indwelling Dietrich catheter admitted on 11/16 with the sepsis, possibly from a recurrent urinary source. S/p arrest with prolonged cardiopulmonary resuscitation with eventual return of spontaneous circulation. Mental status intact. Witnessed arrest 11/18/17: Associated with severe new cardiomyopathy, with an ejection fraction of about 15%. Possibly related to relatively acute myocardial infarction versus stunned myocardium? Cardiology input appreciated: Not a candidate for catheterization and therapeutic interventions if needed at this time secondary to severe renal failure, multi organ failure. On 3 pressors to maintain blood pressure. CVP remains high above 16. Episodes of VT persist. Amiodarone restarted. Sepsis: Suspect pulmonary or GI source initially. Findings could also be related to G-tube displacement, but minimal local inflammation seen on CT and only meds were being given through the tube. On Vanco/Meropenam/Mycafungin. Infectious Disease following. Acidosis: On going. Lactate greater than 5. This may be related to her arrest and delayed clearance of acid. Ongoing sepsis cannot be excluded however clinically she looks better than this. Will follow. Chronic Narcotic use, oversedation at admission: Improved with Narcan gtt, now off. Chronic AF: Anticoagulated. Rate high. On Amio Acute respiratory failure/Possible Pneumonia: Looks more like effusion with atelectasis on initial CT, now with more extensive infiltrates/edema. On empiric antibiotics as above. On 40% but unable to wean secondary to obtundation. Renal: Minimal urine output. Renal consultation appreciated. Will need hemodialysis if we are going to continue aggressive support however this likely will be poorly tolerated and in the setting of multiorgan failure probably will not affect her outcome as likely over the next several days no matter what we do. Hepatic failure: Shock liver. INR significantly higher today. LFTs remain elevated. Anemia: Suspect some GI blood loss with anticoagulation, anemia of chronic disease. Now s/p transfusion PRBCx2, H/H normal. G-tube positioning: Balloon is outside of stomach, ? if tip is still in stomach. Cor status: Full cor. Prognosis poor. I discussed the patient's situation with the patient's and her son, including her multi organ failure involving respiratory, renal, cardiac and hepatic symptoms. I do not expect that we can reverse these processes and I believe that the patient is dying. Her and her son understand and wish to change to comfort care only and allow natural . Plan: We will change to comfort care only, extubate, stop pressors, antibiotics and other supportive medications. Orders for morphine sulfate, Ativan and glycopyrrolate given. Patient is "do not resuscitate". D/W pt's , respiratory, nursing, hospitalist, cardiology, renal, and the ICU multi disciplinary team. 45 min of critical care time spent directly with the patient and her family. 11/21/17 12:17 Subjective: Of tended, on ventilator, pressors Objective: Vital Signs Temp Pulse Resp BP Pulse Ox 38.4 C H 105 H 20 106/95 H 94 11/21/17 10:00 11/21/17 11:00 11/21/17 11:00 11/21/17 11:00 11/21/17 08:55 Microbiology 11/19/17 16:25 - Final Sputum, Induced/Suctioned Laboratory Results 11/21/17 04:20 11/21/17 04:20 11/20/17 11/21/17 11/22/17 05:59 05:59 05:59 Intake Total 3842 4738 Output Total 200 225 Balance 3642 4513 PT 54.0 SEC (12.0-15.0) H D 11/21/17 04:20 INR 6.21 (0.83-1.16) H* 11/21/17 04:20 Laboratory Tests 11/21/17 11/21/17 11/21/17 04:20 04:20 04:20 PT 54.0 H D INR 6.21 H* VBG pH 7.20 L VBG Total CO2 10 L VBG O2 Saturation 68 VBG Lactic Acid Mixed VBG pCO2 25 L Mixed VBG pO2 49 H Set Respiration Rate 20 SIMV YES Tidal Volume 450 Calcium 7.2 L Ionized Calcium Total Bilirubin 6.7 H AST 1665 H ALT 877 H Albumin 2.4 L 11/21/17 11/21/17 04:20 04:20 PT INR VBG pH VBG Total CO2 VBG O2 Saturation VBG Lactic Acid 7.6 H Mixed VBG pCO2 Mixed VBG pO2 Set Respiration Rate SIMV Tidal Volume Calcium Ionized Calcium 1.05 L Total Bilirubin AST ALT Albumin CXR: Consistent with congestive heart failure/pulmonary edema/pleural effusions. Lines and tubes in good position. Physical Exam - Physical Exam General Appearance: obtunded EENT: PERRL/EOMI (Small pupils), ET tube, other (Maxine) Neck: other (Jugular venous distension present comma CVP 16+) Respiratory: lungs clear (Anteriorly), decreased breath sounds (At both bases with dullness), rales (Few bilaterally above basis), No rhonchi Cardiac/Chest: gallop, tachycardia (Sinus) Abdomen: non-tender, soft, No normal bowel sounds (Decreased) Pelvic Exam: other (Dietrich catheter in place, little urine output: 200 mls last 24 hr) Skin: warm/dry, pallor Extremities: swelling (Bilateral edema/anasarca present) Neuro/Psych: cognition abnormalities (Barely opens eyes to stimulation. Unresponsive otherwise), No no motor/sensory deficits (Cannot assess) ICD10 Worksheet Patient Problems: Problems Problem Status Onset Hyponatremia Acute Status post cervical arthrodesis Acute Pneumonia Acute Altered mental status Acute Dehydration Acute Weakness Acute Chronic pain Acute Chronic back pain Acute Vomiting Acute Sepsis Acute Hypoxic Acute Respiratory failure Acute CHF (congestive heart failure) Acute Urinary tract infection Acute Severe sepsis Acute
[2017-11-21 12:38] VITALS: BP 103/41; PULSE 78
--- NOTE | 2017-11-21 12:48 | ASMTCMCOM ---
CM Note CM Note Notes: Numerous life suppport measures needed. Parcel Post Carrier spoke to and son who have decided to withdraw care and have comfort measures at this time. Date Signed: 11/21/2017 12:47 PM Electronically Signed By:Naomy Hoyos LCSW
--- NOTE | 2017-11-21 15:27 | SOAPPROG ---
SOAP Progress Note Assessment/Plan: Assessment:Plan: events noted, pt comfort care only will sign off Objective: Vital Signs Temp Pulse Resp BP Pulse Ox 38.4 C H 78 20 103/41 L 94 11/21/17 10:00 11/21/17 12:00 11/21/17 12:00 11/21/17 12:00 11/21/17 08:55 Microbiology 11/19/17 16:25 - Final Sputum, Induced/Suctioned Sputum Culture - Final Silvana Tropicalis Silvana [place] Laboratory Results 11/21/17 04:20 11/21/17 04:20 11/20/17 11/21/17 11/22/17 05:59 05:59 05:59 Intake Total 3842 4738 Output Total 200 225 Balance 3642 4513 PT 54.0 SEC (12.0-15.0) H D 11/21/17 04:20 INR 6.21 (0.83-1.16) H* 11/21/17 04:20 ICD10 Worksheet Patient Problems: Problems Problem Status Onset Altered mental status Acute CHF (congestive heart failure) Acute Chronic back pain Acute Chronic pain Acute Dehydration Acute Hyponatremia Acute Hypoxic Acute Pneumonia Acute Respiratory failure Acute Sepsis Acute Severe sepsis Acute Status post cervical arthrodesis Acute Urinary tract infection Acute Vomiting Acute Weakness Acute
--- NOTE | 2017-11-21 18:52 | HOSPPROG ---
Hospitalist Progress Note Assessment/Plan: * Shock - sepsis vs cardiogenic -Levophed + vasopressin (improved - was previously on 4 pressors) -despite pressors - lactate is rising indicating ongoing poor perfusion -increase MAP goal 65 -? cardiogenic - cards considering IABP * s/p cardiac arrest -EF newly reduced to 15% -troponin only minimally elevated but new anterior wall motion abnormality -consider cath - renal says ok to proceed despite low UOP * Vtach -back on IV amiodarone * Acute hepatic failure - increasing LFT/INR -also likely due to poor perfusion/sepsis/shock -rani-portal edema on CT c/w possible cholangitis? -consider MRCP * UTI with chronic thompson catheter (POA) -likely source of sepsis - Silvana Tropicalis -meropenum, IV vanco, micafungin * DM I - since age 10 * ARF - minimal UOP -nephrology consulted - patient volume overload -CRRT needed if care to continue * Chronic PEG - dislodged -needs EGD for replacement once stabilized * Acute respiratory failure -vent * Afib -holding Xarelto * Chronic pain with continuous narcotic dependency Subjective: Went into Vtach last night and IV amiodarone started Objective: Vital Signs Temp Pulse Resp BP Pulse Ox 38.4 C H 78 20 103/41 L 94 11/21/17 10:00 11/21/17 12:00 11/21/17 12:00 11/21/17 12:00 11/21/17 08:55 Microbiology 11/19/17 16:25 - Final Sputum, Induced/Suctioned Sputum Culture - Final Silvana Tropicalis Silvana Gl[place] Laboratory Results 11/21/17 04:20 11/21/17 04:20 11/20/17 11/21/17 11/22/17 05:59 05:59 05:59 Intake Total 3842 4738 Output Total 200 225 Balance 3642 4513 PT 54.0 SEC (12.0-15.0) H D 11/21/17 04:20 INR 6.21 (0.83-1.16) H* 11/21/17 04:20 case d/w Dr. Anand and Dr. Coronado - prognosis poor. Would need CRRT if to continue but poor candidate due to multiorgan failure CXR - chf - Physical Exam Constitutional: no apparent distress (on vent), appears nourished, not in pain Cardiovascular: regular rate and rhythym, no murmur, rub, or gallop Respiratory: no respiratory distress, no rales or rhonchi, clear to auscultation Gastrointestinal: normoactive bowel sounds, soft, non-tender abdomen, no palpable masses Skin: no rashes or abrasions, no fluctuance, no induration Neurologic: No AAOx3 Psychiatric: encephalopathic, agitated, poor insight, poor judgement, poor memory, other (intubated and sedated, less following commands today) ICD10 Worksheet Patient Problems: Problems Problem Status Onset Altered mental status Acute CHF (congestive heart failure) Acute Chronic back pain Acute Chronic pain Acute Dehydration Acute Hyponatremia Acute Hypoxic Acute Pneumonia Acute Respiratory failure Acute Sepsis Acute Severe sepsis Acute Status post cervical arthrodesis Acute Urinary tract infection Acute Vomiting Acute Weakness Acute
--- NOTE | 2017-11-22 02:59 | GDS ---
[f rep st] DISCHARGE SUMMARY SUMMARY. DATE OF : November 21, 2017. DIAGNOSES: 1. Septic versus cardiogenic shock. 2. Cardiac arrest. 3. Ventricular tachycardia. 4. Multiorgan failure. 5. Acute hepatic failure. 6. Acute renal failure. 7. Urinary tract infection with chronic Dietrich catheter present on admission, suspect Silvana tropica lis. 8. Diabetes type 1, long-standing. 9. Chronic percutaneous endoscopic gastrostomy, dislodged. 10. Acute respiratory failure. 11. Atrial fibrillation. 12. Chronic pain with continuous narcotic dependency. HISTORY: The patient is a 66-year-old female, who has been debilitated for quite some time, mostly d ue to chronic pain and neuropathy, resulting from a long-standing history of poorly controlled type 1 diabetes. She also has a chronic Dietrich catheter and has frequent admissions for urinary tract infec tion. She was admitted to the hospital with sepsis from a recurrent UTI, and her condition continued to worsen throughout her hospitalization. Despite broad antibiotics, including IV meropenem, IV van comycin, and IV micafungin, she continued to spike persistent daily fevers. Her urine grew Sivlana t ropicalis, which was being treated by Infectious Disease. She underwent a cardiac arrest, from which she did recover; however, since that rest, she has been critically ill and at 1 point, required 4 pr essors to maintain the blood pressure. Her lactate never cleared and she continued to have persisten t lactic acid elevation. She went back into ventricular tachycardia and was restarted on IV amiodaro ne. Her post cor ejection fraction was now down to 15%. She was too critically ill to ever get a ca rdiac catheterization. She went into renal failure. SCALP SPECIALIST was going to be needed. She remained on th e ventilator. She had progressive multiorgan failure including acute hepatic failure with her INR ri sing daily, and it was up to 6 at the time of her . It became quite obvious to the team that th is was not a survivable event and discussions were had with the , who agreed to comfort measur es only. She was extubated and rapidly . /[id number]/MODL
[2017-11-22 03:36] LABS: HEPATITIS B SURFACE ANTIGEN NEGATIVE (NEGATIVE)
[2017-11-22 03:41] LABS: HEPATITIS A ANTIBODY IGM (BCH) NEGATIVE (NEGATIVE); HEPATITIS B CORE AB IGM NEGATIVE (NEGATIVE)
[2017-11-22 03:53] LABS: HEPATITIS C ANTIBODY TOTAL NEGATIVE (NEGATIVE)
--- NOTE | 2017-11-24 12:23 | PQFORM ---
PHYSICIAN QUERY FORM Needs Your Response This query form is being sent to you to assure this patient record is coded properly. Please respond to the question below: [id number] SOFTWARE ENGINEER QUESTION: Dear Dr. Huntley, In reviewing this patients medical record, it was noted patient presented with UTI along with having a Chronic Dietrich catheter. In the ER report patient had the diagnosis of "urinary retention with Indwelling catheter, with a diagnosis of UTI." In the H&P patient had a history of "urinary retention with Indwelling catheter" and "a history of Catheter associated UTI." In the 11/16 Infectious Disease progress note it was noted "urinary etiology possible etiology for presentation." After study, can this patients UTI be further specified? Acute cystitis Acute Pyelonephritis Infection and Inflammatory reaction due to urinary catheter Other more appropriate diagnosis (please specify) ___x__ Unable to determine Thank you NORBERTO Garzon HIM/Coding Dept. [phone] INSTRUCTIONS FOR RESPONSE: Answer question by clicking on the "Edit Document" button. Move cursor to area below the stars. When complete, hit "Save." Click on the "Sign" button, then click "Sign" again. Type in your PIN and hit "Enter." MTDD
== END 2017-11-21 12:55 | disposition expired | DRG 871 ==
LOC: EDUNIT# → F2N 15:07
PROVIDERS: ADMIT Internal Medicine; ATTEND Internal Medicine
PROC: 02HV33Z Insertion of Infusion Device into Superior Vena Cava, Percutaneous Approach (ICD-10-PCS; principal; 2017-11-17)
PROC: 5A1945Z Respiratory Ventilation, 24-96 Consecutive Hours (ICD-10-PCS; 2017-11-18)
PROC: 0BH17EZ Insertion of Endotracheal Airway into Trachea, Via Natural or Artificial Opening (ICD-10-PCS; 2017-11-18)
PROC: 30233N1 Transfusion of Nonautologous Red Blood Cells into Peripheral Vein, Percutaneous Approach (ICD-10-PCS; 2017-11-18)
PROC: 30233K1 Transfusion of Nonautologous Frozen Plasma into Peripheral Vein, Percutaneous Approach (ICD-10-PCS; 2017-11-19)
DX: A41.9 Sepsis, unspecified organism (principal); R65.21 Severe sepsis with septic shock; K72.00 Acute and subacute hepatic failure without coma; J96.00 Acute respiratory failure, unspecified whether with hypoxia or hypercapnia; L89.153 Pressure ulcer of sacral region, stage 3; K94.23 Gastrostomy malfunction; N39.0 Urinary tract infection, site not specified; F11.20 Opioid dependence, uncomplicated; N17.9 Acute kidney failure, unspecified; B37.89 Other sites of candidiasis; I46.9 Cardiac arrest, cause unspecified; R00.0 Tachycardia, unspecified; E10.40 Type 1 diabetes mellitus with diabetic neuropathy, unspecified; G89.29 Other chronic pain; I48.0 Paroxysmal atrial fibrillation; E03.9 Hypothyroidism, unspecified; D64.9 Anemia, unspecified; Z87.440 Personal history of urinary (tract) infections; Z51.5 Encounter for palliative care; Z66 Do not resuscitate; Z79.01 Long term (current) use of anticoagulants
CPT/HCPCS: 82947-QW; 84134-90; 96365; C1751; G0472; J0171; J0282; J0610; J0696; J1250; J1815; J1940; J1956; J2060; J2185; J2248; J2270; J2310; J2370; J2405; J3370; J3475; P9016; P9017; P9041; P9047; Q9967